=== PATIENT | female | born 1985 | race Caucasian/White ===

== ENCOUNTER 2023-05-24 20:18 | Outpatient (REF) | payer OTHER, SELFPAY ==
[2023-05-30 08:07] LABS: Age Gdln ACOG Testing Note (.); HPV Aptima Negative (Negative); IGP, Aptima HPV, rfx 16/18,45 Note (.)
== END 2023-05-24 20:19 | disposition home or self-care (01) ==
LOC: LAB 20:18
PROVIDERS: Visit Provider Obstetrics & Gynecology
DX: Z01.419 Encounter for gynecological examination (general) (routine) without abnormal findings (principal)
CPT/HCPCS: 87624; G0145

== ENCOUNTER 2023-10-01 19:17 | Emergency (ER) | payer OTHER, SELFPAY ==
[2023-10-01 19:23] VITALS: BP 144/88; PULSE 92; RESP 20; TEMP 36.8; O2SAT 98; BMI 42.1
--- NOTE | 2023-10-01 19:35 | ED.BACK1 ---
HPI - Back Pain/Injury General Chief Complaint: Back Pain/Injury Stated Complaint: back pain Time Seen by Provider: 10/01/23 19:20 Source: patient Mode of arrival: Wheelchair Limitations: no limitations History of Present Illness HPI Narrative: Patient is a 38-year-old female with a history of morbid obesity who presents to the ER for a 4-day history of pain in the paraspinal muscles of the right low back. She states pain is right above the right hip/buttock. There is no pain radiation to the legs, no peripheral paresthesias. No urinary symptoms. She denies any mechanism of injury or trauma. She was seen yesterday at [facility], she had negative x-rays and was prescribed Cary and Robaxin. She states she has had 2 doses of that medication today without improvement and is still having difficulty moving. She is not concerned for . She has no pain to the midline spine. Related Data Home Medications Medication Instructions Recorded Confirmed albuterol sulfate 90 mcg/actuation 2 puff inhalation Q4H PRN 10/01/23 10/01/23 aerosol inhaler shortness of breath or wheezing bupropion HCl 100 mg tablet,12 hr 100 mg PO Q12H 10/01/23 10/01/23 sustained-release carbamazepine 200 mg tablet 200 mg PO Q12H 10/01/23 10/01/23 hydrocodone 5 mg-acetaminophen 325 1 tab PO Q4H PRN pain 10/01/23 10/01/23 mg tablet hydroxyzine pamoate 50 mg capsule 50 mg PO Q6H 10/01/23 10/01/23 levothyroxine 137 mcg tablet 137 mcg PO DAILY 10/01/23 10/01/23 lumateperone 42 mg capsule 42 mg PO DAILY 10/01/23 10/01/23 (Caplyta) metformin 500 mg tablet,extended 500 mg PO DAILY 10/01/23 10/01/23 release 24 hr methocarbamol 500 mg tablet 500 mg PO 10/01/23 naproxen 500 mg tablet 500 mg PO Q12H 10/01/23 10/01/23 ropinirole 0.5 mg tablet 0.5 mg PO BID 10/01/23 10/01/23 ubrogepant 100 mg tablet (Ubrelvy) 100 mg PO PRN Migrain 10/01/23 Previous Rx's Medication Instructions Recorded methylprednisolone 4 mg tablets in See Rx Instructions .Route 10/01/23 a dose pack (Medrol (Rafael)) .COMPLEX #21 ea Allergies Allergy/AdvReac Type Severity Reaction Status Date / Time No Known Drug Allergies Allergy Verified 10/01/23 19:29 Review of Systems ROS Constitutional Denies: fever or chills Ears, nose, mouth, and throat Denies: throat pain Cardiovascular Denies: chest pain Respiratory Denies: shortness of breath or cough Gastrointestinal Denies: abdominal pain, nausea or vomiting Musculoskeletal Reports: back pain; Denies: neck pain Integumentary/Breast Denies: rash Neurological Denies: numbness in extremities or weakness in extremities Endocrine Denies: excessive urination PFSH PFSH Social History Smoking status: Never smoker Exam Narrative Exam Narrative: Gen.: Awake, alert, in no distress Head: Normocephalic, atraumatic ENT: Moist mucous membranes Respiratory: No respiratory distress Back: No bony point tenderness of the T-spine or L-spine with diffuse tenderness of the paraspinal muscles of the right low back, no CVA tenderness Extremities: Moves extremities equally; normal dorsiflexion and plantarflexion of the lower extremities, no decrease in sensation to the medial thighs with normal hip flexion bilaterally Psych: Normal mood and affect Neuro: No focal neuro deficit Skin: Warm, dry, intact Constitutional Vital Signs, click to edit/add: Last Vital Signs Temp 98.2 F 10/01/23 19:23 Pulse 67 10/01/23 20:28 Resp 16 10/01/23 20:28 BP 139/74 10/01/23 20:28 Pulse Ox 100 10/01/23 20:28 O2 Del Method Room Air 10/01/23 20:28 Course Vital Signs Vital signs: Vital Signs Temperature 98.2 F 10/01/23 19:23 Pulse Rate 92 H 10/01/23 19:23 Respiratory Rate 20 10/01/23 19:23 Blood Pressure 144/88 H 10/01/23 19:23 Pulse Oximetry 98 10/01/23 19:23 Oxygen Delivery Method Room Air 10/01/23 19:23 Temperature 98.2 F 10/01/23 19:23 Pulse Rate 67 10/01/23 20:28 Respiratory Rate 16 10/01/23 20:28 Blood Pressure 139/74 10/01/23 20:28 Pulse Oximetry 100 10/01/23 20:28 Oxygen Delivery Method Room Air 10/01/23 20:28 MDM - Back Pain/Injury MDM Narrative Medical decision making narrative: Records from [facility] show the patient had x-rays of the lumbar spine and abdomen. These were unremarkable. She was discharged with Teri Silver. She is given a Medrol Dosepak from this emergency department tonight. She had an IV started with labs drawn, she had a negative test and unremarkable labs. Records from [facility] show the patient was also seen by her urologist 2 days ago with no concern for acute ureteral stone. After IV pain medication, the patient was able to rest comfortably with rating pain 1/10. Vital signs are normal, she has no focal neurodeficits. She will need to follow-up with her PCP for further evaluation and treatment. Rest, ice, gentle stretching. Medical Records Attestation: I reviewed the patient's medical records. Lab Data Attestation: I reviewed the patient's lab results. Labs: Lab Results 10/01/23 Range/Units 19:42 WBC 11.2 H (4.0-11.0) 10^3/uL RBC 4.12 L (4.20-5.40) 10^6/uL Hgb 12.6 (12.0-16.0) g/dL Hct 38.5 (36.0-48.0) % MCV 93.4 (81.0-99.0) fL MCH 30.6 (26.7-34.0) pg MCHC 32.7 (29.9-35.2) g/dL RDW 12.4 (11.0-15.0) % Plt Count 278 (150-450) 10^3/uL MPV 9.2 L (9.5-13.5) fL Neut % (Auto) 67.3 (43.0-75.0) % Lymph % (Auto) 24.9 (20.5-60.0) % Ransom % (Auto) 5.3 (1.7-12.0) % Eos % (Auto) 1.4 (0.9-7.0) % Baso % (Auto) 0.3 (0.2-2.0) % Neut # (Auto) 7.6 H (1.4-6.5) 10^3/uL Lymph # (Auto) 2.8 (1.2-3.8) 10^3/uL Ransom # (Auto) 0.6 (0.3-0.8) 10^3/uL Eos # (Auto) 0.2 (0.0-0.7) 10^3/uL Baso # (Auto) 0.0 (0.0-0.1) 10^3/uL Abs Immat Gran (auto) 0.09 H (0.00-0.03) 10^3/uL Imm/Tot Granulo (auto) 0.8 H (0.0-0.5) % Sodium 138 (136-145) mmol/L Potassium 3.9 (3.5-5.1) mmol/L Chloride 102 (98-107) mmol/L Carbon Dioxide 25.7 (21.0-32.0) mmol/L Anion Gap 14.2 BUN 20.0 H (7.0-18.0) mg/dL Creatinine 0.98 (0.55-1.02) mg/dL Est GFR ( Amer) >60 (>=60) Est GFR (Non-Af Amer) >60 (>=60) BUN/Creatinine Ratio 20.4 Glucose 96 (74-106) mg/dL Calcium 9.0 (8.5-10.1) mg/dL Serum HCG, Qual Negative (NEGATIVE) Discharge Plan Discharge Chief Complaint: Back Pain/Injury Clinical Impression: Low back pain, Lumbosacral strain Patient Disposition: Home, Self-Care Time of Disposition Decision: 20:46 Condition: Good Mode of Transportation: Private Vehicle Prescriptions / Home Meds: New methylprednisolone [Medrol (Rafael)] 4 mg tablets,dose pack See Rx Instructions .ROUTE .COMPLEX Qty: 21 0RF Rx Instructions: Taper as directed No Action albuterol sulfate 90 mcg/actuation HFA aerosol inhaler 2 puff INHALATION Q4H PRN (Reason: shortness of breath or wheezing) bupropion HCl 100 mg tablet sustained-release 12 hr 100 mg PO Q12H carbamazepine 200 mg tablet 200 mg PO Q12H hydrocodone-acetaminophen 5-325 mg tablet 1 tab PO Q4H PRN (Reason: pain) hydroxyzine pamoate 50 mg capsule 50 mg PO Q6H levothyroxine 137 mcg tablet 137 mcg PO DAILY Caplyta 42 mg capsule 42 mg PO DAILY metformin 500 mg tablet extended release 24 hr 500 mg PO DAILY methocarbamol 500 mg tablet 500 mg PO naproxen 500 mg tablet 500 mg PO Q12H ropinirole 0.5 mg tablet 0.5 mg PO BID Ubrelvy 100 mg tablet 100 mg PO PRN (Reason: Migrain) Instructions: Low Back Strain (ED), Acute Low Back Pain (ED) Stand Alone Forms: Portal Instructions Referrals: Physician,Non-Staff, MD [Primary Care Provider] - 1 week Discharge Date/Time: 10/01/23 20:55
[2023-10-01] MEDS: KETOROLAC TROMETHAMINE 30 MG/ML VIAL IVP (19:48)
[2023-10-01] MEDS: ORPHENADRINE 60 MG/ 2 ML VIAL IV (19:48)
[2023-10-01] MEDS: HYDROMORPHONE HCL 1 MG/ML CARTRIDGE IV (19:48)
[2023-10-01] MEDS: ONDANSETRON PF 4 MG/2 ML VIAL IV (19:48)
[2023-10-01 20:01] LABS: Basophils Percent Auto 0.3 % (0.2-2.0); Eosinophils Absolute Auto 0.2 10^3/uL (0.0-0.7); Eosinophils Percent Auto 1.4 % (0.9-7.0); Hematocrit 38.5 % (36.0-48.0); Hemoglobin 12.6 g/dL (12.0-16.0); Immature Granulocytes Abs Auto 0.09 10^3/uL (0.00-0.03); Immature Granulocytes Pct Auto 0.8 % (0.0-0.5); Lymphocytes Absolute Auto 2.8 10^3/uL (1.2-3.8); Lymphocytes Percent Auto 24.9 % (20.5-60.0); Mean Corpuscular HGB Conc 32.7 g/dL (29.9-35.2); Mean Corpuscular Hemoglobin 30.6 pg (26.7-34.0); Mean Corpuscular Volume 93.4 fL (81.0-99.0); Mean Platelet Volume 9.2 fL (9.5-13.5); Monocytes Absolute Auto 0.6 10^3/uL (0.3-0.8); Monocytes Percent Auto 5.3 % (1.7-12.0); Neutrophils Absolute Auto 7.6 10^3/uL (1.4-6.5); Neutrophils Percent Auto 67.3 % (43.0-75.0); Platelet Count 278 10^3/uL (150-450); Red Blood Count 4.12 10^6/uL (4.20-5.40); Red Cell Distribution Width 12.4 % (11.0-15.0); White Blood Count 11.2 10^3/uL (4.0-11.0)
[2023-10-01 20:06] LABS: Anion Gap 14.2; BUN Creatinine Ratio 20.4; Carbon Dioxide 25.7 mmol/L (21.0-32.0); Chloride 102 mmol/L (98-107); Estimated GFR (African America >60 (>=60); Estimated GFR (Non-African Ame >60 (>=60); Glucose 96 mg/dL (74-106); Potassium 3.9 mmol/L (3.5-5.1); Sodium 138 mmol/L (136-145)
[2023-10-01 20:07] LABS: HCG Qualitative NEGATIVE (NEGATIVE)
[2023-10-01 20:28] VITALS: BP 139/74; PULSE 67; RESP 16; O2SAT 100
== END 2023-10-01 20:55 | disposition home or self-care (01) ==
PROVIDERS: Physician Assistant; Emergency Provider Internal Medicine
DX: S39.012A Strain of muscle, fascia and tendon of lower back, initial encounter (principal); E66.01 Morbid (severe) obesity due to excess calories; Z68.41 Body mass index [BMI] 40.0-44.9, adult; Z79.899 Other long term (current) drug therapy; Z79.84 Long term (current) use of oral hypoglycemic drugs; Z79.890 Hormone replacement therapy; X58.XXXA Exposure to other specified factors, initial encounter
CPT/HCPCS: 36415; 80048; 84703; 85025; 96374; 96375; 99284; J1170

== ENCOUNTER 2023-12-21 10:20 | Emergency (ER) | payer OTHER, SELFPAY ==
--- OUTSIDE RECORDS SUMMARY | 2023-12-21 10:28 | XMS_ITS | CCD ---
Author Name Unknown Address [address] [place] [id number] [facility] Team Providers Care Materials Planning Manager Name Role Phone Reginald ASHER Primary Care Physician [phone] Cara Davey Unavailable Unavailable Jose, Dr. Wolfgang Lilly Attending U navailable Lb, Dr. Reginald James Primary Care Unavailable Jose, Dr. Wolfgang Lilly Attending U geeta Asher, Dr. Reginald James Primary Care Unavailable Lb, Dr. Reginald James Referring Unavailable Jose, Dr. Wolfgang Lilly Admitting U navailable Jose, Dr. Wolfgang Lilly Attending U geeta Asher, Dr. Reginald James Primary Care Unavailable KATHY ., DR ARANA Admitting Unavailable KATHY ., DR ARANA Attending Unavailable FAWWANilsa, MEZA H Primary Care Unavailable EVERETT, DR TARA Pruitt Consulting Unavailable KATHY ., DR ARANA Attending Unavailable KATHY ., DR ARANA Admitting Unavailable KATHY ., DR ARANA Consulting Unavailable KATHY ., DR ARANA Attending Unavailable KATHY ., DR ARANA Consulting Unavailable KATHY ., DR ARANA Admitting Unavailable KAPLE, DR ERAZO Consulting Unavailable REINALDO ., RAMONITA Attending Unavailable REINALDO ., RAMONITA Consulting Unavailable REINALDO ., RAMONITA Admitting Unavailable FAWWAD, MEZA H Primary Care Unavailable FAWWAD, MEZA H Admitting Unavailable FAWWAD, MEZA H Attending Unavailable FAWWAD, MEZA H Consulting Unavailable FAWWAD, MEZA H Primary Care Unavailable Anderson Paredes Unavailable Shaikh Zoey Nolasco MD Primary Care Provider DO Reginald Asher Primary Care Provider MD Flaco Sanchez Admit Provider MD Flaco Sanchez Attending Provider [facility] Unavailab le ROBIN, LYLA D Attending Unavailable ROBIN, LYLA D Referring Unavailable SHEN AMRIT E Referring Unavailable SHEN AMRIT E Attending Unavailable [facility], [facility] Primary Care Unavailab le FAWWAD, [facility] Care Unavailab le GOTTI, AMRIT E Referring Unavailable GOTTI AMRIT E Attending Unavailable [facility], [facility] Care Unavailab OLMAN Wills Attending Unavailable SELF, SELF Referring Unavailable SHEN AMRIT E Referring Unavailable FAWWAD, [facility] Care Unavailab le GOTTI, AMRIT E Attending Unavailable [facility], [facility] Unavailab OLMAN Wills Attending Unavailable OLMAN WOMACK Referring Unavailable SHEN AMRIT E Attending Unavailable [facility], [facility] Care Unavailab le SELF, SELF Referring Unavailable GOTTI, AMRIT E Attending Unavailable SHEN AMRIT E Referring Unavailable [facility], [facility] Primary Care Unavailab le GOTTI, AMRIT E Referring Unavailable WWAD, [facility] Primary Care Unavailab le ROBIN, LYLA D Attending Unavailable [facility], [facility] Primary Care Unavailab le FAWWAD, [facility] Care Unavailab le RBOIN, LYLA D Attending Unavailable ROBIN, LYLA D Referring Unavailable Reginald ASHER Admitting Unavailable Clau Moreland Attending Unavailable Clau Moreland Attending Unavailable Clau Moreland Attending Unavailable Reginald ASHER Attending Unavailable Reginald ASHER Attending Unavailable Harshal Ansari Attending Unavailable Jorge Mullins Attending Unavailable DO Faby Chopra Attending Unavailable Harshal Ansari Attending Unavailable Rizwan, Gentry H Attending Unavailable VijieClau MJonh Admitting Unavailable Lue Clau MJonh Attending Unavailable Lue Clau MJonh Referring Unavailable Lue Clau MJonh Referring Unavailable LueClau Admitting Unavailable Lue, Clau M. Attending Unavailable Clau Moreland Admitting Unavailable Clau Moreland Attending Unavailable Reginald ASHER Admitting Unavailable Reginald ASHER Attending Unavailable Mark Ennis Attending Unavailable Reginald Asher DO Primary Care Provider SELF, SELF Referring Unavailable FAWWAD, [facility] Primary Care Unavailab le BOROFF, OLMAN Attending Unavailable SELF, SELF Referring Unavailable FAWWAD, [facility] Primary Care Unavailab le BOROFF, OLMAN Attending Unavailable FAWWAD, [facility] Primary Care Unavailab le BOROFF, OLMAN Attending Unavailable VU, OLMAN Referring Unavailable REGINALD ASHER Primary Care Unavailable FAWARD, [facility] Referring Unavailab le LYLA KELLY Attending Unavailable CLAYTON LINDSEY Attending Unavailable CLAYTON LINDSEY Referring Unavailable FA[facility], [facility] Primary Care Unavailab AMRIT Vera Referring Unavailable CLAYTON LINDSEY Attending Unavailable [facility], [facility] Primary Care Unavailab le FAWWAD, [facility] Primary Care Unavailab AMRIT Vera Referring Unavailable LYLA KELLY Attending Unavailable Flaco Sanchez Attending Unavailab Reginald Feliz Primary Care Unavailable Flaco Sanchez Admitting Unavailab le Flaco Sanchez Attending Unavailab Reginald Feliz Primary Care Unavailable Flaco Sanchez Admitting Unavailab le Allergies Allergy Classification Reported Allergen(s) Allergy Type Date of Onset Reaction(s) Facility (20 sources) Contrast media; Translations: [Contrast Dye] Drug allergy Eruption of skin (disorder) [facility] (1 source) Contrast Allergy PreMed Pack Drug allergy Unknown Boomi Other (16 sources) Diatrizoate Drug Allergy 3 [facility] (2 sources) Gadolinium-Cont aining Contrast Medi; Translations: [Gadolinium-Con taining Contrast Medi] Allergy to substance 3 [facility] (2 sources) Iodinated Contrast Media; Translations: [Iodinated Contrast Media] Allergy to substance 3 [facility] Medications Current Medications Medication Drug Class(es) Dates Sig (Normalized) Sig (Original) acetaminophen 325 mg / HYDROcodone bitartrate 5 mg oral tablet (1 source) Opioid Agonist Start: 09-30-2023 End: 10-02-2023 [place] 325 mg-5 mg oral tablet 1 tab(s), Oral, q6hr for pain for 2 day(s), 7 tab(s), Refill(s) 0, [facility] #[id number], 175, cm, 09/30/23 19:10:00 EST, Height/Length Dosing, 135.5, kg, 09/30/23 19:10:00 EST, Weight Dosing Start Date: 09/30/23 Stop Date: 10/02/23 Status: Ordered Ajovy Autoinjector 225 mg/1.5 mL subcutaneous solution (7 sources) Start: 08-19-2021 Ajovy Autoinjector 225 mg/1.5 mL subcutaneous solution Refills(s) 0 Start Date: 08/19/21 Status: Ordered [id number] 200 actuat albuterol 0.09 mg/actuat metered dose inhaler (1 source) beta2-Adrenergic Agonist take 2 puff(s) by mouth every four hours for wheezing Albuterol 108 (90 Base) MCG/ACT Aero Soln inhaler inhale 2 puffs by mouth every 4 hours if needed for wheezing 0 Active Albuterol (Eqv-ProAir HFA) 90 mcg/inh inhalation aerosol (5 sources) Start: 06-03-2023 take 2 puff(s) by inhalation every four hours Albuterol (Eqv-ProAir HFA) 90 mcg/inh inhalation aerosol 2 puff(s), Inhalation, q4hr Wheezing, 18 gm, Refill(s) 0, [facility] #[id number], 175, cm, 06/03/23 22:16:00 EDT, Height/Length Dosing, 127.2, kg, 06/03/23 22:16:00 EDT, Weight Dosing Start Date: 06/03/23 Status: Ordered brexpiprazole 1 mg oral tablet (2 sources) Atypical Antipsychotic Start: 08-19-2021 Rexulti 1 mg oral tablet Refills(s) 0 Start Date: 08/19/21 Status: Ordered brompheniramine maleate 0.4 mg/ml / dextromethorphan hydrobromide 2 mg/ml / pseudoephedrine hydrochloride 6 mg/ml oral solution (9 sources) alpha-Adrenergic Agonist, Uncompetitive H-xfzzlo-I-aspartat e Receptor Antagonist, Sigma-1 Agonist Start: 12-29-2022 take 5 mL by mouth four times daily for cough and congestion Bromfed DM oral syrup 5 mL, Oral, QID for cough and congestion, 200 mL, Refill(s) 0, [facility] #[id number], 175, cm, 12/28/22 23:23:00 EDT, Height/Length Dosing, 132.9, kg, 12/28/22 23:23:00 EDT, Weight Dosing Start Date: 12/29/22 Status: Ordered 12 hr buPROPion hydrochloride 100 mg extended release oral tablet (5 sources) Aminoketone Start: 09-29-2023 buPROPion 100 mg ER Tab Refills(s) 0 Start Date: 09/29/23 Status: Ordered Start: 09-24-2023 take 100 mg by mouth twice rosalinda ly Bupropion Hcl Active 100 MG PO Twice daily 30 September 24, 2023 12:00am carBAMazepine 200 mg oral tablet (20 sources) Mood Stabilizer Start: 09-29-2023 carbamazepine 200 mg Tab Refills(s) 0 Start Date: 09/29/23 Status: Ordered Start: 09-22-2023 End: 09-24-2023 take 200 mg by mouth twice daily Carbamazepine Discontinued 200 MG PO Twice daily September 22, 2023 12:00am September 24, 2023 9:06am Start: 05-02-2023 carBAMazepine 200 MG tablet 1 tab qPM; may increase to BID as tolerated 0 05/02/2023 Active take 2 tablets by mo uth every twenty-four hours carBAMazepine 200 MG 2 tablets Orally once a day Active dicyclomine hydrochloride 20 mg oral tablet (1 source) Anticholinergic Start: 04-19-2023 take 1 tablet by mouth every eight hours Dicyclomine HCl 20 MG 1 tablet Orally Three times a day for 30 days Apr, Active Emgality (1 source) Emgality Active famotidine 40 mg oral tablet (2 sources) Histamine-2 Receptor Antagonist Start: 04-19-2023 take 1 tablet by mouth once daily famotidine 40 MG tablet Take 1 tablet by mouth Every night. 0 04/19/2023 Active Flonase 0.05 mg/inh nasal spray (17 sources) Start: 03-18-2021 take 1 spray(s) nasal route twice daily Flonase 0.05 mg/inh nasal spray 1 spray(s), Nasal, BID, 16 gram, Refill(s) 0, each nostril, [facility]/pharmacy #[id number], 175, cm, 02/16/21 20:51:00 EDT, Height/Length Dosing, 119.1, kg, 02/16/21 20:51:00 EDT, Weight Dosing Start Date: 03/18/21 Status: Ordered fluticasone propionate 0.05 mg/actuat metered dose nasal spray (8 sources) Corticosteroid Start: 03-16-2023 take 2 spray(s) nasal route once daily fluticasone 50 MCG/ACT Suspension nasal spray instill 2 sprays into each nostril once daily Nasal for 30 0 03/16/2023 Active Start: 03-18-2021 take 1 spray(s) nasa l route twice daily Flonase 0.05 mg/inh nasal spray 1 spray(s), Nasal, BID, 16 gram, Refill(s) 0, each nostril, [facility]/pharmacy #[id number], 175, cm, 02/16/21 20:51:00 EDT, Height/Length Dosing, 119.1, kg, 02/16/21 20:51:00 EDT, Weight Dosing Start Date: 03/18/21 Status: Ordered 1.5 ml fremanezumab-vfrm 150 mg/ml auto-injector (12 sources) Start: 08-19-2021 Ajovy Autoinje ctor 225 mg/1.5 mL subcutaneous solution Refills(s) 0 Start Date: 08/19/21 Status: Ordered 1 ml galcanezumab-gnlm 120 m g/ml auto-injector (18 sources) Start: 10-07-2023 Emgality Prefi lled Pen 120 mg/mL subcutaneous solution Refills(s) 0 Start Date: 10/07/23 Status: Ordered Galcanezumab-gnl m (Emgality, 300 MG Dose,) 100 MG/ML Solution Prefilled Syringe hydrOXYzine pamoate 50 mg oral capsule (3 sources) Antihistamine Start: 09-29-2023 hydrOXYzine pa moate 50 mg Cap Refills(s) 0 Start Date: 09/29/23 Status: Ordered Start: 09-24-2023 take 50 mg by mouth every six hours Hydroxyzine Pamoate Active 50 MG PO Q6H 30 September 24, 2023 12:00am ibuprofen 600 mg oral tablet (15 sources) Nonsteroidal Anti-inflammatory Drug Start: 02-05-2022 take 1 tablet by mouth every six hours ibuprofen 600 mg Tab 600 mg = 1 tab(s), Oral, q6hr, # 40 tab(s), Refills(s) 0, [facility], 175, cm, 02/05/22 21:25:00 EDT, Height/Length Dosing, 132.7, kg, 02/05/22 21:25:00 EDT, Weight Dosing Start Date: 02/05/22 Status: Ordered levothyroxine sodium 0.137 mg oral tablet (10 sources) l-Thyroxine Start: 10-07-2023 take 1 tablet by mouth once daily Synthroid 137 mcg (0.137 mg) Tab 137 mcg = 1 tab(s), Oral, Daily Start Date: 10/07/23 Status: Ordered Start: 09-22-2023 take 137 ug by mouth once claudine y Levothyroxine Active 137 MCG PO Daily at 629September 22, 2023 12:00am take 1 tablet by samuel th once daily in the morning Synthroid 137 MCG 1 tablet in the morning on an empty stomach Orally Once a day Active lithium carbonate 450 mg extended release oral tablet (19 sources) Start: 12-01-2021 take 2 tablets by mouth once daily lithium 450 mg oral tablet, extended release 900 mg = 2 tab(s), Oral, Daily, # 180 tab(s), Refills(s) 0 Start Date: 12/01/21 Status: Ordered loratadine 10 mg oral tablet (6 sources) take 1 tablet by mouth once daily Loratadine 10 MG tablet Take 1 tablet by mouth daily. 0 Active metFORMIN hydrochloride 500 mg oral tablet (20 sources) Biguanide Start: 10-07-2023 take 1 tablet by mouth once daily metformin 500 mg ER Tab 500 mg = 1 tab(s), Oral, Daily, # 90 tab(s), Refills(s) 0 Start Date: 10/07/23 Status: Ordered Start: 09-22-2023 take 500 mg by mouth once claudine y Metformin Active 500 MG PO Daily with supper September 22, 2023 12:00am take 1 tablet by samuel th every twenty-four hours metFORMIN-XR 500 MG Tab SR 24 HR Take 1 tablet by mouth. 0 Active take 1 tablet by samuel th every twenty-four hours metFORMIN HCl ER 500 MG 1 tablet with evening meal Orally Once a day Active methocarbamol 500 mg oral tablet (2 sources) Muscle Relaxant Start: 09-30-2023 End: 10-03-2023 take 1 tablet by mouth three times daily Robaxin 500 mg Tab 500 mg = 1 tab(s), Oral, TID, X 3 day(s), # 9 tab(s), Refills(s) 0, Pharmacy: [facility] #[id number], 175, cm, 09/30/23 19:10:00 EST, Height/Length Dosing, 135.5, kg, 09/30/23 19:10:00 EST, Weight Dosing Start Date: 09/30/23 Stop Date: 10/03/23 Status: Ordered Start: 04-15-2023 End: 04-18-2023 take 1 tablet by mouth three times daily Robaxin-750 oral tablet 1,500 mg = 2 tab(s), Oral, TID, X 3 day(s), # 18 tab(s), Refills(s) 0, Pharmacy: [facility] #[id number], 175, cm, 04/15/23 10:01:00 EDT, Height/Length Dosing, 128, kg, 04/15/23 10:01:00 EDT, Weight Dosing Start Date: 04/15/23 Stop Date: 04/18/23 Status: Ordered Misc. Devices Misc (4 sources) naproxen 500 mg oral tablet (20 sources) Nonsteroidal Anti-inflammatory Drug Start: 12-19-19 take 1 tablet by mouth twice daily as needed for pain Naprosyn 500 mg Tab 500 mg = 1 tab(s), Oral, BID, PRN for pain, # 20 tab(s), Refills(s) 0, [facility]acy: [facility] #[id number], 175, cm, 09/30/23 19:10:00 EST, Height/Length Dosing, 135.5, kg, 09/30/23 19:10:00 EST, Weight Dosing Start Date: 09/30/23 Status: Ordered omeprazole 40 mg delayed release oral capsule (14 sources) Proton Pump Inhibitor Start: 10-21-19 take 1 capsule by mouth once daily omeprazole 40 mg Cap-DR 40 mg = 1 cap(s), Oral, Daily, # 30 cap(s), Refills(s) 2, Pharmacy: [facility], 175, cm, 10/21/21 9:09:00 EST, Height/Length Dosing, 134.3, kg, 10/21/21 9:09:00 EST, Weight Dosing Start Date: 10/21/21 Status: Ordered omeprazole 40 mg Cap-DR (7 sources) Start: 10-21-19 take 1 capsule by mouth once daily omeprazole 40 mg Cap-DR 40 mg = 1 cap(s), Oral, Daily, # 30 cap(s), Refills(s) 2, Pharmacy: [facility], 175, cm, 10/21/21 9:09:00 EST, Height/Length Dosing, 134.3, kg, 10/21/21 9:09:00 EST, Weight Dosing Start Date: 10/21/21 Status: Ordered permethrin 10 mg/ml medicated shampoo (2 sources) Pyrethroid Start: 09-29-20 Nix Cream Rinse 1% topical lotion Refill(s) 0 Start Date: 09/29/23 Status: Ordered phentermine hydrochloride 37.5 mg oral tablet (19 sources) Sympathomimetic Amine Anorectic Start: 01-27-20 Adipex-P 37.5 mg Tab 37.5 mg = 1 tab(s), Oral, Daily, BMI 43 #3 30 day supply before breakfast, # 30 tab(s), Refills(s) 0, Pharmacy: [facility], 175, cm, 01/26/22 15:23:00 EDT, Height/Length Dosing, 132.7, kg, 01/26/22 15:23:00 EDT, Weight Dosing Start Date: 01/26/22 Status: Ordered Start: 12-31-2021 Adipex-P 37.5 mg Tab 37.5 mg = 1 tab(s), Oral, Daily, BMI 43 #2 30 day supply before breakfast, # 30 tab(s), Refills(s) 0, Pharmacy: [id number], 175, cm, 12/31/21 15:10:00 EDT, Height/Length Dosing, 132, kg, 12/31/21 15:10:00 EDT, Weight Dosing Start Date: 12/31/21 Status: Ordered predniSONE 20 mg oral tablet (1 source) Start: 04-15-2023 End: 04-22-2023 take 3 tablets by mouth once daily predniSONE 20 mg Tab 60 mg = 3 tab(s), Oral, Daily, X 7 day(s), # 21 tab(s), Refills(s) 0, Pharmacy: [facility] #[id number], 175, cm, 04/15/23 10:01:00 EDT, Height/Length Dosing, 128, kg, 04/15/23 10:01:00 EDT, Weight Dosing Start Date: 04/15/23 Stop Date: 04/22/23 Status: Ordered rOPINIRole 0.5 mg oral tablet (20 sources) Nonergot Dopamine Agonist Start: 09-24-2023 take 0.5 mg by mouth once daily at bedtime Ropinirole Active 0.5 MG PO Daily at bedtime September 24, 2023 12:00am Start: 09-22-2023 take 0.5 mg by mouth three times daily Ropinirole Active 0.5 MG PO Three times daily September 22, 2023 12:00am Start: 03-14-2019 take 2 tablets by [facility] three times daily Requip 0.5 mg Tab mg tab(s), Oral, TID, Refills(s) 0 Start Date: 03/14/19 Status: Ordered rOPINIRole 0.5 M G tablet Every 8 hours. 0 Active Requip Active traZODone hydrochloride 50 mg oral tablet (5 sources) Serotonin Reuptake Inhibitor Start: 09-29-2023 traZODONE 50 mg Tab Refills(s) 0 Start Date: 09/29/23 Status: Ordered Start: 09-24-2023 take 50 mg by mouth once daily at bedtime Trazodone Active 50 MG PO Daily at bedtime September 24, 2023 12:00am ubrogepant 100 mg oral table t (20 sources) Start: 09-22-2023 Ubrogepant (Ub relvy) 100 mg tablet Active 100 MG PO September 22, 2023 12:00am Start: 08-19-2021 Ubrelvy 50 mg oral tablet Refills(s) 0 Start Date: 08/19/21 Status: Ordered Zofran ODT 4 mg Tab-Dis (9 sources) Start: 12-29-2022 take 1 tablet by mouth every eight hours as needed for nausea Zofran ODT 4 mg Tab-Dis 4 mg = 1 tab(s), Oral, q8hr, PRN Nausea/Vomiting, # 12 tab(s), Refills(s) 0, [id number], 175, cm, 12/28/22 23:23:00 EDT, Height/Length Dosing, 132.9, kg, 12/28/22 23:23:00 EDT, Weight Dosing Start Date: 12/29/22 Status: Ordered Completed/Discontinued Medications Medication Drug Class(es) Dates Sig (Normalized) Sig (Original) potassium chloride 20 meq extended release oral tablet (19 sources) Start: 10-24-2020 take 1 tablet by mouth once daily potassium chloride 20 mEq ER Tab 20 mEq = 1 tab(s), Oral, Daily, # 90 tab(s), Refills(s) 3, Pharmacy: [facility]/pharmacy #[id number], 175, cm, 10/24/20 15:22:00 EST, Height/Length Dosing, 120, kg, 10/24/20 15:26:00 EST, Weight Dosing Start Date: 10/24/20 Status: Ordered 1000 ml sodium chloride 9 mg/ml injection (1 source) Start: 2023 End: 07-09-2023 Sodium chloride 0.9% IV solution Problems Active Problems Problem Classification Problem Date Documented Da te Episodic/Chronic Abdominal pain (19 sources) Lower abdominal pain 08-21-2021 Episodic Acute and chronic tonsillitis (9 sources) Hypertrophy of tonsils with hypertrophy of adenoids; Translations: [Hypertrophy of tonsils] Onset: 04-20-2022 Chronic Administrative/social admission (7 sources) Patient encounter status; Translations: [Dietary counseling and surveillance] Onset: 10-18-2023 06-15-2023 Episodic Allergic reactions (20 sources) Allergy to food 03-14-2019 Episodic Anxiety disorders (20 sources) Anxiety disorder; Translations: [Anxiety state] Resolved: 03-14-2019 04-13-2019 Chronic Calculus of urinary tract (20 sources) Kidney stone; Translations: [Ureteric stone] Onset: 07-01-2010 08-21-2021 Episodic Diseases of white blood cells (19 sources) Leukocytosis 12-23-2020 Chronic Esophageal disorders (11 sources) Acid reflux; Translations: [Gastro-esophageal reflux disease without esophagitis] Onset: 09-13-2023 Chronic Fluid and electrolyte disorders (19 sources) Hypokalemia 03-14-2019 Episodic Genitourinary congenital anomalies (19 sources) Double ureter; 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] Onset: 02-11-2022 Chronic Genitourinary symptoms and ill-defined conditions (9 sources) Stress incontinence (female) (male); Translations: [Genuine stress incontinence] Onset: 03-14-2023 Chronic Genitourinary symptoms and ill-defined conditions (20 sources) Nocturia; Translations: [Nocturia] Onset: 02-11-2022 11-23-2021 Episodic Headache; including migraine (20 sources) Migraine; Translations: [Migraine, unspecified, not intractable, without status migrainosus] Onset: 10-07-2023 08-05-2017 Chronic Headache; including migraine (1 source) Morning headache; Translations: [Morning headache] 06-28-2023 Episodic Malaise and fatigue (20 sources) Fatigue; Translations: [Other fatigue] Onset: 11-17-2023 12-23-2020 Episodic Menopausal disorders (19 sources) Menopause finding 12-23-2020 Chronic Menstrual disorders (20 sources) Amenorrhea 03-14-2019 Chronic Miscellaneous mental health disorders (2 sources) Eating disorder; Translations: [Eating disorder, unspecified] 11-10-2023 Chronic Mood disorders (20 sources) Mild depressed bipolar I disorder; Translations: [Recurrent major depressive episodes, moderate ] Onset: 09-22-2023 12-23-2020 Chronic Nutritional deficiencies (20 sources) Decreased vitamin D 07-16-2019 Chronic Other and unspecified benign neoplasm (1 source) History of polyp of colon; Translations: [Personal history of colonic polyps] Episodic Other circulatory disease (20 sources) Elevated blood-pressure reading without diagnosis of hypertension; Translations: [Elevated blood-pressure reading, without diagnosis of hypertension] Onset: 01-26-2022 01-15-2020 Episodic Other endocrine disorders (4 sources) Polycystic ovarian syndrome; Translations: [POLYCYSTIC OVARIAN SYNDROME] Onset: 03-26-2022 Chronic Other endocrine disorders (3 sources) Polycystic ovary syndrome; Translations: [Polycystic ovarian syndrome] Onset: 10-07-2023 Chronic Other female genital disorders (19 sources) Pain in female genitalia 03-14-2019 Episodic Other gastrointestinal disorders (1 source) Irritable bowel syndrome; Translations: [Irritable bowel syndrome without diarrhea] Chronic Other gastrointestinal disorders (1 source) Irritable bowel syndrome without diarrhea Chronic Other gastrointestinal disorders (1 source) Diarrhea; Translations: [Diarrhea, unspecified] Onset: 12-29-2022 Episodic Other hereditary and degenerative nervous system conditions (20 sources) Restless legs; Translations: [Restless legs syndrome] Onset: 10-07-2023 04-15-2020 Chronic Other lower respiratory disease (1 source) Cough; Translations: [Cough, unspecified] Onset: 12-29-2022 Episodic Other lower respiratory disease (1 source) Snoring; Translations: [Snoring] 06-28-2023 Episodic Other non-traumatic joint disorders (1 source) Pain in left knee; Translations: [Pain of left knee joint] Onset: 05-04-2023 Episodic Other nutritional; endocrine; and metabolic disorders (20 sources) Body mass index 30+ - obesity 06-19-2021 Chronic Other nutritional; endocrine; and metabolic disorders (20 sources) Body mass index 40+ - severely obese; Translations: [Body mass index (BMI) 40.0-44.9, adult] Onset: 01-26-2022 10-24-2020 Chronic Other nutritional; endocrine; and metabolic disorders (20 sources) Morbid obesity; Translations: [Morbid (severe) obesity due to excess calories] Onset: 10-07-2023 12-23-2020 Chronic Other nutritional; endocrine; and metabolic disorders (20 sources) Simple obesity 12-23-2020 Chronic Other nutritional; endocrine; and metabolic disorders (1 source) Obesity, unspecified; Translations: [Obesity, unspecified] Onset: 06-25-2022 Chronic Other nutritional; endocrine; and metabolic disorders (1 source) Body mass index (BMI) 40.0-44.9, adult; Translations: [Body mass index [BMI] 40.0-44.9, adult] Onset: 06-25-2022 Chronic Other nutritional; endocrine; and metabolic disorders (2 sources) Morbid (severe) obesity due to excess calories; Translations: [Morbid (severe) obesity due to excess calories] Onset: 06-07-2023 Chronic Other nutritional; endocrine; and metabolic disorders (4 sources) Overweight; Translations: [Overweight] Onset: 11-17-2023 06-28-2023 Episodic Other nutritional; endocrine; and metabolic disorders (1 source) Overweight; Translations: [Overweight] Onset: 11-17-2023 Episodic Other screening for suspected conditions (not mental disorders or infectious disease) (20 sources) Abnormal findings on diagnostic imaging of urinary organs; Translations: [Abnormal radiologic findings on diagnostic imaging of left kidney] Onset: 10-07-2023 08-21-2021 Episodic Other upper respiratory disease (19 sources) Allergic rhinitis due to pollen 07-16-2019 Chronic Other upper respiratory disease (20 sources) Allergy to pollen 07-16-2019 Chronic Other upper respiratory disease (2 sources) Chronic rhinitis; Translations: [Chronic rhinitis] Onset: 06-25-2022 Chronic Other upper respiratory infections (1 source) Acute upper respiratory infection; Translations: [Acute upper respiratory infection, unspecified] Onset: 06-03-2023 Episodic Personality disorders (2 sources) Borderline personality disorder; Translations: [Borderline personality disorder] 11-10-2023 Chronic Residual codes; unclassified (20 sources) Obstructive sleep apnea syndrome; Translations: [Obstructive sleep apnea (adult) (pediatric)] Onset: 01-29-2022 Resolved: 03-14-2019 07-16-2019 Chronic Residual codes; unclassified (20 sources) Sleep apnea 08-05-2017 Chronic Residual codes; unclassified (8 sources) Obstructive sleep apnea (adult) (pediatric); Translations: [Obstructive sleep apnea (adult) (pediatric)] Onset: 06-25-2022 Chronic Residual codes; unclassified (3 sources) Hypoxia; Translations: [Idiopathic sleep related nonobstructive alveolar hypoventilation] 06-28-2023 Chronic Residual codes; unclassified (3 sources) Periodic limb movement disorder; Translations: [Periodic limb movement disorder] 06-28-2023 Chronic Residual codes; unclassified (3 sources) Hypersomnia; Translations: [Hypersomnia, unspecified] Onset: 11-17-2023 06-28-2023 Chronic Residual codes; unclassified (1 source) Mixed sleep apnea; Translations: [Primary central sleep apnea] 09-13-2023 Chronic Residual codes; unclassified (2 sources) Central sleep apnea syndrome; Translations: [Primary central sleep apnea] 09-13-2023 Chronic Residual codes; unclassified (1 source) Dependence on enabling machine or device; Translations: [Dependence on other enabling machines and devices] Onset: 10-07-2023 Chronic Residual codes; unclassified (2 sources) Dependence on other enabling machines and devices; Translations: [Dependence on other enabling machines and devices] Onset: 2023 Chronic Residual codes; unclassified (2 sources) Idiopathic sleep related nonobstructive alveolar hypoventilation; Translations: [Idiopathic sleep related nonobstructive alveolar hypoventilation] Onset: 11-17-2023 Chronic Residual codes; unclassified (2 sources) Periodic limb movement disorder; Translations: [Periodic limb movement disorder] Onset: 11-17-2023 Chronic Residual codes; unclassified (2 sources) Primary central sleep apnea; Translations: [Primary central sleep apnea] Onset: 11-17-2023 Chronic Residual codes; unclassified (1 source) Hypersomnia, unspecified; Translations: [Hypersomnia, unspecified] Onset: 11-17-2023 Chronic Skin and subcutaneous tissue infections (20 sources) Abscess 03-14-2015 Episodic Spondylosis; intervertebral disc disorders; other back problems (20 sources) Low back pain; Translations: [Sciatica] Onset: 10-07-2023 01-15-2020 Episodic Sprains and strains (4 sources) Strain of muscle and/or tendon of lower leg; Translations: [Strain of unspecified muscle(s) and tendon(s) at lower leg level, left leg, initial encounter] Onset: 02-05-2022 Episodic Substance-related disorders (19 sources) Smoker 04-04-2018 Chronic Comment on above: Added secondary to d ocumentation in Social History. Suicide and intentional self-inflicted injury (3 sources) Suicidal thoughts; Translations: [Suicidal ideations] Onset: 10-07-2023 Episodic Thyroid disorders (4 sources) Hypothyroidism, unspecified; Translations: [Autoimmune thyroiditis] Onset: 06-25-2022 Chronic Transient cerebral ischemia (20 sources) Transient cerebral ischemia 12-14-2019 Chronic Comment on above: 2007 Unclassified (20 sources) Both kidneys (body structure) 02-06-2011 Unclassified (1 source) Personal history of COVID-19; Translations: [Personal history of COVID-19] Onset: 06-25-2022 Unclassified (2 sources) Pre-op Exam; Translations: [Pre-op Exam] Onset: 06-28-2023 Urinary tract infections (20 sources) Recurrent urinary tract infection; Translations: [Urinary tract infectious disease] Onset: 07-01-2010 11-23-2021 Episodic Past or Other Problems Problem Classification Problem Date Documented Da te Episodic/Chronic Asthma (20 sources) Allergic asthma Resolved: 03-14-2019 07-16-2019 Chronic Other aftercare (1 source) senior care (current) use of oral hypoglycemic drugs; Translations: [senior care (current) use of oral hypoglycemic drugs] Onset: 06-25-2022 Episodic Other circulatory disease (4 sources) Elevated blood-pressure reading, without diagnosis of hypertension; Translations: [ELEVATED BP READING W/O DX HTN] Onset: 04-08-2022 Episodic Other nutritional; endocrine; and metabolic disorders (20 sources) Abnormal weight gain Resolved: 05-14-2019 05-14-2019 Episodic Other upper respiratory disease (1 source) Deviated nasal septum; Translations: [Deviated nasal septum] Onset: 06-25-2022 Episodic Other upper respiratory disease (1 source) Hypertrophy of nasal turbinates; Translations: [Hypertrophy of nasal turbinates] Onset: 06-25-2022 Episodic Unclassified (20 sources) Onset: 08-29-2014 Resolved: 02-11-2016 03-05-2016 Results Test Name Value Interpretation Reference Range Facil ity Consultation Noteon 11-11-19 24 Consultation Note [id number] 0TIFF Normal Hernandez [facility] Insurance Correspondenceon 0 11-09-2023 Insurance Correspondence [id number]. 00TIFF [facility] Ambulatory Visit Summaryon 1 Ambulatory Visit Summary HARVEY MARTINEZ :1985 Visit Date:10/07/2023 Ambulatory Visit Instructions Your Diagnosis Bipolar I disorder Severe major depression Suicidal ideations BMI 40.0-44.9, adult Morbid obesity SHILPA on CPAP Migraines RLS (restless legs syndrome) Lumbago PCOD (polycystic ovarian disease) Autoimmune hypothyroidism Abnormal CT scan, kidney Dependence on other enabling machines and devices Your Care Team Attending Physician - Reginald ASHER DO, FAAFP Primary Care Physician - Reginald ASHER DO, FAAFP This Is Your Medications List Contact prescribing physician if questions or concerns albuterol (Albuterol (Eqv-ProAir HFA) 90 mcg/inh inhalation aerosol) buPROPion (buPROPion 100 mg ER Tab) galcanezumab (Emgality Prefilled Pen 120 mg/mL subcutaneous solution) levothyroxine (Synthroid 137 mcg (0.137 mg) Tab) metformin (metformin 500 mg ER Tab) omeprazole (omeprazole 40 mg Cap-DR) ropinirole (Requip 0.5 mg Tab) trazodone (traZODONE 50 mg Tab) [Image Removed: STOP]Stop taking these medications carbamazepine (carbamazepine 200 mg Tab) fluticasone nasal (Flonase 0.05 mg/inh nasal spray) hydrOXYzine (hydrOXYzine pamoate 50 mg Cap) Procedures Performed suction curettage with dilation (05/16/2015), kidney surgery as a child - 1 removed at age 3 months, Tonsillectomy. Discharge Vitals Temperature (Oral) 36.8 ?C Heart Rate (Peripheral) 68 Respiratory Rate 16 Blood Pressure 124/78 Height 175 cm Height 69 in Weight 132.0 kg Weight 290.4 lb BMI 43.1 What to do next Scheduled Follow-Up Appointments Tuesday 1:00 PM EDT With: Clau Moreland MD Where: [facility] CHEMISTRYOrdered By: SYSTEM SYSTEM on 10-07-2023 TSH Qn 0.52 m[IU]/L Normal 0.34 - 5.60 mcIU/mL Remisol Chem Family Medicine Office/Clini c Noteon 10-07-2023 Family Medicine Office/Clinic Note Chief Complaint Patient here for [facility] hospital f/u dx passive suicidal ideations, Bipolar disorder with depression, d/c'd on 09/24. Also was in [facility] ER f/u o 09/30 for lumbar strain, states her back is still in some pain. History of Present Illness Here for follow up Have you had any ER visits or any hospitalizations since last visit? yes Are you compliant with your medications and no difficulty affording your medications? yes Do you have side effects from the medication? no Are you compliant with your diet? yes Do you exercise? yes Do you have any of the following symptoms? Chest pain? no Palpitations? no BROOKS/SOB? no Orthopnea? no PND? no Edema? no Have you had any recent cardiopulmonary testing? no Depression markedly improved, denies suicidal nor homicidal ideations. I never had a plan to hurt self I am getting counseling Back pain much better, denies any radiculopathy nor weakness Review of Systems ROS - Provider Constitutional: no fever, no chills, no sweats, no weakness. Skin: no Jaundice, no rash, no lesions, no petechiae. ENMT: no ear pain, no sore throat, no congestion, no hoarseness. Respiratory: no shortness of breath, no cough, no orthopnea, no wheezing. Cardiovascular: no chest pain, no palpitations, no edema. Gastrointestinal: no nausea, no vomiting, no diarrhea, no GI bleeding.no constipationnoheartbur n Genitourinary: no dysuria, no hematuria, no discharge, no pain.nofreq/urgency Musculoskeletal: yesmild improving back pain, no trauma.nojoint pain Neurologic: no headache, no dizziness, no numbness, no weakness. Psychiatric: no sleeping problems, no irritability, no mood swings/depression. Heme/Lymph: no bleeding tendency, no bruising tendency, no petechiae, no swollen lymph nodes no Allergy/Imunology no seasonal allergies, no food allergies, no recurrent infections, no impaired immunity. Additional ROS info: Except as noted in the above Review of Systems and in the History of Present Illness all other systems have been reviewed and are negative or noncontributory. Physical Exam Vitals & Measurements T: 36.8 ?C(Oral) HR: 68(Peripheral) RR: 16 BP: 124/78 SpO2: 98% HT: 69 in HT: 175 cm WT: 132.0 kg WT: 290.4 lb BMI: 43.1 General: Well developed, well nourished, in no acute distress Mouth: Mucous membranes moist. Normal oropharynx, and posterior pharynx without lesions or exudates. Tongue normal Neck: Neck supple. No masses or palpable cervical nodes. Trachea midline. Thyroid without nodules, masses, tenderness, or enlargement Lungs: Normal respiratory effort and clear to auscultation Cardio: Regular rate and rhythm, normal S1 and S2, no murmur, no rub Abdomen: Soft, non-distended, non-tender. no G/R/S/Masses Musculoskeletal: No deformity or scoliosis noted. Normal range of motion. Joints normal. No erythema, edema, effusion, or ecchymosis Extremity: No clubbing, cyanosis, edema, or deformity, with normal ROM in both upper and lower bilateral extremities Neurologic: Grossly normal Skin: No rashes, ulcerations, or suspicious lesions Mental Status: Alert and oriented x3. Normal mood and affect Assessment/Plan 1. Bipolar I disorder (F31.9: Bipolar disorder, unspecified) Dr Colmenares following: Will be changing doctors: Good control with Wellbutrin and Trazodone, did not do well with recent changed.. CBT [facility] most helpful 2. Severe major depression (F32.2: Major depressive disorder, single episode, severe without psychotic features) see 1 3. Suicidal ideations (R45.851: Suicidal ideations) resolved, states she never had a plan. wee 1 and 2 aabove 4. BMI 40.0-44.9, adult (Z68.41: Body mass index [BMI] 40.0-44.9, adult) The standard range for ages 18 and older is >=18.5 and < 25 kg/m2. Your BMI today was above this range, this falls in the overweight to obese category and there are medical benefits to weight loss. We can offer counselling, referral, and/or medical support in addressing this problem. Your BMI and weight management will be followed at subsequent visits. Ordered: phentermine, 37.5 mg = 1 tab(s), Oral, Daily, BMI 43 #3 30 day supply before breakfast, # 30 tab(s), Refills(s) 0, [facility]: [facility], 175, cm, 01/26/22 15:23:00 EDT, Height/Length Dosing, 132.7, kg, 01/26/22 15:23:00 EDT, Weight Dosing 5. Morbid obesity (E66.01: Morbid (severe) obesity due to excess calories) diet and exercise goal BMI 25 6. SHILPA on CPAP (G47.33: Obstructive sleep apnea (adult) (pediatric)) Patient uses CPAP q hs and must use to function well the next day. Does not do well the next day if he not use. 7. Migraines (G43.909: Migraine, unspecified, not intractable, without status migrainosus) Fair control w Emgality, JODIE following 8. RLS (restless legs syndrome) (G25.81: Restless legs syndrome) Requip helpful 9. Lumbago (M54.5: Low back pain) PT [facility], steroids really helped. No radiculopathy Ordered: [facility] Outpatient Physical Therapy Ev (more content not included)... Normal [facility] Comment on above: Result Comment: Elec tronically Signed By: LB PIERSON FAAFP, Reginald James\.br\Date and Time Signed: 10/07/23 11:30 EST Patient Educationon 10-07-20 23 Patient Education Orthopedics Back Exercises These exercises help to make your trunk and back strong. They also help to keep the lower back flexible. Doing these exercises can help to prevent or lessen pain in your lower back. ? If you have back pain, try to do these exercises 2?3 times each day or as told by your doctor. ? As you get better, do the exercises once each day. Repeat the exercises more often as told by your doctor. ? To stop back pain from coming back, do the exercises once each day, or as told by your doctor. Do exercises exactly as told by your doctor. Stop right away if you feel sudden pain or your pain gets worse. Exercises Single knee to chest Do these steps 3?5 times in a row for each le. Lie on your back on a firm bed or the floor with your legs stretched out. 2. Bring one knee to your chest. 3. Grab your knee or thigh with both hands and hold it in place. 4. Pull on your knee until you feel a gentle stretch in your lower back or butt. 5. Keep doing the stretch for 10?30 seconds. 6. Slowly let go of your leg and straighten it. Pelvic tilt Do these steps 5?10 times in a row: 1. Lie on your back on a firm bed or the floor with your legs stretched out. 2. Bend your knees so they point up to the ceiling. Your feet should be flat on the floor. 3. Tighten your lower belly (abdomen) muscles to press your lower back against the floor. This will make your tailbone point up to the ceiling instead of pointing down to your feet or the floor. 4. Stay in this position for 5?10 seconds while you gently tighten your muscles and breathe evenly. Cat?cow Do these steps until your lower back bends more easily: 1. Get on your hands and knees on a firm bed or the floor. Keep your hands under your shoulders, and keep your knees under your hips. You may put padding under your knees. 2. Let your head hang down toward your chest. Tighten (contract) the muscles in your belly. Point your tailbone toward the floor so your lower back becomes rounded like the back of a cat. 3. Stay in this position for 5 seconds. 4. Slowly lift your head. Let the muscles of your belly relax. Point your tailbone up toward the ceiling so your back forms a sagging arch like the back of a cow. 5. Stay in this position for 5 seconds. Press-ups Do these steps 5?10 times in a row: 1. Lie on your belly (face-down) on a firm bed or the floor. 2. Place your hands near your head, about shoulder-width apart. 3. While you keep your back relaxed and keep your hips on the floor, slowly straighten your arms to raise the top half of your body and lift your shoulders. Do not use your back muscles. You may change where you place your hands to make yourself more comfortable. 4. Stay in this position for 5 seconds. Keep your back relaxed. 5. Slowly return to lying flat on the floor. Bridges Do these steps 10 times in a row: 1. Lie on your back on a firm bed or the floor. 2. Bend your knees so they point up to the ceiling. Your feet should be flat on the floor. Your arms should be flat at your sides, next to your body. 3. Tighten your butt muscles and lift your butt off the floor until your waist is almost as high as your knees. If you do not feel the muscles working in your butt and the back of your thighs, slide your feet 1?2 inches (2.5?5 cm) farther away from your butt. 4. Stay in this position for 3?5 seconds. 5. Slowly lower your butt to the floor, and let your butt muscles relax. If this exercise is too easy, try doing it with your arms crossed over your chest. Belly crunches Do these steps 5?10 times in a row: 1. Lie on your back on a firm bed or the floor with your legs stretched out. 2. Bend your knees so they point up to the ceiling. Your feet should be flat on the floor. 3. Cross your arms over your chest. 4. Tip your chin a little bit toward your chest, but do not bend your neck. 5. Tighten your belly muscles and slowly raise your chest just enough to lift your shoulder blades a tiny bit off the floor. Avoid raising your body higher than that because it can put too much stress on your lower back. 6. Slowly lower your chest and your head to the floor. Back lifts Do these steps 5?10 times in a row: 1. Lie on your belly (face-down) with your arms at your sides, and rest your forehead on the floor. 2. Tighten the muscles in your legs and your butt. 3. Slowly lift your chest off the floor while you keep your hips on the floor. Keep the back of your head in line with the curve in your back. Look at the floor while you do this. 4. Stay in this position for 3?5 seconds. 5. Slowly lower your chest and your face to the floor. Contact a doctor if: ? Your back pain gets a lot worse when you do an exercise. ? Your back pain does not get better within 2 hours after you exercise. If you have any of these problems, stop doing the exercise (more content not included)... Normal [facility] TSHon 10-07-2023 TSH Qn 0.52 m[IU]/L Normal 0.34-5.60 [facility] Comment on above: Performed By: #### 2 [id number] #### [facility] Laboratory [address] [place] [address] Auth for Release of Medical Recordson 10-01-2023 Auth for Release of Medical Records [id number] .00TIFF Normal [facility] Discharge Instructionson Discharge Instructions [id number]. 00TIFF Normal [facility] ED Clinical Summaryon 2022 ED Clinical Summary [address] [address] ED Clinical Summary Person Information Name: HARVEY MARTINEZ [facility] Age: 38 Years : 1985 Sex: Female Language: Indonesian PCP: Reginald ASHER DO, FAAFP Marital Status: Single Phone: [phone] Visit Id: Visit Reason: Back pain; LOWER BACK PAIN Speciality: Acuity: 4 Enc Type: Emergency Med Service: Emergency Arrival: 09/30/2023 19:02:19 Discharge: 09/30/2023 22:21:39 LOS: 000 03:19 Checkin: 09/30/2023 19:02:19 Checkout: 09/30/2023 22:21:39 Dispo Type: Home (Routine DC) EVENTS: Event Name Event Status Request Date/Time Start Date/Time Complete Date/Time Arrive Complete 09/30/2023 19:02:19 09/30/2023 19:02:19 09/30/2023 19:02:19 Document Home Meds Request 09/30/2023 19:02:19 Triage Complete 09/30/2023 19:02:19 09/30/2023 19:10:19 09/30/2023 19:10:19 Bed Assign Complete 09/30/2023 19:03:51 09/30/2023 19:03:51 09/30/2023 19:03:51 Dr Exam Complete 09/30/2023 19:03:51 09/30/2023 19:03:53 09/30/2023 19:03:53 RN Exam Complete 09/30/2023 19:03:51 09/30/2023 20:08:16 09/30/2023 20:08:16 Registration Complete 09/30/2023 19:03:53 09/30/2023 19:05:00 09/30/2023 19:05:00 Reg Complete Request 09/30/2023 19:05:00 Reg Bed Request Complete 09/30/2023 19:05:00 09/30/2023 19:05:00 09/30/2023 19:05:00 X-Ray Complete 09/30/2023 19:17:59 09/30/2023 19:49:39 09/30/2023 20:08:47 Meds Admin Request 09/30/2023 19:17:59 Wet Read Request 09/30/2023 20:08:47 Meds Admin Complete 09/30/2023 21:37:05 09/30/2023 21:46:27 Discharge Complete 09/30/2023 21:39:08 09/30/2023 22:21:44 09/30/2023 22:21:44 Transfer Complete 09/30/2023 22:21:44 09/30/2023 22:21:44 09/30/2023 22:21:44 ADDRESS: [address] [place] [phone] PHYS DOC NOTES: MEDICAL INFORMATION: Prescriptions Given: New Medications [id number], [address] [place], [place] [id number], [phone] acetaminophen-hydrocod one ([place] 325 mg-5 mg oral tablet) 1 Tablets By Mouth every 6 hours as needed for pain for 2 Days. Refills: 0. methocarbamol (Robaxin 500 mg Tab) 1 Tablets By Mouth 3 times a day for 3 Days. Refills: 0. Medications to Continue Taking That Have Changed [id number], [address] [place], [place] [id number], [phone] START: naproxen (Naprosyn 500 mg Tab) 1 Tablets By Mouth 2 times a day as needed for pain. Refills: 0. Other Medications START: naproxen (Naprosyn 500 mg Tab) 1 Tablets By Mouth 2 times a day as needed for pain. Refills: 0. Medications to Continue with No Changes Other Medications albuterol (Albuterol (Eqv-ProAir HFA) 90 mcg/inh inhalation aerosol) 2 Puffs Inhalation every 4 hours as needed Wheezing. Refills: 0. brompheniramine/dextro methorphan/PSE (Bromfed DM oral syrup) 5 Milliliter By Mouth 4 times a day as needed for cough and congestion. Refills: 0. buPROPion (buPROPion 100 mg ER Tab) carbamazepine (carbamazepine 200 mg Tab) fluticasone nasal (Flonase 0.05 mg/inh nasal spray) 1 Sprays Nasal Inhalation 2 times a day. each nostril. Refills: 0. fremanezumab (Ajovy Autoinjector 225 mg/1.5 mL subcutaneous solution) hydrOXYzine (hydrOXYzine pamoate 50 mg Cap) ibuprofen (ibuprofen 600 mg Tab) 1 Tablets By Mouth every 6 hours. Refills: 0. lithium (lithium 450 mg oral tablet, extended release) 2 Tablets By Mouth every day. omeprazole (omeprazole 40 mg Cap-DR) 1 Capsules By Mouth every day. Refills: 2. ondansetron (Zofran ODT 4 mg Tab-Dis) 1 Tablets By Mouth every 8 hours as needed Nausea/Vomiting. Refills: 0. permethrin topical (Nix Cream Rinse 1% topical lotion) phentermine (Adipex-P 37.5 mg Tab) 1 Tablets By Mouth every day. BMI 43 #3 30 day supply before breakfast. Refills: 0. potassium chloride (potassium chloride 20 mEq ER Tab) 1 Tablets By Mouth every day. Refills: 3. ropinirole (Requip 0.5 mg Tab) By Mouth 3 times a day. trazodone (traZODONE 50 mg Tab) ubrogepant (Ubrelvy 50 mg oral tablet) PATIENT EDUCATION INFORMATION: Instructions: Lumbosacral Strain Follow up: With: Address: When: Reginald ASHER [address] [place] [address], [facility] [place] [id number] [facility] (1) In 3 days 10/03/2023 Comments: You can use the Naprosyn, Robaxin as prescribed as needed for pain. Use [place] every 6 hours as needed for pain. Please follow-up with your primary care doctor the next 2 to 3 days. Please return to the ED for any new or worsening symptoms. DIAGNOSIS: Lumbar strain Normal [facility] ED Note-Physicianon 10-01-20 ED Note-Physician Basic Information Time Seen: Faby Chopra DO 09/30/2023 19:03 Chief Complaint Pt having lower R sided back pain that started 3 days ago and getting worse. Pt. denies pain radiating. Denies n/v. Denies injury to area. Pain is low on back. Pt was had urologist yesterday, but states UA was mireya keller. History of Present Illness Patient is a 38-year-old female with past medical history of migraine, hypertension, hyperlipidemia presenting to the ED for evaluation of right lower back pain. Patient states the pain started approximately 3 days ago noted in the right lower back. Notes worsening pain with movement. Patient denies any fevers, chills, nausea or vomiting. Patient does have a history of kidney stones however states she saw her urologist yesterday and was told that she not have any active kidney stones at this time and no signs of infection on her urine. Patient denies any falls or trauma, bowel or bladder incontinence, saddle anesthesia. Review of Systems A 10 point review of systems is negative except as noted above. Medical and Surgical History: Reviewed and noted Social history: Lives at home Tobacco: Denies Physical Exam Vitals & Measurements T: 36.8 ?C(Oral) HR: 90(Peripheral) RR: 16 BP: 174/98 SpO2: 99% HT: 175 cm WT: 135.5 kg BMI: 44.24 General: Well developed, non toxic appearing, no acute distress HEENT: Head atraumatic, Mucosa moist, hearing grossly normal Neck: No JVD, tracheal deviation Cardiac: Regular rate, rhythm, no murmurs, or gallops, 2+ radial pulses Respiratory: Lungs clear to auscultation B/L, normal respiratory effort Abdomen: Soft non tender, no rebound or guarding, no peritoneal signs Back: Tenderness palpation of the paraspinal musculature of the lower lumbar right spine with midline spinal tenderness no step-offs or deformities Extremities: No edema noted in the LE B/L, no tenderness to palpation Neurologic: Alert and oriented, speech clear Skin: No rashes or lesions Psych: Appropriate mood and behavior Medical Decision Making MEDICAL DECISION MAKING Number and Complexity of Problems Differential Diagnosis: [] [facility] Data External documents reviewed: [] My EKG interpretation: [] My CT interpretation: [] My X-ray interpretation: [] My Ultrasound interpretation: [] Decision rules/scores evaluated: [] Discussed with: [] Treatment and Disposition ED Course: Patient is a 38-year-old female presenting to the ED for evaluation of right lower back pain. Patient is nontoxic-appearing on arrival, no acute distress. Does have reproducible tenderness to the right lower back. X-ray of the lumbosacral spine and abdomen are obtained. Patient is given Toradol, Norflex, [place]. Patient's x-ray imaging does not reveal any acute pathology. Patient reports some improvement of her pain however continues to have pain. Was given IM morphine in addition to a Lidoderm patch. She is discharged home with Naprosyn, Robaxin, [place]. She is follow-up with her primary care doctor in the next 2 to 3 days. She is to return to the ED for any new or worsening symptoms. Shared decision making: [] Code status: [] Assessment/Plan Lumbar strain (S39.012A: Strain of muscle, fascia and tendon of lower back, initial encounter) Orders: acetaminophen-hydrocod one, 1 tab(s), Oral, q6hr for pain for 2 day(s), 7 tab(s), Refill(s) 0, [facility] #[id number], 175, cm, 09/30/23 19:10:00 EST, Height/Length Dosing, 135.5, kg, 09/30/23 19:10:00 EST, Weight Dosing acetaminophen-hydrocod one, 1 tab(s), Tab, Oral, q4hr, STAT, Start date 09/30/23 19:17:00 EST ketorolac, 30 mg = 1 mL, Injection, IntraMuscular, Once, Stop date 09/30/23 19:17:00 EST, STAT, Start date 09/30/23 19:17:00 EST, 09/30/23 19:17:00 EST lidocaine topical, 1 patch(es), Patch, TransDermal, Once, Stop date 09/30/23 21:36:00 EST, STAT, Start date 09/30/23 21:36:00 EST methocarbamol, 500 mg = 1 tab(s), Oral, TID, X 3 day(s), # 9 tab(s), Refills(s) 0, Pharmacy: [facility] #[id number], 175, cm, 09/30/23 19:10:00 EST, Height/Length Dosing, 135.5, kg, 09/30/23 19:10:00 EST, Weight Dosing morphine, 4 mg = 1 mL, Injection, IntraMuscular, Once, Stop date 09/30/23 21:36:00 EST, STAT, Start date 09/30/23 21:36:00 EST, 09/30/23 21:36:00 EST naproxen, 500 mg = 1 tab(s), Oral, BID, PRN for pain, # 20 tab(s), Refills(s) 0, Pharmacy: [facility] #[id number], 175, cm, 09/30/23 19:10:00 EST, Height/Length Dosing, 135.5, kg, 09/30/23 19:10:00 EST, Weight Dosing orphenadrine, 60 mg = 2 mL, Injection, IntraMuscular, Once, Stop date 09/30/23 19:17:00 EST, STAT, Start date 09/30/23 19:17:00 EST, 09/30/23 19:17:00 EST XR Abdomen 1 View XR Spine Lumbosacral 2 or 3 Views Medications Administered Given ketorolac 30 mg/mL Inj 1 mL, 30 mg, IntraMuscular Lidoderm 5% Patch, 1 patch(es), TransDermal morphine 4 mg/mL Inj, 4 mg, IntraMuscular [place] 325 mg-5 mg oral tablet, 1 tab(s), Oral orphenadrine 30 mg/mL Inj, 60 mg, IntraMuscular Disposition Plan Discharge (more content not included)... Normal [facility] Comment on above: Result Comment: Elec tronically Signed By: Faby Chopra DO\.br\Date and Time Signed: 09/30/23 22:55 EST ED Patient Education Noteon 10-01-2023 ED Patient Education Note Orthopedics Lumbosacral Strain Lumbosacral strain is an injury that causes pain in the lower back (lumbosacral spine). This injury usually happens from overstretching the muscles or ligaments along your spine. Ligaments are cord-like tissues that connect bones to other bones. A strain can affect one or more muscles or ligaments. What are the causes? This condition may be caused by: ? A hard, direct hit to the back. ? Overstretching the lower back muscles. This may result from: ? A fall. ? Lifting something heavy. ? Repetitive movements such as bending or crouching. What increases the risk? The following factors may make you more likely to develop this condition: ? Participating in sports or activities that involve: ? A sudden twist of the back. ? Pushing or pulling motions. ? Being overweight or obese. ? Having poor strength and flexibility, especially tight hamstrings or weak muscles in the back or abdomen. ? Having too much of a curve in the lower back. ? Having a pelvis that is tilted forward. What are the signs or symptoms? The main symptom of this condition is pain in the lower back, at the site of the strain. Pain may also be felt down one or both legs. How is this diagnosed? This condition is diagnosed based on your symptoms, your medical history, and a physical exam. During the physical exam, your health care provider may push on certain areas of your back to find the source of your pain. You may be asked to bend forward, backward, and side to side to check your pain and range of motion. You may also have imaging tests, such as X-rays and an MRI. How is this treated? This condition may be treated by: ? Applying heat and cold on the affected area. ? Taking medicines to help relieve pain and relax your muscles. ? Taking NSAIDs, such as ibuprofen, to help reduce swelling and discomfort. ? Doing stretching and strengthening exercises for your lower back. Symptoms usually improve within several weeks of treatment. However, recovery time varies. When your symptoms improve, gradually return to your normal routine as soon as possible to reduce pain, avoid stiffness, and keep muscle strength. Follow these instructions at home: Medicines ? Take pnfc-yxw-ezflqsr and prescription medicines only as told by your health care provider. ? Ask your health care provider if the medicine prescribed to you: ? Requires you to avoid driving or using heavy machinery. ? Can cause constipation. You may need to take these actions to prevent or treat constipation: ? Drink enough fluid to keep your urine pale yellow. ? Take ccix-aed-ifqunwc or prescription medicines. ? Eat foods that are high in fiber, such as beans, whole grains, and fresh fruits and vegetables. ? Limit foods that are high in fat and processed sugars, such as fried or sweet foods. Managing pain, stiffness, and swelling ? If directed, put ice on the injured area. To do this: ? Put ice in a plastic bag. ? Place a towel between your skin and the bag. ? Leave the ice on for 20 minutes, 2?3 times a day. ? If directed, apply heat on the affected area as often as told by your health care provider. Use the heat source that your health care provider recommends, such as a moist heat pack or a heating pad. ? Place a towel between your skin and the heat source. ? Leave the heat on for 20?30 minutes. ? Remove the heat if your skin turns bright red. This is especially important if you are unable to feel pain, heat, or cold. You may have a greater risk of getting burned. Activity ? Rest as told by your health care provider. ? Do not stay in bed. Staying in bed for more than 1?2 days can delay your recovery. ? Return to your normal activities as told by your health care provider. Ask your health care provider what activities are safe for you. ? Avoid activities that take a lot of energy for as long as told by your health care provider. ? Do exercises as told by your health care provider. This includes stretching and strengthening exercises. General instructions ? Sit up and stand up straight. Avoid leaning forward when you sit, or hunching over when you stand. ? Do not use any products that contain nicotine or tobacco, such as cigarettes, e-cigarettes, and chewing tobacco. If you need help quitting, ask your health care provider. ? Keep all follow-up visits as told by your health care provider. This is important. How is this prevented? ? Use correct form when playing sports and lifting heavy objects. ? Use good posture when sitting and standing. ? Maintain a healthy weight. ? Sleep on a mattress with medium firmness to support your back. ? Do at least 150 minutes of moderate-intensity exercise each week, such as brisk walking or water aerobics. Try a form of exercise that takes stress off your back, such as swimming or stationary cycling (more content not included)... Normal [facility] ED Patient Summaryon 023 ED Patient Summary [address] [address] Patient Discharge Instructions Person Information Name: HARVEY MARTINEZ Age: 38 Years Arrival Date: 09/30/2023 19:02:19 Discharge Diagnosis: Lumbar strain Primary Care Physician: Reginald ASHER DO, FAAFP Provider Information Primary Provider: Faby Chopra DO Advanced Stamp Pad Maker:None The exam and treatment you received in the Emergency Department were for an urgent problem and are not intended as complete care. It is important that you follow up with a doctor, nurse practitioner, or physician?s public health assistant for ongoing care. If your symptoms become worse or you do not improve as expected and you are unable to reach your usual health care provider, you should return to the Emergency Department. We are available 24 hours a day. HARVEY MARTINEZ has been given the following list of patient education materials, prescriptions and follow-up instructions: Follow-up Instructions: With: Address: When: Reginald ASHER [address] [place] [address], [address] [place] [phone] Business (1) In 3 days 10/03/2023 Comments: You can use the Naprosyn, Robaxin as prescribed as needed for pain. Use [place] every 6 hours as needed for pain. Please follow-up with your primary care doctor the next 2 to 3 days. Please return to the ED for any new or worsening symptoms. In the event that this physician does not participate in your insurance network, please consult with your insurance company to find a nearby participating provider. Patient Education Materials: Lumbosacral Strain A MESSAGE TO ALL PATIENTS REGARDING OPIOIDS PRESCRIPTION OPIOIDS: WHAT YOU NEED TO KNOW Prescription opioids can be used to help relieve baeqjdxp-ev-pvojyq pain and are often prescribed following a surgery or injury, or for certain health conditions. These medications can be an important part of the treatment but also come with serious risks. It is important to work with your healthcare provider to make sure you are getting the safest, most effective care. WHAT ARE THE RISKS AND SIDE EFFECTS OF OPIOID USE? Prescription opioids carry serious risks of addiction and overdose, especially with prolonged use. An opioid overdose, often marked by slowed breathing, can cause sudden . The use of prescription opioids can have a number of side effects as well, even when taken as directed: ? Tolerance?meaning you might need to take more of the medication for the same pain relief ? Physical dependence?meaning you have symptoms of withdrawal when a medication is stopped ? Increased sensitivity to pain ? Constipation ? Nausea, vomiting, and dry mouth ? Sleepiness and dizziness ? Confusion ? Depression ? Low levels of testosterone that can result in lower sex drive, energy, and strength ? Itching and sweating RISKS ARE GREATER WITH: ? History of drug misuse, substance use disorder, or overdose ? Mental health conditions (such as depression or anxiety) ? Sleep apnea ? Older age (65 years and older) ? Avoid alcohol while taking prescription opioids. Also, unless specifically advised by your health care provider, medications to avoid include: ? Benzodiazepines (such as Xanax or Valium) ? Muscle relaxants (such as Soma or Flexeril) ? Hypnotics (such as Ambien or Lunesta) ? Other prescription opioids KNOW YOUR OPTIONS Talk to your health care provider about ways to manage your pain that don?t involve prescription opioids. Some of these options may actually work better and have fewer risks and side effects. Options may include: ? Pain relievers such as acetaminophen, ibuprofen, and naproxen ? Some medication that are also used for depression or seizures ? Physical therapy and exercise ? Cognitive behavioral therapy, a psychological, goal-directed approach, in which patients learn how to modify physical, behavioral, and emotional triggers of pain and stress. IF YOU ARE PRESCRIBED OPIOIDS FOR PAIN: ? Never take opioids in greater amounts or more often than prescribed. ? Follow up with your primary health care provider. o Work together to create a plan on how to manage your pain. o Talk about ways to help manage your pain that don?t involve prescription opioids. o Talk about any and all concerns and side effects. ? Help prevent misuse and abuse o Never sell or share prescription opioids. o Never use another person?s prescription opioids. ? Store prescription opioids in a secure place and out of reach of others (this may include visitors, children, friends, and family). ? Safely dispose of unused prescription opioids: Find your community drug take-back program or your pharmacy mail-back program, or flush them down the toilet, following guidance from the Food and Drug Administration (www.fda.gov/Drugs/Res ourcesForYou). ? Visit www.cdc.gov/drugoverdo se t (more content not included)... Normal [facility] XR Abdomen 1 Viewon 10-01-20 XR Abdomen 1 View Exam Date/Time: 09/30/2023 20:08 EST Reason for Exam: Kidney stone Report IMPRESSION: THERE ARE NO ACUTE CHANGES. CLINICAL HISTORY: Kidney stone COMPARISON: NONE. KUB FINDINGS: There are no distended loops of bowel. There is no evidence of obstruction. There are small calcifications in the menisci which may represent renal stones. There is a metallic IUD device projecting in the pelvis. There are no acute osseous changes. Ordering Provider: Faby Chopra FINAL REPORT Dictated: 10/01/2023 8:13 am Gaurav Simpson MD, V. Signed (Electronic Signature): 10/01/2023 8:13 am Signed by: Gaurav Simpson MD, V. Transcribed by: MICHELLE Technologist: BENITO Technical Comments Radiation Dose: Ka,r in mGy = na DAP = na Normal [facility] XR Spine Lumbosacral 2 or 3 Viewson 10-01-2023 XR Spine Lumbosacral 2 or 3 Views Exam Date/Time: 09/30/2023 20:08 EST Reason for Exam: Pain, Traumatic Report IMPRESSION: There are no acute osseous changes. CLINICAL HISTORY: Pain, Traumatic COMPARISON: NONE FINDINGS: 3 views of the lumbosacral spine demonstrate no evidence of a fracture, subluxation, or bone abnormality. There is moderate exiting L4-L5 and L5-S1. Ordering Provider: Faby Chopra FINAL REPORT Dictated: 10/01/2023 8:11 am Gaurav Simpson MD, V. Signed (Electronic Signature): 10/01/2023 8:11 am Signed by: Gaurav Simpson MD, V. Transcribed by: DP Technologist: BENITO Technical Comments Radiation Dose: Ka,r in mGy = na DAP = na [facility] Consent for Treatmenton 09-10 Consent for Treatment [id number] 0TIFF [facility] Formson 09-30-2023 Forms [id number]. 00TIFF [facility] Screenson 09-30-2023 Screens [id number]. 00TIFF [facility] Ambulatory Visit Summaryon 11-30-2022 Ambulatory Visit Summary HARVEY MARTINEZ :1985 Visit Date:09/29/2023 Ambulatory Visit Instructions Your Diagnosis Kidney stone Duplicated renal collecting system Stress incontinence Recurrent UTI Tests Performed Urnls Dip Stick Auto w/o Microscopy POC 45292 Your Care Team Attending Physician - Aniceto LAL, Clau Kuo Primary Care Physician - Reginald ASHER DO, FAAFP This Is Your Medications List Contact prescribing physician if questions or concerns albuterol (Albuterol (Eqv-ProAir HFA) 90 mcg/inh inhalation aerosol) brompheniramine/dextro methorphan/PSE (Bromfed DM oral syrup) buPROPion (buPROPion 100 mg ER Tab) carbamazepine (carbamazepine 200 mg Tab) fluticasone nasal (Flonase 0.05 mg/inh nasal spray) fremanezumab (Ajovy Autoinjector 225 mg/1.5 mL subcutaneous solution) hydrOXYzine (hydrOXYzine pamoate 50 mg Cap) ibuprofen (ibuprofen 600 mg Tab) lithium (lithium 450 mg oral tablet, extended release) naproxen (Naprosyn 500 mg Tab) omeprazole (omeprazole 40 mg Cap-DR) ondansetron (Zofran ODT 4 mg Tab-Dis) permethrin topical (Nix Cream Rinse 1% topical lotion) phentermine (Adipex-P 37.5 mg Tab) potassium chloride (potassium chloride 20 mEq ER Tab) ropinirole (Requip 0.5 mg Tab) trazodone (traZODONE 50 mg Tab) ubrogepant (Ubrelvy 50 mg oral tablet) Procedures Performed suction curettage with dilation (05/16/2015), kidney surgery as a child - 1 removed at age 3 months, Tonsillectomy. Discharge Vitals Heart Rate (Peripheral) 87 Blood Pressure 141/92 Height 175 cm Height 69 in Weight 135.5 kg Weight 298.1 lb BMI 44.24 What to do next Scheduled Follow-Up Appointments Tuesday 10:20 AM EST With: Reginald ASHER DO, FAAFP Where: [facility] Normal [address], [address] [place] [address]- \.br\ You Need to Schedule the Following Appointments\.b r\ Follow Up with Aniceto LAL, Clau Kuo, URL, URO When: \.br\ Where:\.br\ You Need to Complete the Following\.br\ US Renal, 02/08/24, Routine, Order for future visit, Transport Mode: Ambulatory, Reason: Other (please specify), No, Kidney stone, pp_set_radiolog y_subspecialty, [facility]\.br\ XR Abdomen 1 View, 02/08/24, Routine, Order for future visit, Transport Mode: Ambulatory, Reason: Kidney stone, No, Kidney stone, pp_set_radiolog y_subspecialty, [facility]\.br\ Medications\.br \ What How Much When Why Instructions\.b r\ Unchanged albuterol (Albuterol (Eqv-ProAir HFA) 90 mcg/ inh inhalation aerosol) 2 Puffs Inhalation Every 4 hours as needed for Wheezing Contact prescribing physician if questions or concerns \.br\ Unchanged brompheniramine / dextromethorpha n/ PSE (Bromfed DM oral syrup) 5 Milliliter By Mouth 4 times a day as needed for for cough and congestion Contact prescribing physician if questions or concerns \.br\ Unchanged buPROPion (buPROPion 100 mg ER Tab) Contact prescribing physician if questions or concerns \.br\ Unchanged carbamazepine (carbamazepine 200 mg Tab) Contact prescribing physician if questions or concerns \.br\ Unchanged fluticasone nasal (Flonase 0.05 mg/ inh nasal spray) 1 Sprays Nasal Inhalation 2 times a day Allergy to pollen Allergic rhinitis Anxiety, generalized Body mass index (BMI) 39.0-39.9, adult each nostril Contact prescribing physician if questions or concerns \.br\ Unchanged fremanezumab (Ajovy Autoinjector 225 mg/ 1.5 mL subcutaneous solution) Contact prescribing physician if questions or concerns \.br\ Unchanged hydrOXYzine (hydrOXYzine pamoate 50 mg Cap) Contact prescribing physician if questions or concerns \.br\ Unchanged ibuprofen (ibuprofen 600 mg Tab) 1 Tablets By Mouth Every 6 hours Contact prescribing physician if questions or concerns \.br\ Unchanged lithium (lithium 450 mg oral tablet, extended release) 2 Tablets By Mouth Every day Contact prescribing physician if questions or concerns \.br\ Unchanged naproxen (Naprosyn 500 mg Tab) 1 Tablets By Mouth 2 times a day as needed for for pain Contact prescribing physician if questions or concerns \.br\ Unchanged omeprazole (omeprazole 40 mg Cap-DR) 1 Capsules By Mouth Every day Eosinophilic esophagitis Contact prescribing physician if questions or concerns \.br\ Unchanged ondansetron (Zofran ODT 4 mg Tab-Dis) 1 Tablets By Mouth Every 8 hours as needed for Nausea/Vomiting Contact prescribing physician if questions or concerns \.br\ Unchanged permethrin topical (Nix Cream Rinse 1% topical lotion) Contact prescribing physician if questions or concerns \.br\ Unchanged phentermine (Adipex-P 37.5 mg Tab) 1 Tablets By Mouth Every day BMI 40.0-44.9, adult BMI 43 #3 30 day supply before breakfast Contact prescribing physician if questions or concerns \.br\ Unchanged potassium chloride (potassium chloride 20 mEq ER Tab) 1 Tablets By Mouth Every day Contact prescribing physician if questions or concerns \.br\ Unchanged ropinirole (Requip 0.5 mg Tab) By Mouth 3 times a day Contact prescribing physician if questions or concerns \.br\ Unchanged trazodone (traZODONE 50 mg Tab) Contact prescribing physician if questions or concerns \.br\ Unchanged ubrogepant (Ubrelvy 50 mg oral tablet) Contact prescribing physician if questions or concerns \.br\ Test Results\.br\ Urnls Dip Stick Auto w/o Microscopy POC 83900 (09/29/2023)\.b r\ Bilirubin Urine Dipstick - Negative\.br\ Blood Urine Dipstick - Negative\.br\ Glucose Urine Dipstick - Negative\.br\ Ketones Urine Dipstick - Negative\.br\ Leukocytes Urine Dipstick - 1+ Small\.br\ Nitrite Urine Dipstick - Negative\.br\ Protein Urine Dipstick - 1+ (30 mg/dl)\.br\ Specific [place] Urine Dipstick - 1.025\.br\ Urine Appearance Urine Dipstick - Clear\.br\ Urine Color Urine Dipstick - Yellow\.br\ Urobilinogen Urine Dipstick - Normal 0.2-1 EU/dl\.br\ pH Urine Dipstick - 7\.br\ Allergies\.br\ Contrast Dye (Rash)\.br\ Problems\.br\ Ongoing - Any problem that you are currently receiving treatment for.\.br\ Abnormal CT scan, kidney\.br\ Allergic rhinitis\.br\ Allergy to pollen\.br\ Amenorrhea\.br\ Anxiety state\.br\ BMI 40.0-44.9, adult\.br\ Duplicated renal collecting system\.br\ Elevated BP without diagnosis of hypertension\.b r\ Fatigue\.br\ Food allergy\.br\ Hypokalemia\.br \ Kidney stone\.br\ Kidney stones\.br\ Leukocytosis\.b r\ Low serum vitamin D\.br\ Lower abdominal pain\.br\ Lumbago\.br\ Migraine\.br\ Migraines\.br\ Mild depressed bipolar 1 disorder\.br\ Nocturia\.br\ SHILPA on CPAP\.br\ Other obesity due to excess calories\.br\ Perimenopausal symptom\.br\ 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\.br\ Recurrent UTI\.br\ RLS (restless legs syndrome)\.br\ Round ligament pain\.br\ Sciatica, left side\.br\ Smoker\.br\ Stress incontinence\.b r\ Ureteral calculus\.br\ UTI [Urinary tract infection]\.br\ Historical - Any problem that you are no longer receiving treatment for.\.br\ Abnormal weight gain\.br\ Abscess\.br\ Allergic asthma\.br\ Anxiety disorder\.br\ Anxiety, generalized\.br \ BMI 38.0-38.9,adult \.br\ BMI 39.0-39.9,adult \.br\ Migraine\.br\ Morbid obesity\.br\ Obesity (BMI 30-39.9)\.br\ SHILPA (obstructive sleep apnea)\.br\ \.br\ \.br\ Sleep apnea\.br\ TIA - Transient ischaemic attack\.br\ Patient Survey\.br\ You may receive a survey via text or e-mail asking about your office visit. Please share your experience with us by completing your survey. We appreciate your feedback and thank you for choosing us for your care.\.br\ Education Materials\.br\ Dietary Guidelines to Help Prevent Kidney Stones\.br\ Kidney stones are deposits of minerals and salts that form inside your kidneys. Your risk of developing kidney stones may be greater depending on your diet, your lifestyle, the medicines you take, and whether you have certain medical conditions. Most people can lower their risks of developing kidney stones by following these dietary guidelines. Your dietitian may give you more specific instructions depending on your overall health and the type of kidney stones you tend to develop.\.br\ What are tips for following this plan?\.br\ Reading food labels\.br\ \.br\ ? \.br\ Choose foods with no salt added or low-salt labels. Limit your salt (sodium) intake to less than 1,500 mg a day.\.br\ ? \.br\ Choose foods with calcium for each meal and snack. Try to eat about 300 mg of calcium at each meal. Foods that contain 200?500 mg of calcium a serving include:\.br\ ? \.br\ 8 oz (237 mL) of milk, calcium-fortifi ednon-dairy milk, and calcium-fortifi edfruit juice. Calcium-fortifi ed means that calcium has been added to these drinks.\.br\ ? \.br\ 8 oz (237 mL) of kefir, yogurt, and soy yogurt.\.br\ ? \.br\ 4 oz (114 g) of tofu.\.br\ ? \.br\ 1 oz (28 g) of cheese.\.br\ ? \.br\ 1 cup (150 g) of dried figs.\.br\ ? \.br\ 1 cup (91 g) of cooked broccoli.\.br\ ? \.br\ One 3 oz (85 g) can of sardines or mackerel.\.br\ Most people need 1,000?1,500 mg of calcium a day. Talk to your dietitian about how much calcium is recommended for you.\.br\ Shopping\.br\ ? \.br\ Buy plenty of fresh fruits and vegetables. Most people do not need to avoid fruits and vegetables, even if these foods contain nutrients that may contribute to kidney stones.\.br\ ? \.br\ When shopping for convenience foods, choose:\.br\ ? \.br [facility] Patient Educationon 09-29-20 Patient Education Nephrology Dietary Guidelines to Help Prevent Kidney Stones Kidney stones are deposits of minerals and salts that form inside your kidneys. Your risk of developing kidney stones may be greater depending on your diet, your lifestyle, the medicines you take, and whether you have certain medical conditions. Most people can lower their risks of developing kidney stones by following these dietary guidelines. Your dietitian may give you more specific instructions depending on your overall health and the type of kidney stones you tend to develop. What are tips for following this plan? Reading food labels ? Choose foods with no salt added or low-salt labels. Limit your salt (sodium) intake to less than 1,500 mg a day. ? Choose foods with calcium for each meal and snack. Try to eat about 300 mg of calcium at each meal. Foods that contain 200?500 mg of calcium a serving include: ? 8 oz (237 mL) of milk, xwojtyy-zayvnuaehtrt-h airy milk, and calcium-fortifiedfruit juice. Calcium-fortified means that calcium has been added to these drinks. ? 8 oz (237 mL) of kefir, yogurt, and soy yogurt. ? 4 oz (114 g) of tofu. ? 1 oz (28 g) of cheese. ? 1 cup (150 g) of dried figs. ? 1 cup (91 g) of cooked broccoli. ? One 3 oz (85 g) can of sardines or mackerel. Most people need 1,000?1,500 mg of calcium a day. Talk to your dietitian about how much calcium is recommended for you. Shopping ? Buy plenty of fresh fruits and vegetables. Most people do not need to avoid fruits and vegetables, even if these foods contain nutrients that may contribute to kidney stones. ? When shopping for convenience foods, choose: ? Whole pieces of fruit. ? Pre-made salads with dressing on the side. ? Low-fat fruit and yogurt smoothies. ? Avoid buying frozen meals or prepared deli foods. These can be high in sodium. ? Look for foods with live cultures, such as yogurt and kefir. ? Choose high-fiber grains, such as whole-wheat breads, oat bran, and wheat cereals. Cooking ? Do not add salt to food when cooking. Place a salt shaker on the table and allow each person to add their own salt to taste. ? Use vegetable protein, such as beans, textured vegetable protein (TVP), or tofu, instead of meat in pasta, casseroles, and soups. Meal planning ? Eat less salt, if told by your dietitian. To do this: ? Avoid eating processed or pre-made food. ? Avoid eating fast food. ? Eat less animal protein, including cheese, meat, poultry, or fish, if told by your dietitian. To do this: ? Limit the number of times you have meat, poultry, fish, or cheese each week. Eat a diet free of meat at least 2 days a week. ? Eat only one serving each day of meat, poultry, fish, or seafood. ? When you prepare animal proteins, cut pieces into small portion sizes. For most meat and fish, one serving is about the size of the palm of your hand. ? Eat at least five servings of fresh fruits and vegetables each day. To do this: ? Keep fruits and vegetables on hand for snacks. ? Eat one piece of fruit or a handful of berries with breakfast. ? Have a salad and fruit at lunch. ? Have two kinds of vegetables at dinner. ? You may be told to limit foods that are high in a substance called oxalate. These include: ? Spinach (cooked), rhubarb, beets, sweet potatoes, and Cook Islander chard. ? Peanuts. ? Potato chips, maori fries, and baked potatoes with skin on. ? Nuts and nut products. ? Chocolate. ? If you regularly take a diuretic medicine, make sure to eat at least 1 or 2 servings of fruits or vegetables that are high in potassium each day. These include: ? Avocado. ? Banana. ? [place], prune, carrot, or tomato juice. ? Baked potato. ? Cabbage. ? Beans and split peas. Lifestyle ? Drink enough fluid to keep your urine pale yellow. This is the most important thing you can do. Spread your fluid intake throughout the day. ? If you drink alcohol: ? Limit how much you have to: ? 0?1 drink a day for women who are not . ? 0?2 drinks a day for men. ? Know how much alcohol is in your drink. In the [place] one drink equals one 12 oz bottle of beer (355 mL), one 5 oz glass of wine (148 mL), or one 1? oz glass of hard liquor (44 mL). ? Lose weight if told by your health care provider. Work with your dietitian to find an eating plan and weight loss strategies that work best for you. General information ? Talk to your health care provider and dietitian about taking daily supplements. Depending on your health and the cause of your kidney stones, you may be told: ? Do not take high-dose supplements of vitamin C (1,000 mg a day or more). ? To take a calcium supplement. ? To take a daily probiotic supplement. ? To take other supplements such as magnesium, fish oil, or vitamin B6. ? Take rydq-dyq-yquidec and prescription medicines only as told by your health care provider. These include supplements. What foods sh (more content not included)... [facility] Reminderson 09-29-2023 Reminders - From: Jolanta Abrams To: EU - Pablo Lugardenia; Sent: 09/29/2023 16:02:19 EST Show up: 01/29/2024 17:02:00 EDT Subject: ELLIOT BARRIOS Litholink Due Date/Time: 02/28/2024 17:02:00 EDT Reminder Message Pt needs shaggy prior to 6 month appt. Also please mail pt maty kit so it can be completed prior to appt. Being done at [facility]. Normal [facility] Urology Office/Clinic Noteon 09-29-2023 Urology Office/Clinic Note Chief Complaint 3 mo fu HPI Staff 37 year old female here for 3 month follow up with litho link Previous Dx: Kidney stone, duplicated renal collecting system, stress incontinence, recurrent uti CT scan done 03/22 at [facility] pt. states for the last day she has been having severe lower back pain to where she can hardly move Dysuria: no Incomplete bladder emptying: no Hematuria: no Frequency: no Urgency: mild Nocturia: no Stream: good stream Leaking: intermittent Post void dripping: no Wearing pads/ Depends:no Urge incontinence: mild Stress incontinence: no Incontinence without Sensory Awareness: no Abdominal pain: no Flank pain: low back pain Sexual complaints: no History of Present Illness Tests reviewed: reviewed UA, CT, litholink and labs I have reviewed the previous health record information and history for this patient from Dr. Moreland. I have reviewed and verified the staff HPI to be accurate for this encounter. There have been no associated fever, chills, flank pain, or blood in the urine. Denies any urinary infections since last encounter. Review of Systems ROS - Provider Constitutional: denies weight loss, denies hot flashes. Eyes: denies eye problems. Gastrointestinal: denies nausea, denies vomiting. Cardiovascular: denies chest pain or angina. Integumentary: no dryness Musculoskeletal: denies musculoskeletal symptoms. ENMT: denies otolaryngeal symptoms. Respiratory: no shortness of breath. Heme/Lymph: denies easy bleeding tendency, denies easy bruising tendency. Psychiatric: no confusion, no anxiety. Genitourinary: See HPI. Physical Exam Vitals & Measurements HR: 87(Peripheral) BP: 141/92 HT: 69 in HT: 175 cm WT: 135.5 kg WT: 298.1 lb BMI: 44.24 General Appearance: alert , no acute distress, well nourished, well developed female. Genitourinary: bladder nonpalpable, no flank pain. Assessment/Plan 38 yo female following up to review CT scan and litholink Portions of this record may have been created with voice recognition artificial intelligence software, specifically Divide, Mab[employer]te and or ForeSee. Substitutions may have occurred due to the inherent limitations of voice recognition and artificial intelligence software. 1. Kidney stone (N20.0: Calculus of kidney) CT AP wo contrast scan 08/20/21 - posterior medial 5 x 3 mm stone with narrow infundibulum and dilated calyx. Punctate calcifications within this atrophic moiety. CTU 01/20/22 - focal atrophy, thin cortex of left upper pole moiety posteromedially, multiple small nonobstructing calcifications of the left kidney. 1.0 cm left renal cortical cyst in this area. 2 ureters joining at the proximal ureter junction, mild narrowing of upper pole moiety ureter on my evaluation. Renal US 01/20/2023 - bilateral nephrolithiasis (right appears increased from prior) KUB 01/20/2023 - tiny calcifications projecting over the left renal shadow CT AP wo con 03/22/23 several up to 4-5 mm nonobstructing calculi are noted within a moderately atrophic left upper pole moiety and chronic dilatation, similar to the prior study. A punctate nonobstructing calculus is again noted within the mid right kidney posteriorly. Litholink 03/2023 shows low urine volume 1200 cc, high urine ca 296, high urine ca phosphate saturation 2.05, low pH 5.796, high uric acid saturation 3.64, high uric acid 1549, high urine sodium 253. -Serum labs all wnl besides low ca 8.6 Pt states she went through a phase of craving salt. Not taking a multivitamin. Reviewed imaging and how the majority of small stones are in the atrophic upper pole moiety. No significant stones in the healthy portion of the kidney. -Increase water intake, add lemon, adequate calcium intake in diet 800 to 1200 mg daily -Moderate animal protein, decrease sodium -Pt prefers to modify diet rather than start medications Follow up in 6 months w/ renal US and KUB. Repeat 24-hour urine Litholink prior to follow-up 2. 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 No follow-up with urology since then. CTU 01/20/22 - 2 ureters joining at the proximal ureter junction, mild narrowing of upper pole moiety ureter on my evaluation. Asx. Stones in upper pole moiety, likely from stasis/atrophy. Overall stable. -Consider nuclear med scan in the future to evaluate function of upper pole moiety if more invasive tx is to be done, such as heminephrectomy for infections/stones vs ureteral dilation 3. Stress incontinence (N39.3: Stress incontinence (female) (male)) BBS 17 (ICIQ 7) Pt has been practicing kegels at home, leakage has improved. States she is able to run without leaking. Did not consult with Dr. Pastor. Bulkamid pamphlet was provided at last visit. At last visit, discussed risks/benefits of tx options: conservative mgmt, PFPT, bladder sling, or Bulkamid. Pt (more content not included)... Normal [facility] Comment on above: Result Comment: Elec tronically Signed By: Aniceto LAL, Clau Kuo\.br\Date and Time Signed: 09/29/23 17:29 EST\.br\Electronically Co-Signed By: Jolanta Abrams\.br\Date and Time Co-Signed: 09/29/23 16:00 EST Population [facility] 09-26-20 [facility] Case Information Case Priority: None Programs: -- Referral Source: Wall [employer]her Referral Reason: Care coordination Case Type: High Risk Adult Risk Score: -- Case Status: Enrolled (September 26, 2023) Date Assigned: September 26, 2023 Assigned By: Amparo Faulkner RN Date Enrolled: September 26, 2023 Assigned Primary Personnel: Amparo Faulkner RN Assigned Secondary Personnel: -- Case Physician: Reginald ASHER DO, FAAFP Problems Ongoing Abnormal CT scan, kidney Allergic rhinitis Allergy to pollen Amenorrhea Anxiety state BMI 40.0-44.9, adult Duplicated renal collecting system Elevated BP without diagnosis of hypertension Fatigue Food allergy Hypokalemia Kidney stone Kidney stones Leukocytosis Low serum vitamin D Lower abdominal pain Lumbago Migraine Migraines Mild depressed bipolar 1 disorder Nocturia SHILPA on CPAP Other obesity due to excess calories Perimenopausal symptom 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 Recurrent UTI RLS (restless legs syndrome) Round ligament pain Sciatica, left side Smoker Stress incontinence Ureteral calculus UTI [Urinary tract infection] Historical Abnormal weight gain Abscess Allergic asthma Anxiety disorder Anxiety, generalized BMI 38.0-38.9,adult BMI 39.0-39.9,adult Migraine Morbid obesity Obesity (BMI 30-39.9) SHILPA (obstructive sleep apnea) Sleep apnea TIA - Transient ischaemic attack Procedure/Surgical History suction curettage with dilation (05/16/2015), kidney surgery as a child - 1 removed at age 3 months, Tonsillectomy. Home Medications Adipex-P 37.5 mg Tab, 37.5 mg= 1 tab(s), Oral, Daily Ajovy Autoinjector 225 mg/1.5 mL subcutaneous solution Albuterol (Eqv-ProAir HFA) 90 mcg/inh inhalation aerosol, 2 puff(s), Inhalation, q4hr, PRN Bromfed DM oral syrup, 5 mL, Oral, QID, PRN Flonase 0.05 mg/inh nasal spray, 1 spray(s), Nasal, BID ibuprofen 600 mg Tab, 600 mg= 1 tab(s), Oral, q6hr lithium 450 mg oral tablet, extended release, 900 mg= 2 tab(s), Oral, Daily Naprosyn 500 mg Tab, 500 mg= 1 tab(s), Oral, BID, PRN omeprazole 40 mg Cap-DR, 40 mg= 1 cap(s), Oral, Daily, 2 refills potassium chloride 20 mEq ER Tab, 20 mEq= 1 tab(s), Oral, Daily, 3 refills Requip 0.5 mg Tab, Oral, TID Ubrelvy 50 mg oral tablet Zofran ODT 4 mg Tab-Dis, 4 mg= 1 tab(s), Oral, q8hr, PRN Allergies Contrast Dye (Rash) Social History Alcohol - Denies Alcohol Use, 07/18/2011 Employment/School Unemployed, 05/09/2020 Home/Environment Lives with Children. Living situation: Home/Independent. Alcohol abuse in household: No. Substance abuse in household: No. Smoker in household: No. Injuries/Abuse/Neglect in household: No., 05/09/2020 Substance Abuse - Denies Substance Abuse, 07/18/2011 Tobacco - Denies Tobacco Use, 07/18/2011 Never (less than 100 in lifetime) Tobacco Use:. Cigarettes, 01/26/2022 Family History Alcoholism: Mother. Alzheimer's disease: Grandparent. Bipolar: Mother. Drug addiction: Father. Mood changes-problems or irritability: Mother, Child and Grandparent. Suicide: Grandparent. Screenings and Assessments 09/26/23 12:55:00 Result Name Value Comment Phone Call Monitoring Consent Agreed to continue call Phone Verification Patient Information Full name, street address and date of verified CM Program Enrollment Provides verbal consent for enrollment Goals and Interventions Care Plan Progress Note Admit Date: 09/22/2023 Date of Discharge: 09/24/2023 Follow-up appointment scheduled? Yes. Silvino Asher on 10/07/2023 at 10:20 AM Did you understand your discharge instructions? Yes Are you able to follow them? Yes Did you receive new medications? Yes. Trazodone 50mg QHS PRN, Hydroxyzine Pamoate 50mg Q Have you filled the Rx's? Yes Are you taking them as prescribed? Yes Are you having difficulty eating or swallowing your pills? No Are you having any stomach upset, diarrhea or constipation? No How are you sleeping? Fine Are you having any pain? No Do you have everything you need at home to care for yourself? Yes Do you have Home Health? No Called for initial call for the Transitional Care Management Program. Reviewed discharge instructions and diagnosis of major depressive disorder. Reviewed the purpose and side effects of Trazodone, Hydroxyzine Pamoate, Bupropion and Ropinirole with patient. Medications will be reconciled at office visit. Patient was currently not at home. Patient states she continues to have feelings of depression. No thoughts of harming self or others noted. Appetite has increased since hospital admission. Sleep is still limited. Patient has not started Trazodone yet. Will discuss with PCP if medication is not helping. No complaints with bowels. Reviewed the following appointment with patient: with Silvino Asher on 10/07/2023 at 10:20 AM. Patient h (more content not included)... Normal [facility] Cholesterol [Mass/volume] in Serum or PlasmaOrdered By: Flaco Sanchez on 09-22-2023 Cholesterol [Mass/Vol] 156 mg/dL 140-200 [facility] Comment on above: Chol less than 200 m g/dl low riskChol 201-239 mg/dl borderline riskChol 240 mg/dl and greater high risk Cholesterol in LDL Calc [Mas s/Vol]Ordered By: Flaco Sanchez on 09-22-2023 Cholesterol in LDL [Mass/Vol] 95 mg/dL 0-100 [facility] Comment on above: LDL ATP III CLASSIFI CATIONLDL less than 100 mg/dL OptimalLDL 100-129 mg/dL Near or above optimalLDL 130-159 mg/dL Borderline highLDL 160-189 mg/dL HighLDL greater than 189 mg/dL Very high Cholesterol in VLDL Calc [Ma ss/Vol]Ordered By: Flaco Sanchez on 09-22-2023 Cholesterol in VLDL [Mass/Vol] 22 mg/dL [facility] ECG 12 lead ECGon 09-22-2023 ECG 12 lead ECG [facility] [address] [place] [id number] Electrocardiograph Report Signed Patient: Harvey Martinez MR#: [id number] : 1985 Acct:[id number] Age/Sex: 38 / F ADM Date: 09/22/23 Loc: Room: [address] [place] [address] Type: ADM IN Attending Dr: Flaco Sanchez MD Ordering Provider: Flaco Sanchez MD Date of Service: 09/22/23 ECG/ECG 12 lead ECG: antipsychotic therapy Copies to: Test Reason : Blood Pressure : / mmHG Vent. Rate : 064 BPM Atrial Rate : 064 BPM P-R Int : 158 ms QRS Dur : 088 ms QT Int : 416 ms P-R-T Axes : 039 022 026 degrees QTc Int : 429 ms Normal sinus rhythm Early repolarization Normal ECG No previous ECGs available Confirmed by AMRIT PIMENTEL MD ([id number]) on 09/22/2023 9:55:24 PM Referred By: Electronically Signed By:AMRIT PIMENTEL MD Transcribed By: MUS Signed By Amrit Pimentel MD [id number] [facility] ED Clinical Summaryon 2022 ED Clinical Summary [address] [address] ED Clinical Summary Person Information Name: HARVEY MARTINEZ [facility] Age: 38 Years : 1985 Sex: Female Language: Indonesian PCP: Reginald ASHER DO, FAAFP Marital Status: Single Phone: [phone] Visit Id: Visit Reason: Psychiatric screening exam; Suicidal ideation; MENTAL HEALTH EVALUATION Speciality: Acuity: 2 Enc Type: Emergency Med Service: Emergency Arrival: 09/21/2023 20:12:23 Discharge: 09/22/2023 00:19:09 LOS: 000 04:07 Checkin: 09/21/2023 20:12:23 Checkout: 09/22/2023 00:19:09 Dispo Type: [facility] EVENTS: Event Name Event Status Request Date/Time Start Date/Time Complete Date/Time Arrive Complete 09/21/2023 20:12:23 09/21/2023 20:12:23 09/21/2023 20:12:23 Document Home Meds Request 09/21/2023 20:12:23 Triage Complete 09/21/2023 20:12:23 09/21/2023 20:23:45 09/21/2023 20:23:45 Registration Complete 09/21/2023 20:18:22 09/21/2023 20:18:22 09/21/2023 20:18:22 Reg Complete Request 09/21/2023 20:18:22 Reg Bed Request Complete 09/21/2023 20:18:22 09/21/2023 20:18:22 09/21/2023 20:18:22 Bed Assign Complete 09/21/2023 20:23:54 09/21/2023 20:23:54 09/21/2023 20:23:54 Dr Exam Complete 09/21/2023 20:23:54 09/21/2023 20:30:12 09/21/2023 20:30:12 RN Exam Complete 09/21/2023 20:23:54 09/21/2023 21:12:58 09/21/2023 21:12:58 Registration Request 09/21/2023 20:30:12 Consult Request 09/21/2023 20:40:07 EKG Complete 09/21/2023 20:40:07 09/21/2023 20:48:51 Pending Labs Request 09/21/2023 20:40:07 Lab Request 09/21/2023 20:40:07 Urine Collect Request 09/21/2023 20:40:07 Patient Care Request 09/21/2023 20:40:07 Pending Labs Complete 09/21/2023 21:06:06 09/21/2023 21:06:06 09/21/2023 21:25:04 Lab Complete 09/21/2023 21:06:06 09/21/2023 21:06:06 09/21/2023 21:25:04 Pending Labs Complete 09/21/2023 21:10:16 09/21/2023 21:10:16 09/21/2023 21:10:23 Lab Complete 09/21/2023 21:10:16 09/21/2023 21:10:16 09/21/2023 21:10:23 Patient Care Request 09/22/2023 00:07:31 Transfer Complete 09/22/2023 00:07:31 09/22/2023 00:19:29 09/22/2023 00:19:29 Discharge Complete 09/22/2023 00:19:29 09/22/2023 00:19:29 09/22/2023 00:19:29 ADDRESS: [address] [place] [phone] PHYS DOC NOTES: MEDICAL INFORMATION: Prescriptions Given: Medications to Continue with No Changes Other Medications albuterol (Albuterol (Eqv-ProAir HFA) 90 mcg/inh inhalation aerosol) 2 Puffs Inhalation every 4 hours as needed Wheezing. Refills: 0. brompheniramine/dextro methorphan/PSE (Bromfed DM oral syrup) 5 Milliliter By Mouth 4 times a day as needed for cough and congestion. Refills: 0. fluticasone nasal (Flonase 0.05 mg/inh nasal spray) 1 Sprays Nasal Inhalation 2 times a day. each nostril. Refills: 0. fremanezumab (Ajovy Autoinjector 225 mg/1.5 mL subcutaneous solution) ibuprofen (ibuprofen 600 mg Tab) 1 Tablets By Mouth every 6 hours. Refills: 0. lithium (lithium 450 mg oral tablet, extended release) 2 Tablets By Mouth every day. naproxen (Naprosyn 500 mg Tab) 1 Tablets By Mouth 2 times a day as needed for pain. Refills: 0. omeprazole (omeprazole 40 mg Cap-DR) 1 Capsules By Mouth every day. Refills: 2. ondansetron (Zofran ODT 4 mg Tab-Dis) 1 Tablets By Mouth every 8 hours as needed Nausea/Vomiting. Refills: 0. phentermine (Adipex-P 37.5 mg Tab) 1 Tablets By Mouth every day. BMI 43 #3 30 day supply before breakfast. Refills: 0. potassium chloride (potassium chloride 20 mEq ER Tab) 1 Tablets By Mouth every day. Refills: 3. ropinirole (Requip 0.5 mg Tab) By Mouth 3 times a day. ubrogepant (Ubrelvy 50 mg oral tablet) PATIENT EDUCATION INFORMATION: Instructions: Follow up: DIAGNOSIS: Normal [facility] ED Note-Physicianon 09-22-20 ED Note-Physician Basic Information Time Seen: Gentry Astorga M.D. 09/21/2023 20:30 Chief Complaint pt arrives for c/o suicidal ideations and thoughts of being better off gone. pt states she has been having these thoughts for awhile; denies a plan. pt states hx bipolar and that the meds that she is taking is not helping and making things worse. History of Present Illness The patient is a 38-year-old female past medical history of bipolar disorder who presented to the emergency room for psych evaluation. The patient states for past few months she has been having thoughts that she wishes she was not here. She states she has not thought of hurting herself however she wishes she was not here. The patient denies any hallucinations. She believes her medications are not working. The patient states 2 weeks ago they changed her medications, however she started having side effects and they switched her back to her old medications and told her to see her in 2 weeks. The patient denies any physical complaints. The patient denies any other associated symptoms. Review of Systems Additional ROS info: Except as noted in the above Review of Systems and in the History of Present Illness all other systems have been reviewed and are negative or noncontributory. Physical Exam Vitals & Measurements T: 37.1 ?C(Oral) HR: 100(Peripheral) RR: 19 BP: 138/86 SpO2: 99% HT: 175 cm WT: 131 kg BMI: 42.78 General: alert, mild distress Skin: warm, dry Head: no trauma, normocephalic Neck: Trachea midline Eye: normal conjunctiva, sclera clear Cardiovascular: regular rate and rhythm Respiratory: Lungs CTA, respirations non labored, breath sounds equal Gastrointestinal: soft, non distended, no tenderness, no guarding Extremities: no deformity, no trauma Neurological: Alert and oriented, speech normal, no focal neuro deficits Psychiatric: cooperative, affect tearful, Medical Decision Making MEDICAL DECISION MAKING Number and Complexity of Problems Differential Diagnosis: [] [facility] Data External documents reviewed: [] My EKG interpretation: [] My CT interpretation: [] My X-ray interpretation: [] My Ultrasound interpretation: [] Decision rules/scores evaluated: [] Discussed with: [] Treatment and Disposition ED Course: The patient presented with passive suicidal ideation. She appears tearful. Blood work reviewed unremarkable. The EKG shows no acute ischemic changes. The patient was evaluated by P and the decision for inpatient treatment was made. The patient has been accepted at [facility] for inpatient treatment under the care of Dr. Arzola. The patient signed a voluntary slip. The patient is transferred to [facility] via [facility]. Shared decision making: [] Code status: [] Assessment/Plan 1. Passive suicidal ideations (R45.851: Suicidal ideations) 2. Bipolar disorder with depression (F31.9: Bipolar disorder, unspecified) Orders: Automated Diff CBC w/ Auto Diff Communication Order Comprehensive Metabolic Panel Consult to Mental Health Drug Screen Urine ECG 12 Lead Adult eGFR Ethanol Level Transfer Patient to [facility] Qual Disposition Plan Patient Discharge Condition Stable Discharge Disposition Transferred to [facility] Discharge Prescription List Prescriptions No active prescription medications Follow-up No qualifying data available Problem List/Past Medical History Ongoing Abnormal CT scan, kidney Allergic rhinitis Allergy to pollen Amenorrhea Anxiety state BMI 40.0-44.9, adult Duplicated renal collecting system Elevated BP without diagnosis of hypertension Fatigue Food allergy Hypokalemia Kidney stone Kidney stones Leukocytosis Low serum vitamin D Lower abdominal pain Lumbago Migraine Migraines Mild depressed bipolar 1 disorder Nocturia SHILPA on CPAP Other obesity due to excess calories Perimenopausal symptom 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 Recurrent UTI RLS (restless legs syndrome) Round ligament pain Sciatica, left side Smoker Stress incontinence Ureteral calculus UTI [Urinary tract infection] Historical Abnormal weight gain Abscess Allergic asthma Anxiety disorder Anxiety, generalized BMI 38.0-38.9,adult BMI 39.0-39.9,adult Migraine Morbid obesity Obesity (BMI 30-39.9) SHILPA (obstructive sleep apnea) Sleep apnea TIA - Transient ischaemic attack Procedure/Surgical History suction curettage with dilation (05/16/2015), kidney surgery as a child - 1 removed at age 3 months, Tonsillectomy. Medications Inpatient No active inpatient medications Home Adipex-P 37.5 mg Tab, 37.5 mg= 1 tab(s), Oral, Daily Ajovy Autoinjector 225 mg/1.5 mL subcutaneous solution Albuterol (Eqv-ProAir HFA) 90 mcg/inh inhalation aerosol, 2 puff(s), Inhalation, q4hr, PRN Bromfed DM oral syrup, 5 mL, Oral, QID, PRN Flonase 0.05 mg/inh nasal spray, 1 s (more content not included)... Normal [facility] Comment on above: Result Comment: Elec tronically Signed By: Gentry Astorga M.D.\.br\Date and Time Signed: 09/22/23 04:48 EST ED Patient Education Noteon 09-22-2023 ED Patient Education Note Normal [facility] ED Patient Summaryon 023 ED Patient Summary [place] [id number] Patient Discharge Instructions Person Information Name: HARVEY MARTINEZ Age: 38 Years Arrival Date: 09/21/2023 20:12:23 Discharge Diagnosis: Primary Care Physician: Reginald ASHER DO, FAAFP Provider Information Primary Provider: Gentry Astorga M.D. Advanced Stamp Pad Maker:None The exam and treatment you received in the Emergency Department were for an urgent problem and are not intended as complete care. It is important that you follow up with a doctor, nurse practitioner, or physician?s public health assistant for ongoing care. If your symptoms become worse or you do not improve as expected and you are unable to reach your usual health care provider, you should return to the Emergency Department. We are available 24 hours a day. HARVEY MARTINEZ has been given the following list of patient education materials, prescriptions and follow-up instructions: Follow-up Instructions: In the event that this physician does not participate in your insurance network, please consult with your insurance company to find a nearby participating provider. Patient Education Materials: A MESSAGE TO ALL PATIENTS REGARDING OPIOIDS PRESCRIPTION OPIOIDS: WHAT YOU NEED TO KNOW Prescription opioids can be used to help relieve dcoszljf-qz-arncay pain and are often prescribed following a surgery or injury, or for certain health conditions. These medications can be an important part of the treatment but also come with serious risks. It is important to work with your healthcare provider to make sure you are getting the safest, most effective care. WHAT ARE THE RISKS AND SIDE EFFECTS OF OPIOID USE? Prescription opioids carry serious risks of addiction and overdose, especially with prolonged use. An opioid overdose, often marked by slowed breathing, can cause sudden . The use of prescription opioids can have a number of side effects as well, even when taken as directed: ? Tolerance?meaning you might need to take more of the medication for the same pain relief ? Physical dependence?meaning you have symptoms of withdrawal when a medication is stopped ? Increased sensitivity to pain ? Constipation ? Nausea, vomiting, and dry mouth ? Sleepiness and dizziness ? Confusion ? Depression ? Low levels of testosterone that can result in lower sex drive, energy, and strength ? Itching and sweating RISKS ARE GREATER WITH: ? History of drug misuse, substance use disorder, or overdose ? Mental health conditions (such as depression or anxiety) ? Sleep apnea ? Older age (65 years and older) ? Avoid alcohol while taking prescription opioids. Also, unless specifically advised by your health care provider, medications to avoid include: ? Benzodiazepines (such as Xanax or Valium) ? Muscle relaxants (such as Soma or Flexeril) ? Hypnotics (such as Ambien or Lunesta) ? Other prescription opioids KNOW YOUR OPTIONS Talk to your health care provider about ways to manage your pain that don?t involve prescription opioids. Some of these options may actually work better and have fewer risks and side effects. Options may include: ? Pain relievers such as acetaminophen, ibuprofen, and naproxen ? Some medication that are also used for depression or seizures ? Physical therapy and exercise ? Cognitive behavioral therapy, a psychological, goal-directed approach, in which patients learn how to modify physical, behavioral, and emotional triggers of pain and stress. IF YOU ARE PRESCRIBED OPIOIDS FOR PAIN: ? Never take opioids in greater amounts or more often than prescribed. ? Follow up with your primary health care provider. o Work together to create a plan on how to manage your pain. o Talk about ways to help manage your pain that don?t involve prescription opioids. o Talk about any and all concerns and side effects. ? Help prevent misuse and abuse o Never sell or share prescription opioids. o Never use another person?s prescription opioids. ? Store prescription opioids in a secure place and out of reach of others (this may include visitors, children, friends, and family). ? Safely dispose of unused prescription opioids: Find your community drug take-back program or your pharmacy mail-back program, or flush them down the toilet, following guidance from the Food and Drug Administration (www.fda.gov/Drugs/Res ourcesForYou). ? Visit www.cdc.gov/drugoverdo se to learn about the risks of opioids abuse and overdose. ? If you believe you may be struggling with addiction, tell your health life care planner and ask for guidance or call [facility]?S National Helpline at 4-459-516-SXBJ. c Source: [place] Department of Health and Human Services/Center for Disease Control & Prevention [facility] Medications Given: Medication Dose Route No medications foun (more content not included)... Normal [facility] Free T4 (Free Thyroxine)on 11-23-2022 Free T4 [Mass/Vol] 1.01 ng/dL Normal 0.61-1.12 [facility] Comment on above: Performed By: #### L IPID, T4F, TSH3 wRFLX, [id number] #### [facility] [address] Lipid Panelon 09-22-2023 Cholesterol [Mass/Vol] 156 mg/dL Normal 140-200 [facility] Comment on above: Result Comment: Chol less than 200 mg/dl low risk Chol 201-239 mg/dl borderline risk Chol 240 mg/dl and greater high risk Performed By: #### L IPID, T4F, TSH3 wRFLX, [id number] #### [facility] [address] Cholesterol in HDL [Mass/Vol] 39 mg/dL Normal 23-92 [facility] Comment on above: Result Comment: HDL CHOL ATP-III CLASSIFICATION Cardiovascular Risk HDL > or equal to 60 mg/dL LOW HDL < 40 mg/dL HIGH Performed By: #### L IPID, T4F, TSH3 wRFLX, [id number] #### [facility] [address] [place] [address] [facility] Cholesterol.total/Chol esterol in HDL [Mass ratio] 4.0 {ratio} Normal <5.0 [facility] Comment on above: Performed By: #### L IPID, T4F, TSH3 wRFLX, [id number] #### [facility] [address] LDL Cholesterol,Calculated 95 mg/dL Normal 0-100 [facility] Comment on above: Result Comment: LDL ATP III CLASSIFICATION LDL less than 100 mg/dL Optimal LDL 100-129 mg/dL Near or above optimal LDL 130-159 mg/dL Borderline high LDL 160-189 mg/dL High LDL greater than 189 mg/dL Very high Performed By: #### L IPID, T4F, TSH3 wRFLX, [id number] #### [facility] [address] [place] [id number] [facility] Triglyceride w/Reflex 111 mg/dL Normal 0-149 [facility] Comment on above: Result Comment: TRIG ATP III CLASSIFICATION TRIG less than 150 mg/dL Normal TRIG 150-199 mg/dL Borderline high TRIG 200-500 mg/dL High TRIG greater than 500 mg/dL Very high Standard traceable to the Center for Disease Conrtrol and Prevention (CDC) test method. Performed By: #### L IPID, T4F, TSH3 wRFLX, [id number] #### [facility] [address] [place] [address] [facility] VLDL CHOLESTEROL 22 mg/dL Normal [facility] Comment on above: Performed By: #### L IPID, T4F, TSH3 wRFLX, [id number] #### [facility] [address] [place] [address] [facility] Outside [facility] Correspo ndenceon 09-22-2023 Outside [facility] Correspondence [id number]#1.0 0TIFF Normal [facility] Outside Recordson 09-22-2023 Outside Records [id number]#1. 00TIFF Normal [facility] Serum or plasma high density lipoprotein (HDL) cholesterol measurementOrdered By: Flaco Sanchez on 09-22-2023 Cholesterol in HDL [Mass/Vol] 39 mg/dL 23 [facility] Comment on above: HDL CHOL ATP-III CLA SSIFICATION Cardiovascular RiskHDL > or equal to 60 mg/dL LOWHDL < 40 mg/dL HIGH Serum or plasma total choles terol/high density lipoprotein (HDL) cholesterol mass ratOrdered By: Flaco Sanchez on 09-22-2023 Cholesterol.total/Chol esterol in HDL [Mass ratio] 4.0 {ratio} <5.0 [facility] Thyroid Stim Hormone w/Rflxo n 09-22-2023 Thyroid Stim Hormone w/Rflx 0.10 u[iU]/mL Low 0.45-5.33 [facility] Comment on above: Performed By: #### L IPID, T4F, TSH3 wRFLX, [id number] #### [address] Thyrotropin [Units/volume] i n Serum or PlasmaOrdered By: Flaco Sanchez on 09-22-2023 TSH Qn 0.10 m[IU]/L 0.45-5.33 [facility] Thyroxine (T4) free [Mass/vo lume] in Serum or PlasmaOrdered By: Flaco Sanchez on 09-22-2023 Free T4 [Mass/Vol] 1.01 ng/dL 0.61-1.12 [facility] Transfer Documentson 023 Transfer Documents [id number]#1. 00TIFF Normal [facility] Triglyceride [Mass/volume] i n Serum or PlasmaOrdered By: Flaco Sanchez on 09-22-2023 Triglyceride [Mass/Vol] 111 mg/dL 0-149 [facility] Comment on above: TRIG ATP III CLASSIF ICATIONTRIG less than 150 mg/dL NormalTRIG 150-199 mg/dL Borderline highTRIG 200-500 mg/dL High TRIG greater than 500 mg/dL Very highStandard traceable to the Center for Disease Conrtrol and Prevention (CDC) test method. Vitamin D 25 Hydroxy Totalon 09-22-2023 Vitamin D 25 Hydroxy Total 22.7 ng/mL Low 30-100 [facility] Comment on above: Result Comment: EARNEST MIN D STATUS 25([place])VITAMIN D RANGE (ng/mL) Deficient <20 Insufficient 20 to <30 Sufficient 30 to 100 Reference: Real Walker, Clemencia BILLINGSLEY, et al. Evaluation,treatment, and prevention of vitamin D deficiency; an Endocrine Society clinical practice guideline. JCEM. 2010; 96(7):191-. PERFORMED BY: [place] [address] PATHOLOGIST PHYSICS TEACHER HANNAH HILL M.D. Performed By: #### L IPID, T4F, TSH3 wRFLX, [id number] #### [address] Vitamin D+Metabolites [Mass/ volume] in Serum or PlasmaOrdered By: Flaco Sanchez on 09-22-2023 Vitamin D+Metabolites [Mass/Vol] 22.7 ng/mL 30-100 [facility] Comment on above: VITAMIN D STATUS 25( [place])VITAMIN D RANGE (ng/mL) Deficient <20 Insufficient 20 to <30Sufficient 30 to 100Reference: Real Walker, Clemencia BILLINGSLEY, et al. Evaluation,treatment, and prevention of vitamin D deficiency; an Endocrine Society clinical practice guideline. JCEM. 2010; 96(7):1911-30. Auto Diffon 09-21-2023 Basophils/100 WBC (Bld) 0.3 % Normal 0.0-2.0 [facility] Comment on above: Order Comment: Order Added by Discern Expert. Performed By: #### 2 444178, 8894253, 1729483, [id number] ####[place] [address] [place] [address] Basophils/Leukocytes Auto (Bld) [Pure # fraction] 0.0 E9/L Normal 0.0-0.2 [facility] Comment on above: Order Comment: Order Added by Discern Expert. Performed By: #### 2 963289, 2774476, 8298222, [id number] ####[address] [address] Eosinophils/100 WBC (Bld) 0.8 % Normal 0.0-8.0 [facility] Comment on above: Order Comment: Order Added by Discern Expert. Performed By: #### 2 999033, 1944148, 6243896, [id number] ####[address] [address] Eosinophils/Leukocytes Auto (Bld) [Pure # fraction] 0.1 E9/L Normal 0.0-0.5 [facility] Comment on above: Order Comment: Order Added by Discern Expert. Performed By: #### 2 443224, 6420336, 7077308, 56865161 ####[address] [address] Lymphocytes/100 WBC (Bld) 21.2 % Normal 14.0-50.0 [facility] Comment on above: Order Comment: Order Added by Discern Expert. Performed By: #### 2 383379, 4198651, 0944636, 87019743 ####[address] [address] Lymphocytes/Leukocytes Auto (Bld) [Pure # fraction] 2.3 E9/L Normal 1.0-4.0 [facility] Comment on above: Order Comment: Order Added by Discern Expert. Performed By: #### 2 220732, 6669944, 6584963, 45065334 ####[address] [address] Monocytes/100 WBC (Bld) 5.1 % Normal 4.0-14.0 [facility] Comment on above: Order Comment: Order Added by Discern Expert. Performed By: #### 2 463087, 1224048, 9454963, 40635398 ####[address] [address] Monocytes/Leukocytes Auto (Bld) [Pure # fraction] 0.5 E9/L Normal 0.2-1.0 [facility] Comment on above: Order Comment: Order Added by Discern Expert. Performed By: #### 2 860453, 0971919, 1342829, 12142851 ####[address] [address] Neutrophils/100 WBC (Bld) 72.6 % Normal 36.0-75.0 [facility] Comment on above: Order Comment: Order Added by Discern Expert. Performed By: #### 2 916211, 7876699, 1993951, 93546771 ####[address] [address] Neutrophils/Leukocytes Auto (Bld) [Pure # fraction] 7.7 E9/L High 2.0-7.5 [facility] Comment on above: Order Comment: Order Added by Discern Expert. Performed By: #### 2 379184, 1285174, 4090390, 43052156 ####[address] [address] CBC w/ Auto Diffon 3 Erythrocyte distribution width (RBC) [Ratio] 12.7 % Normal 10.9-14.2 [facility] Comment on above: Performed By: #### 2 655075, 4987312, 9757228, 02469418 ####[address] [address] Hematocrit (Bld) [Volume fraction] 39.1 % Normal 34.0-46.0 [facility] Comment on above: Performed By: #### 2 399556, 1838133, 7588308, 31818464 ####[address] [address] Hemoglobin (Bld) [Mass/Vol] 13.4 g/dL Normal 12.0-16.0 [facility] Comment on above: Performed By: #### 2 763139, 3067364, 1205121, 76288497 ####[facility] [address] [place] [address] MCH (RBC) [Entitic mass] 30.5 pg Normal 27.0-34.0 [facility] Comment on above: Performed By: #### 2 847162, 5406773, 3901062, 11001350 ####[address] [address] MCHC (RBC) [Mass/Vol] 34.4 g/dL Normal 31.4-36.0 [facility] Comment on above: Performed By: #### 2 950153, 5120488, 0155143, 01865999 ####[address] [address] MCV (RBC) [Entitic vol] 88.7 fL Normal 80.0-100.0 [facility] Comment on above: Performed By: #### 2 564067, 2667754, 7462007, 84055819 ####[address] [address] Platelet mean volume (Bld) [Entitic vol] 7.0 fL Normal 6.4-10.8 [facility] Comment on above: Performed By: #### 2 162157, 3959389, 1148833, 37072157 ####[address] [address] Platelets (Bld) [#/Vol] 297.0 E9/L Normal 150.0-500.0 [facility] Comment on above: Performed By: #### 2 251865, 8592645, 6645753, 17061348 ####[address] [address] RBC (Bld) [#/Vol] 4.4 E12/L Normal 4.3-5.9 [facility] Comment on above: Performed By: #### 2 776864, 8292381, 2408685, 69298620 ####[place] [address] [place] [address] WBC corrected for nucl RBC Auto (Bld) [#/Vol] 10.7 E9/L Normal 4.0-11.0 [facility] Comment on above: Performed By: #### 2 525184, 6500830, 8889781, 02897960 ####[place] [address] [place] [address] CMPon 09-21-2023 Albumin [Mass/Vol] 4.3 g/dL Normal 3.3-5.0 [facility] Comment on above: Performed By: #### 2 831422, 8719161, 7401819, 46337754 ####[address] [address] Albumin/Globulin [Mass ratio] 1.7 {ratio} Normal 1.1-2.2 [facility] Comment on above: Performed By: #### 2 830099, 0560638, 2275413, 81782249 ####[address] [address] Alk Phos 84 Int._Unit/L Normal 21-98 [facility] Comment on above: Performed By: #### 2 416596, 2145866, 3683420, 12096411 ####[place] [address] [place] [address] ALT 17 Int._Unit/L Normal 6-46 [facility] Comment on above: Performed By: #### 2 814172, 0176147, 5005805, 43780456 ####[place] [address] [place] [address] Anion gap [Moles/Vol] 13 mmol/L Normal 6-16 [facility] Comment on above: Performed By: #### 2 464726, 2969271, 6362527, 19183835 ####[facility] [place] [address] AST 11 Int._Unit/L Normal 5-43 [facility] Comment on above: Performed By: #### 2 506558, 0602251, 8589412, 93041342 ####[facility] [address] [place] [address] Bili Total 0.3 mg/dL Normal 0.0-1.1 [facility] Comment on above: Performed By: #### 2 664385, 8288785, 9489170, 81162973 ####[facility] [address] [place] [address] BUN/Creat Ratio 20 No Units Normal 10-20 [facility] Comment on above: Performed By: #### 2 552795, 1982581, 1637932, 80468404 ####[place] [address] [place] [address] Calcium [Mass/Vol] 8.8 mg/dL Low 8.9-11.1 [facility] Comment on above: Performed By: #### 2 087373, 5587430, 9217319, 55746408 ####[facility] [address] [place] [address] Chloride [Moles/Vol] 103 mmol/L Normal 101-111 [facility] Comment on above: Performed By: #### 2 693262, 4131354, 5912609, 45919654 ####[facility] [address] [place] [address] CO2 [Moles/Vol] 25 mmol/L Normal 21-31 [facility] Comment on above: Performed By: #### 2 274981, 1144172, 6844881, 02695726 ####[facility] [address] [place] [address] Creatinine [Mass/Vol] 0.7 mg/dL Normal 0.5-1.3 [facility] Comment on above: Performed By: #### 2 868521, 3207867, 5340728, 07090290 ####[facility] [address] [place] [address] Globulin (S) [Mass/Vol] 2.5 g/dL Normal 1.4-4.0 [facility] Comment on above: Performed By: #### 2 600133, 2976604, 3129931, 63603301 ####[facility] [address] [place] [address] Glucose [Mass/Vol] 92 mg/dL Normal 55-199 [facility] Comment on above: Performed By: #### 2 392948, 2060752, 7149544, 08549566 ####[facility] [address] [place] [address] Potassium [Moles/Vol] 3.9 mmol/L Normal 3.5-5.3 [facility] Comment on above: Performed By: #### 2 802413, 2733873, 6296134, 42931963 ####[facility] [address] [place] [address] Protein [Mass/Vol] 6.8 g/dL Normal 6.0-7.8 [facility] Comment on above: Performed By: #### 2 025870, 2256071, 6450688, 78823870 ####[facility] [address] [place] [address] Sodium [Moles/Vol] 137 mmol/L Normal 135-145 [facility] Comment on above: Performed By: #### 2 840270, 2609904, 3169973, 34341316 ####[facility] [address] [place] [address] Urea nitrogen [Mass/Vol] 14 mg/dL Normal 5-21 [facility] Comment on above: Performed By: #### 2 762131, 4160133, 9302996, 56314957 ####[facility] [address] [place] [address] Consent for Treatmenton 12- Consent for Treatment [id number]#1.0 0TIFF Normal [facility] Ethanolon 09-21-2023 Ethanol Lvl <10 High <=7 [facility] Comment on above: Performed By: #### 2 913065 #### [facility] Laboratory [address] [place] [address] eGFRon 09-21-2023 eGFR 115 mL/min/1.73 m2 Normal >=59 [facility] Comment on above: Order Comment: Order added by Discern Expert. Performed By: #### 2 303337, 0510332, 4995784, 91851982 ####[facility] [address] [place] [address] Consultation Noteon 09-18-20 Consultation Note [id number]#1. 00TIFF [facility] Reminderson 09-13-2023 Reminders - From: Emperatriz Olmstead To: ANA Moreland; Sent: 03/14/2023 14:05:35 EDT Show up: 05/14/2023 14:05:00 EDT Subject: Reminder Message Reminder Message Please Remember to:_schedule CT AP wo contrast and metabolic work-up litholink order faxed 03/14/23 future order was put into FT to be precerted and scheduled prior to her September [address] scan was completed in March. per Dr Moreland she does not need repeated. Pt has appt 09/29 Normal [facility] Insurance Correspondenceon 11-07-2022 Insurance Correspondence [id number]#1.0 0TIFF Normal [facility] VIT.B1 THIAMINE-BLDon 2022 VIT.B1 THIAMINE-BLD 104.3 Normal [facility] Comment on above: Result Comment: Refe rence range: 66.5 to 200.0 Unit: nmol/L (NOTE) This test was developed and its performance characteristics determined by [facility]. It has not been cleared or approved by the Food and Drug Administration. PERFORMED AT [facility] Performed By: #### L VB1 #### Testing performed at [facility] VITAMIN Aon 08-25-2023 VITAMIN A 61.6 High [facility] Comment on above: Result Comment: Refe rence range: 18.9 to 57.3 Unit: ug/dL (NOTE) Reference intervals for vitamin A determined from [facility] internal studies. Individuals with vitamin A less than 20 ug/dL are considered vitamin A deficient and those with serum concentrations less than 10 ug/dL are considered severely deficient. This test was developed and its performance characteristics determined by [facility]. It has not been cleared or approved by the Food and Drug Administration. PERFORMED AT [facility] Performed By: #### L EARNEST, LVITE ####Testing performed at [facility]#### TSH2, LIP2, B12F, CMPF, FE2, ACBC ####[place] [address] VITAMIN Agusto 08-25-2023 VITAMIN E ALPHA 14.6 [facility] Comment on above: Result Comment: Refe rence range: 5.9 to 19.4 Unit: mg/L (NOTE) This test was developed and its performance characteristics determined by [facility]. It has not been cleared or approved by the Food and Drug Administration. Performed By: #### L EARNEST, LVITE ####Testing performed at [facility]#### TSH2, LIP2, B12F, CMPF, FE2, ACBC ####Testing [place] [address] VITAMIN E GAMMA 2.0 [facility] Comment on above: Result Comment: Refe rence range: 0.7 to 4.9 Unit: mg/L (NOTE) This test was developed and its performance characteristics determined by [facility]. It has not been cleared or approved by the Food and Drug Administration. Reference intervals for alpha and gamma-tocopherol determined from National Health and Nutrition Examination Survey, 5863-8746. Individuals with alpha-tocopherol levels less than 5.0 mg/L are considered vitamin E deficient. PERFORMED AT [facility] Performed By: #### L EARNEST, LVITE ####Testing performed at [facility]#### TSH2, LIP2, B12F, CMPF, FE2, ACBC ####[place] [address] 25 0H VITAMIN D LEVELon 08-10 25 0H VITAMIN D LEVEL 35.0 NG/ML Normal [facility] Comment on above: Result Comment: DEFICIENT <20 NG/ML INSUFFICIENT 20-<30 NG/ML SUFFICIENT 30-100 NG/ML POTENTIAL TOXICITY >100 NG/ML Testing performed at [place] [address] Performed By: #### T 42, VITD #### [place] [address] B12 FOLATEon 08-22-2023 FOLATE 11.0 NG/ML Normal 2.56-20.0 [facility] Comment on above: Result Comment: Test ing performed at [place] [address] Performed By: #### L EARNEST, LVITE ####Testing performed at [facility]#### TSH2, LIP2, B12F, CMPF, FE2, ACBC ####[place] [address] Cobalamin (Vitamin B12) [Mass/Vol] 545 pg/mL Normal 239-931 [facility] Comment on above: Result Comment: Test ing performed at [place] [address] Performed By: #### L EARNEST, LVITE ####Testing performed at [facility]#### TSH2, LIP2, B12F, CMPF, FE2, ACBC ####[place] [address] CBCon 08-22-2023 ABSOLUTE BAS 0.0 10*3/uL Normal 0.0-0.2 [facility] Comment on above: Result Comment: Test ing performed at [place] [address] Performed By: #### L EARNEST, LVITE #### Testing performed at [facility] #### TSH2, LIP2, B12F, CMPF, FE2, ACBC #### Testing performed at [place] [id number] ABSOLUTE EOS 0.1 10*3/uL Normal 0.0-0.7 [facility] Comment on above: Performed By: #### L EARNEST, LVITE #### Testing performed at [facility] #### TSH2, LIP2, B12F, CMPF, FE2, ACBC #### Testing performed at [place] [id number] ABSOLUTE NEUTROPHIL COUNT 5.7 10*3/uL Normal 1.4-6.5 [facility] Comment on above: Performed By: #### L EARNEST, LVITE #### Testing performed at [facility] #### TSH2, LIP2, B12F, CMPF, FE2, ACBC #### Testing performed at [place] [id number] Basophils/100 WBC (Bld) 0.3 % Normal 0.0-2.0 [facility] Comment on above: Performed By: #### L EARNEST, LVITE #### Testing performed at [facility] #### TSH2, LIP2, B12F, CMPF, FE2, ACBC #### [place] [address] DTYPE AUTO DIFF Normal [facility] Comment on above: Performed By: #### L EARNEST, LVITE #### Testing performed at [facility] #### TSH2, LIP2, B12F, CMPF, FE2, ACBC #### Testing performed at [place] [id number] Eosinophils/100 WBC (Bld) 1.3 % Normal 0.0-11.0 [facility] Comment on above: Performed By: #### L EARNEST, LVITE #### Testing performed at [facility] #### TSH2, LIP2, B12F, CMPF, FE2, ACBC #### Testing performed at [address] [address] Lymphocytes (Bld) [#/Vol] 1.7 10*3/uL Normal 1.2-3.4 [facility] Comment on above: Performed By: #### L EARNEST, LVITE #### Testing performed at [facility] #### TSH2, LIP2, B12F, CMPF, FE2, ACBC #### Testing performed at [address] [address] Lymphocytes/100 WBC (Bld) 21.7 % Normal 20.0-55.0 [facility] Comment on above: Performed By: #### L EARNEST, LVITE #### Testing performed at [facility] #### TSH2, LIP2, B12F, CMPF, FE2, ACBC #### Testing performed at [address] [address] Monocytes (Bld) [#/Vol] 0.4 10*3/uL Normal 0.0-0.7 [facility] Comment on above: Performed By: #### L EARNEST, LVITE #### Testing performed at [facility] #### TSH2, LIP2, B12F, CMPF, FE2, ACBC #### Testing performed at [address] [address] Monocytes/100 WBC (Bld) 5.1 % Normal 0.0-10.0 [facility] Comment on above: Performed By: #### L EARNEST, LVITE #### Testing performed at [facility] #### TSH2, LIP2, B12F, CMPF, FE2, ACBC #### Testing performed at [address] [address] Neutrophils/100 WBC (Bld) 71.6 % Normal 37.0-75.0 [facility] Comment on above: Performed By: #### L EARNEST, LVITE #### Testing performed at [facility] #### TSH2, LIP2, B12F, CMPF, FE2, ACBC #### Testing [place] [address] Erythrocyte distribution width (RBC) [Ratio] 13.2 % Normal 11.5-14.5 [facility] Comment on above: Performed By: #### L EARNEST, LVITE #### Testing performed at [facility] #### TSH2, LIP2, B12F, CMPF, FE2, ACBC #### [place] [address] Hematocrit (Bld) [Volume fraction] 39.5 % Normal 36.0-48.0 [facility] Comment on above: Performed By: #### L EARNEST, LVITE #### Testing performed at [facility] #### TSH2, LIP2, B12F, CMPF, FE2, ACBC #### [place] [address] Hemoglobin (Bld) [Mass/Vol] 13.4 g/dL Normal 12.0-16.0 [facility] Comment on above: Performed By: #### L EARNEST, LVITE #### Testing performed at [facility] #### TSH2, LIP2, B12F, CMPF, FE2, ACBC #### [place] [address] MCH (RBC) [Entitic mass] 30.8 pg Normal 26.0-35.0 [facility] Comment on above: Performed By: #### L EARNEST, LVITE #### Testing performed at [facility] #### TSH2, LIP2, B12F, CMPF, FE2, ACBC #### [place] [address] MCHC (RBC) [Mass/Vol] 33.9 g/dL Normal 27.0-37.0 [facility] Comment on above: Performed By: #### L EARNEST, LVITE #### Testing performed at [facility] #### TSH2, LIP2, B12F, CMPF, FE2, ACBC #### Testing performed at [place] [id number] MCV (RBC) [Entitic vol] 91.0 fL Normal 80.0-100.0 [facility] Comment on above: Performed By: #### L EARNEST, LVITE #### Testing performed at [facility] #### TSH2, LIP2, B12F, CMPF, FE2, ACBC #### [place] [address] Platelet mean volume (Bld) [Entitic vol] 7.4 fL Normal 7.4-11.0 [facility] Comment on above: Result Comment: Test ing performed at [place] [address] Performed By: #### L EARNEST, LVITE #### Testing performed at [facility] #### TSH2, LIP2, B12F, CMPF, FE2, ACBC #### [place] [address] Platelets (Bld) [#/Vol] 280 10*3/uL Normal 130-400 [facility] Comment on above: Performed By: #### L EARNEST, LVITE #### Testing performed at [facility] #### TSH2, LIP2, B12F, CMPF, FE2, ACBC #### [place] [address] RBC (Bld) [#/Vol] 4.34 10*6/uL Normal 4.0-5.4 [facility] Comment on above: Performed By: #### L EARNEST, LVITE #### Testing performed at [facility] #### TSH2, LIP2, B12F, CMPF, FE2, ACBC #### Testing performed at [place] [id number] WBC (Bld) [#/Vol] 7.9 10*3/uL Normal 3.6-11.0 [facility] Comment on above: Performed By: #### L EARNEST, LVITE #### Testing performed at [facility] #### TSH2, LIP2, B12F, CMPF, FE2, ACBC #### Testing performed at [address] [address] CMP FASTINGon 08-22-2023 A:G RATIO 1.5 RATIO Normal 1.3-2.2 [facility] Comment on above: Performed By: #### L EARNEST, LVITE #### Testing performed at [facility] #### TSH2, LIP2, B12F, CMPF, FE2, ACBC #### Testing performed at [place] [id number] ALBUMIN 4.4 G/dl Normal 3.5-5.0 [facility] Comment on above: Performed By: #### L EARNEST, LVITE #### Testing performed at [facility] #### TSH2, LIP2, B12F, CMPF, FE2, ACBC #### Testing performed at [address] [address] ALP [Catalytic activity/Vol] 99 U/L Normal 38-126 [facility] Comment on above: Performed By: #### L EARNEST, LVITE #### Testing performed at [facility] #### TSH2, LIP2, B12F, CMPF, FE2, ACBC #### Testing performed at [address] [address] ALT [Catalytic activity/Vol] 32 U/L Normal <35 [facility] Comment on above: Performed By: #### L EARNEST, LVITE #### Testing performed at [facility] #### TSH2, LIP2, B12F, CMPF, FE2, ACBC #### Testing performed at [place] [id number] AST [Catalytic activity/Vol] 31 U/L Normal 14-36 [facility] Comment on above: Performed By: #### L EARNEST, LVITE #### Testing performed at [facility] #### TSH2, LIP2, B12F, CMPF, FE2, ACBC #### Testing performed at [address] [place] [address] Bilirubin [Mass/Vol] 0.6 mg/dL Normal 0.2-1.3 [facility] Comment on above: Performed By: #### L EARNEST, LVITE #### Testing performed at [facility] #### TSH2, LIP2, B12F, CMPF, FE2, ACBC #### Testing performed at [place] [id number] Calcium [Mass/Vol] 9.0 mg/dL Normal 8.4-10.2 [facility] Comment on above: Performed By: #### L EARNEST, LVITE #### Testing performed at [facility] #### TSH2, LIP2, B12F, CMPF, FE2, ACBC #### Testing performed at [place] [id number] Chloride [Moles/Vol] 103 mmol/L Normal 98-107 [facility] Comment on above: Result Comment: Clara marshall note: Triglyceride levels of 600mg/dL or higher may positively bias chloride results by approximately 2.1 mmol Performed By: #### L EARNEST, LVITE #### Testing performed at [facility] #### TSH2, LIP2, B12F, CMPF, FE2, ACBC #### Testing performed at [place] [id number] CO2 [Moles/Vol] 23 mmol/L Normal 22-30 [facility] Comment on above: Performed By: #### L EARNEST, LVITE #### Testing performed at [facility] #### TSH2, LIP2, B12F, CMPF, FE2, ACBC #### Testing performed at [place] [id number] Creatinine [Mass/Vol] 0.70 mg/dL Normal 0.7-1.2 [facility] Comment on above: Performed By: #### L EARNEST, LVITE #### Testing performed at [facility] #### TSH2, LIP2, B12F, CMPF, FE2, ACBC #### [place] [address] EST. GFR, 122 ml/min/1.73sq.m [facility] Comment on above: Performed By: #### L EARNEST, LVITE #### Testing performed at [facility] #### TSH2, LIP2, B12F, CMPF, FE2, ACBC #### [place] [address] EST. GFR,Non 101 ml/min/1.73sq.m [facility] Comment on above: Performed By: #### L EARNEST, LVITE #### Testing performed at [facility] #### TSH2, LIP2, B12F, CMPF, FE2, ACBC #### [place] [address] GFR Information Average GFR for 30-3 9 years old = 107. Normal [facility] Comment on above: Result Comment: [employer] vanessa Kidney disease, GFR = <60. Kidney failure, GFR = <15. The GFR estimate is not adjusted for extreme body surface area or acute process, nor has it been validated for women or ethnic groups other than and . Testing performed at [place] [address] Performed By: #### L EARNEST, LVITE #### Testing performed at [facility] #### TSH2, LIP2, B12F, CMPF, FE2, ACBC #### [place] [address] Glucose [Mass/Vol] 93 mg/dL Normal 70-100 [facility] Comment on above: Result Comment: NORMAL <100 mg/dL PREDIABETES 101-126 mg/dL DIABETES 126 mg/dL or higher Performed By: #### L EARNEST, LVITE #### Testing performed at [facility] #### TSH2, LIP2, B12F, CMPF, FE2, ACBC #### [place] [address] Potassium [Moles/Vol] 3.8 mmol/L Normal 3.5-5.1 [facility] Comment on above: Performed By: #### L EARNEST, LVITE #### Testing performed at [facility] #### TSH2, LIP2, B12F, CMPF, FE2, ACBC #### [place] [address] Protein [Mass/Vol] 7.3 g/dL Normal 6.3-8.2 [facility] Comment on above: Performed By: #### L EARNEST, LVITE #### Testing performed at [facility] #### TSH2, LIP2, B12F, CMPF, FE2, ACBC #### [place] [address] Sodium [Moles/Vol] 138 mmol/L Normal 137-145 [facility] Comment on above: Performed By: #### L EARNEST, LVITE #### Testing performed at [facility] #### TSH2, LIP2, B12F, CMPF, FE2, ACBC #### [place] [address] Urea nitrogen [Mass/Vol] 16 mg/dL Normal 7-20 [facility] Comment on above: Performed By: #### L EARNEST, LVITE #### Testing performed at [facility] #### TSH2, LIP2, B12F, CMPF, FE2, ACBC #### Testing performed at [place] [id number] FREE T4on 08-22-2023 Free T4 [Mass/Vol] 1.09 ng/dL Normal 0.78-2.19 [facility] Comment on above: Result Comment: Test ing performed at [place] [address] Performed By: #### T 42, VITD #### [place] [address] HEMOGLOBIN A1Con 08-22-2023 Glucose [Mass/Vol] 97 mg/dL Normal [facility] Comment on above: Result Comment: Test ing performed at [place] [address] Performed By: #### H A1CT #### [place] [address] HbA1c (Bld) [Mass fraction] 5.0 % Normal 0-6 [facility] Comment on above: Result Comment: NORMAL <5.7% PREDIABETES 5.7-6.4% DIABETES 6.5% OR HIGHER Performed By: #### H A1CT #### [place] [address] IRONon 08-22-2023 Iron [Mass/Vol] 97 ug/dL Normal 37-170 [facility] Comment on above: Result Comment: Test ing performed at [place] [address] Performed By: #### L EARNEST, LVITE #### Testing performed at [facility] #### TSH2, LIP2, B12F, CMPF, FE2, ACBC #### [place] [address] LIPID PROFILEon 08-22-2023 Cholesterol [Mass/Vol] 184 mg/dL Normal 107-217 [facility] Comment on above: Performed By: #### L EARNEST, LVITE #### Testing performed at [facility] #### TSH2, LIP2, B12F, CMPF, FE2, ACBC #### [place] [address] Cholesterol in HDL [Mass/Vol] 38 mg/dL Normal 33-75 [facility] Comment on above: Performed By: #### L EARNEST, LVITE #### Testing performed at [facility] #### TSH2, LIP2, B12F, CMPF, FE2, ACBC #### [place] [address] Cholesterol in LDL [Mass/Vol] 118 mg/dL High <100 [facility] Comment on above: Performed By: #### L EARNEST, LVITE #### Testing performed at [facility] #### TSH2, LIP2, B12F, CMPF, FE2, ACBC #### [place] [address] Cholesterol in VLDL [Mass/Vol] 28 mg/dL High 5.0-25 [facility] Comment on above: Performed By: #### L EARNEST, LVITE #### Testing performed at [facility] #### TSH2, LIP2, B12F, CMPF, FE2, ACBC #### [place] [address] Cholesterol.total/Chol esterol in HDL [Mass ratio] 4.84 {ratio} Normal [facility] Comment on above: Result Comment: RISK TOTAL/HDL RATIO MEN WOMEN 1/2 AVERAGE 3.43 3.27 AVERAGE 4.97 4.44 2X AVERAGE 9.55 7.05 3X AVERAGE 23.99 11.04 Testing performed at [place] [address] Performed By: #### L EARNEST, LVITE #### Testing performed at [facility] #### TSH2, LIP2, B12F, CMPF, FE2, ACBC #### [place] [address] Triglyceride [Mass/Vol] 140 mg/dL Normal 0-150 [facility] Comment on above: Performed By: #### L EARNEST, LVITE #### Testing performed at [facility] #### TSH2, LIP2, B12F, CMPF, FE2, ACBC #### [place] [address] TSHon 08-22-2023 TSH 0.949 uIU/ML Normal 0.46-4.68 [facility] Comment on above: Result Comment: Test ing performed at [place] [address] Performed By: #### L EARNEST, LVITE #### Testing performed at [facility] #### TSH2, LIP2, B12F, CMPF, FE2, ACBC #### [place] [address] XR CHEST PA AND LATERALon XR CHEST PA AND LATERAL EXAM: XR CHEST PA AND LATERAL HISTORY: pre op COMPARISON: None. TECHNIQUE: 2 views of the chest were obtained. FINDINGS: Bilateral nipple piercings are noted. The cardiac silhouette is normal in size. The lungs are clear. There is no significant pneumothorax or pleural effusion. No acute osseous abnormality is seen. IMPRESSION: 1. No acute cardiopulmonary abnormality. Normal [facility] XR Chest PA and Lateralon IMPRESSION: 1. No acute cardiopulmonary abnormality. RADIOLOGY EXAM: XR CHEST PA AN D LATERAL HISTORY: pre op COMPARISON: None. TECHNIQUE: 2 views of the chest were obtained. FINDINGS: Bilateral nipple piercings are noted. The cardiac silhouette is normal in size. The lungs are clear. There is no significant pneumothorax or pleural effusion. No acute osseous abnormality is seen. RADIOLOGY Shashi Amos MD - 08/22/2023 EXAM: XR CHEST PA AND LATERAL HISTORY: pre op COMPARISON: None. TECHNIQUE: 2 views of the chest were obtained. FINDINGS: Bilateral nipple piercings are noted. The cardiac silhouette is normal in size. The lungs are clear. There is no significant pneumothorax or pleural effusion. No acute osseous abnormality is seen. IMPRESSION IMPRESSION: 1. No acute cardiopulmonary abnormality. [facility] Radiology Study observation (narrative) [facility] XR Chest PA and LateralOrder ed By: Shashi Amos on 08-22-2023 [facility] Work Phone: DIAGNOSTIC UPPER ENDOSCOPYon 2023 Body surface area Derived from formula 2.[address] [facility] Gastroenterology Patient Name: Harvey Martinez Procedure Date: 2023 9:08 AM Date of : 1985 Admit Type: Outpatient Age: 38 Room: Endo Room1 Gender: Female Note Status: Finalized Attending MD: AMRIT GOTTI DO, [id number] Instrument Name: [id number] Procedure: Upper GI endoscopy Attending Participation: I personally performed the entire procedure. Indications: Heartburn Providers: AMRIT GOTTI DO Referring MD: AMRIT GOTTI DO Complications: No immediate complications. Estimated Blood Loss: Estimated blood loss was minimal. Medicines: Propofol per Anesthesia Procedure: Pre-Anesthesia Assessment: - Prior to the procedure, a History and Physical was performed, and patient medications, allergies and sensitivities were reviewed. The patient's tolerance of previous anesthesia was reviewed. - The risks and benefits of the procedure and the sedation options and risks were discussed with the patient. All questions were answered and informed consent was obtained. After obtaining informed consent, the endoscope was passed under direct vision. Throughout the procedure, the patient's blood pressure, pulse, and oxygen saturations were monitored continuously. The Endoscope was introduced through the mouth, and advanced to the second part of duodenum. The upper GI endoscopy was accomplished without difficulty. The patient tolerated the procedure well. Findings: The esophagus was normal. Diffuse mild inflammation characterized by erythema was found in the gastric antrum. Biopsies were taken with a cold forceps for Helicobacter pylori testing. The examined duodenum was normal. Impression: - Normal esophagus. - Gastritis. Biopsied. - Normal examined duodenum. Recommendation: - Discharge patient to home. - Resume previous diet. - Continue present medications. - Await pathology results. Procedure Code(s): --- Professional --- 45791, Esophagogastroduodenos copy, flexible, transoral; with biopsy, single or multiple Diagnosis Code(s): --- Professional --- K29.70, Gastritis, unspecified, without bleeding R12, Heartburn CPT copyright 2021 [employer]. All rights reserved. The codes documented in this report are preliminary and upon transit authority police officer review may be revised to meet current compliance requirements. DO AMRIT Metcalf DO 2023 9:25:06 AM This report has been signed electronically. Number of Addenda: 0 Note Initiated On: 2023 9:08 AM LAB, [facility] Radiology Study observation (narrative) [facility] HCG ( test) Ql (U)o n 2023 HCG.beta subunit [Moles/Vol] Negative [facility] Comment on above: Lot [id number] exp 0 [id number]; internal controls ok [facility] Retail - Clinical Noteon Retail - Clinical Note [id number] CD:127 Normal [facility] Consultation Noteon 06-10-20 Consultation Note [id number]#1.00 CD:127 Normal [facility] Auto Diffon 06-04-2023 Basophils/100 WBC (Bld) 0.5 % Normal 0.0-2.0 [facility] Comment on above: Order Comment: Order Added by Discern Expert. Performed By: #### 2 [id number] #### [facility] [address] [place] [address] Basophils/Leukocytes Auto (Bld) [Pure # fraction] 0.1 E9/L Normal 0.0-0.2 [facility] Comment on above: Order Comment: Order Added by Discern Expert. Performed By: #### 2 [id number] #### [facility] [address] [place] [address] Eosinophils/100 WBC (Bld) 5.3 % Normal 0.0-8.0 [facility] Comment on above: Order Comment: Order Added by Discern Expert. Performed By: #### 2 [id number] #### [facility] [address] [place] [address] Eosinophils/Leukocytes Auto (Bld) [Pure # fraction] 0.5 E9/L Normal 0.0-0.5 [facility] Comment on above: Order Comment: Order Added by Discern Expert. Performed By: #### 2 [id number] #### [facility] [address] [place] [address] Lymphocytes/100 WBC (Bld) 27.4 % Normal 14.0-50.0 [facility] Comment on above: Order Comment: Order Added by Discern Expert. Performed By: #### 2 [id number] #### [facility] [address] [place] [address] Lymphocytes/Leukocytes Auto (Bld) [Pure # fraction] 2.8 E9/L Normal 1.0-4.0 [facility] Comment on above: Order Comment: Order Added by Discern Expert. Performed By: #### 2 [id number] #### [facility] [address] [place] [address] Monocytes/100 WBC (Bld) 5.4 % Normal 4.0-14.0 [facility] Comment on above: Order Comment: Order Added by Discern Expert. Performed By: #### 2 [id number] #### [facility] [address] [place] [address] Monocytes/Leukocytes Auto (Bld) [Pure # fraction] 0.5 E9/L Normal 0.2-1.0 [facility] Comment on above: Order Comment: Order Added by Discern Expert. Performed By: #### 2 [id number] #### [facility] [address] [place] [address] Neutrophils/100 WBC (Bld) 61.4 % Normal 36.0-75.0 [facility] Comment on above: Order Comment: Order Added by Discern Expert. Performed By: #### 2 [id number] #### [facility] [address] [place] [address] Neutrophils/Leukocytes Auto (Bld) [Pure # fraction] 6.2 E9/L Normal 2.0-7.5 [facility] Comment on above: Order Comment: Order Added by Discern Expert. Performed By: #### 2 [id number] #### [facility] [address] [place] [address] BMPon 06-04-2023 Creatinine [Mass/Vol] 0.9 mg/dL Normal 0.5-1.3 [facility] [facility] Comment on above: Performed By: #### 1 [id number] #### [facility] [address] [place] [address] Urea nitrogen [Mass/Vol] 17 mg/dL Normal 5-21 [facility] Comment on above: Performed By: #### 1 [id number] #### [facility] [address] [place] [address] Urea nitrogen/Creatinine [Mass ratio] 19 No Units Normal 10-20 [facility] Comment on above: Performed By: #### 1 [id number] #### [facility] [address] [place] [address] Anion gap [Moles/Vol] 13 mmol/L Normal 6-16 [facility] Comment on above: Performed By: #### 1 [id number] #### [facility] [address] [place] [address] Calcium [Mass/Vol] 9.0 mg/dL Normal 8.9-11.1 [facility] Comment on above: Performed By: #### 1 [id number] #### [facility] [address] [place] [address] Chloride [Moles/Vol] 106 mmol/L Normal 101-111 [facility] Comment on above: Performed By: #### 1 [id number] #### [facility] [address] [place] [address] CO2 [Moles/Vol] 25 mmol/L Normal 21-31 [facility] Comment on above: Performed By: #### 1 [id number] #### [facility] [address] [place] [address] Glucose [Mass/Vol] 92 mg/dL Normal 55-199 [facility] Comment on above: Result Comment: If t his glucose result represents a fasting glucose, interpretation should refer to the following reference range: 55-99 mg/dL Performed By: #### 1 [id number] #### [facility] [address] [place] [address] Potassium [Moles/Vol] 3.6 mmol/L Normal 3.5-5.3 [facility] Comment on above: Performed By: #### 1 [id number] #### [facility] [address] [place] [address] Sodium [Moles/Vol] 140 mmol/L Normal 135-145 [facility] Comment on above: Performed By: #### 1 [id number] #### [facility] [address] [place] [address] CBC w/ Auto Diffon 3 Erythrocyte distribution width (RBC) [Ratio] 13.1 % Normal 10.9-14.2 [facility] Comment on above: Performed By: #### 2 [id number] #### [facility] [address] [place] [address] Hematocrit (Bld) [Volume fraction] 37.3 % Normal 34.0-46.0 [facility] Comment on above: Performed By: #### 2 [id number] #### [facility] [address] [place] [address] Hemoglobin (Bld) [Mass/Vol] 13.0 g/dL Normal 12.0-16.0 [facility] Comment on above: Performed By: #### 2 [id number] #### [facility] [address] [place] [address] MCH (RBC) [Entitic mass] 30.9 pg Normal 27.0-34.0 [facility] Comment on above: Performed By: #### 2 [id number] #### [facility] [address] [place] [address] MCHC (RBC) [Mass/Vol] 34.8 g/dL Normal 31.4-36.0 [facility] Comment on above: Performed By: #### 2 [id number] #### [facility] [address] [place] [address] MCV (RBC) [Entitic vol] 89.0 fL Normal 80.0-100.0 [facility] Comment on above: Performed By: #### 2 [id number] #### [facility] [address] [place] [address] Platelet mean volume (Bld) [Entitic vol] 7.0 fL Normal 6.4-10.8 [facility] Comment on above: Performed By: #### 2 [id number] #### [facility] [address] [place] [address] Platelets (Bld) [#/Vol] 293.0 E9/L Normal 150.0-500.0 [facility] Comment on above: Performed By: #### 2 [id number] #### [facility] [address] [place] [address] RBC (Bld) [#/Vol] 4.2 E12/L Low 4.3-5.9 [facility] Comment on above: Performed By: #### 2 [id number] #### [facility] [address] [place] [address] WBC corrected for nucl RBC Auto (Bld) [#/Vol] 10.1 E9/L Normal 4.0-11.0 [facility] Comment on above: Performed By: #### 2 [id number] #### [facility] [address] [place] [address] Consent for Treatmenton 05-11 Consent for Treatment [id number] 0CD:127 Normal [facility] Discharge Instructionson Discharge Instructions [id number]. [id number]:127 Normal [facility] ED Clinical Summaryon 2022 ED Clinical Summary [address] [address] ED Clinical Summary Person Information Name: HARVEY MARTINEZ [facility] Age: 37 Years : 1985 Sex: Female Language: Indonesian PCP: Reginald ASHER DO, FAAFP Marital Status: Single Phone: [phone] Visit Id: Visit Reason: Shortness of breath; Chest pain; CHEST PAIN Speciality: Acuity: 2 Enc Type: Emergency Med Service: Emergency Arrival: 06/03/2023 22:08:28 Discharge: 06/03/2023 23:59:00 LOS: 000 01:51 Checkin: 06/03/2023 22:08:28 Checkout: 06/03/2023 23:59:00 Dispo Type: Home (Routine DC) EVENTS: Event Name Event Status Request Date/Time Start Date/Time Complete Date/Time Arrive Complete 06/03/2023 22:08:28 06/03/2023 22:08:28 06/03/2023 22:08:28 Document Home Meds Request 06/03/2023 22:08:28 Triage Complete 06/03/2023 22:08:28 06/03/2023 22:16:35 06/03/2023 22:16:35 EKG Complete 06/03/2023 22:10:30 06/03/2023 22:16:26 Registration Complete 06/03/2023 22:10:58 06/03/2023 22:10:58 06/03/2023 22:10:58 Reg Complete Request 06/03/2023 22:10:58 Reg Bed Request Complete 06/03/2023 22:10:58 06/03/2023 22:10:58 06/03/2023 22:10:58 Bed Assign Complete 06/03/2023 22:12:00 06/03/2023 22:12:00 06/03/2023 22:12:00 Dr Exam Complete 06/03/2023 22:12:00 06/03/2023 22:17:09 06/03/2023 22:17:09 RN Exam Complete 06/03/2023 22:12:00 06/03/2023 22:52:34 06/03/2023 22:52:34 Registration Request 06/03/2023 22:17:09 Dr Exam Complete 06/03/2023 22:18:32 06/03/2023 22:18:32 06/03/2023 22:18:32 Meds Admin Complete 06/03/2023 22:18:42 06/03/2023 22:31:04 Pending Labs Inlab 06/03/2023 22:18:42 Lab Complete 06/03/2023 22:18:42 06/03/2023 23:01:05 Patient Care Request 06/03/2023 22:18:42 RT Request 06/03/2023 22:18:42 X-Ray Complete 06/03/2023 22:18:42 06/03/2023 22:45:05 06/03/2023 22:55:23 Pending Labs Complete 06/03/2023 22:27:21 06/03/2023 22:27:21 06/03/2023 23:01:04 Lab Complete 06/03/2023 22:27:21 06/03/2023 22:27:21 06/03/2023 23:01:04 Pending Labs Complete 06/03/2023 22:31:52 06/03/2023 22:31:52 06/03/2023 22:32:01 Lab Complete 06/03/2023 22:31:52 06/03/2023 22:31:52 06/03/2023 22:32:01 Pending Labs Complete 06/03/2023 22:34:19 06/03/2023 22:34:19 06/03/2023 22:34:19 Wet Read Request 06/03/2023 22:55:23 Discharge Complete 06/03/2023 23:44:33 06/03/2023 23:59:03 06/03/2023 23:59:03 Transfer Complete 06/03/2023 23:59:03 06/03/2023 23:59:03 06/03/2023 23:59:03 ADDRESS: [address] [place] [id number] PHYS DOC NOTES: MEDICAL INFORMATION: Prescriptions Given: New Medications [id number], [address] [place], [place] [id number], [phone] albuterol (Albuterol (Eqv-ProAir HFA) 90 mcg/inh inhalation aerosol) 2 Puffs Inhalation every 4 hours as needed Wheezing. Refills: 0. Medications to Continue with No Changes Other Medications brompheniramine/dextro methorphan/PSE (Bromfed DM oral syrup) 5 Milliliter By Mouth 4 times a day as needed for cough and congestion. Refills: 0. fluticasone nasal (Flonase 0.05 mg/inh nasal spray) 1 Sprays Nasal Inhalation 2 times a day. each nostril. Refills: 0. fremanezumab (Ajovy Autoinjector 225 mg/1.5 mL subcutaneous solution) ibuprofen (ibuprofen 600 mg Tab) 1 Tablets By Mouth every 6 hours. Refills: 0. lithium (lithium 450 mg oral tablet, extended release) 2 Tablets By Mouth every day. naproxen (Naprosyn 500 mg Tab) 1 Tablets By Mouth 2 times a day as needed for pain. Refills: 0. omeprazole (omeprazole 40 mg Cap-DR) 1 Capsules By Mouth every day. Refills: 2. ondansetron (Zofran ODT 4 mg Tab-Dis) 1 Tablets By Mouth every 8 hours as needed Nausea/Vomiting. Refills: 0. phentermine (Adipex-P 37.5 mg Tab) 1 Tablets By Mouth every day. BMI 43 #3 30 day supply before breakfast. Refills: 0. potassium chloride (potassium chloride 20 mEq ER Tab) 1 Tablets By Mouth every day. Refills: 3. ropinirole (Requip 0.5 mg Tab) By Mouth 3 times a day. ubrogepant (Ubrelvy 50 mg oral tablet) PATIENT EDUCATION INFORMATION: Instructions: How to Use a Metered Dose Inhaler; Urinary Tract Infection, Adult, Phwj-sr-Cuyh Follow up: With: Address: When: Reginald ASHER [address] [place] [address], [facility] [place] [id number] [facility] (1[employer] In 3 days 06/06/2023 DIAGNOSIS: 1:Viral URI Normal [facility] ED Note-Physicianon 06-04-20 ED Note-Physician Basic Information Time Seen: Deneen LIND, Cindi Rodarte 06/03/2023 22:17 Chief Complaint Patient reports stabbing chest pain associated with shortness of breath started at 1600 today. No hx of heart disease. History of Present Illness This patient presents emergency department chief complaint of aching/stabbing pain in the center of her chest. She states this started today. She states she does have a nonproductive cough. She denies any fevers chills or sweats. She denies any nausea or vomiting. She denies any fevers chills or sweats. She denies any urinary or bowel complaints. Patient states the pain is better if she is at rest. It is worse with taking a deep breath. The patient does not smoke cigarettes. She does not drink alcohol. She did not use any street drugs. Her only allergies to contrast dye. Her parents are both alive and well. There is no history of heart disease in her family. Review of Systems Constitutional: Denies weight loss, fevers, chills, sweats, malaise Eyes: Denies visual changes, eye pain, double vision, scotomas, floaters ENT: Denies runny nose, epistaxis, sinus pain, ear pain, ringing in ears, tooth ache, sore throat, pain with swallowing Cardiovascular: Denies chest pain, shortness of breath, orthopnea, edema, palpitations, loss of consciousness, claudication. + Sharp, aching stabbing pain in the center of the chest, worse with deep breath Respiratory: Denies cough, sputum production, wheezing, hemoptysis, shortness of breath, dyspnea on exertion Gastrointestinal: Denies abdominal pain, unintentional weight loss, difficulty swallowing, indigestion, bloating, cramping, loss of appetite, nausea, vomiting, diarrhea, constipation, hematochezia, melena Genitourinary: Denies any incontinence of urine, dysuria, hematuria, nocturia, polyuria, hesitancy, frequency, urgency, burning Musculoskeletal: Denies joint pain, morning stiffness, joint swelling, decreased range of motion, crepitus Integumentary: Denies any pruritus, rashes, lesions, wounds, petechiae Neurologic: Denies any changes in sight, smell, hearing, taste, seizures, headache, paresthesia, numbness, weakness, balance disturbance Psychiatric denies any depression, change in sleep patterns, anxiety, difficulty concentrating, paranoia, anhedonia, lack of energy, syed Hematologic/lymphatic: Denies any purpura, petechiae, excessive bleeding, bruising Physical Exam Vitals & Measurements T: 36.9 ?C(Oral) HR: 73(Monitored) RR: 20 BP: 106/60 SpO2: 97% HT: 175 cm WT: 127.2 kg BMI: 41.53 Vital signs and nursing notes reviewed. General: Awake, alert, NAD. HEENT: Head is normocephalic, atraumatic. PERRL. EOMI. Sclerae are anicteric. External ears are normal. TMs are intact bilaterally. Canals are clear bilaterally. Nares are patent bilaterally. Oral mucosa is pink and moist. No lesions noted. Tongue protrudes in midline. Uvula rises with phonation. Neck is supple, no no palpable adenopathy. No JVD. Trachea is midline. Thorax: Symmetrical rise and fall Lungs: Clear to auscultation throughout all carmona, no wheezes, no crackles Heart: Regular rate and rhythm. No murmur, gallop, or rub Abdomen: No tenderness on palpation. Bowel sounds are present active and normal. No organomegaly. No palpable masses. No CVA tenderness. Extremities: Motor sensory pulses intact x4 extremities. No lower extremity edema. Skin: No lesions, rashes, ulcerations. No bruising or petechiae. Color appropriate, warm and dry Neuro: No oriented x3, no focal neuro deficits Psych: Mood and affect are normal Heart Score for Major Cardiac Event History: Example factors for history - pattern of chest pain, onset, duration, relation with exercise, stress or cold, localization, concominant symptoms. reaction to sublingual nitrates, [] Highly suspicious +2 [] Moderately suspicious +1 [x] Slightly suspicious 0 EKG: [] Significant ST-Depression +2 [] Non specific repolarization disturbance +1 [x] Normal 0 Age: [] >= 65 +2 [] 45-65 + 1 [x] <45 0 Risk Factors: (HLD, HTN, DM, Cigarette Smoking, Pos Family Hx, Obesity) [] >3 risk factors or hx of atheroslerotic disease + 2 [x] 1-2 risk factors + 1 [] No risk factors known 0 Troponin: [] >= 3X normal + 2 [] 1-3X normal + 1 [x] <= Normal 0 [x] 0-3 Points 0.9 - 1.7% risk of major adverse cardiac event in 6 weeks [] 4-6 Points 12-16.6% risk of major adverse cardiac event in 6 weeks [] 7-10 Points 50-65% risk of major adverse cardiac event in 6 weeks [] 0-3 Points with 2 sets of negative cardiac markers <1% risk of major adverse cardiac event in 30 days. Medical Decision Making MEDICAL DECISION MAKING Number and Complexity of Problems Differential Diagnosis: ACS, spontaneous pneumothorax, pneumonia, viral URI, pancreatitis, acute cholecy (more content not included)... Normal [facility] Comment on above: Result Comment: Elec tronically Signed By: Cindi Brothers PA-C\.br\Date and Time Signed: 06/04/23 01:49 EDT\.br\Electronically Co-Signed By: Faby Chopra DO\.br\Date and Time Co-Signed: 06/04/23 02:00 EDT ED Patient Education Noteon 06-04-2023 ED Patient Education Note Obstetrics and Gynecology Urinary Tract Infection, Adult A urinary tract infection (UTI) is an infection of any part of the urinary tract. The urinary tract includes: ? The kidneys. ? The ureters. ? The bladder. ? The urethra. These organs make, store, and get rid of pee (urine) in the body. What are the causes? This infection is caused by germs (bacteria) in your genital area. These germs grow and cause swelling (inflammation) of your urinary tract. What increases the risk? The following factors may make you more likely to develop this condition: ? Using a small, thin tube (catheter) to drain pee. ? Not being able to control when you pee or poop (incontinence). ? Being female. If you are female, these things can increase the risk: ? Using these methods to prevent : ? A medicine that kills sperm (spermicide). ? A device that blocks sperm (diaphragm). ? Having low levels of a female hormone (estrogen). ? Being . You are more likely to develop this condition if: ? You have genes that add to your risk. ? You are sexually active. ? You take antibiotic medicines. ? You have trouble peeing because of: ? A prostate that is bigger than normal, if you are male. ? A blockage in the part of your body that drains pee from the bladder. ? A kidney stone. ? A nerve condition that affects your bladder. ? Not getting enough to drink. ? Not peeing often enough. ? You have other conditions, such as: ? Diabetes. ? A weak disease-fighting system (immune system). ? Sickle cell disease. ? Gout. ? Injury of the spine. What are the signs or symptoms? Symptoms of this condition include: ? Needing to pee right away. ? Peeing small amounts often. ? Pain or burning when peeing. ? Blood in the pee. ? Pee that smells bad or not like normal. ? Trouble peeing. ? Pee that is cloudy. ? Fluid coming from the vagina, if you are female. ? Pain in the belly or lower back. Other symptoms include: ? Vomiting. ? Not feeling hungry. ? Feeling mixed up (confused). This may be the first symptom in older adults. ? Being tired and grouchy (irritable). ? A fever. ? Watery poop (diarrhea). How is this treated? ? Taking antibiotic medicine. ? Taking other medicines. ? Drinking enough water. In some cases, you may need to see a specialist. Follow these instructions at home: Medicines ? Take fcjv-dam-dyrrlue and prescription medicines only as told by your doctor. ? If you were prescribed an antibiotic medicine, take it as told by your doctor. Do not stop taking it even if you start to feel better. General instructions ? Make sure you: ? Pee until your bladder is empty. ? Do not hold pee for a long time. ? Empty your bladder after sex. ? Wipe from front to back after peeing or pooping if you are a female. Use each tissue one time when you wipe. ? Drink enough fluid to keep your pee pale yellow. ? Keep all follow-up visits. Contact a doctor if: ? You do not get better after 1?2 days. ? Your symptoms go away and then come back. Get help right away if: ? You have very bad back pain. ? You have very bad pain in your lower belly. ? You have a fever. ? You have chills. ? You feeling like you will vomit or you vomit. Summary ? A urinary tract infection (UTI) is an infection of any part of the urinary tract. ? This condition is caused by germs in your genital area. ? There are many risk factors for a UTI. ? Treatment includes antibiotic medicines. ? Drink enough fluid to keep your pee pale yellow. This information is not intended to replace advice given to you by your health care provider. Make sure you discuss any questions you have with your health care provider. Document Revised: 05/08/2021 Document Reviewed: 05/08/2021 Elsevier Patient Education ? 2022 [employer] Pulmonary Medicine How to Use a Metered Dose Inhaler A metered dose inhaler (MDI) is a handheld device filled with medicine that must be breathed into the lungs (inhaled). The medicine is delivered by pushing down on a metal canister. This releases a preset amount of spray and mist through the mouth and into the lungs. Each MDI canister holds a certain number of doses (puffs). Using a spacer with a metered dose inhaler may be recommended to help get more medicine into the lungs. A spacer is a plastic tube that connects to the MDI on one end and has a mouthpiece on the other end. A spacer holds the medicine in the tube for a short time. This allows more medicine to be inhaled. The MDI can be used to deliver many kinds of inhaled medicines, including: ? Quick relief or rescue medicines, such as bronchodilators. ? Controller medicines, such as corticosteroids. What are the risks? ? If you do not use your inhaler correctly, medicine might not reach your lungs to help you breathe. ? If (more content not included)... Normal [facility] ED Patient Summaryon 023 ED Patient Summary [place] [address] Patient Discharge Instructions Person Information Name: HARVEY MARTINEZ Age: 37 Years Arrival Date: 06/03/2023 22:08:28 Discharge Diagnosis: 1:Viral URI Primary Care Physician: Reginald ASHER DO, FAAFP Provider Information Primary Provider: Faby Chopra DO Advanced Stamp Pad Maker:None The exam and treatment you received in the Emergency Department were for an urgent problem and are not intended as complete care. It is important that you follow up with a doctor, nurse practitioner, or physician?s public health assistant for ongoing care. If your symptoms become worse or you do not improve as expected and you are unable to reach your usual health care provider, you should return to the Emergency Department. We are available 24 hours a day. HARVEY MARTINEZ has been given the following list of patient education materials, prescriptions and follow-up instructions: Follow-up Instructions: With: Address: When: Reginald [address], [place] [address] [facility] (1) In 3 days 06/06/2023 In the event that this physician does not participate in your insurance network, please consult with your insurance company to find a nearby participating provider. Patient Education Materials: How to Use a Metered Dose Inhaler; Urinary Tract Infection, Adult, Tyii-li-Hijf A MESSAGE TO ALL PATIENTS REGARDING OPIOIDS PRESCRIPTION OPIOIDS: WHAT YOU NEED TO KNOW Prescription opioids can be used to help relieve vjdpybgr-rr-fphpez pain and are often prescribed following a surgery or injury, or for certain health conditions. These medications can be an important part of the treatment but also come with serious risks. It is important to work with your healthcare provider to make sure you are getting the safest, most effective care. WHAT ARE THE RISKS AND SIDE EFFECTS OF OPIOID USE? Prescription opioids carry serious risks of addiction and overdose, especially with prolonged use. An opioid overdose, often marked by slowed breathing, can cause sudden . The use of prescription opioids can have a number of side effects as well, even when taken as directed: ? Tolerance?meaning you might need to take more of the medication for the same pain relief ? Physical dependence?meaning you have symptoms of withdrawal when a medication is stopped ? Increased sensitivity to pain ? Constipation ? Nausea, vomiting, and dry mouth ? Sleepiness and dizziness ? Confusion ? Depression ? Low levels of testosterone that can result in lower sex drive, energy, and strength ? Itching and sweating RISKS ARE GREATER WITH: ? History of drug misuse, substance use disorder, or overdose ? Mental health conditions (such as depression or anxiety) ? Sleep apnea ? Older age (65 years and older) ? Avoid alcohol while taking prescription opioids. Also, unless specifically advised by your health care provider, medications to avoid include: ? Benzodiazepines (such as Xanax or Valium) ? Muscle relaxants (such as Soma or Flexeril) ? Hypnotics (such as Ambien or Lunesta) ? Other prescription opioids KNOW YOUR OPTIONS Talk to your health care provider about ways to manage your pain that don?t involve prescription opioids. Some of these options may actually work better and have fewer risks and side effects. Options may include: ? Pain relievers such as acetaminophen, ibuprofen, and naproxen ? Some medication that are also used for depression or seizures ? Physical therapy and exercise ? Cognitive behavioral therapy, a psychological, goal-directed approach, in which patients learn how to modify physical, behavioral, and emotional triggers of pain and stress. IF YOU ARE PRESCRIBED OPIOIDS FOR PAIN: ? Never take opioids in greater amounts or more often than prescribed. ? Follow up with your primary health care provider. o Work together to create a plan on how to manage your pain. o Talk about ways to help manage your pain that don?t involve prescription opioids. o Talk about any and all concerns and side effects. ? Help prevent misuse and abuse o Never sell or share prescription opioids. o Never use another person?s prescription opioids. ? Store prescription opioids in a secure place and out of reach of others (this may include visitors, children, friends, and family). ? Safely dispose of unused prescription opioids: Find your community drug take-back program or your pharmacy mail-back program, or flush them down the toilet, following guidance from the Food and Drug Administration (www.fda.gov/Drugs/Res ourcesForYou). ? Visit www.cdc.gov/drugoverdo se to learn about the risks of opioids abuse and overdose. ? If you believe you may be struggling with addiction, tell your health life care planner and ask for guidance or call [facility]S National Hel (more content not included)... Normal [facility] Hep Func Panelon 06-04-2023 Bilirubin.indirect [Mass or moles/Vol] UTC Abnormal 0.1-0.9 [facility] Comment on above: Result Comment: Resu lt verified by [employer]. Performed result UTC (Unable to Calculate) was sent as an Alpha code due the inability to calculate a valid numeric value. Performed By: #### 1 [id number] #### [facility] Laboratory [address] [place] [address] Albumin [Mass/Vol] 4.1 g/dL Normal 3.3-5.0 [facility] Comment on above: Performed By: #### 1 [id number] #### [facility] Laboratory [address] [place] [address] Albumin/Globulin (S) [Mass conc ratio] 1.4 Normal 1.1-2.2 [facility] Comment on above: Performed By: #### 1 [id number] #### [facility] Laboratory [address] [place] [address] ALP [Catalytic activity/Vol] 81 Int._Unit/L Normal 21-98 [facility] Comment on above: Performed By: #### 1 [id number] #### [facility] Laboratory [address] [place] [address] ALT No additional P-5'-P [Catalytic activity/Vol] 34 Int._Unit/L Normal 6-46 [facility] Comment on above: Performed By: #### 1 [id number] #### [facility] Laboratory [address] [place] [address] AST [Catalytic activity/Vol] 27 Int._Unit/L Normal 5-43 [facility] Comment on above: Performed By: #### 1 [id number] #### [facility] Laboratory [address] [place] [address] Bilirubin [Mass/Vol] 0.5 mg/dL Normal 0.0-1.1 [facility] Comment on above: Performed By: #### 1 [id number] #### [facility] Laboratory [address] [place] [address] Globulin (S) [Mass/Vol] 3.0 g/dL Normal 1.4-4.0 [facility] Comment on above: Performed By: #### 1 [id number] #### [facility] [address] [place] [address] Protein [Mass/Vol] 7.1 g/dL Normal 6.0-7.8 [facility] Comment on above: Performed By: #### 1 [id number] #### [facility] Laboratory [address] [place] [address] Bilirubin.direct [Mass/Vol] mg/dL Normal 0.1-0.4 [facility] Comment on above: Performed By: #### 1 [id number] #### [facility] Laboratory [address] [place] [address] Lipase Levelon 06-04-2023 Lipase [Catalytic activity/Vol] 31 U/L Normal 13-58 [facility] Comment on above: Performed By: #### 2 [id number] #### [facility] Laboratory [address] [place] [address] Monitor Recordon 06-04-2023 Monitor Record [id number]. 00CD:[id number] Normal [facility] PT & PTTon 06-04-2023 aPTT Coag (PPP) [Time] 29.7 second(s) Normal 25.1-36.5 [facility] Comment on above: Result Comment: Para meter 15 days - 4 weeks 1 - 5 months 6 - 11 months 1 - 5 years 6 - 10 years 11 - 17 years PTT Mean: 35.4 (27.6-45.6) Mean: 33.5 (24.8-40.7) Mean: 32.4 (25.1-40.7) Mean: 31.6 (24.0-39.2) Mean: 31.6 (26.9-38.7) Mean: 31.0 (24.6-38.4) Pediatric Reference ranges were obtained from a study by Kasi Martin et al. prepared from 1437 samples obtained at 7 different centers using the same coagulation reagent and instrumentation as [facility]. Currently there are no coagulation studies available worldwide for children to 14 days, and no normal ranges. Heparin therapeutic range (represented by Anti-Factor Xa activity of 0.2 - 0.4 U/mL) corresponds to PTT of 56.6 - 109.0 sec. Performed By: #### 2 [id number] #### [facility] Laboratory [address] [place] [address] INR Coag (PPP) [Relative time] 1.0 {INR} Invalid Interpretation Code [facility] Comment on above: Result Comment: INR results are specifically intended to assess patients stabilized on long-term Anticoagulation therapy suggested INR?s ?Less Intensive Anticoagulation? 2.0 ? 3.0 Conventional Range 3.0 ? 4.5 Performed By: #### 2 [id number] #### [facility] Laboratory [address] [place] [address] PT Coag (PPP) [Time] 10.8 second(s) Normal 9.4-12.5 [facility] Comment on above: Result Comment: 15 d ays - 4 weeks 1 - 5 months 6 -11 months 1- 5 years 6-10 years 11 -17 years Mean: 11.2 (9.5-12.6) Mean: 11.0 (9.7-12.8) Mean: 11.0 (9.8-13.0) Mean: 11.3 (9.9-13.4) Mean: 11.7 (10.0-14.6) Mean: 11.8 (10.0 - 14.1) Pediatric Reference ranges were obtained from a study by to Myles al. prepared from 1437 samples obtained at 7 different centers using the same coagulation reagent and instrumentation as [facility]. Currently there are no coagulation studies available worldwide for children to 14 days, and no normal ranges. Performed By: #### 2 [id number] #### [facility] [address] [place] [address] Troponin 0 Hr.on 06-04-2023 Troponin I.cardiac [Mass/Vol] 2.40 pg/mL Low 10.10-27.10 [facility] Comment on above: Result Comment: The 95% CI (Confidence Interval) PPV (Positive Predictive Value) for myocardial infarction in females is 38 pg/mL, in males 51 pg/mL. The results should be used in conjunction with clinical conditions of myocardial infarction. (Access High Sensitivity Troponin I Instructions For Use, Matt Welcome, May 2018) Performed By: #### 1 [id number] #### [facility] Laboratory [address] [place] [address] XR Chest Single Viewon 06-04 XR Chest Single View Exam Date/Time: 06/03/2023 22:55 EDT Reason for Exam: Chest pain Report IMPRESSION: No acute radiographic abnormality. EXAMINATION: XR Chest Single View Clinical History: Chest pain Comparison: 12/28/2022. RESULT: No consolidation. No pleural effusion. No pneumothorax. Normal cardiomediastinal silhouette. No acute osseous findings. Ordering Provider: Cindi Brothers FINAL REPORT Dictated: 06/04/2023 10:54 am Jadon Nichols MD Signed (Electronic Signature): 06/04/2023 10:54 am Signed by: Jadon Nichols MD Transcribed by: MICHELLE Technologist: GISELE Technical Comments Radiation Dose: Ka,r in mGy = na DAP = na Normal [facility] eGFRon 06-04-2023 GFR/1.73 sq M.predicted among non-blacks MDRD (S/P/Bld) [Vol rate/Area] 86 mL/min/1.73 m2 Normal >=59 [facility] Comment on above: Order Comment: Order added by Discern Expert. Result Comment: Chrome Plater vanessa kidney disease could be indicated at eGFR's of less than 60 mL/min/1.73m2. Kidney failure is indicated at less than 15 mL/min/1.73m2. Performed By: #### 1 [id number] #### [facility] Laboratory [address] [place] [address] CHEMISTRYOrdered By: SYSTEM SYSTEM on 06-03-2023 Albumin [Mass/Vol] 4.1 g/dL Normal 3.3 - 5.0 gm/dL [facility] Albumin/Globulin [Mass ratio] 1.4 {ratio} Normal 1.1 - 2.2 [facility] ALP [Catalytic activity/Vol] 81 [iU]/d Normal 21 - 98 Int._Unit/L [facility] ALT No additional P-5'-P [Catalytic activity/Vol] 34 [iU]/d Normal 6 - 46 Int._Unit/L [facility] Anion gap [Moles/Vol] 13 mmol/L Normal 6 - 16 mEq/L [facility] AST [Catalytic activity/Vol] 27 [iU]/d Normal 5 - 43 Int._Unit/L [facility] Bilirubin [Mass/Vol] 0.5 mg/dL Normal 0.0 - 1.1 mg/dL [facility] Bilirubin.direct [Mass/Vol] mg/dL Normal 0.1 - 0.4 mg/dL [facility] Bilirubin.indirect [Mass or moles/Vol] Unable to Calculate mg/dL Invalid Interpretation Code 0.1 - 0.9 mg/dL [facility] Calcium [Mass/Vol] 9.0 mg/dL Normal 8.9 - 11. 1 mg/dL [facility] Chloride [Moles/Vol] 106 mmol/L Normal 101 - 1 11 mmol/L [facility] CO2 [Moles/Vol] 25 mmol/L Normal 21 - 31 mmol/L [facility] Creatinine [Mass/Vol] 0.9 mg/dL Normal 0.5 - 1.3 mg/d L [facility] GFR/1.73 sq M.predicted among non-blacks MDRD (S/P/Bld) [Vol rate/Area] 86 mL/min/1.73 m2 Normal >=59mL/min/1.73 m2 [facility] S Globulin (S) [Mass/Vol] 3.0 g/dL Normal 1.4 - 4.0 gm/dL [facility] Glucose [Mass/Vol] 92 mg/dL Normal 55 - 199 mg/dL [facility] Lipase [Catalytic activity/Vol] 31 U/L Normal 13 - 58 unit/L [facility] Potassium [Moles/Vol] 3.6 mmol/L Normal 3.5 - 5.3 mmol/L [facility] Protein [Mass/Vol] 7.1 g/dL Normal 6.0 - 7.8 gm/dL [facility] Sodium [Moles/Vol] 140 mmol/L Normal 135 - 145 mmol/L [facility] Troponin I.cardiac [Mass/Vol] 2.40 pg/mL Low 10.10 - 27.10 pg/mL [facility] Urea nitrogen [Mass/Vol] 17 mg/dL Normal 5 - 21 mg/dL [facility] Urea nitrogen/Creatinine [Mass ratio] 19 mg/mg Normal 10 - 20 [facility] COAGULATIONOrdered By: Gopi Lee on 06-03-2023 aPTT Coag (PPP) [Time] 29.7 s Normal 25.1 - 36.5 second(s) [facility]ag INR Coag (PPP) [Relative time] 1.0 {INR} Invalid Interpretation Code [facility] PT Coag (PPP) [Time] 10.8 s Normal 9.4 - 1 2.5 second(s) [facility]ag HEMATOLOGYOrdered By: SYSTEM SYSTEM on 06-03-2023 Basophils/100 WBC (Bld) 0.5 % Normal 0.0 - 2.0 % [facility] HemeAutoSS Basophils/Leukocytes Auto (Bld) [Pure # fraction] 0.1 E9/L Normal 0.0 - 0.2 E9/L [facility]eAuto[facility] Eosinophils/100 WBC (Bld) 5.3 % Normal 0.0 - 8.0 % [facility]eAutoSS Eosinophils/Leukocytes Auto (Bld) [Pure # fraction] 0.5 E9/L Normal 0.0 - 0.5 E9/L [facility] Lymphocytes/100 WBC (Bld) 27.4 % Normal 14.0 - 50.0 % [facility]eAutoSS Lymphocytes/Leukocytes Auto (Bld) [Pure # fraction] 2.8 E9/L Normal 1.0 - 4.0 E9/L [facility]eAuto[facility] Monocytes/100 WBC (Bld) 5.4 % Normal 4.0 - 14.0 % [facility]eAutoSS Monocytes/Leukocytes Auto (Bld) [Pure # fraction] 0.5 E9/L Normal 0.2 - 1.0 E9/L [facility] Neutrophils/100 WBC (Bld) 61.4 % Normal 36.0 - 75.0 % [facility]eAutoSS Neutrophils/Leukocytes Auto (Bld) [Pure # fraction] 6.2 E9/L Normal 2.0 - 7.5 E9/L [facility] HEMATOLOGYOrdered By: Gopi Lee on 06-03-2023 Erythrocyte distribution width (RBC) [Ratio] 13.1 % Normal 10.9 - 14.2 % [facility] Hematocrit (Bld) [Volume fraction] 37.3 % Normal 34.0 - 46.0 % [facility] Hemoglobin (Bld) [Mass/Vol] 13.0 g/dL Normal 12.0 - 16.0 gm/dL [facility] MCH (RBC) [Entitic mass] 30.9 pg Normal 27.0 - 34.0 pg [facility] MCHC (RBC) [Mass/Vol] 34.8 g/dL Normal 31.4 - 36.0 gm/dL [facility]eAuto[facility] MCV (RBC) [Entitic vol] 89.0 fL Normal 80.0 - 100.0 fL [facility] HemeAutoSS Platelet mean volume (Bld) [Entitic vol] 7.0 fL Normal 6.4 - 10.8 fL [facility] HemeAutoSS Platelets (Bld) [#/Vol] 293.0 E9/L Normal 150.0 - 500.0 E9/L [facility] HemeAutoSS RBC (Bld) [#/Vol] 4.2 E12/L Low 4.3 - 5.9 E12/L [facility] HemeAutoSS WBC corrected for nucl RBC Auto (Bld) [#/Vol] 10.1 E9/L Normal 4.0 - 11.0 E9/L [facility] HemeAutoSS ED Note-Physicianon 05-06-20 ED Note-Physician Basic Information Time Seen: Jarrod LIND, Jose Al. 05/04/2023 21:05 Chief Complaint pt arrives for c/o Right thigh pain and left knee pain. pt states she hurt it in a soft ball game History of Present Illness A 37-year-old female reports to the emergency department with a chief complaint of right thigh pain, and left knee pain. Reports that she had these at a softball game yesterday. Reports that just not getting any better. Went to get checked out. States that she thinks she pulled a muscle, but is unsure. States that she has not take anything for pain because she does not like to take medication. Denies any numbness or tingling in her legs. Denies any other injuries. Denies any back pain. Review of Systems A 10 point review of systems is negative except as noted above. Medical and Surgical History: Reviewed and noted Social history: Lives at home Family History: Reviewed. Tobacco: Denies Physical Exam Vitals & Measurements T: 36.9 ?C(Oral) HR: 77(Peripheral) RR: 18 BP: 135/75 SpO2: 95% HT: 175 cm WT: 128 kg BMI: 41.8 General: The patient appears well and in no apparent distress. Patient is resting comfortably on bed. Afebrile Skin: Warm, dry, no pallor noted. No swelling or erythema noted. Head: Normocephalic, atraumatic Neck: No JVD Eye: PERRLA, EOMI ENT: Moist mucus membranes Cardiovascular: Regular rate normal peripheral perfusion. Pedal pulses +2 bilaterally. Respiratory: No respiratory distress no accessory muscle use no obvious audible wheezing Chest Wall: no deformity Musculoskeletal: normal ROM, no deformity, no swelling. patient does have tenderness to palpation along the lower aspect of the left knee, especially in the lateral aspect. No obvious deformity noted. Normal range of motion. Patient does have tenderness to palpation along the right thigh of the mid thigh. This is over the musculature of the right thigh. GI: No obvious distention Neurological: A&O moves all extremities equal strength and symmetry. Full sensations Psychiatric: Cooperative and appropriate Medical Decision Making MEDICAL DECISION MAKING Number and Complexity of Problems Differential Diagnosis: [] [facility] Data External documents reviewed: [] My EKG interpretation: [] My CT interpretation: [] My X-ray interpretation: Reviewed My Ultrasound interpretation: [] Decision rules/scores evaluated: [] Discussed with: [] Treatment and Disposition ED Course: 37-year-old female reports to the emergency department with a chief complaint of left knee pain, and right thigh pain. Reports that this happened after injury while playing softball. States that she just thinks that she pulled muscles in these areas, but wanted get checked out. Has not take any medications for her symptoms. On physical exam, bilateral lower extremities are neurovascularly intact distally. She does have tenderness to palpation of the mid thigh, over the musculature over the area. She has medial left knee pain, but otherwise benign exam. Due to her concerns, we did get x-rays of these areas. X-rays were negative for any acute fractures. Discussed that this is likely sprains/strains of these areas. Continue to rest, ice, compress, and elevate your affected joint to relieve inflammation and swelling. You may also take ibuprofen and Tylenol to help with pain. Follow-up with your primary care provider in 3 to 5 days. If symptoms worsen, do not improve, or new symptoms arise please report back to emergency department for further evaluation. The patient was understanding and agreeable to plan moving forward. Shared decision making: [] Code status: [] Assessment/Plan Left knee pain (M25.562: Pain in left knee) Muscle strain of right thigh (S76.911A: Strain of unspecified muscles, fascia and tendons at thigh level, right thigh, initial encounter) Orders: XR Femur Min 2 Views Right XR Knee Complete 4+ Views Left Disposition Plan Patient Discharge Condition Stable Discharge Disposition To home Discharge Prescription List Prescriptions No active prescription medications Follow-up With When Contact Information Reginald ASHER In 3 days 05/07/2023 EDT [address] [facility], [place] [address]- Business (1) Additional Instructions: Follow-up with your primary care provider in 3 to 5 days. If symptoms worsen, do not improve, or new symptoms arise please report back to emergency department for further evaluation. Continue to rest, ice, compress, and elevate your affected joint to relieve inflammation and swelling. You may also take ibuprofen and Tylenol to help with pain. Patient Education Muscle Strain Acute Knee Pain, Adult Attestation Patient seen and evaluated by the physician public health assistant. Attending physician was present in the emergency department and supervised care. This visit was performed by both the physician and an APC. I performed all aspects of the MDM as documented. This report was hart (more content not included)... Normal [facility] Comment on above: Result Comment: Elec tronically Signed By: Jose Garay PA-C\.br\Date and Time Signed: 05/04/23 23:25 EDT\.br\Electronically Co-Signed By: Jorge Mullins MD\.br\Date and Time Co-Signed: 05/05/23 23:11 EDT Discharge Instructionson Discharge Instructions [id number] 0CD:127 Normal [facility] ED Clinical Summaryon 2022 ED Clinical Summary [address] [address] ED Clinical Summary Person Information Name: BLANCOESTHER [place] Age: 37 Years : 1985 Sex: Female Language: Indonesian PCP: Reginald ASHER DO, FAAFP Marital Status: Single Phone: [phone] Visit Id: Visit Reason: Leg pain-swelling; LEG PAIN, KNEE PAIN Speciality: Acuity: 4 Enc Type: Emergency Med Service: Emergency Arrival: 05/04/2023 21:03:49 Discharge: 05/04/2023 22:36:01 LOS: 000 01:33 Checkin: 05/04/2023 21:03:49 Checkout: 05/04/2023 22:36:01 Dispo Type: Home (Routine DC) EVENTS: Event Name Event Status Request Date/Time Start Date/Time Complete Date/Time Arrive Complete 05/04/2023 21:03:49 05/04/2023 21:03:49 05/04/2023 21:03:49 Document Home Meds Request 05/04/2023 21:03:49 Triage Complete 05/04/2023 21:03:49 05/04/2023 21:08:49 05/04/2023 21:08:49 Dr Exam Complete 05/04/2023 21:05:58 05/04/2023 21:05:58 05/04/2023 21:05:58 Registration Complete 05/04/2023 21:05:58 05/04/2023 21:07:04 05/04/2023 21:07:04 Reg Complete Request 05/04/2023 21:07:04 Reg Bed Request Complete 05/04/2023 21:07:04 05/04/2023 21:07:04 05/04/2023 21:07:04 Bed Assign Complete 05/04/2023 21:09:07 05/04/2023 21:09:07 05/04/2023 21:09:07 RN Exam Complete 05/04/2023 21:09:07 05/04/2023 21:43:42 05/04/2023 21:43:42 X-Ray Complete 05/04/2023 21:37:52 05/04/2023 22:18:26 05/04/2023 22:19:42 Wet Read Request 05/04/2023 22:19:42 Discharge Complete 05/04/2023 22:21:53 05/04/2023 22:36:34 05/04/2023 22:36:34 Transfer Complete 05/04/2023 22:36:34 05/04/2023 22:36:34 05/04/2023 22:36:34 ADDRESS: [address] [place] [phone] PHYS DOC NOTES: MEDICAL INFORMATION: Prescriptions Given: Medications to Continue with No Changes Other Medications brompheniramine/dextro methorphan/PSE (Bromfed DM oral syrup) 5 Milliliter By Mouth 4 times a day as needed for cough and congestion. Refills: 0. fluticasone nasal (Flonase 0.05 mg/inh nasal spray) 1 Sprays Nasal Inhalation 2 times a day. each nostril. Refills: 0. fremanezumab (Ajovy Autoinjector 225 mg/1.5 mL subcutaneous solution) ibuprofen (ibuprofen 600 mg Tab) 1 Tablets By Mouth every 6 hours. Refills: 0. lithium (lithium 450 mg oral tablet, extended release) 2 Tablets By Mouth every day. naproxen (Naprosyn 500 mg Tab) 1 Tablets By Mouth 2 times a day as needed for pain. Refills: 0. omeprazole (omeprazole 40 mg Cap-DR) 1 Capsules By Mouth every day. Refills: 2. ondansetron (Zofran ODT 4 mg Tab-Dis) 1 Tablets By Mouth every 8 hours as needed Nausea/Vomiting. Refills: 0. phentermine (Adipex-P 37.5 mg Tab) 1 Tablets By Mouth every day. BMI 43 #3 30 day supply before breakfast. Refills: 0. potassium chloride (potassium chloride 20 mEq ER Tab) 1 Tablets By Mouth every day. Refills: 3. ropinirole (Requip 0.5 mg Tab) By Mouth 3 times a day. ubrogepant (Ubrelvy 50 mg oral tablet) PATIENT EDUCATION INFORMATION: Instructions: Muscle Strain; Acute Knee Pain, Adult Follow up: With: Address: [facility] [place] [address] [facility] (1Tap[employer]Author In 3 days 05/07/2023 Comments: Follow-up with your primary care provider in 3 to 5 days. If symptoms worsen, do not improve, or new symptoms arise please report back to emergency department for further evaluation. Continue to rest, ice, compress, and elevate your affected joint to relieve inflammation and swelling. You may also take ibuprofen and Tylenol to help with pain. DIAGNOSIS: Left knee pain; Muscle strain of right thigh Normal [facility] ED Patient Education Noteon 05-05-2023 ED Patient Education Note Orthopedics Muscle Strain A muscle strain is an injury that occurs when a muscle is stretched beyond its normal length. Usually, a small number of muscle fibers are torn when this happens. There are three types of muscle strains. First-degree strains have the least amount of muscle fiber tearing and the least amount of pain. Second-degree and third-degree strains have more tearing and pain. Usually, recovery from muscle strain takes 1?2 weeks. Complete healing normally takes 5?6 weeks. What are the causes? This condition is caused when a sudden, violent force is placed on a muscle and stretches it too far. This may occur with a fall, while lifting, or during sports. What increases the risk? This condition is more likely to develop in athletes and people who are physically active. What are the signs or symptoms? Symptoms of this condition include: ? Pain. ? Tenderness. ? Bruising. ? Swelling. ? Trouble using the muscle. How is this diagnosed? This condition is diagnosed based on a physical exam and your medical history. Tests may also be done, including an X-ray, ultrasound, or MRI. How is this treated? This condition is initially treated with SWEENEY therapy. This therapy involves: ? Protecting the muscle from being injured again. ? Resting the injured muscle. ? Icing the injured muscle. ? Applying pressure (compression) to the injured muscle. This may be done with a splint or elastic bandage. ? Raising (elevating) the injured muscle. Your health care provider may also recommend medicine for pain. Follow these instructions at home: If you have a removable splint: ? Wear the splint as told by your health care provider. Remove it only as told by your health care provider. ? Check the skin around the splint every day. Tell your health care provider about any concerns. ? Loosen the splint if your fingers or toes tingle, become numb, or turn cold and blue. ? Keep the splint clean. ? If the splint is not waterproof: ? Do not let it get wet. ? Cover it with a watertight covering when you take a bath or a shower. Managing pain, stiffness, and swelling ? If directed, put ice on the injured area. To do this: ? If you have a removable splint, remove it as told by your health care provider. ? Put ice in a plastic bag. ? Place a towel between your skin and the bag. ? Leave the ice on for 20 minutes, 2?3 times a day. ? Remove the ice if your skin turns bright red. This is very important. If you cannot feel pain, heat, or cold, you have a greater risk of damage to the area. ? Move your fingers or toes often to reduce stiffness and swelling. ? Raise (elevate) the injured area above the level of your heart while you are sitting or lying down. ? Wear an elastic bandage as told by your health care provider. Make sure that it is not too tight. General instructions ? Take [id number] and prescription medicines only as told by your health care provider. Treatment may include muscle relaxants or medicines for pain and inflammation that are taken by mouth or applied to the skin. ? Restrict your activity and rest the injured muscle as told by your health care provider. Gentle movements may be allowed. ? If physical therapy was prescribed, do exercises as told by your health care provider. ? Do not put pressure on any part of the splint until it is fully hardened. This may take several hours. ? Do not use any products that contain nicotine or tobacco. These products include cigarettes, chewing tobacco, and vaping devices, such as e-cigarettes. If you need help quitting, ask your health care provider. ? Ask your health care provider when it is safe to drive if you have a splint. ? Keep all follow-up visits. This is important. How is this prevented? Warm up before exercising. This helps to prevent future muscle strains. Contact a health care provider if: ? You have more pain or swelling in the injured area. Get help right away if: ? You have numbness or tingling in the injured area. ? You lose a lot of strength in the injured area. Summary ? A muscle strain is an injury that occurs when a muscle is stretched beyond its normal length. ? This condition is caused when a sudden, violent force is placed on a muscle and stretches it too far. ? This condition is initially treated with SWEENEY therapy, which involves protecting, resting, icing, compressing, and elevating. ? Gentle movements may be allowed. If physical therapy was prescribed, do exercises as told by your health care provider. This information is not intended to replace advice given to you by your health care provider. Make sure you discuss any questions you have with your health care provider. Document Revised: 12/14/2021 Document Reviewed: 12/14/2021 Elsevier Patient Education ? 2022 [employer] Acute Knee Pain, Adult Acute knee pain is sudden and may be caused by damage, swelling, or irritation of the m (more content not included)... Normal [facility] ED Patient Summaryon 023 ED Patient Summary [address] [address] Patient Discharge Instructions Person Information Name: HARVEY MARTINEZ Age: 37 Years Arrival Date: 05/04/2023 21:03:49 Discharge Diagnosis: Left knee pain; Muscle strain of right thigh Primary Care Physician: Reginald ASHER DO, FAAFP Provider Information Primary Provider: Advanced Stamp Pad Maker:None The exam and treatment you received in the Emergency Department were for an urgent problem and are not intended as complete care. It is important that you follow up with a doctor, nurse practitioner, or physician?s public health assistant for ongoing care. If your symptoms become worse or you do not improve as expected and you are unable to reach your usual health care provider, you should return to the Emergency Department. We are available 24 hours a day. HARVEY MARTINEZ has been given the following list of patient education materials, prescriptions and follow-up instructions: Follow-up Instructions: With: Address: When: Reginald ASHER [address] [place] [address], [facility] [place] [address] Business (1) In 3 days 05/07/2023 Comments: Follow-up with your primary care provider in 3 to 5 days. If symptoms worsen, do not improve, or new symptoms arise please report back to emergency department for further evaluation. Continue to rest, ice, compress, and elevate your affected joint to relieve inflammation and swelling. You may also take ibuprofen and Tylenol to help with pain. In the event that this physician does not participate in your insurance network, please consult with your insurance company to find a nearby participating provider. Patient Education Materials: Muscle Strain; Acute Knee Pain, Adult A MESSAGE TO ALL PATIENTS REGARDING OPIOIDS PRESCRIPTION OPIOIDS: WHAT YOU NEED TO KNOW Prescription opioids can be used to help relieve dpaoslmg-us-vonkvq pain and are often prescribed following a surgery or injury, or for certain health conditions. These medications can be an important part of the treatment but also come with serious risks. It is important to work with your healthcare provider to make sure you are getting the safest, most effective care. WHAT ARE THE RISKS AND SIDE EFFECTS OF OPIOID USE? Prescription opioids carry serious risks of addiction and overdose, especially with prolonged use. An opioid overdose, often marked by slowed breathing, can cause sudden . The use of prescription opioids can have a number of side effects as well, even when taken as directed: ? Tolerance?meaning you might need to take more of the medication for the same pain relief ? Physical dependence?meaning you have symptoms of withdrawal when a medication is stopped ? Increased sensitivity to pain ? Constipation ? Nausea, vomiting, and dry mouth ? Sleepiness and dizziness ? Confusion ? Depression ? Low levels of testosterone that can result in lower sex drive, energy, and strength ? Itching and sweating RISKS ARE GREATER WITH: ? History of drug misuse, substance use disorder, or overdose ? Mental health conditions (such as depression or anxiety) ? Sleep apnea ? Older age (65 years and older) ? Avoid alcohol while taking prescription opioids. Also, unless specifically advised by your health care provider, medications to avoid include: ? Benzodiazepines (such as Xanax or Valium) ? Muscle relaxants (such as Soma or Flexeril) ? Hypnotics (such as Ambien or Lunesta) ? Other prescription opioids KNOW YOUR OPTIONS Talk to your health care provider about ways to manage your pain that don?t involve prescription opioids. Some of these options may actually work better and have fewer risks and side effects. Options may include: ? Pain relievers such as acetaminophen, ibuprofen, and naproxen ? Some medication that are also used for depression or seizures ? Physical therapy and exercise ? Cognitive behavioral therapy, a psychological, goal-directed approach, in which patients learn how to modify physical, behavioral, and emotional triggers of pain and stress. IF YOU ARE PRESCRIBED OPIOIDS FOR PAIN: ? Never take opioids in greater amounts or more often than prescribed. ? Follow up with your primary health care provider. o Work together to create a plan on how to manage your pain. o Talk about ways to help manage your pain that don?t involve prescription opioids. o Talk about any and all concerns and side effects. ? Help prevent misuse and abuse o Never sell or share prescription opioids. o Never use another person?s prescription opioids. ? Store prescription opioids in a secure place and out of reach of others (this may include visitors, children, friends, and family). ? Safely dispose of unused prescription opioids: Find your community drug take-back program or your pharmacy mail-back program, or flush them down the toilet, (more content not included)... [facility] XR Femur Min 2 Views Righton 05-05-2023 XR Femur Min 2 Views Right Exam Date/Time: 05/04/2023 22:19 EDT Reason for Exam: Pain, Non Traumatic Report IMPRESSION: NEGATIVE RIGHT FEMUR. CLINICAL HISTORY: Pain, Non Traumatic. COMMENT: 4 views. The right femur appears normal without evidence of fracture or other bony abnormality. Ordering Provider: Jose Garay FINAL REPORT Dictated: 05/05/2023 7:55 am Ulises Woodson M.D. Signed (Electronic Signature): 05/05/2023 7:55 am Signed by: Ulises Woodson M.D. Transcribed by: MICHELLE Technologist: BRENNAN Technical Comments Radiation Dose: Ka,r in mGy = na DAP = na [facility] XR Knee Complete 4+ Views Le fton 05-05-2023 XR Knee Complete 4+ Views Left Exam Date/Time: 05/04/2023 22:19 EDT Reason for Exam: Pain, Non Traumatic Report IMPRESSION: NO EVIDENCE OF FRACTURE. CLINICAL HISTORY: Pain, Non Traumatic. COMMENT: 4 views. There is minimal hypertrophic spurring of the patella at the patellofemoral joint. The bones of the left knee are otherwise unremarkable. No fracture nor dislocation is noted. Ordering Provider: Jose Garay FINAL REPORT Dictated: 05/05/2023 7:54 am Ulises Woodson M.D. Signed (Electronic Signature): 05/05/2023 7:54 am Signed by: Ulises Woodson M.D. Transcribed by: MICHELLE Technologist: BRENNAN Technical Comments Radiation Dose: Ka,r in mGy = na DAP = na [facility] Consent for Treatmenton 04-10 Consent for Treatment [id number] 0CD:127 [facility] Consultation Noteon 04-25-20 Consultation Note [id number]. 00CD:127 [facility] Lab Reportson 04-18-2023 Lab Reports [id number] 0CD:127 [facility] ED Note-Physicianon 04-16-20 ED Note-Physician Basic Information Time Seen: Bk Canela PA-C 04/15/2023 10:01 Chief Complaint Pt lifted basket of laundry yesterday, since then has mid back pain. Has taken nothing for pain History of Present Illness 37-year-old female comes to the ED for evaluation of back pain. 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 She points to the left lumbar region as area of tenderness. She took some Tylenol yesterday, no treatments prior to arrival today. No other trauma to the area. No associated paresthesias or saddle anesthesia. No lower extremity weakness. No bowel or bladder incontinence or retention. No dysuria or hematuria. No associated abdominal pain, nausea, vomiting, fever or chills. Review of Systems A 10 point review of systems is negative except as noted above. Medical and Surgical History: Reviewed and noted Social history: Lives at home Tobacco: Denies Physical Exam Vitals & Measurements T: 36.9 ?C(Oral) HR: 79(Peripheral) RR: 18 BP: 181/117 SpO2: 99% HT: 175 cm WT: 128 kg BMI: 41.8 Nurses notes and vital signs reviewed and patient is not hypoxic. General: The patient appears well, resting comfortably. Skin: Warm, dry. Head: Atraumatic. Neck: No JVD. Eye: Normal conjunctiva. Ears, Nose, Mouth, and Throat: Moist mucous membranes. Cardiovascular: Strong distal pulses. Chest wall: Respiratory: Respirations are nonlabored. Back: Tenderness along the left paravertebral musculature of the lumbar region. No bony instability or step-offs. No swelling, ecchymosis or erythema. No area of point tenderness. Full range of motion. No evidence of lower extremity neurovascular compromise. No CVA tenderness noted bilaterally. Musculoskeletal: Normal ROM with no gross deformity. Patient able to ambulate without any significant difficulty. Gastrointestinal: Soft and nontender. Urological: Neurological: Awake and alert. No focal deficits. Follows commands. Psychiatric: Cooperative. Medical Decision Making Exam is consistent with muscular back pain. She is medicated here with improvement. No evidence of neurovascular compromise. She had no direct trauma for imaging. Discharged home with prednisone and Robaxin. Given PCP follow-up. Patient was encouraged to return to the ED if symptoms worsen or change. Assessment/Plan Lumbar strain (S39.012A: Strain of muscle, fascia and tendon of lower back, initial encounter) Orders: acetaminophen-oxycodon e, 1 tab(s), Tab, Oral, Once, Stop date 04/15/23 10:03:00 EDT, STAT, Start date 04/15/23 10:03:00 EDT ketorolac, 60 mg = 2 mL, Injection, IntraMuscular, Once, Stop date 04/15/23 10:03:00 EDT, STAT, Start date 04/15/23 10:03:00 EDT, 04/15/23 10:03:00 EDT methocarbamol, 1,500 mg = 2 tab(s), Oral, TID, X 3 day(s), # 18 tab(s), Refills(s) 0, Pharmacy: [facility] #[id number], 175, cm, 04/15/23 10:01:00 EDT, Height/Length Dosing, 128, kg, 04/15/23 10:01:00 EDT, Weight Dosing morphine, 8 mg = 4 mL, Injection, IntraMuscular, Once, Stop date 04/15/23 10:53:00 EDT, STAT, Start date 04/15/23 10:53:00 EDT, 04/15/23 10:53:00 EDT ondansetron, 4 mg = 1 tab(s), Tab-Dis, Oral, Once, Stop date 04/15/23 10:53:00 EDT, STAT, Start date 04/15/23 10:53:00 EDT, 04/15/23 10:53:00 EDT predniSONE, 60 mg = 3 tab(s), Oral, Daily, X 7 day(s), # 21 tab(s), Refills(s) 0, [facility]: [id number], 175, cm, 04/15/23 10:01:00 EDT, Height/Length Dosing, 128, kg, 04/15/23 10:01:00 EDT, Weight Dosing Medications Administered Given ketorolac 60 mg/2 mL Injection, 60 mg, IntraMuscular Disposition Plan Patient Discharge Condition Disposition: Discharged home Condition: Improved and stable Counseled: Patient and/or family were counseled to workup, results, treatment plan and follow-up recommendations Discharge Prescription List Prescriptions predniSONE 20 mg Tab, 60 mg= 3 tab(s), Oral, Daily Robaxin-750 oral tablet, 1500 mg= 2 tab(s), Oral, TID Follow-up With When Contact Information Reginald ASHER In 3 days 04/18/2023 EDT [address] [facility] [place] [id number] [facility] (1) Additional Instructions: Patient Education Lumbar Strain Attestation Patient seen and evaluated by the physician public health assistant. Attending physician was present in the emergency department and supervised care. This visit was performed by both the physician and an APC. I performed all aspects of the MDM as documented. This report was transcribed using voice recognition software. Every effort was made to ensure accuracy, however, inadvertently computerized hide mill worker mistakes may be present. Appropriate healthcare PPE was used in evaluating this patient. The patient was placed in a mask. The healthcare provider was wearing mask, gloves, and utilizing proper hand hygiene. All equipment was properly cleansed. Problem List/Past Medical History Ongoing Abnormal CT scan, kidney Allergic rhinitis Allergy to pollen Amenorrhea Anxiety state BMI 40.0-44.9, adult Duplicat (more content not included)... [facility] Comment on above: Result Comment: Elec tronically Signed By: kB Canela PA-C\.br\Date and Time Signed: 04/15/23 11:54 EDT\.br\Electronically Co-Signed By: Harshal Ansari DO\.br\Date and Time Co-Signed: 04/16/23 07:09 EDT Consent for Treatmenton Consent for Treatment [id number] 0CD:127 [facility] Discharge Instructionson Discharge Instructions [id number]. 00CD:127 [facility] ED Clinical Summaryon 2022 ED Clinical Summary [place] [id number] ED Clinical Summary Person Information Name: HARVEY MARTINEZ[place] Age: 37 Years : 1985 Sex: Female Language: Indonesian PCP: Reginald ASHER DO, FAAFP Marital Status: Single Phone: [phone] Visit Id: Visit Reason: Back pain; BACK PAIN Speciality: Acuity: 4 Enc Type: Emergency Med Service: Emergency Arrival: 04/15/2023 09:55:08 Discharge: 04/15/2023 11:48:42 LOS: 000 01:53 Checkin: 04/15/2023 09:55:08 Checkout: 04/15/2023 11:48:42 Dispo Type: Home (Routine DC) EVENTS: Event Name Event Status Request Date/Time Start Date/Time Complete Date/Time Arrive Complete 04/15/2023 09:55:08 04/15/2023 09:55:08 04/15/2023 09:55:08 Document Home Meds Request 04/15/2023 09:55:08 Triage Complete 04/15/2023 09:55:08 04/15/2023 10:01:21 04/15/2023 10:01:21 Bed Assign Complete 04/15/2023 09:58:13 04/15/2023 09:58:13 04/15/2023 09:58:13 Dr Exam Complete 04/15/2023 09:58:13 04/15/2023 10:01:12 04/15/2023 10:01:12 RN Exam Complete 04/15/2023 09:58:13 04/15/2023 10:04:14 04/15/2023 10:04:14 Registration Complete 04/15/2023 10:01:12 04/15/2023 10:05:54 04/15/2023 10:05:54 Dr Exam Complete 04/15/2023 10:01:35 04/15/2023 10:01:35 04/15/2023 10:01:35 Meds Admin Complete 04/15/2023 10:03:53 04/15/2023 10:22:45 Reg Complete Request 04/15/2023 10:05:54 Reg Bed Request Complete 04/15/2023 10:05:54 04/15/2023 10:05:54 04/15/2023 10:05:54 Meds Admin Complete 04/15/2023 10:53:57 04/15/2023 11:07:08 Discharge Complete 04/15/2023 11:30:52 04/15/2023 11:49:51 04/15/2023 11:49:51 Transfer Complete 04/15/2023 11:49:51 04/15/2023 11:49:51 04/15/2023 11:49:51 ADDRESS: [address] [place] [phone] PHYS DOC NOTES: MEDICAL INFORMATION: Prescriptions Given: New Medications [facility] #[id number], [address] [place], [place] [id number], [phone] methocarbamol (Robaxin-750 oral tablet) 2 Tablets By Mouth 3 times a day for 3 Days. Refills: 0. predniSONE (predniSONE 20 mg Tab) 3 Tablets By Mouth every day for 7 Days. Refills: 0. Medications to Continue with No Changes Other Medications brompheniramine/dextro methorphan/PSE (Bromfed DM oral syrup) 5 Milliliter By Mouth 4 times a day as needed for cough and congestion. Refills: 0. fluticasone nasal (Flonase 0.05 mg/inh nasal spray) 1 Sprays Nasal Inhalation 2 times a day. each nostril. Refills: 0. fremanezumab (Ajovy Autoinjector 225 mg/1.5 mL subcutaneous solution) ibuprofen (ibuprofen 600 mg Tab) 1 Tablets By Mouth every 6 hours. Refills: 0. lithium (lithium 450 mg oral tablet, extended release) 2 Tablets By Mouth every day. naproxen (Naprosyn 500 mg Tab) 1 Tablets By Mouth 2 times a day as needed for pain. Refills: 0. omeprazole (omeprazole 40 mg Cap-DR) 1 Capsules By Mouth every day. Refills: 2. ondansetron (Zofran ODT 4 mg Tab-Dis) 1 Tablets By Mouth every 8 hours as needed Nausea/Vomiting. Refills: 0. phentermine (Adipex-P 37.5 mg Tab) 1 Tablets By Mouth every day. BMI 43 #3 30 day supply before breakfast. Refills: 0. potassium chloride (potassium chloride 20 mEq ER Tab) 1 Tablets By Mouth every day. Refills: 3. ropinirole (Requip 0.5 mg Tab) By Mouth 3 times a day. ubrogepant (Ubrelvy 50 mg oral tablet) PATIENT EDUCATION INFORMATION: Instructions: Lumbar Strain Follow up: With: Address: When: Reginald ASHER [address] [place] [address] [place] [id number] [facility] (1) In 3 days 04/18/2023 DIAGNOSIS: Lumbar strain [facility] ED Patient Education Noteon 04-15-2023 ED Patient Education Note Orthopedics Lumbar Strain A lumbar strain, which is sometimes called a low-back strain, is a stretch or tear in a muscle or the strong cords of tissue that attach muscle to bone (tendons) in the lower back (lumbar spine). This type of injury occurs when muscles or tendons are torn or are stretched beyond their limits. Lumbar strains can range from mild to severe. Mild strains may involve stretching a muscle or tendon without tearing it. These may heal in 1?2 weeks. More severe strains involve tearing of muscle fibers or tendons. These will cause more pain and may take 6?8 weeks to heal. What are the causes? This condition may be caused by: ? Trauma, such as a fall or a hit to the body. ? Twisting or overstretching the back. This may result from doing activities that need a lot of energy, such as lifting heavy objects. What increases the risk? This injury is more common in: ? Athletes. ? People with obesity. ? People who do repeated lifting, bending, or other movements that involve their back. What are the signs or symptoms? Symptoms of this condition may include: ? Sharp or dull pain in the lower back that does not go away. The pain may extend to the buttocks. ? Stiffness or limited range of motion. ? Sudden muscle tightening (spasms). How is this diagnosed? This condition may be diagnosed based on: ? Your symptoms. ? Your medical history. ? A physical exam. ? Imaging tests, such as: ? X-rays. ? MRI. How is this treated? Treatment for this condition may include: ? Rest. ? Applying heat and cold to the affected area. ? Juoi-pcd-qsdwbek medicines to help relieve pain and inflammation, such as NSAIDs. ? Prescription pain medicine and muscle relaxants may be needed for a short time. ? Physical therapy. Follow these instructions at home: Managing pain, stiffness, and swelling ? If directed, put ice on the injured area during the first 24 hours after your injury. ? Put ice in a plastic bag. ? Place a towel between your skin and the bag. ? Leave the ice on for 20 minutes, 2?3 times a day. ? If directed, apply heat to the affected area as often as told by your health care provider. Use the heat source that your health care provider recommends, such as a moist heat pack or a heating pad. ? Place a towel between your skin and the heat source. ? Leave the heat on for 20?30 minutes. ? Remove the heat if your skin turns bright red. This is especially important if you are unable to feel pain, heat, or cold. You may have a greater risk of getting burned. Activity ? Rest and return to your normal activities as told by your health care provider. Ask your health care provider what activities are safe for you. ? Do exercises as told by your health care provider. Medicines ? Take phvr-ovf-mbrhprb and prescription medicines only as told by your health care provider. ? Ask your health care provider if the medicine prescribed to you: ? Requires you to avoid driving or using heavy machinery. ? Can cause constipation. You may need to take these actions to prevent or treat constipation: ? Drink enough fluid to keep your urine pale yellow. ? Take oqwv-jvx-mletkns or prescription medicines. ? Eat foods that are high in fiber, such as beans, whole grains, and fresh fruits and vegetables. ? Limit foods that are high in fat and processed sugars, such as fried or sweet foods. Injury prevention To prevent a future low-back injury: ? Always warm up properly before physical activity or sports. ? Cool down and stretch after being active. ? Use correct form when playing sports and lifting heavy objects. Bend your knees before you lift heavy objects. ? Use good posture when sitting and standing. ? Stay physically fit and keep a healthy weight. ? Do at least 150 minutes of moderate-intensity exercise each week, such as brisk walking or water aerobics. ? Do strength exercises at least 2 times each week. General instructions ? Do not use any products that contain nicotine or tobacco, such as cigarettes, e-cigarettes, and chewing tobacco. If you need help quitting, ask your health care provider. ? Keep all follow-up visits as told by your health care provider. This is important. Contact a health care provider if: ? Your back pain does not improve after 6 weeks of treatment. ? Your symptoms get worse. Get help right away if: ? Your back pain is severe. ? You are unable to stand or walk. ? You develop pain in your legs. ? You develop weakness in your buttocks or legs. ? You have difficulty controlling when you urinate or when you have a bowel movement. ? You have frequent, painful, or bloody urination. ? You have a temperature over 101.0?F (38.3?C) Summary ? A lumbar strain, which is sometimes called a low-back strain, is a stretch or tear in a muscle or the strong cords of tissue th (more content not included)... [facility] ED Patient Summaryon 023 ED Patient Summary [place] [id number] Patient Discharge Instructions Person Information Name: HARVEY MARTINEZ Age: 37 Years Arrival Date: 04/15/2023 09:55:08 Discharge Diagnosis: Lumbar strain Primary Care Physician: Reginald ASHER DO, FAAFP Provider Information Primary Provider: Harshal Ansari DO Advanced Stamp Pad Maker:Bk Canela PA-C The exam and treatment you received in the Emergency Department were for an urgent problem and are not intended as complete care. It is important that you follow up with a doctor, nurse practitioner, or physician?s public health assistant for ongoing care. If your symptoms become worse or you do not improve as expected and you are unable to reach your usual health care provider, you should return to the Emergency Department. We are available 24 hours a day. HARVEY MARTINEZ has been given the following list of patient education materials, prescriptions and follow-up instructions: Follow-up Instructions: With: Address: When: Reginald ASHER [address], [place] [address] Business (1) In 3 days 04/18/2023 In the event that this physician does not participate in your insurance network, please consult with your insurance company to find a nearby participating provider. Patient Education Materials: Lumbar Strain A MESSAGE TO ALL PATIENTS REGARDING OPIOIDS PRESCRIPTION OPIOIDS: WHAT YOU NEED TO KNOW Prescription opioids can be used to help relieve bigfnqyy-fy-nqkubj pain and are often prescribed following a surgery or injury, or for certain health conditions. These medications can be an important part of the treatment but also come with serious risks. It is important to work with your healthcare provider to make sure you are getting the safest, most effective care. WHAT ARE THE RISKS AND SIDE EFFECTS OF OPIOID USE? Prescription opioids carry serious risks of addiction and overdose, especially with prolonged use. An opioid overdose, often marked by slowed breathing, can cause sudden . The use of prescription opioids can have a number of side effects as well, even when taken as directed: ? Tolerance?meaning you might need to take more of the medication for the same pain relief ? Physical dependence?meaning you have symptoms of withdrawal when a medication is stopped ? Increased sensitivity to pain ? Constipation ? Nausea, vomiting, and dry mouth ? Sleepiness and dizziness ? Confusion ? Depression ? Low levels of testosterone that can result in lower sex drive, energy, and strength ? Itching and sweating RISKS ARE GREATER WITH: ? History of drug misuse, substance use disorder, or overdose ? Mental health conditions (such as depression or anxiety) ? Sleep apnea ? Older age (65 years and older) ? Avoid alcohol while taking prescription opioids. Also, unless specifically advised by your health care provider, medications to avoid include: ? Benzodiazepines (such as Xanax or Valium) ? Muscle relaxants (such as Soma or Flexeril) ? Hypnotics (such as Ambien or Lunesta) ? Other prescription opioids KNOW YOUR OPTIONS Talk to your health care provider about ways to manage your pain that don?t involve prescription opioids. Some of these options may actually work better and have fewer risks and side effects. Options may include: ? Pain relievers such as acetaminophen, ibuprofen, and naproxen ? Some medication that are also used for depression or seizures ? Physical therapy and exercise ? Cognitive behavioral therapy, a psychological, goal-directed approach, in which patients learn how to modify physical, behavioral, and emotional triggers of pain and stress. IF YOU ARE PRESCRIBED OPIOIDS FOR PAIN: ? Never take opioids in greater amounts or more often than prescribed. ? Follow up with your primary health care provider. o Work together to create a plan on how to manage your pain. o Talk about ways to help manage your pain that don?t involve prescription opioids. o Talk about any and all concerns and side effects. ? Help prevent misuse and abuse o Never sell or share prescription opioids. o Never use another person?s prescription opioids. ? Store prescription opioids in a secure place and out of reach of others (this may include visitors, children, friends, and family). ? Safely dispose of unused prescription opioids: Find your community drug take-back program or your pharmacy mail-back program, or flush them down the toilet, following guidance from the Food and Drug Administration (www.fda.gov/Drugs/Res ourcesForYou). ? Visit www.cdc.gov/drugoverdo se to learn about the risks of opioids abuse and overdose. ? If you believe you may be struggling with addiction, tell your health life care planner and ask for guidance or call [facility]?S National Helpline at 1-787-867-WDFY. v Source: [facility] (more content not included)... Normal [facility] Prescriptions/Work Noteson 0 04-15-2023 Prescriptions/Work Notes [id number]#1. 00CD:127 Normal [facility] CT Abdomen/Pelvis w/o Contra ston 03-23-2023 CT Abdomen/Pelvis w/o Contrast Exam Date/Time: 03/22/2023 07:00 EDT Reason for Exam: Abdominal/flank pain, stone suspected;Other (please specify) Report IMPRESSION: NONOBSTRUCTING RENAL CALCULI AND MODERATE ATROPHY OF THE UPPER POLE LEFT KIDNEY, NOT SIGNIFICANTLY CHANGED FROM 01/20/2022. CLINICAL HISTORY: Abdominal/flank pain, stone suspected. COMPARISON: 01/20/2022. TECHNIQUE: Spiral unenhanced images were obtained of the abdomen and pelvis without contrast. All CT scans at this facility use dose modulation, iterative reconstruction, and/or weight based dosing when appropriate to reduce radiation dose to as low as reasonably achievable. FINDINGS: Several up to approximately 4 to 5 mm nonobstructing calculi are noted within a moderately atrophic left upper pole moiety and chronic dilatation, similar to the prior study. The remainder of the unenhanced liver kidney remains unremarkable. A punctate nonobstructing calculus is again noted within the mid right kidney posteriorly. The unenhanced right kidney is otherwise unremarkable. There is no hydronephrosis, ureteral or bladder calculi, or other significant changes identified. A chronically dilated fluid-filled structure adjacent to the distal left ureter appears similar. An IUD is again noted within the uterus. Mild to moderate degenerative changes of the thoracolumbar spine and hips are again noted. Minimal probable scarring and/or atelectasis is noted of the visualized posteromedial right lung base. The included unenhanced liver, gallbladder, spleen, pancreas, adrenal glands, unopacified bowel loops, appendix, adnexa, and additional images of pelvis are unremarkable. Ordering Provider: Clau Moreland FINAL REPORT Dictated: 03/23/2023 6:21 pm Ayo Zamora MD Signed (Electronic Signature): 03/23/2023 6:21 pm Signed by: Ayo Zamora MD Transcribed by: MICHELLE Technologist: GISELE Technical Comments Rectal Contrast Given? No Oral contrast amount in ml's: 0 Normal [facility] Consent for Treatmenton 03-10 Consent for Treatment [id number]#1.0 0CD:127 Normal [facility] PTH Intacton 03-16-2023 Parathyrin.intact [Mass/Vol] 34 pg/mL Invalid Interpretation Code 15 [facility] Comment on above: Result Comment: Perf ormed at: [facility] [address] [id number] PhD Marquita Fine Performed By: #### 1 [id number] #### [facility] [address] [place] [address] BUNon 03-15-2023 Urea nitrogen [Mass/Vol] 16 mg/dL Normal 5-21 [facility] Comment on above: Performed By: #### 2 [id number], [id number], 0922216, 3060282, [id number], 2622992, [id number] #### [facility] [address] [place] [address] CHEMISTRYOrdered By: SYSTEM SYSTEM on 03-15-2023 Anion gap [Moles/Vol] 13 mmol/L Normal 6 - 16 mEq/L F C Remisol Calcium [Mass/Vol] 8.6 mg/dL Low 8.9 - 11. 1 mg/dL [facility] Remisol Chloride [Moles/Vol] 102 mmol/L Normal 101 - 1 11 mmol/L [facility] Remisol CO2 [Moles/Vol] 27 mmol/L Normal 21 - 31 mmol/L [facility] Remisol Creatinine [Mass/Vol] 0.8 mg/dL Normal 0.5 - 1.3 mg/d L [facility] Remisol GFR/1.73 sq M.predicted among non-blacks MDRD (S/P/Bld) [Vol rate/Area] 98 mL/min/1.73 m2 Normal >=59mL/min/1.73 m2 FT Chem S Phosphate [Mass/Vol] 3.6 mg/dL Normal 1.9 - 4.6 mg/dL [facility] Remisol Potassium [Moles/Vol] 3.8 mmol/L Normal 3.5 - 5.3 mmol/L [facility] Remisol Sodium [Moles/Vol] 138 mmol/L Normal 135 - 145 mmol/L FT Remisol Urate [Mass/Vol] 4.9 mg/dL Normal 2.2 - 7.4 mg/dL [facility] C Remisol Urea nitrogen [Mass/Vol] 16 mg/dL Normal 5 - 21 mg/dL FT Remisol Calciumon 03-15-2023 Calcium [Mass/Vol] 8.6 mg/dL Low 8.9-11.1 [facility] Comment on above: Performed By: #### 2 406093, 3753713, 7823801, 6529927, 32891755, 2644401, 9665426 #### [facility] [address] [place] [address] Consent for Treatmenton Consent for Treatment [id number]#1.0 0CD:127 Normal [facility] Creatinineon 03-15-2023 Creatinine [Mass/Vol] 0.8 mg/dL Normal 0.5-1.3 [facility] Comment on above: Performed By: #### 2 665661, 7114863, 6197500, 6238865, 33882964, 7840791, 3057054 #### [facility] [address] [place] [address] Formson 03-15-2023 Forms [id number]#1.0 0CD:127 Normal [facility] Lyteson 03-15-2023 Anion gap [Moles/Vol] 13 mmol/L Normal 6-16 [facility] Comment on above: Performed By: #### 2 243542, 9719408, 0109352, 5858284, 54550934, 8552868, 5894682 #### [facility] [address] [place] [address] Chloride [Moles/Vol] 102 mmol/L Normal 101-111 [facility] Comment on above: Performed By: #### 2 449021, 8280836, 0934861, 3355990, 76580445, 1801885, 1617806 #### [facility] [address] [place] [address] CO2 [Moles/Vol] 27 mmol/L Normal 21-31 [facility] Comment on above: Performed By: #### 2 643824, 4317909, 0675856, 2137196, 66885301, 0611812, 3039965 #### [facility] [address] [place] [address] Potassium [Moles/Vol] 3.8 mmol/L Normal 3.5-5.3 [facility] Comment on above: Performed By: #### 2 905294, 4428763, 6214900, 9080591, 25631261, 4282738, 1213902 #### [facility] [address] [place] [address] Sodium [Moles/Vol] 138 mmol/L Normal 135-145 [facility] Comment on above: Performed By: #### 2 304410, 5340218, 3461634, 8627919, 20658362, 1182800, 1137015 #### [facility] [address] [place] [address] Phosphoruson 03-15-2023 Phosphate [Mass/Vol] 3.6 mg/dL Normal 1.9-4.6 [facility] Comment on above: Performed By: #### 2 268764, 2453096, 9504026, 3589912, 62307612, 2163139, 6104793 #### [facility] [address] [place] [address] Physician Orderon 03-15-2023 Physician Order [id number]#1. 00CD:127 Normal [facility] Screenson 03-15-2023 Screens [id number]#1.0 0CD:127 Normal [facility] Uric Acidon 03-15-2023 Urate [Mass/Vol] 4.9 mg/dL Normal 2.2-7.4 [facility] Comment on above: Performed By: #### 2 132162, 6452381, 8535971, 6384783, 90758093, 2967745, 9909145 ####[facility] [address] [place] [address] eGFRon 03-15-2023 GFR/1.73 sq M.predicted among non-blacks MDRD (S/P/Bld) [Vol rate/Area] 98 mL/min/1.73 m2 Normal >=59 [facility] Comment on above: Order Comment: Order added by Discern Expert. Result Comment: Chrome Plater vanessa kidney disease could be indicated at eGFR's of less than 60 mL/min/1.73m2. Kidney failure is indicated at less than 15 mL/min/1.73m2. Performed By: #### 2 184433, 8049725, 0669434, 3038489, 14620893, 6615034, 3260194 #### [facility] [address] [place] [address] Ambulatory Visit Summaryon 0 03-14-2023 Ambulatory Visit Summary HARVEY MARTINEZ :1985 Visit Date:03/14/2023 Ambulatory Visit Instructions Your Diagnosis Kidney stones Duplicated renal collecting system Stress incontinence Recurrent UTI Tests Performed Urnls Dip Stick Auto w/o Microscopy POC 29292 Your Care Team Attending Physician - Clau Moreland MD Primary Care Physician - Reginald ASHER DO, FAAFP This Is Your Medications List Contact prescribing physician if questions or concerns brompheniramine/dextro methorphan/PSE (Bromfed DM oral syrup) fluticasone nasal (Flonase 0.05 mg/inh nasal spray) fremanezumab (Ajovy Autoinjector 225 mg/1.5 mL subcutaneous solution) ibuprofen (ibuprofen 600 mg Tab) lithium (lithium 450 mg oral tablet, extended release) naproxen (Naprosyn 500 mg Tab) omeprazole (omeprazole 40 mg Cap-DR) ondansetron (Zofran ODT 4 mg Tab-Dis) phentermine (Adipex-P 37.5 mg Tab) potassium chloride (potassium chloride 20 mEq ER Tab) ropinirole (Requip 0.5 mg Tab) ubrogepant (Ubrelvy 50 mg oral tablet) Procedures Performed suction curettage with dilation (05/16/2015), kidney surgery as a child - 1 removed at age 3 months, Tonsillectomy. Discharge Vitals Height 175 cm Height 69 in Weight 135.5 kg Weight 298.1 lb BMI 44.24 What to do next Scheduled Follow-Up Appointments Tuesday 1:00 PM EDT With: Clau Moreland MD Where: [facility] Normal [facility] Patient Educationon 03-14-20 23 Patient Education Obstetrics and Gynecology Overactive Bladder, Adult Overactive bladder is a condition in which a person has a sudden and frequent need to urinate. A person might also leak urine if he or she cannot get to the bathroom fast enough (urinary incontinence). Sometimes, symptoms can interfere with work or social activities. What are the causes? Overactive bladder is associated with poor nerve signals between your bladder and your brain. Your bladder may get the signal to empty before it is full. You may also have very sensitive muscles that make your bladder squeeze too soon. This condition may also be caused by other factors, such as: ? Medical conditions: ? Urinary tract infection. ? Infection of nearby tissues. ? Prostate enlargement. ? Bladder stones, inflammation, or tumors. ? Diabetes. ? Muscle or nerve weakness, especially from these conditions: ? A spinal cord injury. ? Stroke. ? Multiple sclerosis. ? Parkinson's disease. ? Other causes: ? Surgery on the uterus or urethra. ? Drinking too much caffeine or alcohol. ? Certain medicines, especially those that eliminate extra fluid in the body (diuretics). ? Constipation. What increases the risk? You may be at greater risk for overactive bladder if you: ? Are an older adult. ? Smoke. ? Are going through menopause. ? Have prostate problems. ? Have a neurological disease, such as stroke, dementia, Parkinson's disease, or multiple sclerosis (MS). ? Eat or drink alcohol, spicy food, caffeine, and other things that irritate the bladder. ? Are overweight or obese. What are the signs or symptoms? Symptoms of this condition include a sudden, strong urge to urinate. Other symptoms include: ? Leaking urine. ? Urinating 8 or more times a day. ? Waking up to urinate 2 or more times overnight. How is this diagnosed? This condition may be diagnosed based on: ? Your symptoms and medical history. ? A physical exam. ? Blood or urine tests to check for possible causes, such as infection. You may also need to see a health care provider who specializes in urinary tract problems. This is called a urologist. How is this treated? Treatment for overactive bladder depends on the cause of your condition and whether it is mild or severe. Treatment may include: ? Bladder training, such as: ? Learning to control the urge to urinate by following a schedule to urinate at regular intervals. ? Doing Kegel exercises to strengthen the pelvic floor muscles that support your bladder. ? Special devices, such as: ? Biofeedback. This uses sensors to help you become aware of your body's signals. ? Electrical stimulation. This uses electrodes placed inside the body (implanted) or outside the body. These electrodes send gentle pulses of electricity to strengthen the nerves or muscles that control the bladder. ? Women may use a plastic device, called a pessary, that fits into the vagina and supports the bladder. ? Medicines, such as: ? Antibiotics to treat bladder infection. ? Antispasmodics to stop the bladder from releasing urine at the wrong time. ? Tricyclic antidepressants to relax bladder muscles. ? Injections of botulinum toxin type A directly into the bladder tissue to relax bladder muscles. ? Surgery, such as: ? A device may be implanted to help manage the nerve signals that control urination. ? An electrode may be implanted to stimulate electrical signals in the bladder. ? A procedure may be done to change the shape of the bladder. This is done only in very severe cases. Follow these instructions at home: Eating and drinking ? Make diet or lifestyle changes recommended by your health care provider. These may include: ? Drinking fluids throughout the day and not only with meals. ? Cutting down on caffeine or alcohol. ? Eating a healthy and balanced diet to prevent constipation. This may include: ? Choosing foods that are high in fiber, such as beans, whole grains, and fresh fruits and vegetables. ? Limiting foods that are high in fat and processed sugars, such as fried and sweet foods. Lifestyle ? Lose weight if needed. ? Do not use any products that contain nicotine or tobacco. These include cigarettes, chewing tobacco, and vaping devices, such as e-cigarettes. If you need help quitting, ask your health care provider. General instructions ? Take ohxc-wwr-reujbxi and prescription medicines only as told by your health care provider. ? If you were prescribed an antibiotic medicine, take it as told by your health care provider. Do not stop taking the antibiotic even if you start to feel better. ? Use any implants or pessary as told by your health care provider. ? If needed, wear pads to absorb urine leakage. ? Keep a log to track how much and when you drink, and when you need to urinate. This will help your health care provider monitor yo (more content not included)... Normal [facility] Pre-Certification Formon Pre-Certification Form [id number]#1. 00CD:127 Normal [facility] Urology Office/Clinic Noteon 03-14-2023 Urology Office/Clinic Note Chief Complaint 1 year with KUB HPI Staff This is a 37 year old female here for 1 year with KUB. KUB and renal US done 01/20/23. Pain with urination:No Blood in urine:Pt. states last week she noticed some blood on the toilet paper. Incomplete bladder emptying:No Frequency:No Urgency:yes Nocturia:No Hesitancy:No Urination requires straining:No Stream:good stream Stream starts and stops:No Leaking before getting to the restroom:yes Urinary incontinence without sensory awareness:occasionally Temporarily unable to restrain urination with body movement:yes Wearing pad/Depends:No Flank/Back pain:Lt. flank pain Abdominal pain:No History of Present Illness Tests reviewed: reviewed UA, renal US, KUB I have reviewed the previous health record information and history for this patient from Dr. Moreland. I have reviewed and verified the staff HPI to be accurate for this encounter. There have been no associated fever, chills, flank pain, or blood in the urine. Denies any urinary infections since last encounter. Review of Systems PHQ Score Initial Depression Screen Score: 0 ROS - Provider Constitutional: denies weight loss, denies hot flashes. Eyes: denies eye problems. Gastrointestinal: denies nausea, denies vomiting. Cardiovascular: denies chest pain or angina. Integumentary: no dryness Musculoskeletal: denies musculoskeletal symptoms. ENMT: denies otolaryngeal symptoms. Respiratory: no shortness of breath. Heme/Lymph: denies easy bleeding tendency, denies easy bruising tendency. Psychiatric: no confusion, no anxiety. Genitourinary: see HPI Physical Exam Vitals & Measurements HT: 69 in HT: 175 cm WT: 135.5 kg WT: 298.1 lb BMI: 44.24 General Appearance: alert , no acute distress, well nourished, well developed female. Genitourinary: bladder nonpalpable, no flank pain. Assessment/Plan Patient presented today for follow up of kidney stone and duplicated system. Due to patient's increase in stone burden, I will order metabolic stone workup and continue surveillance with CT scan in 3 mths. I spent 25 minutes today with the patient: reviewing tests in preparation to see and discuss them with the patient, documenting clinical information in the electronic health records, and care coordination. Over half the time was spent performing a medical exam and evaluation, and counseling and educating the patient, and ordering tests in caring for the patient. 1. Kidney stones (N20.0: Calculus of kidney) CT AP wo contrast scan 08/20/21 - posterior medial 5x3mm stone with narrow infundibulum and dilated calyx. Punctate calcifications within this atrophic moiety. CTU 01/20/22 - focal atrophy, thin cortex of left upper pole moiety posteromedially, multiple small nonobstructing calcifications of the left kidney. 1.0 cm left renal cortical cyst in this area. 2 ureters joining at the proximal ureter junction, mild narrowing of upper pole moiety ureter on my evaluation. Renal US 01/20/2023 - bilateral nephrolithiasis (right appears increased from prior) KUB 01/20/2023 - tiny calcifications projecting over the left renal shadow Pt denies passing any stones recently but brief right flank pain. Pt saw scant blood only when she wiped, denies any pain. Never smoked. No blood in urine. Discussed risks/benefits of tx options: dietary recommendations, metabolic workup, surveillance or treatment. Discussed cysto and further eval, pt declined at this time. -Dietary modifications thoroughly discussed -Pt to get CT scan in 3 months to better eval stone burden given limited on SOPHIE/KUB -Will proceed with 24hr urine and metabolic workup. Orders provided today 2. 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 No follow-up with urology since then. CTU 01/20/22 - 2 ureters joining at the proximal ureter junction, mild narrowing of upper pole moiety ureter on my evaluation. Asx. Stones in upper pole moiety, likely from stasis/atrophy. Consider nuclear med scan in the future to evaluate function of upper pole moiety if more invasive tx is to be done, such as heminephrectomy for infections/stones vs ureteral dilation 3. Stress incontinence (N39.3: Stress incontinence (female) (male)) ICIQ - 7, mild leakage. Pt states she is unable to run or cough without leakage Discussed risks/benefits of tx options: conservative mgmt, PFPT, bladder sling, or Bulkamid. Pt not sure about future pregnancies. Declined procedural tx at this time -Kegel exercises, weight loss -Pt to void every 2-3hrs -Cont eval with Dr. Pastor -Bulkamid information provided today. Will need pelvic exam to eval candidacy. 4. Recurrent UTI (N39.0: Urinary tract infection, site not specified) Denies recurrent UTIs until the last year, after of her child. Patient states for the last year she has been having recurrent uti's every several months, however (more content not included)... Normal [facility] Comment on above: Result Comment: Elec tronically Signed By: Clau Moreland MD\.br\Date and Time Signed: 03/14/23 21:57 EDT\.br\Electronically Co-Signed By: Emperatriz Olmstead\.br\Date and Time Co-Signed: 03/14/23 14:05 EDT Consultation Noteon 03-04-20 Consultation Note [id number]#1. 00CD:127 Normal [facility] Auth for Release of Medical Recordson 02-23-2023 Auth for Release of Medical Records [id number]#1.0 0CD:127 Normal [facility] CORTISOLon 02-23-2023 Cortisol 6.1 ug/dL Critically low 6.2-19.4 [facility] Comment on above: Result Comment: Clara marshall Note: The reference interval and flagging for this test is for an AM collection. If this is a PM collection please use: Cortisol PM: 2.3-11.9 Performed By: #### C WVYUE #### [facility] [address] [place] [address] Dr. Ness Aguirre Coding Summary.on 01-26-2023 Coding Summary. CD:[id number] Ww +PGhlYWQ+UO8AXOEeD44yy HOyiJ1eF3MYZSoHCynuIKV INGyWFnYpzeRxRV0itRLqU XJu IC8+NM0dRVYuKhzdvDXun3 S9tPO3H77hvj9hNKidnUJ7 PELgFkFtpiojh0teaVy8GH cuNmluOyBt BUInmU45KKM7kC70Ut28fS CgtLLtl6vdbLk2ScMxCUFy CVM4pVeuMCwuu6YwTHRtA7 3wyEMho6F9 KLAexMticVIoYrVsfIA6iU 7uDIeoxsmwk3trhotoRfw5 kg85mSAei4P4iVU3A6Obuj P3OBLscCAj NkeblWSVlG1lntdkz5htth zlLnCjOSQnAXn6KPk6FDWh jYrkLdDvTA65GAU6YCEeqo VbB6AcUGNk tMegXzJ6r5K6Lg9MC9UAOz utP7HSWJVBSCcssMB+PC90 ra79E0PfAcsxQpe4PDDmJP R7qRL2fP0v KRQkGBzjm8L7iNQ2F8Bkhe Sxlg8rn1puKSRdHIqwE80z fNIiu8D7OYZqqFM6UYScdF uaVwBoeJ75 Oyc+LPWkaMdol2MkQbahj9 ksb9kixWw2QdlpTDRalnUd bBzbKSK4j3DwRh3gIQZlgQ C9jKL9gS1j EeYaOiY8TZouF550UhImlN LpJeakI74nR9KluKZ+PHRy Wzw4JUDblTjgRL5vG8SlET RpbmctbGVm aVqrAW6sFDPkbhqjKVYueZ 1hVQFgR7w6BcJqRvH8MNxq Y5ZhDMEzffomAp30jD2bYc DeToV9QUjl T4QrbiI6LWCdbBJrOQgzPE B7J54nz6W5ISEnTYLyKHC7 jPD5vC1xjUegbdecqUAujJ sgdmVydGlj EQzzTDuaU197NSSeuWjiLs NvZGluZyBEYXRlOiAgMDQv MTkvMjAyMzwvdGQ+PHRkIH E8bGgsKGBa aOImSGihMr0ayLmtuRqrKW 0yCACyeajvTNNyrD5nZQZv eHRicFtzIM3zOYWhwzjnf1 61KeGdVIR3 FBNxjOUbW5MxpI6gAgGcGF DfZQCfT7RwzBSaAQxwS195 LFbvYuF4RDCdogKlB0UhAQ FsaWduOiB0 s3P5Al8Ye7TvxkqcA1HkhJ ZxYhOuTrewLZn1X0NnDzth dHI+KN89YKWiMG08KUa2SW T3tMpsFQtk VYAeT5XuwL2xEzBnYLNvBS RkOyc+PHRhYmxlIHdpZHRo RMoiFLIpLzJrcGfaZT1fYa 9yZGVyLWNv cHtgwJFtDwAmh8okPWZnJZ kmKK9goZzwL8KxaGB9SETi c7r2Sh45I94gE8BkvOS+PG QkpPJ0wSQ8 sW7cYvNsDvB4QEexM478Jz HwwGTnLyvhs7vxq2icaRg3 FpN5DCXdjpNttTlcRMB5s5 TxWr20W33u IHdpZHRoPSIxNSUiIHZhbG thqv2xqK1pTv5+PGNvbCB3 zCF2rT4pByLsHqQ8SKwsT3 49InRvcCIv Lfhth1brk1uboDw3FdHwAW KwcwSnyFgvSXK0e9PzDr82 U7AgfNgmd5VlMxj3bo59iW Qrk2E4rHN5 K8WrTPNjkztgvRPxhLilPG 5wDDEgbkqcMKWzwN4vZTHg L0a8VvTiBdI5QQriT3Yydz Q2SVAikEXg KYUwgMSXgH8zwhrjq1vgmd riFmHqHTXjHCd0XQv8YCGo eBpoXtIxIQL5VfF6JJI9xE UbfC2qkPdl eaxftS1lMgz+RTI1wNAfsR VHKU3tTfmieGG+PHRkIHN0 cLnpIPqzHANjuU4pSPQxT3 g2YdJzVmY0 KTqmN8DyisZ4BRHnvJKuDB NzoEGTcJ0rdrqyo8itmhdg JlUcLUJhTPm2MPm0TIQwdV duOiBsZWZ0 DaC0IJU9iHDzbR5cwJowwt wheA1dYps+QmlydGggRGF0 PHl3P5IyIok5SMKggWicHC 0ncGFkZGlu Yo1zyTcxcBiaIF2dTXIfdf cxq913MtPms4kkKFObcBNl MFyoFFE5F30rm7N2QVFdMH MoHWI1bFZ6 jH3alZtbghbnsVLfiJuoyz FlfQhaMFxaGVuuF170OZLs gBqmHkMcRQn4M2WhEtq2RU AmgBfbTV9d vGIcEIioOt4nrCsprIuuWW 8hVGNzwcahu350PtPiz6wb ZIMoqFCcFGntMBX5U53in4 B7XSBvYWFy CYB2zLN5iA3gqLrmdiwbdY VmdDsgdmVydGljYWwtYWxp A385CBGkeFiaTbWkgIn2X0 DiOri7CMDe tNraFF8fnBYbSGkaFk1wuW wdaGhwFO6pYZNezksoc923 SbGgr9moSNEhwBAaSQhuDY M3R81rq8E6 PFDaAITcJZR4sXU0oC5pxE lnbjogbGVmdDsgdmVydGlj PIccZSnwV658EIOkhUesEu BhdGllbnQg TNbwZQb7S9GvEcithZZ+PC 70RRSjAJ55tKPmzYIst5pj sVy3EpFdQCPwCGN4pJbvYE vyn5LlYPTu Z41soSGqo6A6IPXqqFszdO BlFsBngKY2rZ5sKNulkixm z5mhcpkgTymmd4hygu26jI 62M42eGLci ZHRoPSIzMCUiIHZhbGlnbj 2smN8zSk9+FMHuyDN5vUT8 sI0gYCQkXqR0PIguQ111Ry RvcCIvPjxj b9way9shhDt9NpY1FWHavw TjgWtkMVJ2s3MuLw05D46a IHdpZHRoPSIyMCUiIHZhbG kfwe4oxB9w Ii8+TXMmkJW8dHB8bS3xIu WsYrQ9LFglL957AhQstNTa KbpkZ89tB9MclBY+PHRyPj n9VKThcCon IA7oiWYsMHlwWk5uXXK0Gf TeIkVuORsuD6LjLYCsafzs pdbaoOB1JYNuTWIgpP64Aq 9udDogMTBw qRSYiI6czuqgm3xfiqlwHf JgALSnZZs1NId5VKGiiVsv TdTfERU2PtW7OWW9nAShvB 1hbGlnbjog wB7xU3XvQRTsoqfpGe37kJ 9iArDoZzI4MQazRxj+UFJP L2QRYvelUGAdOACWIHGWET 68LV62qLLz l7D7qQH7O2IgGEZglkujhr wczYK6XFVnCFQkoR17ePBp RFsfEa4hl1Y7t882NZWiWR DpqQ39Uz2h fQfzGMCxtRQCzA3pagdog4 rlzvkzHwEbOYCfNWh7ZRb2 PMHhaPtuJqKfWJU8CaM1GN L8rGJqcV2f bAhbbisefR2hBhq+MDkvMj xcMDc9HzwspYR+PHRkIHN0 rFutZTsbOCBseC1oEGZmG7 j8UgWgNgI4 LBpvL4OkDLKzutdpOf99qP 8cKnQkWjS9AFakM5SpwnV8 KRCgfTAjVIkoVIP8L67qg8 Z0DKSdHUHh EKA8xXV3hP2gzQdmqveeaA VmdDsgdmVydGljYWwtYWxp N244VMOqiYalLmV4NYgeWD UpJC27HG00 jDGzs6D7xQQ5W7EwQOCqps ekackjyMK4BNHfHZDxjN28 vZFpFHqpSq6vz6N3w488OM WzNOYcxJ61 Ga1jxJmqSCRikNQDpE6wfr hww5rxyusaLtVuOQVhPUr3 AOh4VWNvpXcfVdYaRXI5Tl T6GXL9eKUn hT6sfFeepgwemM5jJej+Rm MeRIitGO10RP96wZEre7F0 kLW8N6JqVEIqhehxzfjnpW U7JFCaWWDg rN39sZYjNMvvFw6ko3I2l2 91DNBlJRZisE31Sq6pwRfr SRRooZYKzQ8jnrpsf3leco ogIzAwMDAw MFq7SDn2HPBoeOpeAaWiBZ T2GpT8ASZ4mLOypG7syFzv fsrojR3gGmg+W7Y2aRC0tG VudDwvdGQ+ CC61im00U3BvWolmNmw0NA GtBBJ6dVC2wD7dBTQuCNtq h2B1aCK6N4IsjeBruy1rp8 xsYXBzZTog F42dyMZuh6K8TBHckKG3BW GprVkyEzRxeA40Kgi+PGNv xYpfg0GiAxzns1ily7dyrX r2UgXeHTVm frMzeLyhIUB5a2KdOm91F1 9sIHdpZHRoPSIzMCUiIHZh dKwodk4geK1sJv3+PGNvbC Z7hID7oD2s FkBvXsI6PUvdG715GwGjeO YiTifto9jtz6ghpLa4RnKj XZOdjcPqzOrmLHG1z8VaQp 21T5UjsCoq e2LuBox3qq43jRQmr4W0gA L1J2VzQBHvtbebjKTumVvn DC2rAETvjcrsVWQkqG2wKU KwG7u5NlIz GbI2ICwtK3PejkM5ECVagA DaYDRyiNZLgM5fchsfq2de otlgOnBxUCIsKCd2TWq4VU FsaWduOiBs UCK7IxC7QKK9yLKdyY1iwN fzabdfyC4vGgr+LUu3g6dv zKClAK5jaYD5TJ25GH42cY Tvk8S9cDC5 S1LbMQNshkrpyokrmIX6PH KeNHZxhD72Tb0ybJyeOx7x BQQrXYQ1RTUqjDGyG6KafZ 9yOiAjMDAw MEIvA7PhkANlIEauG796YK ivOlI3KFLtnvBfT0QfPEXd vKaqCtM5a8I6Na3UYO55UX 00HT54pFOq s4Q5oAT1Z9GjOCUnlnxeop hcqUJ9WRQpLDNimM07Su8f iQheBs8jAFXyWJF6LYGtwD KkP3VpcJ4q CbRhLLFdVVDyX7OtrUHkLL zvQ389VYdtYmY8XDGgkuVz C6EqLTMhcBzkJiZ4r1K2Qd 5DNa81BJ23 QB42bUNov4K8jCF2U5RqFE XljvszpjohbIY3RFErMTSn vX03Ha7kxPfqKl6lQLKuDI J6RYMabSEj Y9WpbM6qHiVqPXYxFHUoC9 RoiJMaJQpdT629KXpiLgF9 NKFyocLrQ0UhIBBhmWboEd G6v1Z2Qv7X XWorisn4M4CuRcmcgRJ+PC 30MHZbFU20rHFhyXObf8ff oUv2WiPgKFWnYYB7fCuhDN fqd3MuEHUr L97qcMFm (more content not included)... Normal [facility] US Renalon 01-21-2023 US Renal Exam Date/Time: 01/20/2023 10:07 EDT Reason for Exam: N20.0 Calculus of kidney;Other (please specify) Report IMPRESSION: Bilateral Nephrolithiasis CLINICAL HISTORY: N20.0 Calculus of kidney. COMPARISON: NONE. COMMENT: The right kidney measures approximately 13.9 cm in length, with renal cortical thickness of approximately 1.5 cm. The left kidney measures approximately 11.1 cm in length, with renal cortical thickness of approximately 1.3 cm. No solid renal mass. Small echogenic reflectors in the kidneys more extensive on the left than right consistent with nephrolithiasis. No obstructive uropathy or hydronephrosis.. Or accurate assessment of these The echogenicity of the renal cortex is less than the adjacent liver. . No additional abnormal findings. Ordering Provider: Clau Moreland FINAL REPORT Dictated: 01/21/2023 11:36 am Donnell Story MD Signed (Electronic Signature): 01/21/2023 11:36 am Signed by: Donnell Story MD Transcribed by: MICHELLE Technologist: Keisha CARRILLO [facility] XR Abdomen 1 Viewon 01-22-20 XR Abdomen 1 View Exam Date/Time: 01/20/2023 10:04 EDT Reason for Exam: N20.0 Calculus of kidney;Kidney stone Report IMPRESSION: TINY LEFT RENAL CALCULI. EXAMINATION: XR Abdomen 1 View HISTORY: Kidney stone TECHNIQUE: Frontal view of the abdomen and pelvis COMPARISON: CT abdomen pelvis 01/20/2022 FINDINGS: There are a few tiny calcifications projecting over the left renal shadow. No definitive calcifications identified over the right renal shadow or expected course of either ureter. Pelvic phlebolith noted. Nonobstructive bowel gas pattern. No evidence of free air. Intrauterine device projects over the pelvis. No acute osseous abnormality. Ordering Provider: Clau Moreland FINAL REPORT Dictated: 01/21/2023 2:48 pm Donal Mckeon DO Signed (Electronic Signature): 01/21/2023 2:48 pm Signed by: Donal Mckeon DO Transcribed by: MICHELLE Technologist: AROLDO Technical Comments Radiation Dose: Ka,r in mGy = 0 DAP = 0 [facility] Consent for Treatmenton 01-08 Consent for Treatment [id number]#1.0 0CD:127 [facility] Consultation Noteon 01-08-20 Consultation Note [id number]#1. 00CD:127 [facility] Coding Summary.on 01-01-2023 Coding Summary. CD:[id number] Ww +PGhlYWQ+XB2ACAKgS58hm PZfaU3qU4NMVQcGYsjzNVQ NKKjLXrOpkfGiFV2hyQTaF XJu IC8+YJ2pAUKsLzlhnUXut3 V7xGR6Q89vhw6tVYoheAX1 XKLqBuAwawgnm1gwuKj5NR cuNmluOyBt AFFnuG52ZHI4kD74Vf66cX FdoLYwy2pjaVc4MyTgVJSk LGG5sXhcMHqvd0GrPUNgJ6 1sxWBxs3N6 ZPQujDmzoUWnRfTzcJE9eZ 5uSFeftalbe0insmvvSrv0 cz98oPVoh8M9yYS0Z1Qzos B7MFXngCAz AdvfbOJHeU8ovfnrq8rlap csHbHvJFRgTLx2SAl1WLSt iItsNiJzTO19NUK2SSYotn NcY2LhDVHx lSjqPcV0k3W4Hi0CU1ACRg hgG7VJNLDBRAhzbGJ+PC90 vy96Q5UhNwdcHuf3LLQuJU N2cCQ7jX0w VOIdEQinz8M5rUF1E1Ztsu Vbav6yv5sqKYUsDOmpH13m eYIvm7E3JTPeqRT0UMPjtO zrQuPkpK11 Oyc+XQQvsJchl5EoBwcoy4 pom8ojdDa9RfstHHHtweJl rErkCPT4r3ZwOz9dKADsxU I8oKV7fJ9n SpDiCsP8QOvoH508ChLvzM JuKfxvW62kU7WvqEE+PHRy Xpr4BGMecSqmJG6eS7YlPT RpbmctbGVm zOvwVI4kGXDnpkbpZGHlpY 4bUZLyG6u8LjOaXuZ4PAdz L8OaTVFdgqywBl26tH1pWv ViAyF8CAwt T3QhqxC8HYDdpREoTKhfSH M5Y11qc3F0MAQmMFZyPLM0 vDS8qB6ajZxmbwquwACrlL sgdmVydGlj KSycDIhkN795ZJNqeDhkWn NvZGluZyBEYXRlOiAgMDMv MjUvMjAyMzwvdGQ+PHRkIH T2dDrgAHUe pFRlYTnrEu6idCvruKfmYY 0fIPIvjxbiRIZcwI4dBAGt iZTxeVchJC9rJYVrwyhed9 00AnWsMJE2 DHCsaRWtQ1LvpP7tOlWlEW AxJKPzK3KsfRRdSXoeP544 GWffWhW4LJOomcOhH0WzCG FsaWduOiB0 d2N1Iv9Hk5LkerndG2QjyW MrVvGyOpohAEp2L5KjXugk dHI+WG00BCZfBH69KKt9ZN H6lDehCAxz SNEaW5GndI4sDwPcONJwRJ RkOyc+PHRhYmxlIHdpZHRo EYmpOCQbVhXrfLxpAT6uLi 9yZGVyLWNv dIulqSDjJoNue5iiSPQwDZ kwVZ2loBnqZ9OatXK8BFCy g9s9Cn64Z51oQ4SqnOC+PG TcqHH8zHC5 aW5xDpHpSfK2WAeaV036Qe HgzMHmFhtqy2dav9fxuBn6 HnI4GPUzsbZudDdgLIF5d3 SrQq79R58v IHdpZHRoPSIxNSUiIHZhbG nvki0wbU1hJq4+PGNvbCB3 sVV4yV8wDtLyEhI3AWzmB7 49InRvcCIv Zmyuw1nxi4nuqTo6PsQbQT XybjFcsZauJPH6b4BgFe93 P0XuaUvqz3CgQdr7va73mA Ged5I5wVL7 Z9YaFRAjkhchgRTefZkmHU 7jKCAtjtpiYUJjuT6zCYKq R7g9UcVdNxN2BHfaZ8Lynb F0UNLloXCq VXYtmWWWdI5xcfymj1jdqq foTwZmHJArRUi7VOy3ORTq vUnoZlQyGUX9BiK3HUQ1zE QdvO6yxExy hafynY9zGdl+FZT9uIBbcR OLFH8gUtstkBG+PHRkIHN0 cIxqFOjiUKMhjW1bYNMyI0 g4XzDgHvH6 DOiuU3WokxA2XMQziQMlCO FgsWVZpT0seqmae9vhpbur KiEsYDHtPCr5ZGe5JPMplY duOiBsZWZ0 SgL9SLN7tPLbvY9uyPhbqf wfhW6yIdh+QmlydGggRGF0 IBr3M1PuMqh0CQPxeUrbMC 0ncGFkZGlu Yh1nwMeahTlwNY5aSQLxqk lxg870CbUrk3npWCZaaCNf HYbtAJE0J60ik4N2UAQrGV OpOPL6cVS6 iX6bxOqtaxlomDHjrHrgre WfjQmoHEsyBFurG617QJXk qKeaEqMpRAm2S6BzQus9YL VwwHtbGO8b mGXmDRxbQa2kzTenxAiwLA 0nZXYxcnqwk766DjPcr7og BNBpcWFeDLnvJWW8V22ao9 H7PYYoDQHl UVN9fHI6tQ2pyXucuthrhV VmdDsgdmVydGljYWwtYWxp T008IEKpaAgiZaCbrZs1P2 KsOcf0CVZb yKuzJC0odXRwFGsdNh5osU dupKazOI4rZXZulrdml654 EyMim8wsDCYkxOVrTAbdQK P2T73dd5A5 WKSlURQoQGK9yNX9qB1vzD lnbjogbGVmdDsgdmVydGlj GSpkFIdmR416LKRtwUmiOh BhdGllbnQg OSgjVTv0M4QzGbtseYT+PC 24BZUlQA91rEYucVFne1oy dZi9NlJyPJJgEQA8vHoxBF mmz4ArPFDe P62stLXjj9G4LESnzPoodK PaFePwoJM5mC2sRGhjzvyv p3kqyszbQbmii0upcv93sC 32K42fPLas ZHRoPSIzMCUiIHZhbGlnbj 5yiA2wUk5+DRVriFE2lJO9 fU2kIMVsOwV8UNwtX818Ad RvcCIvPjxj n6gcb2nvhNj5FpO5ZWZsqx OerXchPDE9j2FqRq49P74l IHdpZHRoPSIyMCUiIHZhbG yuxx0atJ2a Ii8+DULsjDB6bGJ4xP3qGr QlGuN0LKlwV686ZpNofTHd XweuP71dB4MtxAR+PHRyPj q5BMFtfOsa NG0jrOZzQTgkPk3yLDE0Px DeMqLuOSdhQ4YcHQFbkvrn gvzpoXD0RTUzRZXxwQ58Az 9udDogMTBw yNYKzY2vvgijj8pzthdvRl YoUVXsOZb5AGf6PWWlbBbk JeZwNWO2KwP9GJT3kKYrvE 1hbGlnbjog uB7hD0XsVPXhasxcYb37bX 7cMfBpDtB4BMdzDyg+UFJP N1CUZnmdQEDpLHOOFVGVFG 26XE09aWKd l7A8hZB5J8EoZJKohhwkul uwrKU5MZDyMWNpiU48gQFg OPxeDs9gt8A9d186NWJyYF EwbV36Ss1j kGaoQQLvnHVTkD3nurywa7 chdnoyJuSmTGRdMYa4JTj2 LCIczLuwEqNxVFY9JyL1OB H4kDPblC0f tOyaiquefU6oXgu+MDkvMj siVGr8PqzatHD+PHRkIHN0 cZoyKArfNARkuY4xWWDdN7 u3XuHgXlX1 XQqfG1WoCHVksaomUg91sT 9kRgYjWlQ9POhnY4YemoF3 XUJemHUsAWyjTGR1Y96dz2 O2HOCqWMAf YKE7cRO7iN7tqIrpkuatlB VmdDsgdmVydGljYWwtYWxp M183WTUblWinXqU6NMooMI AaUG86LI56 iSQgo7C9eXY1F7ZfZXDvin fisrticPF4ASHtYMPmkB89 dWXvBUgdVf8iu1L8d080WN HzHMMiiW57 Gz7hmSdoJRVjdCGKjP3rei qok9evbegdRyWqHTLjXDz7 EDb9APJstRbtYuGyAAF9Mb T4FBK0oTCg oV5jaCowtcdujZ2bKtw+Rm QkJSfyVE11FJ68eOVio4B8 wAK9W0LuYIAobmahpwvrxP V2KTHeUWEg aG62jGQmGUdyHj0ro7E3h4 06CUVkRKKgcH19Gk2zhIsm HWMfwAAAvG8hptxkf5ryhd ogIzAwMDAw LOp1NSx7QVSgdSyiPiVeQW V4QtM9UTK5bVKpzW0jnQkg admrcO8jOff+PT2pmovjxb M0QN23LZ38 M2MnZvfmmBNhkVQ+PHRhYm xlIHdpZHRoPScxMDAlJyBz nXwmEH5lLi8jGKUiXRQgtR xhcHNlOiBj b0tvGDHbVHlkET6orMhaJ2 QjhKP9PSGkv6q2Uv61I48z U9RhdNI+IXSapOU2lRT4eB 4aPoZvKdI7 BYdaI336FpEsxVDmPgjmn6 fqu9mtyAd5PfBmOYIhqyTd tTatZSE7v7CsXq69P35wVQ dpZHRoPSIy FGSpRJPmhZbkrz5ylX1gOj 8+YVBqiRA3hDQ9fL4hJyFl EoE7AIdsR372ClOtoSAsZi wwU92hF8Re dXA+GYOvMxm2RQInuVzaFZ 4djFQaTIriFx8qGTB2DdLx MdEqGEkvP0ArRPHjtlphau fcaJF1NHQc FBZqsB60Ek6qyLwbKt9zUB XdRMH2WLTghPJdL2YxkX4p MbTtCSUxRNHnC8IxvREaVJ viQ273UIdy QkF5GKVgqkBkM2FsQSHfjC rjQjA4v0F7Zy7HqGntzURi JQ9cXoVzSJl8S2DfUti4ES YvuVccHL3e gLIrCSehNd9ybNajfFskDA 9vFWZvryjhf152FqAio4ed PZChaOPfMZuaSWN1S65zf2 M0DQEkGWYk RFX5oXS5aF2mpMqxmvnrgM VmdDsgdmVydGljYWwtYWxp W385JIJrpFgwSpKPSnv0Q1 HwDoq3EJVq cMqhYC6vzMEeXRljWv0xsV mplSauCQ9fGGEvqacqd587 JtVkm5agANWcfZNwJPhbRT X4S86hk0E9 OQStENBqVUD9iYZ1kJ1ntR lnbjogbGVmdDsgdmVydGlj SBugIEnkE242ZVNzsNxjSh 3FOkf4G2Al Wtx7XAXlhFvnKO5gjBBwHW ueRq0soInmoLhvAY6bXMJx duwvm893MnKgf9orUKOqgU QgVGltZXM7 K55bo0N3CLBeSRNfDPM2pQ D1aV4qyDuxvujcbRXucMct uqBurTwmPXlzVYsrU935UN RvcDsnPlBh eWVyOjwvdGQ+GA30ks15Z2 QsNgxrBtx7VKYoXIP1yHS4 kV4lYRUbWSnfp2N8hOR2E7 EutiAutw3w s1efQUZk (more content not included)... Normal [facility] Auto Diffon 12-29-2022 Basophils/100 WBC (Bld) 0.7 % Normal 0.0-2.0 [facility] Comment on above: Order Comment: Order Added by Discern Expert. Performed By: #### 2 [id number], 6072843, 6461268, 13701797, 2962959, 9653833 ####[facility] [address] [place] [address] Basophils/Leukocytes Auto (Bld) [Pure # fraction] 0.1 E9/L Normal 0.0-0.2 [facility] Comment on above: Order Comment: Order Added by Discern Expert. Performed By: #### 2 009903, 0922727, 6855028, [id number], 0064796, 4073825 ####[facility] [address] [place] [address] Eosinophils/100 WBC (Bld) 4.5 % Normal 0.0-8.0 [facility] Comment on above: Order Comment: Order Added by Discern Expert. Performed By: #### 2 947421, 9918979, 1478348, 17735838, 8732272, 1018750 ####[address] [address] Eosinophils/Leukocytes Auto (Bld) [Pure # fraction] 0.5 E9/L Normal 0.0-0.5 [facility] Comment on above: Order Comment: Order Added by Discern Expert. Performed By: #### 2 454887, 3306797, 4944146, 52264229, 5303051, 6081293 ####[address] [address] Lymphocytes/100 WBC (Bld) 18.3 % Normal 14.0-50.0 [facility] Comment on above: Order Comment: Order Added by Discern Expert. Performed By: #### 2 713370, 4825191, 8753935, 14876720, 2726823, 0146834 ####[address] [address] Lymphocytes/Leukocytes Auto (Bld) [Pure # fraction] 2.1 E9/L Normal 1.0-4.0 [facility] Comment on above: Order Comment: Order Added by Discern Expert. Performed By: #### 2 991150, 4850370, 8525289, 47400004, 2592003, 9915415 ####[address] [address] Monocytes/100 WBC (Bld) 4.3 % Normal 4.0-14.0 [facility] Comment on above: Order Comment: Order Added by Discern Expert. Performed By: #### 2 944383, 4268120, 6708158, 74131553, 7270853, 7254980 ####[address] [place] [address] Monocytes/Leukocytes Auto (Bld) [Pure # fraction] 0.5 E9/L Normal 0.2-1.0 [facility] Comment on above: Order Comment: Order Added by Discern Expert. Performed By: #### 2 410365, 9539853, 1678151, 36179947, 6752896, 7831364 ####[address] [address] Neutrophils/100 WBC (Bld) 72.2 % Normal 36.0-75.0 [facility] Comment on above: Order Comment: Order Added by Discern Expert. Performed By: #### 2 483746, 4346932, 6487718, 98609612, 6185743, 3587727 ####[facility] [address] [place] [address] Neutrophils/Leukocytes Auto (Bld) [Pure # fraction] 8.2 E9/L High 2.0-7.5 [facility] Comment on above: Order Comment: Order Added by Discern Expert. Performed By: #### 2 489814, 0769574, 9163544, 18303391, 3428438, 7057746 ####[facility] [address] [place] [address] BMPon 12-29-2022 Creatinine [Mass/Vol] 0.8 mg/dL Normal 0.5-1.3 [facility] Comment on above: Performed By: #### 2 518268 #### [facility] [address] [place] [address] Urea nitrogen [Mass/Vol] 16 mg/dL Normal 5-21 [facility] Comment on above: Performed By: #### 2 790987 #### [facility] [address] [place] [address] Urea nitrogen/Creatinine [Mass ratio] 20 No Units Normal 10-20 [facility] Comment on above: Performed By: #### 2 726991 #### [facility] [address] [place] [address] Anion gap [Moles/Vol] 12 mmol/L Normal 6-16 [facility] Comment on above: Performed By: #### 2 332287 #### [facility] [address] [place] [address] Calcium [Mass/Vol] 8.9 mg/dL Normal 8.9-11.1 [facility] Comment on above: Performed By: #### 2 187942 #### [facility] [address] [place] [address] Chloride [Moles/Vol] 102 mmol/L Normal 101-111 [facility] Comment on above: Performed By: #### 2 051117 #### [facility] [address] [place] [address] CO2 [Moles/Vol] 24 mmol/L Normal 21-31 [facility] Comment on above: Performed By: #### 2 249695 #### [facility] [address] [place] [address] Glucose [Mass/Vol] 107 mg/dL Normal 55-199 [facility] Comment on above: Result Comment: If t his glucose result represents a fasting glucose, interpretation should refer to the following reference range: 55-99 mg/dL Performed By: #### 2 641926 #### [facility] [address] [place] [address] Potassium [Moles/Vol] 3.9 mmol/L Normal 3.5-5.3 [facility] Comment on above: Performed By: #### 2 763940 #### [facility] [address] [place] [address] Sodium [Moles/Vol] 134 mmol/L Low 135-145 [facility] Comment on above: Performed By: #### 2 853432 #### [facility] [address] [place] [address] CBC w/ Auto Diffon Erythrocyte distribution width (RBC) [Ratio] 13.6 % Normal 10.9-14.2 [facility] Comment on above: Performed By: #### 2 123436, 3421700, 4096699, 76066342, 9090097, 2833880 ####[facility] [address] [place] [address] Hematocrit (Bld) [Volume fraction] 38.4 % Normal 34.0-46.0 [facility] Comment on above: Performed By: #### 2 860853, 4696088, 2751247, 33556732, 7820000, 7089379 ####[address] Hemoglobin (Bld) [Mass/Vol] 13.1 g/dL Normal 12.0-16.0 [facility] Comment on above: Performed By: #### 2 076084, 6932628, 8394710, 94596334, 4341492, 7787485 ####[place] [address] MCH (RBC) [Entitic mass] 30.5 pg Normal 27.0-34.0 [facility] Comment on above: Performed By: #### 2 552856, 5320879, 5257094, 49427110, 0703176, 3378093 ####[place] [address] MCHC (RBC) [Mass/Vol] 34.1 g/dL Normal 31.4-36.0 [facility] Comment on above: Performed By: #### 2 805170, 1140939, 9897345, 48718675, 8596791, 7975901 ####[address] [address] MCV (RBC) [Entitic vol] 89.4 fL Normal 80.0-100.0 [facility] Comment on above: Performed By: #### 2 333040, 4216352, 5197139, 27079268, 5290316, 7228911 ####[place] [address] Platelet mean volume (Bld) [Entitic vol] 7.1 fL Normal 6.4-10.8 [facility] Comment on above: Performed By: #### 2 685424, 0376629, 1548315, 21493319, 0945193, 8074526 ####[address] [address] Platelets (Bld) [#/Vol] 240.0 E9/L Normal 150.0-500.0 [facility] Comment on above: Performed By: #### 2 [id number], 0061576, 5269519, [id number], 7562712, [id number] ####[facility] [address] [place] [address] RBC (Bld) [#/Vol] 4.3 E12/L Normal 4.3-5.9 [facility] Comment on above: Performed By: #### 2 [id number], 7499841, 2792242, [id number], 4462091, 9506234 ####[facility] [address] [place] [address] WBC corrected for nucl RBC Auto (Bld) [#/Vol] 11.4 E9/L High 4.0-11.0 [facility] Comment on above: Performed By: #### 2 370215, 8281196, 7102851, [id number], 2064017, 6752704 ####[facility] [address] [place] [address] CHEMISTRYOrdered By: SYSTEM SYSTEM on 12-29-2022 Albumin [Mass/Vol] 4.0 g/dL Normal 3.3 - 5.0 gm/dL [facility] Remisol Albumin/Globulin [Mass ratio] 1.1 {ratio} Normal 1.1 - 2.2 [facility] ALP [Catalytic activity/Vol] 80 [iU]/d Normal 21 - 98 Int._Unit/L [facility] ALT No additional P-5'-P [Catalytic activity/Vol] 28 [iU]/d Normal 6 - 46 Int._Unit/L [facility] Anion gap [Moles/Vol] 12 mmol/L Normal 6 - 16 mEq/L [facility] AST [Catalytic activity/Vol] 23 [iU]/d Normal 5 - 43 Int._Unit/L [facility] Bilirubin [Mass/Vol] 0.6 mg/dL Normal 0.0 - 1.1 mg/dL [facility] Bilirubin.direct [Mass/Vol] mg/dL Normal 0.1 - 0.4 mg/dL [facility] Bilirubin.indirect [Mass or moles/Vol] Unable to Calculate mg/dL Invalid Interpretation Code 0.1 - 0.9 mg/dL [facility] Calcium [Mass/Vol] 8.9 mg/dL Normal 8.9 - 11. 1 mg/dL [facility] Chloride [Moles/Vol] 102 mmol/L Normal 101 - 1 11 mmol/L [facility] CO2 [Moles/Vol] 24 mmol/L Normal 21 - 31 mmol/L [facility] Creatinine [Mass/Vol] 0.8 mg/dL Normal 0.5 - 1.3 mg/d L [facility] GFR/1.73 sq M.predicted among blacks MDRD (S/P/Bld) [Vol rate/Area] mL/min/1.73 m2 Normal >=59mL/min/1.73 m2 [facility] Chem S GFR/1.73 sq M.predicted among non-blacks MDRD (S/P/Bld) [Vol rate/Area] mL/min/1.73 m2 Normal >=59mL/min/1.73 m2 [facility] Chem S Globulin (S) [Mass/Vol] 3.6 g/dL Normal 1.4 - 4.0 gm/dL [facility] Remisol Glucose [Mass/Vol] 107 mg/dL Normal 55 - 199 mg/dL [facility] Remisol Lipase [Catalytic activity/Vol] 32 U/L Normal 13 - 58 unit/L [facility] Remisol Potassium [Moles/Vol] 3.9 mmol/L Normal 3.5 - 5.3 mmol/L [facility] Remisol Protein [Mass/Vol] 7.6 g/dL Normal 6.0 - 7.8 gm/dL [facility] Remisol Sodium [Moles/Vol] 134 mmol/L Low 135 - 145 mmol/L [facility] Remisol Urea nitrogen [Mass/Vol] 16 mg/dL Normal 5 - 21 mg/dL [facility] Remisol Urea nitrogen/Creatinine [Mass ratio] 20 mg/mg Normal 10 - 20 [facility] Remisol Consent for Treatmenton 12-09 Consent for Treatment [id number] 0CD:127 Normal [facility] Discharge Instructionson Discharge Instructions [id number] 0CD:127 Normal [facility] ED Clinical Summaryon 2022 ED Clinical Summary [address] [address] ED Clinical Summary Person Information Name: HARVEY MARTINEZ/[place] Age: 37 Years : 1985 Sex: Female Language: Indonesian PCP: Reginald ASHER DO, FAAFP Marital Status: Single Phone: [phone] Visit Id: Visit Reason: Shortness of breath; Cough; COUGH, SOB Speciality: Acuity: 3 Enc Type: Emergency Med Service: Emergency Arrival: 12/28/2022 23:01:12 Discharge: 12/29/2022 01:40:03 LOS: 000 02:39 Checkin: 12/28/2022 23:01:12 Checkout: 12/29/2022 01:40:03 Dispo Type: Home (Routine DC) EVENTS: Event Name Event Status Request Date/Time Start Date/Time Complete Date/Time Arrive Complete 12/28/2022 23:01:12 12/28/2022 23:01:12 12/28/2022 23:01:12 Document Home Meds Request 12/28/2022 23:01:12 Triage Complete 12/28/2022 23:01:12 12/28/2022 23:23:53 12/28/2022 23:23:53 Registration Complete 12/28/2022 23:04:43 12/28/2022 23:04:43 12/28/2022 23:04:43 Reg Complete Request 12/28/2022 23:04:43 Reg Bed Request Complete 12/28/2022 23:04:43 12/28/2022 23:04:43 12/28/2022 23:04:43 EKG Complete 12/28/2022 23:08:30 12/28/2022 23:12:10 Bed Assign Complete 12/28/2022 23:24:46 12/28/2022 23:24:46 12/28/2022 23:24:46 Dr Exam Complete 12/28/2022 23:24:46 12/28/2022 23:25:20 12/28/2022 23:25:20 RN Exam Complete 12/28/2022 23:24:46 12/29/2022 00:22:24 12/29/2022 00:22:24 Registration Request 12/28/2022 23:25:20 Pending Labs Complete 12/28/2022 23:36:24 12/29/2022 00:48:38 Lab Complete 12/28/2022 23:36:24 12/29/2022 00:48:38 X-Ray Complete 12/28/2022 23:36:24 12/28/2022 23:49:08 12/28/2022 23:49:35 Swab Complete 12/28/2022 23:36:24 12/29/2022 00:48:38 Wet Read Request 12/28/2022 23:49:35 Meds Admin Complete 12/29/2022 00:03:57 12/29/2022 00:20:12 Pending Labs Complete 12/29/2022 00:14:00 12/29/2022 00:14:00 12/29/2022 00:34:29 Lab Complete 12/29/2022 00:14:00 12/29/2022 00:14:00 12/29/2022 00:34:29 Pending Labs Complete 12/29/2022 00:16:58 12/29/2022 00:16:58 12/29/2022 00:17:08 Lab Complete 12/29/2022 00:16:58 12/29/2022 00:16:58 12/29/2022 00:17:08 Discharge Complete 12/29/2022 01:19:48 12/29/2022 01:40:07 12/29/2022 01:40:07 Transfer Complete 12/29/2022 01:40:07 12/29/2022 01:40:07 12/29/2022 01:40:07 ADDRESS: [address] [place] [id number] PHYS DOC NOTES: MEDICAL INFORMATION: Prescriptions Given: New Medications [id number], [address] [place], [place] [id number], [phone] brompheniramine/dextro methorphan/PSE (Bromfed DM oral syrup) 5 Milliliter By Mouth 4 times a day as needed for cough and congestion. Refills: 0. ondansetron (Zofran ODT 4 mg Tab-Dis) 1 Tablets By Mouth every 8 hours as needed Nausea/Vomiting. Refills: 0. Medications to Continue with No Changes Other Medications fluticasone nasal (Flonase 0.05 mg/inh nasal spray) 1 Sprays Nasal Inhalation 2 times a day. each nostril. Refills: 0. fremanezumab (Ajovy Autoinjector 225 mg/1.5 mL subcutaneous solution) ibuprofen (ibuprofen 600 mg Tab) 1 Tablets By Mouth every 6 hours. Refills: 0. lithium (lithium 450 mg oral tablet, extended release) 2 Tablets By Mouth every day. naproxen (Naprosyn 500 mg Tab) 1 Tablets By Mouth 2 times a day as needed for pain. Refills: 0. omeprazole (omeprazole 40 mg Cap-DR) 1 Capsules By Mouth every day. Refills: 2. phentermine (Adipex-P 37.5 mg Tab) 1 Tablets By Mouth every day. BMI 43 #3 30 day supply before breakfast. Refills: 0. potassium chloride (potassium chloride 20 mEq ER Tab) 1 Tablets By Mouth every day. Refills: 3. ropinirole (Requip 0.5 mg Tab) By Mouth 3 times a day. ubrogepant (Ubrelvy 50 mg oral tablet) PATIENT EDUCATION INFORMATION: Instructions: Diarrhea, Adult; Cough, Adult Follow up: With: Address: When: Reginald ASHER [address] [place] [address] [place] [id number] [facility] (1) In 3 days DIAGNOSIS: Cough; Diarrhea Normal [facility] ED Note-Physicianon 12-30-19 23 ED Note-Physician Basic Information Time Seen: Mark Ennis DO 12/28/2022 23:25 Chief Complaint Shortness for past couple of days and worsening. Cough that causes vomiting and dizziness. No pain. Diarrhea for past month that has slightly worsened. History of Present Illness HPI: Patient is a 37-year-old female with past ministry of allergies, kidney stones, migraines, sleep apnea, sciatica, anxiety presents the ED for cough, diarrhea, and shortness of breath. Patient states that she has had a cough for the past couple of weeks as well as loose bowel movements. She states that she is coughing so hard that is causing her to vomit. She states that she is also feeling more short of breath the past couple of days. She denies any fever or chills. ROS: Pertinent review of systems conducted and is negative except as noted above. Physical exam: General: nontoxic appearing and in no distress HEENT: Mucous membranes moist Neuro: awake and alert Neck: supple, trachea midline Card: Heart regular rate and rhythm no murmur Resp: Lungs clear to auscultation no wheeze or rhonchi Abd: Soft and nondistended. No tenderness to palpation with no rebound or guarding. Ext: No gross deformity or edema Physical Exam Vitals & Measurements T: 37.4 ?C(Oral) HR: 100(Peripheral) RR: 20 BP: 141/83 SpO2: 94% HT: 175 cm WT: 132.9 kg BMI: 43.4 Medical Decision Making MEDICAL DECISION MAKING Number and Complexity of Problems Differential Diagnosis: [] [facility] Data External documents reviewed: N/A My EKG interpretation: Noted in chart if applicable My CT interpretation: N/A My X-ray interpretation: Noted in chart if applicable My Ultrasound interpretation: N/A Decision rules/scores evaluated: N/A Discussed with: N/A Treatment and Disposition ED Course: Patient is nontoxic-appearing and in no distress. She is saturating well on room air. She is afebrile here in the ED. Will obtain a chest x-ray as well as basic labs. We will give her a dose of Bromfed and Zofran for her symptoms. X-ray shows no acute infiltrate. Blood work is overall reassuring. I discussed these things with the patient at bedside. We discussed the plan of discharge with a prescription for the Bromfed and Zofran. She will use a humidifier at night and continue oral hydration and follow-up with her primary care physician. Shared decision making: As above Code status: N/A Assessment/Plan Cough (R05.9: Cough, unspecified) Diarrhea (R19.7: Diarrhea, unspecified) Orders: brompheniramine/dextro methorphan/PSE, 5 mL, Syrup, Oral, Once, Stop date 12/29/22 0:03:00 EDT, STAT, Start date 12/29/22 0:03:00 EDT brompheniramine/dextro methorphan/PSE, 5 mL, Oral, QID for cough and congestion, 200 mL, Refill(s) 0, [id number], 175, cm, 12/28/22 23:23:00 EDT, Height/Length Dosing, 132.9, kg, 12/28/22 23:23:00 EDT, Weight Dosing ondansetron, 4 mg = 1 tab(s), Tab-Dis, Oral, Once, Stop date 12/29/22 0:03:00 EDT, STAT, Start date 12/29/22 0:03:00 EDT, 12/29/22 0:03:00 EDT ondansetron, 4 mg = 1 tab(s), Oral, q8hr, PRN Nausea/Vomiting, # 12 tab(s), Refills(s) 0, Pharmacy: [id number], 175, cm, 12/28/22 23:23:00 EDT, Height/Length Dosing, 132.9, kg, 12/28/22 23:23:00 EDT, Weight Dosing Automated Diff Basic Metabolic Panel CBC w/ Auto Diff ECG 12 Lead Adult ED Cardiac Monitoring eGFR Hepatic Function Panel Influenza A&B Ag Lipase Level Rapid COVID Antigen ([facility]) XR Chest Single View Medications Administered Given Bromfed DM oral syrup, 5 mL, Oral ondansetron 4 mg Dis Tab, 4 mg, Oral Disposition Plan Discharge Prescription List Prescriptions Bromfed DM oral syrup, 5 mL, Oral, QID, PRN Zofran ODT 4 mg Tab-Dis, 4 mg= 1 tab(s), Oral, q8hr, PRN Follow-up With When Contact Information Reginald ASHER In 3 days [address], [place] [address]- Business (1) Additional Instructions: Patient Education Diarrhea, Adult Cough, Adult Problem List/Past Medical History Ongoing Abnormal CT scan, kidney Allergic rhinitis Allergy to pollen Amenorrhea Anxiety state BMI 40.0-44.9, adult Duplicated renal collecting system Elevated BP without diagnosis of hypertension Fatigue Food allergy Hypokalemia Kidney stone Kidney stones Leukocytosis Low serum vitamin D Lower abdominal pain Lumbago Migraine Migraines Mild depressed bipolar 1 disorder Nocturia SHILPA on CPAP Other obesity due to excess calories Perimenopausal symptom 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 Recurrent UTI RLS (restless legs syndrome) Round ligament pain Sciatica, left side Smoker Ureteral calculus UTI [Urinary tract infection] Historical Abnormal weight gain Abscess Allergic asthma Anxiety disorder Anxiety, generalized BMI 38.0-38.9,adult BMI 39.0-39.9,adult Migraine Morbid obesity Obesity (BMI 30-39.9) SHILPA (obstructive sleep apnea) Sleep apnea TIA - Hart (more content not included)... Normal [facility] Comment on above: Result Comment: Elec tronically Signed By: Mark Ennis DO\.br\Date and Time Signed: 12/29/22 01:21 EDT ED Patient Education Noteon 12-29-2022 ED Patient Education Note ENT Cough, Adult Coughing is a reflex that clears your throat and your airways (respiratory system). Coughing helps to heal and protect your lungs. It is normal to cough occasionally, but a cough that happens with other symptoms or lasts a long time may be a sign of a condition that needs treatment. An acute cough may only last 2?3 weeks, while a chronic cough may last 8 or more weeks. Coughing is commonly caused by: ? Infection of the respiratory systemby viruses or bacteria. ? Breathing in substances that irritate your lungs. ? Allergies. ? Asthma. ? Mucus that runs down the back of your throat (postnasal drip). ? Smoking. ? Acid backing up from the stomach into the esophagus (gastroesophageal reflux). ? Certain medicines. ? Chronic lung problems. ? Other medical conditions such as heart failure or a blood clot in the lung (pulmonary embolism). Follow these instructions at home: Medicines ? Take kgbi-bra-cypkbkb and prescription medicines only as told by your health care provider. ? Talk with your health care provider before you take a cough suppressant medicine. Lifestyle ? Avoid cigarette smoke. Do not use any products that contain nicotine or tobacco, such as cigarettes, e-cigarettes, and chewing tobacco. If you need help quitting, ask your health care provider. ? Drink enough fluid to keep your urine pale yellow. ? Avoid caffeine. ? Do not drink alcohol if your health care provider tells you not to drink. General instructions ? Pay close attention to changes in your cough. Tell your health care provider about them. ? Always cover your mouth when you cough. ? Avoid things that make you cough, such as perfume, candles, cleaning products, or campfire or tobacco smoke. ? If the air is dry, use a cool mist vaporizer or humidifier in your bedroom or your home to help loosen secretions. ? If your cough is worse at night, try to sleep in a semi-upright position. ? Rest as needed. ? Keep all follow-up visits as told by your health care provider. This is important. Contact a health care provider if you: ? Have new symptoms. ? Cough up pus. ? Have a cough that does not get better after 2?3 weeks or gets worse. ? Cannot control your cough with cough suppressant medicines and you are losing sleep. ? Have pain that gets worse or pain that is not helped with medicine. ? Have a fever. ? Have unexplained weight loss. ? Have night sweats. Get help right away if: ? You cough up blood. ? You have difficulty breathing. ? Your heartbeat is very fast. These symptoms may represent a serious problem that is an emergency. Do not wait to see if the symptoms will go away. Get medical help right away. Call your local emergency services (911 in the [place] Do not drive yourself to the hospital. Summary ? Coughing is a reflex that clears your throat and your airways. It is normal to cough occasionally, but a cough that happens with other symptoms or lasts a long time may be a sign of a condition that needs treatment. ? Take qsmm-ein-ijgzola and prescription medicines only as told by your health care provider. ? Always cover your mouth when you cough. ? Contact a health care provider if you have new symptoms or a cough that does not get better after 2?3 weeks or gets worse. This information is not intended to replace advice given to you by your health care provider. Make sure you discuss any questions you have with your health care provider. Document Released: 03/24/2012 Document Revised: 10/15/2019 Document Reviewed: 10/15/2019 [employer] Patient Education ? 2019 [employer] Gastroenterology Diarrhea, Adult Diarrhea is frequent loose and watery bowel movements. Diarrhea can make you feel weak and cause you to become dehydrated. Dehydration can make you tired and thirsty, cause you to have a dry mouth, and decrease how often you urinate. Diarrhea typically lasts 2?3 days. However, it can last longer if it is a sign of something more serious. It is important to treat your diarrhea as told by your health care provider. Follow these instructions at home: Eating and drinking Follow these recommendations as told by your health care provider: ? Take an oral rehydration solution (ORS). This is an wroz-rmq-rzkieod medicine that helps return your body to its normal balance of nutrients and water. It is found at pharmacies and retail stores. ? Drink plenty of fluids, such as water, ice chips, diluted fruit juice, and low-calorie sports drinks. You can drink milk also, if desired. ? Avoid drinking fluids that contain a lot of sugar or caffeine, such as energy drinks, sports drinks, and soda. ? Eat bland, lmbo-ax-jiwlkl foods in small amounts as you are able. These foods include bananas, applesauce, rice, lean meats, toast, and crackers. ? Avoid alcohol. ? Avoid spicy or (more content not included)... Normal [facility] ED Patient Summaryon 023 ED Patient Summary [place] [id number] Patient Discharge Instructions Person Information Name: HARVEY MARTINEZ Age: 37 Years Arrival Date: 12/28/2022 23:01:12 Discharge Diagnosis: Cough; Diarrhea Primary Care Physician: Reginald ASHER DO, FAAFP Provider Information Primary Provider: Mark Ennis DO Advanced Stamp Pad Maker:None The exam and treatment you received in the Emergency Department were for an urgent problem and are not intended as complete care. It is important that you follow up with a doctor, nurse practitioner, or physician?s public health assistant for ongoing care. If your symptoms become worse or you do not improve as expected and you are unable to reach your usual health care provider, you should return to the Emergency Department. We are available 24 hours a day. HARVEY MARTINEZ has been given the following list of patient education materials, prescriptions and follow-up instructions: Follow-up Instructions: With: Address: When: Reginald ASHER [address], [place] [address] Business (1) In 3 days In the event that this physician does not participate in your insurance network, please consult with your insurance company to find a nearby participating provider. Patient Education Materials: Diarrhea, Adult; Cough, Adult A MESSAGE TO ALL PATIENTS REGARDING OPIOIDS PRESCRIPTION OPIOIDS: WHAT YOU NEED TO KNOW Prescription opioids can be used to help relieve qxtnugsi-jp-llprvz pain and are often prescribed following a surgery or injury, or for certain health conditions. These medications can be an important part of the treatment but also come with serious risks. It is important to work with your healthcare provider to make sure you are getting the safest, most effective care. WHAT ARE THE RISKS AND SIDE EFFECTS OF OPIOID USE? Prescription opioids carry serious risks of addiction and overdose, especially with prolonged use. An opioid overdose, often marked by slowed breathing, can cause sudden . The use of prescription opioids can have a number of side effects as well, even when taken as directed: ? Tolerance?meaning you might need to take more of the medication for the same pain relief ? Physical dependence?meaning you have symptoms of withdrawal when a medication is stopped ? Increased sensitivity to pain ? Constipation ? Nausea, vomiting, and dry mouth ? Sleepiness and dizziness ? Confusion ? Depression ? Low levels of testosterone that can result in lower sex drive, energy, and strength ? Itching and sweating RISKS ARE GREATER WITH: ? History of drug misuse, substance use disorder, or overdose ? Mental health conditions (such as depression or anxiety) ? Sleep apnea ? Older age (65 years and older) ? Avoid alcohol while taking prescription opioids. Also, unless specifically advised by your health care provider, medications to avoid include: ? Benzodiazepines (such as Xanax or Valium) ? Muscle relaxants (such as Soma or Flexeril) ? Hypnotics (such as Ambien or Lunesta) ? Other prescription opioids KNOW YOUR OPTIONS Talk to your health care provider about ways to manage your pain that don?t involve prescription opioids. Some of these options may actually work better and have fewer risks and side effects. Options may include: ? Pain relievers such as acetaminophen, ibuprofen, and naproxen ? Some medication that are also used for depression or seizures ? Physical therapy and exercise ? Cognitive behavioral therapy, a psychological, goal-directed approach, in which patients learn how to modify physical, behavioral, and emotional triggers of pain and stress. IF YOU ARE PRESCRIBED OPIOIDS FOR PAIN: ? Never take opioids in greater amounts or more often than prescribed. ? Follow up with your primary health care provider. o Work together to create a plan on how to manage your pain. o Talk about ways to help manage your pain that don?t involve prescription opioids. o Talk about any and all concerns and side effects. ? Help prevent misuse and abuse o Never sell or share prescription opioids. o Never use another person?s prescription opioids. ? Store prescription opioids in a secure place and out of reach of others (this may include visitors, children, friends, and family). ? Safely dispose of unused prescription opioids: Find your community drug take-back program or your pharmacy mail-back program, or flush them down the toilet, following guidance from the Food and Drug Administration (www.fda.gov/Drugs/Res ourcesForYou). ? Visit www.cdc.gov/drugoverdo se to learn about the risks of opioids abuse and overdose. ? If you believe you may be struggling with addiction, tell your health life care planner and ask for guidance or call [facility] National Helpline at 3-633-908-CDMW. a Source: [place] Department o (more content not included)... Normal [facility] HEMATOLOGYOrdered By: SYSTEM SYSTEM on 12-29-2022 Basophils/100 WBC (Bld) 0.7 % Normal 0.0 - 2.0 % [facility] Basophils/Leukocytes Auto (Bld) [Pure # fraction] 0.1 E9/L Normal 0.0 - 0.2 E9/L [facility] Eosinophils/100 WBC (Bld) 4.5 % Normal 0.0 - 8.0 % [facility] Eosinophils/Leukocytes Auto (Bld) [Pure # fraction] 0.5 E9/L Normal 0.0 - 0.5 E9/L [facility] Lymphocytes/100 WBC (Bld) 18.3 % Normal 14.0 - 50.0 % [facility] Lymphocytes/Leukocytes Auto (Bld) [Pure # fraction] 2.1 E9/L Normal 1.0 - 4.0 E9/L [facility] Monocytes/100 WBC (Bld) 4.3 % Normal 4.0 - 14.0 % [facility] Monocytes/Leukocytes Auto (Bld) [Pure # fraction] 0.5 E9/L Normal 0.2 - 1.0 E9/L [facility] Neutrophils/100 WBC (Bld) 72.2 % Normal 36.0 - 75.0 % [facility] Neutrophils/Leukocytes Auto (Bld) [Pure # fraction] 8.2 E9/L High 2.0 - 7.5 E9/L [facility] HEMATOLOGYOrdered By: Leandra Carreon on 12-29-2022 Erythrocyte distribution width (RBC) [Ratio] 13.6 % Normal 10.9 - 14.2 % [facility] Hematocrit (Bld) [Volume fraction] 38.4 % Normal 34.0 - 46.0 % [facility] Hemoglobin (Bld) [Mass/Vol] 13.1 g/dL Normal 12.0 - 16.0 gm/dL [facility] MCH (RBC) [Entitic mass] 30.5 pg Normal 27.0 - 34.0 pg [facility] MCHC (RBC) [Mass/Vol] 34.1 g/dL Normal 31.4 - 36.0 gm/dL [facility] MCV (RBC) [Entitic vol] 89.4 fL Normal 80.0 - 100.0 fL [facility] Platelet mean volume (Bld) [Entitic vol] 7.1 fL Normal 6.4 - 10.8 fL [facility] Platelets (Bld) [#/Vol] 240.0 E9/L Normal 150.0 - 500.0 E9/L [facility] RBC (Bld) [#/Vol] 4.3 E12/L Normal 4.3 - 5.9 E12/L [facility] WBC corrected for nucl RBC Auto (Bld) [#/Vol] 11.4 E9/L High 4.0 - 11.0 E9/L [facility] Hep Func Panelon 12-29-2022 Bilirubin.indirect [Mass or moles/Vol] UTC Abnormal 0.1-0.9 [facility] Comment on above: Result Comment: Resu lt verified by Discern Rule. Performed result UTC (Unable to Calculate) was sent as an Alpha code due the inability to calculate a valid numeric value. Performed By: #### 2 [id number] #### [facility] [address] [place] [address] Albumin [Mass/Vol] 4.0 g/dL Normal 3.3-5.0 [facility] Comment on above: Performed By: #### 2 [id number] #### [facility] [address] [place] [address] Albumin/Globulin (S) [Mass conc ratio] 1.1 Normal 1.1-2.2 [facility] Comment on above: Performed By: #### 2 [id number] #### [facility] [address] [place] [address] ALP [Catalytic activity/Vol] 80 Int._Unit/L Normal 21-98 [facility] Comment on above: Performed By: #### 2 [id number] #### [facility] [address] [place] [address] ALT No additional P-5'-P [Catalytic activity/Vol] 28 Int._Unit/L Normal 6-46 [facility] Comment on above: Performed By: #### 2 [id number] #### [facility] [address] [place] [address] AST [Catalytic activity/Vol] 23 Int._Unit/L Normal 5-43 [facility] Comment on above: Performed By: #### 2 [id number] #### [facility] [address] [place] [address] Bilirubin [Mass/Vol] 0.6 mg/dL Normal 0.0-1.1 [facility] Comment on above: Performed By: #### 2 [id number] #### [facility] [address] [place] [address] Bilirubin.direct [Mass/Vol] mg/dL Normal 0.1-0.4 [facility] Comment on above: Performed By: #### 2 [id number] #### [facility] [address] [place] [address] Globulin (S) [Mass/Vol] 3.6 g/dL Normal 1.4-4.0 [facility] Comment on above: Performed By: #### 2 [id number] #### [facility] [address] [place] [address] Protein [Mass/Vol] 7.6 g/dL Normal 6.0-7.8 [facility] Comment on above: Performed By: #### 2 [id number] #### [facility] [address] [place] [address] Influenza A&B Agon Influenzae A Ag Negative Normal Negative [facility] Comment on above: Performed By: #### 1 [id number], [id number] ####[facility] [address] [place] [address] Influenzae B Ag Negative Normal Negative [facility] Comment on above: Result Comment: Test sensitivity and specificity vary for age group, specimen type, antigen types, and prevalence of disease. Test results must be evaluated in conjunction with other clinical data available to the physician. Individuals who received nasally administered Influenza A vaccine may have positive test results up to 3 days after vaccination. Performed By: #### 1 [id number], [id number] ####[facility] [address] [place] [address] Lipase Levelon 12-29-2022 Lipase [Catalytic activity/Vol] 32 U/L Normal 13-58 [facility] Comment on above: Performed By: #### 2 [id number], [id number] ####[facility] [address] [place] [address] MICRO OTHER TESTSOrdered By: Fauzia Carreon on 12-29-2022 Influenzae A Ag Negative (12/29/22 12:18 AM) Normal Negative [facility] Man Sero Influenzae B Ag Negative (12/29/22 12:18 AM) Normal Negative [facility] Man Sero Rapid COV Int NEG Ctl Pass (12/29/22 12:18 AM) Normal [facility] Man Sero Rapid COV Int POS Ctl Pass (12/29/22 12:18 AM) Normal [facility] Man Sero SARS-CoV+SARS-CoV-2 (COVID-19) Ag IA.rapid Ql (Resp) Not Detected (12/29/22 12:18 AM) Normal Not Detected [facility] Man Sero Rapid COVID Antigen (FT)on 12-29-2022 Rapid COV Int NEG Ctl Pass Normal [facility] Comment on above: Performed By: #### 1 [id number], [id number] ####[facility] [address] [place] [address] Rapid COV Int POS Ctl Pass Normal [facility] Comment on above: Performed By: #### 1 [id number], [id number] ####[facility] [address] [place] [address] SARS-CoV+SARS-CoV-2 (COVID-19) Ag IA.rapid Ql (Resp) Not detected Normal Not Detected [facility] Comment on above: Result Comment: The [employer] System for Rapid Detection of SARS-CoV-2 is a chromatographic digital immunoassay intended for the direct and qualitative detection of SARS-CoV-2 nucleocapsid antigens in nasal swabs from individuals who are suspected of COVID-19 by their healthcare provider within the first five days of the onset of symptoms. Negative results should be treated as presumptive, do not rule out SARS-CoV-2 infection and should not be used as the sole basis for treatment or patient management decisions, including infection control decisions. Negative results should be considered in the context of a patient?s recent exposures, history and the presence of clinical signs and symptoms consistent with COVID-19, and confirmed with a molecular assay, if necessary, for patient management. For in vitro diagnostic use. In the [place], only for use under an Emergency Use Authorization. In the [place], this test has not been FDA cleared or approved; this test has been authorized by FDA under an EUA for use by authorized laboratories; use by laboratories certified under the CLIA, 42 U.S.C. ?263a, that meet requirements to perform moderate, high, or waived complexity tests and at the Point of Care (POC), i.e., in patient care settings operating under a CLIA Certificate of Waiver, Certificate of Compliance, or Certificate of Accreditation. This test has been authorized only for the detection of proteins from SARS-CoV-2, not for any other viruses or pathogens; and, in the [facility], this test is only authorized for the duration of the declaration that circumstances exist justifying the authorization of emergency use of in vitro diagnostics for detection and/or diagnosis of the virus that causes COVID-19 under Section 564(b)(1) of the Act, 21 U.S.C. ? 360bbb-3(b)(1), unless the authorization is terminated or revoked sooner. Performed By: #### 1 [id number], [id number] ####[place] [address] ADMITTED TO INTENSIVE CARE UNIT FOR CONDITION OF INTEREST:FIND:PT: NO Normal [facility] Comment on above: Performed By: #### 1 [id number], [id number] ####[place] [address] EMPLOYED IN A HEALTHCARE SETTING:FIND:PT: NO Normal [facility] Comment on above: Performed By: #### 1 [id number], [id number] ####[place] [address] FIRST TEST FOR CONDITION OF INTEREST:FIND:PT: Unknown Normal [facility] Comment on above: Performed By: #### 1 [id number], [id number] ####[place] [address] HAS SYMPTOMS RELATED TO CONDITION OF INTEREST:FIND:PT: YES Normal [facility] Comment on above: Performed By: #### 1 [id number], [id number] ####[place] [address] HOSPITALIZED FOR CONDITION OF INTEREST:FIND:PT: Unknown Normal [facility] Comment on above: Performed By: #### 1 [id number], [id number] ####[place] [address] STATUS:FIND:PT: NO Normal [facility] Comment on above: Performed By: #### 1 [id number], [id number] ####[place] [id number] RESIDES IN A CONGREGATE CARE SETTING:FIND:PT: NO Normal [facility] Comment on above: Performed By: #### 1 [id number], [id number] ####[facility] [address] [place] [address] XR Chest Single Viewon 12-29 XR Chest Single View Exam Date/Time: 12/28/2022 23:49 EDT Reason for Exam: Chest pain Report IMPRESSION: NO EVIDENCE OF ACTIVE CHEST DISEASE. CLINICAL HISTORY: Chest pain. Cough. COMPARISON: 12/14/2019. COMMENT: AP portable. The heart is normal in size. The mediastinum is unremarkable. The lungs appear clear. No infiltration nor pleural effusion is evident. No significant change is noted when compared to the prior exam. Ordering Provider: Mark Ennis FINAL REPORT Dictated: 12/29/2022 7:52 am Ulises Woodson M.D. Signed (Electronic Signature): 12/29/2022 7:52 am Signed by: Ulises Woodson M.D. Transcribed by: MICHELLE Technologist: AG Technical Comments Radiation Dose: Ka,r in mGy = na DAP = na Normal [facility] eGFRon 12-29-2022 GFR/1.73 sq M.predicted among blacks MDRD (S/P/Bld) [Vol rate/Area] mL/min/{1.73_m2} Normal >=59 [facility] Comment on above: Order Comment: Order added by Discern Expert. Result Comment: eGFR is race adjusted. AA=. Performed By: #### 2 [id number] #### [facility] [address] [place] [address] GFR/1.73 sq M.predicted among non-blacks MDRD (S/P/Bld) [Vol rate/Area] mL/min/{1.73_m2} Normal >=59 [facility] Comment on above: Order Comment: Order added by Discern Expert. Result Comment: Chrome Plater vanessa kidney disease could be indicated at eGFR's of less than 60 mL/min/1.73m2. Kidney failure is indicated at less than 15 mL/min/1.73m2. Performed By: #### 2 [id number] #### [facility] [address] [place] [address] CHEMISTRYOrdered By: SYSTEM SYSTEM on 10-18-2022 Free T4 [Mass/Vol] 0.63 ng/dL Normal 0.58 - 1. 64 ng/dL [facility] Remisol Glucose post fast [Mass/Vol] 105 mg/dL High 55 - 99 mg/dL [facility] Rem[facility] TSH Qn 8.05 m[IU]/L High 0.34 - 5.60 mcIU/mL [facility] Remisol CHEMISTRYOrdered By: Carlos Manuel العلي on 10-18-2022 HbA1c (Bld) [Mass fraction] 5.6 % Normal <=5.9% [facility] ChemAutoSS HEMATOLOGYOrdered By: SYSTEM SYSTEM on 10-18-2022 Basophils/100 WBC (Bld) 0.6 % Normal 0.0 - 2.0 % [facility] HemeAutoSS Basophils/Leukocytes Auto (Bld) [Pure # fraction] 0.0 E9/L Normal 0.0 - 0.2 E9/L [facility] HemeAutoSS Eosinophils/100 WBC (Bld) 4.8 % Normal 0.0 - 8.0 % [facility] HemeAutoSS Eosinophils/Leukocytes Auto (Bld) [Pure # fraction] 0.4 E9/L Normal 0.0 - 0.5 E9/L [facility] HemeAutoSS Lymphocytes/100 WBC (Bld) 27.0 % Normal 14.0 - 50.0 % [facility] HemeAutoSS Lymphocytes/Leukocytes Auto (Bld) [Pure # fraction] 2.0 E9/L Normal 1.0 - 4.0 E9/L [facility] HemeAutoSS Monocytes/100 WBC (Bld) 5.6 % Normal 4.0 - 14.0 % [facility] HemeAutoSS Monocytes/Leukocytes Auto (Bld) [Pure # fraction] 0.4 E9/L Normal 0.2 - 1.0 E9/L [facility] HemeAutoSS Neutrophils/100 WBC (Bld) 62.0 % Normal 36.0 - 75.0 % [facility] HemeAutoSS Neutrophils/Leukocytes Auto (Bld) [Pure # fraction] 4.6 E9/L Normal 2.0 - 7.5 E9/L [facility] HemeAutoSS HEMATOLOGYOrdered By: Nahomi Juarez on 10-18-2022 Erythrocyte distribution width (RBC) [Ratio] 14.2 % Normal 10.9 - 14.2 % [facility] HemeAutoSS Hematocrit (Bld) [Volume fraction] 39.2 % Normal 34.0 - 46.0 % [facility] HemeAutoSS Hemoglobin (Bld) [Mass/Vol] 13.0 g/dL Normal 12.0 - 16.0 gm/dL [facility] HemeAutoSS MCH (RBC) [Entitic mass] 29.4 pg Normal 27.0 - 34.0 pg [facility]eAutoSS MCHC (RBC) [Mass/Vol] 33.1 g/dL Normal 31.4 - 36.0 gm/dL [facility] HemeAutoSS MCV (RBC) [Entitic vol] 88.9 fL Normal 80.0 - 100.0 fL [facility] HemeAutoSS Platelet mean volume (Bld) [Entitic vol] 7.0 fL Normal 6.4 - 10.8 fL [facility] HemeAutoSS Platelets (Bld) [#/Vol] 242.0 E9/L Normal 150.0 - 500.0 E9/L [facility] HemeAutoSS RBC (Bld) [#/Vol] 4.4 E12/L Normal 4.3 - 5.9 E12/L [facility] HemeAutoSS WBC corrected for nucl RBC Auto (Bld) [#/Vol] 7.5 E9/L Normal 4.0 - 11.0 E9/L [facility] HemeAutoSS Operative Reports - Evan 06-25-2022 Operative Reports - [place] SURGEON: Wolfgang Jose MD PREOPERATIVE DIAGNOSES: 1. Enlarged tonsils. 2. Obstructive sleep apnea. 3. Chronic rhinitis. POSTOPERATIVE DIAGNOSES: 1. Enlarged tonsils. 2. Obstructive sleep apnea. 3. Chronic rhinitis. 4. Deviated nasal septum. 5. Adenoid hypertrophy. NAMES OF OPERATION: 1. Tonsillectomy with Coblation. 2. Nasal endoscopy, bilateral. ANESTHESIA: General. INDICATION FOR OPERATION: This is a 36-year-old female, who was evaluated in the office with a history of obstructive sleep apnea. The patient was seen on request by nurse practitioner. After evaluation patient was recommended the surgery. Patient was scheduled for surgery, however, she was then found to have COVID-19 and her surgery was postponed and rescheduled. The patient then had COVID test negative. OPERATION AND FINDINGS: The patient was brought to the operating room and placed in supine position on the operating table. The patient was given general anesthesia and oral endotracheal tube was inserted and secured at the lower lip. A roll of cloth sheet was placed underneath the shoulder blades to extend the neck. The neck was supported. Draping was performed. A Huddle and time-out were completed at appropriate times before and after general anesthesia. McIvor mouth gag with #3 blade was used for exposure of the oropharynx. The tonsillectomy was performed using Coblation. The right tonsil was removed first and the left tonsil was removed next. Bleeding was controlled with coagulation mode using the Coblation device. Irrigation of the oropharynx was done. Nasal endoscopy: The nasal endoscopic examination was performed after nasal mucosa was decongested with 1% David-Synephrine topical nasal spray and allowing its effect to take place for few minutes. The 0 degree 4 mm nasal endoscope was used and the nasal endoscopic examination revealed moderate deviated nasal septum, mild turbinate hypertrophy, and mild adenoid hypertrophy. At this point, the procedure was terminated. The patient was awakened, extubated, and returned to the recovery room in good condition. Wolfgang Jose MD EST EST DICTATION NUMBER: [id number] INTERNAL JOB NUMBER: [id number] CC: reginald Malathi Wolfgang Jose MD REGINALD ASHER Electronic Signatures: Wolfgang Jose) (Signed on 28-Jun-2022 08:41) Authored Unsigned, Draft (SYS GENERATED) (Entered on 26-Jun-2022 08:12) Entered Last Updated: 28-Jun-2022 08:41 by Wolfgang Jose) [facility] Order Reconciliationon 06-25 Order Reconciliation Page 1 Discharge Reconciliation Document Reconciliation Type: Discharge requested on behalf of Wolfgang Jose (Physician) done by Wolfgang Jose) Discharge - Reconciliation: 25-Jun-2022 07:42 by: Wolfgang Jose) Home Medications EnteredHOME MEDICATIONS AT DISCHARGE DateReconciliation Comment/ Additional Information lithium 450 mg oral tablet, extended release 2 tab(s) orally once a day (at bedtime) 22-Jun-2022 11:27 lithium 450 mg oral tablet, extended release 2 tab(s) orally once a day (at bedtime) 22-Jun-2022 11:27 lithium 450 mg oral tablet, extended release is continued as lithium 450 mg oral tablet, extended release metFORMIN 500 mg oral tablet 1 tab(s) orally 2 times a day 22-Jun-2022 11:26 metFORMIN 500 mg oral tablet 1 tab(s) orally 2 times a day 22-Jun-2022 11:26 metFORMIN 500 mg oral tablet is continued as metFORMIN 500 mg oral tablet; metFORMIN 500 mg oral tablet is replaced with metFORMIN 500 mg oral tablet Requip 0.5 mg oral tablet 1 tab(s) orally 3 times a day 22-Jun-2022 11:26 Requip 0.5 mg oral tablet 1 tab(s) orally 3 times a day 22-Jun-2022 11:26 Requip 0.5 mg oral tablet is continued as Requip 0.5 mg oral tablet Synthroid 137 mcg (0.137 mg) oral tablet 1 tab(s) orally once a day 22-Jun-2022 11:27 Synthroid 137 mcg (0.137 mg) oral tablet 1 tab(s) orally once a day 22-Jun-2022 11:27 Synthroid 137 mcg (0.137 mg) oral tablet is continued as Synthroid 137 mcg (0.137 mg) oral tablet Current OrdersDateHOME MEDICATIONS AT DISCHARGE DateReconciliation Comment/ Additional Information fentaNYL Injectable (SUBLIMAZE)DOSE = 25 microgram(s) IntraVenous Push Every 5 Minutes, PRN Pain - Mod (4-6) (PACU) if unable to take oralClinician Notes: Ayana-operative order ONLYMax total of 200 micrograms regardless of dose. 25-Jun-2022 07:13 fentaNYL Injectable is not required HYDROcodone 5 mg - Acetaminophen 325 mg TabletDOSE = 1 tablet(s) Oral Every 4 Hours, PRN Pain - Mod (4-6) (PACU) when able to take OralClinician Notes: Ayana-operative order ONLY 25-Jun-2022 07:13 HYDROcodone 5 mg - Acetaminophen 325 mg is not required HYDROmorphone Injectable (DILAUDID)DOSE = 0.4 mg IntraVenous Push Every 5 Minutes, PRN Pain - Severe (7-10) (PACU)Clinician Notes: Ayana-operative order ONLYMax total of 4 mg regardless of dose. 25-Jun-2022 07:13 HYDROmorphone Injectable is not required Lactated Ringers Infusion IV Bag Volume = 1,000 mL Run at: 100 mL/hr IntraVenous Clinician Notes: Ayana-operative order ONLY 25-Jun-2022 07:13 Lactated Ringers Infusion is not required Lactated Ringers Infusion IV Bag Volume = 1,000 mL Run at: 30 mL/hr IntraVenous 22-Jun-2022 12:00 Lactated Ringers Infusion is not required Meperidine Injectable (DEMEROL)DOSE = 12.5 mg IntraVenous Push Every 10 Minutes, PRN Shivering (PACU)Clinician Notes: Ayana-operative order ONLY 25-Jun-2022 07:13 Meperidine Injectable is not required Naloxone Injectable (NARCAN)DOSE = 0.2 mg IntraVenous Push Once, PRN If patient RR below 10, obtunded or unarousableClinician Notes: DO NOT ADMINISTER UNTIL PHYSiCIAN HAS BEEN NOTIFIED AND ASSESSED PATIENT 25-Jun-2022 07:13 Naloxone Injectable is not required All Active Home Medications at time of Discharge Reconciliation: 25-Jun-2022 07:42 lithium 450 mg oral tablet, extended release 2 tab(s) orally once a day (at bedtime) metFORMIN 500 mg oral tablet 1 tab(s) orally 2 times a day Requip 0.5 mg oral tablet 1 tab(s) orally 3 times a day Synthroid 137 mcg (0.137 mg) oral tablet 1 tab(s) orally once a day Normal [facility] APTTon 06-23-2022 aPTT Coag (Bld) [Time] 28 s Normal 26 - 39 [facility] Comment on above: Result Comment: THE APTT IS NO LONGER USED FOR MONITORING UNFRACTIONATED HEPARIN THERAPY. FOR MONITORING HEPARIN THERAPY, USE THE HEPARIN ASSAY. Performed By: #### A PTT #### [address] [id number] CBC AND DIFFERENTIALon 06-23 % AUTOMATED IMMATURE GRAN 0.3 % Normal 0.0 - 0.9 [facility] Comment on above: Result Comment: Veronika ture Granulocyte Count (IG) includes promyelocytes, myelocytes and metamyelocytes but does not include bands. Percent differential counts (%) should be interpreted in the context of the absolute cell counts (cells/L). Performed By: #### A PTT #### [address] [id number] Basophils (Bld) [#/Vol] 0.02 10*3/uL Normal 0.00 - 0.10 [facility] Comment on above: Performed By: #### A PTT #### [address] [id number] Basophils/100 WBC (Bld) 0.2 % Normal 0.0 - 2.0 [facility] Comment on above: Performed By: #### A PTT #### [address] [id number] Eosinophils (Bld) [#/Vol] 0.26 10*3/uL Normal 0.00 - 0.70 [facility] Comment on above: Performed By: #### A PTT #### [address] [id number] Eosinophils/100 WBC (Bld) 2.8 % Normal 0.0 - 6.0 [facility] Comment on above: Performed By: #### A PTT #### [address] [id number] Erythrocyte distribution width (RBC) [Ratio] 12.8 % Normal 11.5 - 14.5 [facility] Comment on above: Performed By: #### A PTT #### [address] [id number] Hematocrit (Bld) [Volume fraction] 38.3 % Normal 36.0 - 46.0 [facility] Comment on above: Performed By: #### A PTT #### [address] [id number] Hemoglobin (Bld) [Mass/Vol] 12.2 g/dL Normal 12.0 - 16.0 [facility] Comment on above: Performed By: #### A PTT #### [address] [id number] Lymphocytes (Bld) [#/Vol] 2.65 10*3/uL Normal 1.20 - 4.80 [facility] Comment on above: Performed By: #### A PTT #### [address] [id number] Lymphocytes/100 WBC (Bld) 28.3 % Normal 13.0 - 44.0 [facility] Comment on above: Performed By: #### A PTT #### [address] [id number] MCHC (RBC) [Mass/Vol] 31.9 g/dL Low 32.0 - 36.0 [facility] Comment on above: Performed By: #### A PTT #### [address] [id number] MCV (RBC) [Entitic vol] 90 fL Normal 80 - 100 [facility] Comment on above: Performed By: #### A PTT #### [address] [id number] Monocytes (Bld) [#/Vol] 0.49 10*3/uL Normal 0.10 - 1.00 [facility] Comment on above: Performed By: #### A PTT #### [address] [id number] Monocytes/100 WBC (Bld) 5.2 % Normal 2.0 - 10.0 [facility] Comment on above: Performed By: #### A PTT #### [address] [id number] Neutrophils (Bld) [#/Vol] 5.91 10*3/uL Normal 1.20 - 7.70 [facility] Comment on above: Performed By: #### A PTT #### [address] [id number] Neutrophils/100 WBC (Bld) 63.2 % Normal 40.0 - 80.0 [facility] Comment on above: Performed By: #### A PTT #### [address] [id number] Platelets (Bld) [#/Vol] 276 10*3/uL Normal 150 - 450 [facility] Comment on above: Performed By: #### A PTT #### [address] [id number] RBC 4.27 x10E12/L Normal 4.00 - 5.20 [facility] Comment on above: Performed By: #### A PTT #### [address] [id number] WBC (Bld) [#/Vol] 9.4 10*3/uL Normal 4.4 - 11.3 [facility] Comment on above: Performed By: #### A PTT #### [address] [id number] HCG,BETA-QUANTITATIVEon 06-10-2021 HCG,BETA-QUANTITATIVE <2 Normal [facility] Comment on above: Result Comment: Low- level positive HCG results can be seen in early , in ayana- or post-menopausal females due to normal pituitary HCG production, or with analytic interference. Repeat testing in 48-72 hours can aid in assessing for as results should double in this time period. FSH measurement is recommended in ayana- or post-menopausal females as concurrent elevation of FSH can support pituitary production as the source of the HCG elevation. . Total HCG measurement is performed using the Matt Troodon Access Immunoassay which detects intact HCG and free beta HCG subunit. This test is not indicated for use as a tumor marker. HCG testing is performed using a different test methodology at [facility] than other [facility]. Direct result comparison should only be made within the same method. REF VALUES NON FEMALE <5 MALES <5 Performed By: #### A PTT #### [address] [id number] PT/INRon 06-23-2022 PT Coag (PPP) [Time] 11.2 s Normal 9.8 - 13.4 [facility] Comment on above: Performed By: #### P TINR #### [address] [id number] PT, INR 1.0 Normal 0.9 - 1.1 [facility] Comment on above: Performed By: #### P TINR #### [address] [id number] UA MICROSCOPICon 06-23-2022 RBC 1 /HPF Normal 0-5 [facility] Comment on above: Performed By: #### A PTT #### [address] [id number] SQUAMOUS EPITH. CELLS 2 /HPF Normal [facility] Comment on above: Performed By: #### A PTT #### [address] [id number] WBC 4 /HPF Normal 0-5 [facility] Comment on above: Performed By: #### A PTT #### [address] [id number] URINALYSISon 06-23-2022 Appearance (U) CLEAR Normal CLEAR [facility] Comment on above: Performed By: #### A PTT #### [address] [id number] Bilirubin Ql (U) Negative Normal NEGATIVE [facility] Comment on above: Performed By: #### A PTT #### [address] [id number] Color (U) YELLOW Normal STRAW,YELLOW [facility] Comment on above: Performed By: #### A PTT #### [address] [id number] Glucose Ql (U) Negative Normal NEGATIVE [facility] Comment on above: Performed By: #### A PTT #### [address] [id number] Hemoglobin Ql (U) Negative Normal NEGATIVE [facility] Comment on above: Performed By: #### A PTT #### [address] [id number] Ketones Ql (U) Negative Normal NEGATIVE [facility] Comment on above: Performed By: #### A PTT #### [address] [id number] Leukocyte esterase Test strip Ql (U) TRACE Abnormal NEGATIVE [facility] Comment on above: Performed By: #### A PTT #### [address] [id number] Nitrite Ql (U) Negative Normal NEGATIVE [facility] Comment on above: Performed By: #### A PTT #### [address] [id number] pH (U) 7.5 [pH] Normal 5.0 - 8.0 [facility] Comment on above: Performed By: #### A PTT #### [address] [id number] Protein Ql (U) Negative Normal NEGATIVE [facility] Comment on above: Performed By: #### A PTT #### [address] [id number] Specific gravity (U) [Rel density] 1.020 Normal 1.005 - 1.035 [facility] Comment on above: Performed By: #### A PTT #### [address] [id number] Urobilinogen (U) [Mass/Vol] mg/dL Normal 0.0 - 1.9 [facility] Comment on above: Performed By: #### A PTT #### [address] [id number] Patient Profile - Preop v3on 06-21-2022 Patient Profile - Preop v3 Patient Profile - Preop: Initial Info: Patient DemographicsName: HARVEY MARTINEZ Date: 1985 Address: [address] [place] [address] Date/Time [id number] 11:19 Primary Phone [phone] Call Attemptedattempt 1; left message; attempt 2 How to be AddressedDezarae Spoken Language PreferredEnglish Stated Reason for Admissiontonsils nasal scope Primary Contact Name and Numberdavid brother [phone] Limitations on Visitors/Phone Callsnone Medications Brought to Hospitalyes Medication Dispositionbedside General Health: Weight in kg132 kilogram(s) Weight in ooe599 pound(s) Weight Methodactual (measured) Scale Typestanding Height in feet5 feet Height in inches8.98 inch(es) Height in cm175.2 centimeter(s) Height Methodstated BMI (kg/m2)43.003 square meter Patient or Family Member Reaction to Anesthesiano previous reaction; no previous family member reaction; No metal Surgeries: D&C, 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) Blood Avoidance/Restrictions none Previous Transfusion Reactionnot applicable Health Mgmt: Symptoms/Conditions Managed at Homebehavioral health; endocrine; obstetric/gynecologic; gastrointestinal; genitourinary; respiratory; neurological Are You no Are You Currently Breastfeedingno Behavioral Health Symptoms/Conditionsanx iety; bipolar affective disorder Endocrine Symptoms/Conditionsthy roid disease Gastrointestinal Symptoms/Conditionsref lux/heartburn Gastrointestinal Symptoms/Conditions Commentgastric ulcer Genitourinary Symptoms/Conditions Commentborn with 3 kidneys Neurological Symptoms/Conditionsmig alessandro [employer] WORK[employer] Symptoms/Conditions CommentPCOS- metformin Last Period: mirena placed 2019 Respiratory Symptoms/Conditionssle ep disordered breathing Respiratory Symptoms/Conditions Commentsleep apnea Barriers to Managing Healthnone Relationship/Environ: Lives Withsignificant other; dependent child(brodie) Living Arrangementshouse Resource/Environmental Concernsnone [facility] Anticipated at Transitionnone Tobacco Use: Tobacco Useno Pre-op Checklist: Arrival [id number] Arrival Time05:27 Procedure Typetake my tonsils out stated pt NPOyes Last Food [id number] 23:30 Last Clear Fluid [id number] 23:30 ID Band On Patientpatient ID (name) Consent Signedyes H&P Completepending Anesthesia Assessment Completedpending EKG Performednot ordered Chest X-Ray Performednot ordered Preop Antibioticsnot ordered COVID 19 Results in Last 7 dayshad co vid in april no test done Type and Screen Resultedn/a HCG Urine TestComplete Chlorhexadine Bath Givennot applicable Nasal Antiseptic Appliednot applicable Hair Washed with Shampooyes Bowel Prepno Surgical Site Infection Preventionyes Pain Scales and Managementyes Additional Information: Information Review: Allergies, Home Meds and Significant Events have been Reviewed and Verified with Patient/Familyyes Electronic Signatures: Michelle Lopez (RN) (Signed 22-Jun-2022 11:24) Authored: Initial Info, General Health, Health Mgmt, Relationship/Environ, Tobacco Use Shayna Allred (KWAME) (Signed 25-Jun-2022 05:44) Authored: Initial Info, General Health, Pre-op Checklist, Additional Information Last Updated: 25-Jun-2022 05:44 by Shayna Allred (KWAME) Normal [facility] CHEMISTRYOrdered By: SYSTEM SYSTEM on 05-24-2022 Albumin [Mass/Vol] 4.2 g/dL Normal 3.3 - 5.0 gm/dL [facility] Rem[facility] Albumin/Globulin [Mass ratio] 1.2 {ratio} Normal 1.1 - 2.2 [facility] Rem[facility] ALP [Catalytic activity/Vol] 74 [iU]/d Normal 21 - 98 Int._Unit/L [facility] Rem[facility] ALT No additional P-5'-P [Catalytic activity/Vol] 24 [iU]/d Normal 6 - 46 Int._Unit/L [facility] Anion gap [Moles/Vol] 12 mmol/L Normal 6 - 16 mEq/L [facility] AST [Catalytic activity/Vol] 18 [iU]/d Normal 5 - 43 Int._Unit/L [facility] Bilirubin [Mass/Vol] 0.7 mg/dL Normal 0.0 - 1.1 mg/dL [facility] Calcium [Mass/Vol] 9.2 mg/dL Normal 8.9 - 11. 1 mg/dL [facility] Chloride [Moles/Vol] 103 mmol/L Normal 101 - 1 11 mmol/L [facility] CO2 [Moles/Vol] 27 mmol/L Normal 21 - 31 mmol/L [facility] Creatinine [Mass/Vol] 0.9 mg/dL Normal 0.5 - 1.3 mg/d L [facility] Rem[facility] GFR/1.73 sq M.predicted among blacks MDRD (S/P/Bld) [Vol rate/Area] mL/min/1.73 m2 Normal >=59mL/min/1.73 m2 FT Chem S GFR/1.73 sq M.predicted among non-blacks MDRD (S/P/Bld) [Vol rate/Area] mL/min/1.73 m2 Normal >=59mL/min/1.73 m2 FT Chem S Globulin (S) [Mass/Vol] 3.6 g/dL Normal 1.4 - 4.0 gm/dL FT Remisol Glucose [Mass/Vol] 100 mg/dL Normal 55 - 199 mg/dL [facility] Potassium [Moles/Vol] 4.0 mmol/L Normal 3.5 - 5.3 mmol/L [facility] Protein [Mass/Vol] 7.8 g/dL Normal 6.0 - 7.8 gm/dL [facility] Remisol Sodium [Moles/Vol] 138 mmol/L Normal 135 - 145 mmol/L [facility] TSH Qn 3.63 m[IU]/L Normal 0.34 - 5.60 mcIU/mL [facility] Urea nitrogen [Mass/Vol] 19 mg/dL Normal 5 - 21 mg/dL [facility] Urea nitrogen/Creatinine [Mass ratio] 21 mg/mg High 10 - 20 [facility] CORONAVIRUS 2019, SCREEN ASY MPTOMATICon 04-21-2022 SARS-CoV-2 (COVID-19) RNA SHARON+probe Ql (Unsp spec) Detected Abnormal Not Detected [facility] Comment on above: Order Comment: COVID REPORTED TO DR. JOSE, 04/21/2022 08:06 Result Comment: . This assay is designed to detect the N, ORF1ab and/or S genes of SARS-CoV-2 via nucleic acid amplification. A Negative (NOT DETECTED) result does not preclude 2019-nCoV infection since the adequacy of sample collection and/or low viral burden may result in presence of viral nucleic acids below the clinical sensitivity of this test method. Negative (NOT DETECTED) result should not be used as the sole basis for treatment or other patient management decisions. Rather negative results should be combined with clinical observations, patient history, and epidemiological information to make patient management decisions. Fact sheet for providers: https://www.fda.gov/media/803840/download Fact sheet for patients: https://www.fda.gov/media/747314/download This test has received FDA Emergency Use Authorization (EUA) and has been verified by [facility] ([facility]). This test is only authorized for the duration of time that circumstances exist to justify the authorization of the emergency use of in vitro diagnostic tests for the detection of SARS-CoV-2 virus and/or diagnosis of COVID-19 infection under section 564(b)(1) of the Act, 21 U.S.C. 360bbb-3(b)(1), unless the authorization is terminated or revoked sooner. [facility] is certified under CLIA-88 as qualified to perform high complexity testing. Testing is performed in the [facility] laboratories located at [address] [place] [address]. COVID REPORTED TO DR. JOSE, 04/21/2022 08:06 Performed By: #### C OVSC #### [address] [place] [address] Clinical Event Note-COVID Jennifer so 04-21-2022 Clinical Event Note-COVID Result Clinical Event: Clinical Event Note: TopicCOVID Result Details Patient notified of positive COVID-19 test. Educated on current CDC recommendations for home treatment, infection prevention, and return to work. Patient will follow up with their primary care physician or present to ED should symptoms worsen or they feel they need medical attention. Patient education to inform Drs office, ED, and EMS (if applicable) prior to presenting for medical treatment. Patient educated they may review results directly via [employer] or by contacting the referring provider. Patient directed to contact their provider for any further questions and or refer to CDC and or [facility] websites for additional resources. Electronic Signatures: Michelle Lopez) (Signed 21-Apr-2022 08:55) Authored: Clinical Event Note Last Updated: 21-Apr-2022 08:55 by Michelle Lopez) Normal [facility] Covid 19 Resultson 2 SARS-CoV-2 (COVID-19) RNA SHARON+probe Ql (Unsp spec) POSITIVE COVID-19 Test Coronaviruses are common world-wide and are the cause of many common colds. SARS-COV2 is a new coronavirus that began circulating worldwide in 2019 so we are calling it COVID-19. It has been estimated that four out of five patients with COVID-19 will recover at home without the need for medical attention. Symptoms of COVID-19 may include cough, fever, shortness of breath, loss of taste or smell and other flu-like symptoms including chills, sore muscles, sore throat, and headache. Severe illness is more common in older people and people with other health problems such as high blood pressure, obesity, and immune system problems. If the test is positive, you have COVID-19. You will be contacted by the ordering physicians office and instructed to remain on home isolation, in accordance with CDC guidelines. You may also be contacted by the [facility] to see if any of your close contacts may have been exposed to the virus and need to quarantine. If the test is negative, you likely do not have COVID-19 at this time, but you still may have a different illness that can spread to other people (like Influenza, or the Flu) and could still be at risk for getting COVID-19. We recommend that you stay away from other people to limit the spread of illness until your symptoms are improving and you are fever-free for 24 hours without the use of fever lowering medications such as acetaminophen or ibuprofen. No test is 100% accurate so if you are still concerned you may have COVID-19, talk to your doctor about the need to continue to stay away from others. Medicines Unless your provider told you not to use the following: Acetaminophen (Tylenol and others) is generally safe. Anti-inflammatory medications, such as Ibuprofen (Advil or Motrin) or Naproxen (Aleve) can also be used. Uret-kmq-lxsfuwz cough and cold medicines can be used according to the instructions on the package. Some fhxf-fso-nyqeupg medicines also contain acetaminophen. Make sure you are not taking more than your recommended dose. For those not hospitalized, there is no specific treatment available for this illness. Antibiotics do not treat Coronaviruses. Follow-Up Follow up with your doctor by scheduling a virtual visit or consider follow-up at one of our urgent care fever clinics. If you are having difficulty breathing, or are very weak and having difficulty standing, this is a medical emergency. Call 911 or have someone take you to the nearest emergency room immediately. If possible, wear a facemask. Additional guidance from the CDC for patients who tested POSITIVE for COVID-19 How to isolate: Isolate yourself in a specific room at home and limit your contact with others. Use a separate bathroom from other members of the household, when possible. Leave home only to get essential medical care. Do not go to work, school or public areas. Avoid using public transportation, ride-sharing, or taxis. Restrict contact with pets and other animals. If you must care for your pet or be around animals while you are sick, wash your hands before and after your interaction and wear a facemask. Make sure that shared spaces in the home have good airflow, such as by an air conditioner or an opened window, weather permitting. Personal Hygiene Procedures: Wear a face mask when in the same room as other people or pets. If a face mask interferes with your breathing, others should wear a mask when sharing space with you. Frequent hand-washing: wash your hands with soap and water for at least 20 seconds. If soap and water are not available, use alcohol-based hand ginger farmer. Avoid touching your eyes, nose, and mouth with unwashed hands. Household Hygiene Procedures: Avoid sharing personal household items such as dishes, glassware, cups, eating utensils, towels or bedding with other people or pets in your home. After use, these items should be washed with soap and hot water. Disinfect all high-touch surfaces every day with antibacterial cleaning solutions such as Lysol wipes, bleach, cleansers, etc. High-touch surfaces include tabletops, doorknobs, bathroom fixtures, toilets, phones, keyboards, tablets and bedside tables. Immediately clean any surfaces that may have blood, poop or body fluids on them, using antibacterial cleaning solutions such as Lysol wipes, bleach, cleansers, etc. If clothing or bedding come into contact with blood, poop or body fluids, they should be washed immediately. Follow the directions on the laundry detergent and clothing labels but hot water is recommended when possible. Stopping home isolation precautions: If possible, consult your doctor before stopping home isolation precautions. According to the CDC, you can discontinue home isolation precautions when you have met both of these criteria: Your fever and respiratory symptoms have been gone for 24 abdelrahman (more content not included)... Normal [facility] APTTon 04-20-2022 aPTT Coag (Bld) [Time] 28 s Normal 26 - 39 [facility] Comment on above: Result Comment: THE APTT IS NO LONGER USED FOR MONITORING UNFRACTIONATED HEPARIN THERAPY. FOR MONITORING HEPARIN THERAPY, USE THE HEPARIN ASSAY. Performed By: #### A PTT #### [address] [id number] CBC AND DIFFERENTIALon 04-20 % AUTOMATED IMMATURE GRAN 0.5 % Normal 0.0 - 0.9 [facility] Comment on above: Result Comment: Veronika ture Granulocyte Count (IG) includes promyelocytes, myelocytes and metamyelocytes but does not include bands. Percent differential counts (%) should be interpreted in the context of the absolute cell counts (cells/L). Performed By: #### C BCDF #### [address] [id number] Basophils (Bld) [#/Vol] 0.03 10*3/uL Normal 0.00 - 0.10 [facility] Comment on above: Performed By: #### C BCDF #### [address] [id number] Basophils/100 WBC (Bld) 0.3 % Normal 0.0 - 2.0 [facility] Comment on above: Performed By: #### C BCDF #### [address] [id number] Eosinophils (Bld) [#/Vol] 0.31 10*3/uL Normal 0.00 - 0.70 [facility] Comment on above: Performed By: #### C BCDF #### [address] [id number] Eosinophils/100 WBC (Bld) 3.4 % Normal 0.0 - 6.0 [facility] Comment on above: Performed By: #### C BCDF #### [address] [id number] Erythrocyte distribution width (RBC) [Ratio] 13.2 % Normal 11.5 - 14.5 [facility] Comment on above: Performed By: #### C BCDF #### [address] [id number] Hematocrit (Bld) [Volume fraction] 38.8 % Normal 36.0 - 46.0 [facility] Comment on above: Performed By: #### C BCDF #### [address] [id number] Hemoglobin (Bld) [Mass/Vol] 12.6 g/dL Normal 12.0 - 16.0 [facility] Comment on above: Performed By: #### C BCDF #### [address] [id number] Lymphocytes (Bld) [#/Vol] 2.24 10*3/uL Normal 1.20 - 4.80 [facility] Comment on above: Performed By: #### C BCDF #### [address] [id number] Lymphocytes/100 WBC (Bld) 24.5 % Normal 13.0 - 44.0 [facility] Comment on above: Performed By: #### C BCDF #### [address] [id number] MCHC (RBC) [Mass/Vol] 32.5 g/dL Normal 32.0 - 36.0 [facility] Comment on above: Performed By: #### C BCDF #### [address] [id number] MCV (RBC) [Entitic vol] 91 fL Normal 80 - 100 [facility] Comment on above: Performed By: #### C BCDF #### [address] [id number] Monocytes (Bld) [#/Vol] 0.43 10*3/uL Normal 0.10 - 1.00 [facility] Comment on above: Performed By: #### C BCDF #### [address] [id number] Monocytes/100 WBC (Bld) 4.7 % Normal 2.0 - 10.0 [facility] Comment on above: Performed By: #### C BCDF #### [address] [id number] Neutrophils (Bld) [#/Vol] 6.07 10*3/uL Normal 1.20 - 7.70 [facility] Comment on above: Performed By: #### C BCDF #### [address] [id number] Neutrophils/100 WBC (Bld) 66.6 % Normal 40.0 - 80.0 [facility] Comment on above: Performed By: #### C BCDF #### [address] [id number] Platelets (Bld) [#/Vol] 266 10*3/uL Normal 150 - 450 [facility] Comment on above: Performed By: #### C BCDF #### [address] [id number] RBC 4.25 x10E12/L Normal 4.00 - 5.20 [facility] Comment on above: Performed By: #### C BCDF #### [address] [id number] WBC (Bld) [#/Vol] 9.1 10*3/uL Normal 4.4 - 11.3 [facility] Comment on above: Performed By: #### C BCDF #### [address] [id number] CORONAVIRUS 2019, SCREEN ASY MPTOMATICon 04-20-2022 Lab Specimen Source Nasal, Nasopharyngeal Normal [facility] Comment on above: Order Comment: COVID REPORTED TO DR. JOSE, 04/21/2022 08:06 Performed By: #### C OVSC #### [facility] [address] [place] [address] HCG,SERUM QUALITATIVEon 04-09 HCG,SERUM QUALITATIVE Negative Normal Negative [facility] Comment on above: Performed By: #### H CGS #### [address] [id number] PT/INRon 04-20-2022 PT Coag (PPP) [Time] 11.4 s Normal 9.8 - 13.4 [facility] Comment on above: Performed By: #### P TINR #### [address] [id number] PT, INR 1.0 Normal 0.9 - 1.1 [facility] Comment on above: Performed By: #### P TINR #### [address] [id number] UA MICROSCOPICon 04-20-2022 BACTERIA 1+ /HPF Abnormal [facility] Comment on above: Performed By: #### U AMIC #### [address] [id number] Mucus Ql (Urine sed) 1+ /LPF Normal [facility] Comment on above: Performed By: #### U AMIC #### [address] [id number] RBC 6 /HPF Abnormal 0-5 [facility] Comment on above: Performed By: #### U AMIC #### [address] [id number] SQUAMOUS EPITH. CELLS 10 /HPF Normal [facility] Comment on above: Performed By: #### U AMIC #### [address] [id number] WBC 45 /HPF Abnormal 0-5 [facility] Comment on above: Performed By: #### U AMIC #### [address] [id number] WBC CLUMPS RARE Normal [facility] Comment on above: Performed By: #### U AMIC #### [address] [id number] URINALYSISon 04-20-2022 Appearance (U) HAZY Normal CLEAR [facility] Comment on above: Performed By: #### A PTT #### [address] [id number] Bilirubin Ql (U) Negative Normal NEGATIVE [facility] Comment on above: Performed By: #### A PTT #### [address] [id number] Color (U) YELLOW Normal STRAW,YELLOW [facility] Comment on above: Performed By: #### A PTT #### [address] [id number] Glucose Ql (U) Negative Normal NEGATIVE [facility] Comment on above: Performed By: #### A PTT #### [address] [id number] Hemoglobin Ql (U) SMALL(1+) Abnormal NEGATIVE [facility] Comment on above: Performed By: #### A PTT #### [address] [id number] Ketones Ql (U) Negative Normal NEGATIVE [facility] Comment on above: Performed By: #### A PTT #### [address] [id number] Leukocyte esterase Test strip Ql (U) LARGE (3+) Abnormal NEGATIVE [facility] Comment on above: Performed By: #### A PTT #### [address] [id number] Nitrite Ql (U) Negative Normal NEGATIVE [facility] Comment on above: Performed By: #### A PTT #### [address] [id number] pH (U) 6.0 [pH] Normal 5.0 - 8.0 [facility] Comment on above: Performed By: #### A PTT #### [address] [id number] Protein Ql (U) Negative Normal NEGATIVE [facility] Comment on above: Performed By: #### A PTT #### [address] [id number] Specific gravity (U) [Rel density] 1.015 Normal 1.005 - 1.035 [facility] Comment on above: Performed By: #### A PTT #### [address] [id number] Urobilinogen (U) [Mass/Vol] mg/dL Normal 0.0 - 1.9 [facility] Comment on above: Performed By: #### A PTT #### [address] [id number] PROF 14(COMP METB)on 022 Albumin [Mass/Vol] 3.6 g/dL Normal 3.4-5.0 [facility] Comment on above: Performed By: #### C MP #### [facility] [address] [place] [address] Dr. Ness Aguirre Albumin/Globulin [Mass ratio] 0.9 {ratio} Normal [facility] Comment on above: Performed By: #### C MP #### [facility] [address] [address] [address] Ness Aguirre ALP [Catalytic activity/Vol] 93 U/L Normal 46-116 [facility] Comment on above: Performed By: #### C MP #### [facility] [address] [place] [address] Dr. Ness Aguirre ALT [Catalytic activity/Vol] 26 U/L Normal 14-59 [facility] Comment on above: Performed By: #### C MP #### [facility] [address] [address] [address] Ness Aguirre Anion gap [Moles/Vol] 11.0 mmol/L Normal [facility] Comment on above: Performed By: #### C MP #### [facility] [address] [place] [address] Dr. Ness Aguirre AST [Catalytic activity/Vol] 14 U/L Critically low 15-37 [facility] Comment on above: Performed By: #### C MP #### [facility] [address] [address] [address] Ness Aguirre Bilirubin [Mass/Vol] 0.8 mg/dL Normal 0.2-1.0 [facility] Comment on above: Performed By: #### C MP #### [facility] [address] [address] [address] Ness Aguirre Calcium [Mass/Vol] 8.6 mg/dL Normal 8.5-10.1 [facility] Comment on above: Performed By: #### C MP #### [facility] [address] [place] [address] Dr. Ness Aguirre Chloride [Moles/Vol] 105 mmol/L Normal 98-107 [facility] Comment on above: Performed By: #### C MP #### [facility] [address] [place] [address] Dr. Ness Aguirre CO2 [Moles/Vol] 27.7 mmol/L Normal 21.0-32.0 [facility] Comment on above: Performed By: #### C MP #### [facility] [address] [place] [address] Dr. Ness Aguirre Creatinine [Mass/Vol] 0.89 mg/dL Normal 0.55-1.02 [facility] Comment on above: Performed By: #### C MP #### [facility] [address] [address] [address] Ness Aguirre EGFR-AF MONTENEGRIN >60 Normal >=60 [facility] Comment on above: Performed By: #### C MP #### [facility] [address] [place] [address] Dr. Ness Aguirre EGFR-NON AF MONTENEGRIN >60 Normal >=60 [facility] Comment on above: Performed By: #### C MP #### [facility] [address] [address] [address] Ness Aguirre Globulin (S) [Mass/Vol] 3.9 g/dL Normal [facility] Comment on above: Performed By: #### C MP #### [facility] [address] [address] [address] Ness Aguirre Glucose [Mass/Vol] 147 mg/dL Critically high 74-106 T [facility] Comment on above: Performed By: #### C MP #### [facility] [address] [address] [address] Ness Aguirre Potassium [Moles/Vol] 3.7 mmol/L Normal 3.5-5.1 [facility] Comment on above: Performed By: #### C MP #### [facility] [address] [place] [address] Dr. Ness Aguirre Protein [Mass/Vol] 7.5 g/dL Normal 6.4-8.2 [facility] Comment on above: Performed By: #### C MP #### [facility] [address] [address] [address] Ness Aguirre Sodium [Moles/Vol] 140 mmol/L Normal 136-145 [facility] Comment on above: Performed By: #### C MP #### [facility] [address] [place] [address] Dr. Ness Aguirre Urea nitrogen [Mass/Vol] 11.0 mg/dL Normal 7.0-18.0 [facility] Comment on above: Performed By: #### C MP #### [facility] [address] [address] [address] Ness Aguirre Urea nitrogen/Creatinine [Mass ratio] 12.4 mg/mg Normal [facility] Comment on above: Performed By: #### C MP #### [facility] [address] [place] [address] Dr. Ness Aguirre DHEA SERUMon 03-30-2022 Dehydroepiandrosterone (DHEA) 148 ng/dL Normal 31-701 [facility] Comment on above: Result Comment: Age 1 - 5 years 0 - 67 6 - 7 years 0 - 110 8 - 10 years 0 - 185 11 - 12 years 0 - 201 13 - 14 years 0 - 318 15 - 16 years 39 - 481 17 - 19 years 40 - 491 >19 years 31 - 701 Performed By: #### L [facility] #### [facility] [address] [place] [address] Dr. Ness Aguirre US PELVIS TRANSVAGon 022 US PELVIS TRANSVAG EXAMINATION: US PELV IS TRANSVAG HISTORY: Polycystic ovary syndrome COMPARISON: No relevant comparison available. FINDINGS: The uterus is normal in size, contour and echotexture measuring 10.1 x 5.7 x 7.3 cm, retroverted. No focal myometrial mass The endometrium measures 6.4 mm, normal. Linear hyperechogenicity consistent with normally positioned IUD. The right ovary measures 2.9 x 3.6 x 2.2 cm. Normal color and Doppler flow. Area of anechoic echogenicity measuring 2 cm, simple cyst. The left ovary measures 2.6 x 2.7 x 2.5 cm. Normal color and Doppler flow. Area of anechoic echogenicity measuring 1.9 cm, simple cyst No free fluid IMPRESSION: Bilateral simple ovarian cysts Electronically authenticated by: TARA PINTO Date: 2022-03-27 08:49 Normal [facility] DHEA-SULFATEon 03-26-2022 DHEA-Sulfate 124.0 ug/dL Normal 84.8-378.0 [facility] Comment on above: Performed By: #### D BRYAN #### [facility] [address] [place] [address] Dr. Ness Aguirre FSHon 03-26-2022 FSH 4.7 mIU/mL Normal [facility] Comment on above: Result Comment: Adul t Female: Follicular phase 3.5 - 12.5 Ovulation phase 4.7 - 21.5 Luteal phase 1.7 - 7.7 Postmenopausal 25.8 - 134.8 Performed By: #### L [facility] #### [facility] [address] [place] [address] Dr. Ness Aguirre INSULINon 03-26-2022 Insulin 21.8 uIU/mL Normal 2.6-24.9 [facility] Comment on above: Performed By: #### L BCFS #### [facility] [address] [place] [address] Dr. Ness Aguirre LUTEINIZING HORMONE (LH)on 03-26-2022 LH 13.6 mIU/mL Normal [facility] Comment on above: Result Comment: Adul t Female: Follicular phase 2.4 - 12.6 Ovulation phase 14.0 - 95.6 Luteal phase 1.0 - 11.4 Postmenopausal 7.7 - 58.5 Performed By: #### L BCL #### [facility] [address] [place] [address] Dr. Ness Aguirre CBC AUTO DIFFon 03-25-2022 BASO # 0.0 103/ul Normal 0.0-0.1 [facility] Comment on above: Performed By: #### C BC #### [facility] [address] [place] [address] Dr. Ness Aguirre Basophils/100 WBC (Bld) 0.4 % Normal 0.2-2.0 [facility] Comment on above: Performed By: #### C BC #### [facility] [address] [place] [address] Dr. Ness Aguirre EO # 0.2 103/ul Normal 0.0-0.7 [facility] Comment on above: Performed By: #### C BC #### [facility] [address] [place] [address] Dr. Ness Aguirre Eosinophils/100 WBC (Bld) 1.6 % Normal 0.9-7.0 [facility] Comment on above: Performed By: #### C BC #### [facility] [address] [place] [address] Dr. Ness Aguirre Erythrocyte distribution width (RBC) [Ratio] 13.2 % Normal 11.0-15.0 [facility] Comment on above: Performed By: #### C BC #### [facility] [address] [place] [address] Dr. Ness Aguirre Hematocrit (Bld) [Volume fraction] 39.2 % Normal 36.0-48.0 [facility] Comment on above: Performed By: #### C BC #### [facility] [address] [place] [address] Dr. Ness Aguirre Hemoglobin (Bld) [Mass/Vol] 12.9 g/dL Normal 12.0-16.0 [facility] Comment on above: Performed By: #### C BC #### [facility] [address] [place] [address] Dr. Ness Aguirre IG # 0.15 10e3/ul Critically high 0.00-0.03 [facility] Comment on above: Performed By: #### C BC #### [facility] [address] [place] [address] Dr. Ness Aguirre IG % 1.4 % Critically high 0.0-0.5 [facility] Comment on above: Performed By: #### C BC #### [facility] [address] [place] [address] Dr. Ness Aguirre LYMPH # 2.5 103/ul Normal 1.2-3.8 [facility] Comment on above: Performed By: #### C BC #### [facility] [address] [place] [address] Dr. Ness Aguirre Lymphocytes/100 WBC (Bld) 24.5 % Normal 20.5-60.0 [facility] Comment on above: Performed By: #### C BC #### [facility] [address] [place] [address] Dr. Ness Aguirre MANUAL DIFF REQ NO Normal [facility] Comment on above: Performed By: #### C BC #### [facility] [address] [place] [address] Dr. Ness Aguirre MCH (RBC) [Entitic mass] 29.7 pg Normal 26.7-34.0 [facility] Comment on above: Performed By: #### C BC #### [facility] [address] [place] [address] Dr. Ness Aguirre MCHC (RBC) [Mass/Vol] 32.9 g/dL Normal 29.9-35.2 [facility] Comment on above: Performed By: #### C BC #### [facility] [address] [address] [address] Ness Aguirre MCV (RBC) [Entitic vol] 90.3 fL Normal 81.0-99.0 [facility] Comment on above: Performed By: #### C BC #### [facility] [address] [address] [address] Ness Aguirre MONO # 0.4 103/ul Normal 0.3-0.8 [facility] Comment on above: Performed By: #### C BC #### [facility] [address] [place] [address] Dr. Ness Aguirre Monocytes/100 WBC (Bld) 3.7 % Normal 1.7-12.0 [facility] Comment on above: Performed By: #### C BC #### [facility] [address] [place] [address] Dr. Ness Aguirre NEUT # 7.1 103/ul Critically high 1.4-6.5 [facility] Comment on above: Performed By: #### C BC #### [facility] [address] [place] [address] Dr. Ness Aguirre Neutrophils/100 WBC (Bld) 68.4 % Normal 43.0-75.0 [facility] Comment on above: Performed By: #### C BC #### [facility] [address] [place] [address] Dr. Ness Aguirre Platelet mean volume (Bld) [Entitic vol] 9.7 fL Normal 9.5-13.5 [facility] Comment on above: Performed By: #### C BC #### [facility] [address] [place] [address] Dr. Ness Aguirre PLT 274 103/ul Normal 150-450 [facility] Comment on above: Performed By: #### C BC #### [facility] [address] [place] [address] Dr. Ness Aguirre RBC 4.34 106/ul Normal 4.20-5.40 [facility] Comment on above: Performed By: #### C BC #### [facility] [address] [place] [address] Dr. Ness Aguirre WBC 10.4 103/ul Normal 4.0-11.0 [facility] Comment on above: Performed By: #### C BC #### [facility] [address] [place] [address] Dr. Ness Aguirre FREE T4on 03-25-2022 Free T4 [Mass/Vol] 0.87 ng/dL Normal 0.76-1.46 [facility] Comment on above: Performed By: #### F T4 #### [facility] [address] [place] [address] Dr. Ness Aguirre GLYCOHEMOGLOBIN A1Con 2021 ADA RECOMMENDATION SEE BELOW Normal [facility] Comment on above: Result Comment: ADA RECOMMENDED LIMIT 4.0 - 6.0 ADA THERAPEUTIC TARGET < 7.0 ACTION SUGGESTED > 7.0 Performed By: #### A 1C #### [facility] [address] [place] [address] Dr. Ness Aguirre Glucose [Mass/Vol] 108 mg/dL Normal [facility] Comment on above: Performed By: #### A 1C #### [facility] [address] [place] [address] Dr. Ness Aguirre HbA1c (Bld) [Mass fraction] 5.4 % Normal 4.5-6.2 [facility] Comment on above: Performed By: #### A 1C #### [facility] [address] [place] [address] Dr. Ness Aguirre TSHon 03-25-2022 TSH 10.443 uIU/mL Critically high 0.358-3.740 [facility] Comment on above: Performed By: #### T SH #### [facility] [address] [place] [address] Dr. Ness Aguirre [facility] Laboratory Testing Ordered By: Zita Pineda on 01-19-2022 Test Code 248003 Invalid Interpretation Code [facility] SendOutsSS Test Name IG PAP HPV ALEXIS Invalid Interpretation Code [facility] SendOutsSS Vital Signs Date Time Vital Sign Value Performing Clinician Facility 11-17-2023 11:56-0500 Body height 175.3 cm Lyla SOLANO [facility] 11-17-2023 11:56-0500 Body mass index (BMI) [Ratio] 43.09 kg/m2 Lyla Robin INNER TUBE TUBER MACHINE OPERATOR-DETASSELING CREW SUPERVISOR Work Phone[facility] 11-17-2023 11:56-0500 Body weight 132.36 kg Lyla Robin INNER TUBE TUBER MACHINE OPERATOR-DETASSELING CREW SUPERVISOR Work Phone: [facility] 11-17-2023 11:56-0500 Diastolic blood pressure 74 mm[Hg] Lyla Robin INNER TUBE TUBER MACHINE OPERATOR-DETASSELING CREW SUPERVISOR Work Phone: [facility] 11-17-2023 11:56-0500 Heart rate 83 /min Lyla Robin INNER TUBE TUBER MACHINE OPERATOR-DETASSELING CREW SUPERVISOR Work Phone: [employer] [facility] 11-17-2023 11:56-0500 Respiratory rate 18 /min Lyla Robin INNER TUBE TUBER MACHINE OPERATOR-DETASSELING CREW SUPERVISOR Work Phone: [facility] 11-17-2023 11:56-0500 SaO2% (BldA) [Mass fraction] 94 % Lyla Robin INNER TUBE TUBER MACHINE OPERATOR-DETASSELING CREW SUPERVISOR Work Phone: [facility] 11-17-2023 11:56-0500 Systolic blood pressure 130 mm[Hg] Lyla Robin INNER TUBE TUBER MACHINE OPERATOR-DETASSELING CREW SUPERVISOR Work Phone: [facility] 10-18-2023 09:58-0500 Body mass index (BMI) [Ratio] 43 kg/m2 Olman Womack RD Work Phone: [facility] 10-18-2023 09:58-0500 Body weight 132.[address] Work Phone: [facility] 10-07-2023 10:21-0500 Blood Pressure Location Reginald ASHER [facility] 10-07-2023 10:21-0500 Body temperature 98.24 [degF] Reginald ASHER [facility] 10-07-2023 10:21-0500 Diastolic blood pressure 78 mm[Hg] Reginald MCCRACKENLE [facility] 10-07-2023 10:21-0500 Heart rate 68 /min Reginald KAPLE [facility] 10-07-2023 10:21-0500 Respiratory rate 16 /min Reginald MCCRACKENLE [facility] 10-07-2023 10:21-0500 SaO2% (BldA) [Mass fraction] 98 % Reginald KAPLE [facility] 10-07-2023 10:21-0500 Systolic blood pressure 124 mm[Hg] Reginald MCCRACKENLE [facility] 09-30-2023 19:05-0500 Body temperature 98.24 [degF] Harshal Ansari [facility] 09-30-2023 19:05-0500 Diastolic blood pressure 98 mm[Hg] Harshal Ansari [facility] 09-30-2023 19:05-0500 Heart rate 90 /min Harshal Ansari [facility] 09-30-2023 19:05-0500 Respiratory rate 16 /min Harshal Ansari [facility] 09-30-2023 19:05-0500 SaO2% (BldA) [Mass fraction] 99 % Harshal Armentae [facility] 09-30-2023 19:05-0500 Systolic blood pressure 174 mm[Hg] Harshal Armentae [facility] 09-29-2023 15:30-0500 Blood Pressure Location Clau Moreland [facility] 09-29-2023 15:30-0500 Diastolic blood pressure 92 mm[Hg] Clau Lue [facility] 09-29-2023 15:30-0500 Heart rate 87 /min Clau Lue [facility] 09-29-2023 15:30-0500 Systolic blood pressure 141 mm[Hg] Clau Lue [facility] 09-24-2023 15:30-0500 Body temperature 98.4 [degF] DO Reginald Kaple Work Phone: [facility] 09-24-2023 15:30-0500 Diastolic blood pressure 80 mm[Hg] DO Reginald Kaple Work Phone: [facility] 09-24-2023 15:30-0500 Heart rate 80 /min DO Reginald Kaple Work Phone: [facility] 09-24-2023 15:30-0500 Respiratory rate 18 /min DO Reginald Kaple Work Phone: [facility] 09-24-2023 15:30-0500 SaO2% (BldA) [Mass fraction] 97 % DO Reginald Kaple Work Phone: [facility] 09-24-2023 15:30-0500 Systolic blood pressure 120 mm[Hg] DO Reginald Kaple Work Phone: [facility] 09-22-2023 12:38-0500 Body height 172.72 cm DO Reginald Kaple Work Phone: [facility] 09-22-2023 01:33-0500 Body weight 130.35 kg DO Reginald Kaple Work Phone: [facility] 09-13-2023 12:14-0500 Body height 175.3 cm Lyla Kelly INNER TUBE TUBER MACHINE OPERATOR-DETASSELING CREW SUPERVISOR Work Phone: [facility] 09-13-2023 12:14-0500 Body mass index (BMI) [Ratio] 42.12 kg/m2 Lyla Robin INNER TUBE TUBER MACHINE OPERATOR-DETASSELING CREW SUPERVISOR Work Phone: [facility] 09-13-2023 12:14-0500 Body weight 129.37 kg Lyla Robin INNER TUBE TUBER MACHINE OPERATOR-DETASSELING CREW SUPERVISOR Work Phone: [facility] 09-13-2023 12:14-0500 Diastolic blood pressure 78 mm[Hg] Lyla Robin INNER TUBE TUBER MACHINE OPERATOR-DETASSELING CREW SUPERVISOR Work Phone: [facility] 09-13-2023 12:14-0500 Heart rate 77 /min Lyla Robin INNER TUBE TUBER MACHINE OPERATOR-DETASSELING CREW SUPERVISOR Work Phone: [facility] 09-13-2023 12:14-0500 Respiratory rate 18 /min Lyla Robin INNER TUBE TUBER MACHINE OPERATOR-DETASSELING CREW SUPERVISOR Work Phone: [facility] 09-13-2023 12:14-0500 SaO2% (BldA) [Mass fraction] 97 % Lyla Robin INNER TUBE TUBER MACHINE OPERATOR-DETASSELING CREW SUPERVISOR Work Phone: [facility] Comment on above: RA 09-13-2023 12:14-0500 Systolic blood pressure 122 mm[Hg] Lyla Robin INNER TUBE TUBER MACHINE OPERATOR-DETASSELING CREW SUPERVISOR Work Phone: [facility] 09-13-2023 08:58-0500 Body mass index (BMI) [Ratio] 41.82 kg/m2 Olman Womack RD Work Phone: [facility] 09-13-2023 08:58-0500 Body weight 128.[address] Work Phone: [facility] 08-15-2023 21:56-0500 Diastolic blood pressure 89 mm[Hg] Avg Thong [facility] 08-15-2023 21:56-0500 Heart rate 100 /min Avg Thong Gal [facility] 08-15-2023 21:56-0500 SaO2% (BldA) [Mass fraction] 99 % Avg Thong Gal [facility] 08-15-2023 21:56-0500 Systolic blood pressure 140 mm[Hg] Avg Thong Gal [facility] 2023 09:30-0400 Body temperature 98.6 [degF] Amrit Gotti DO Work Phone: [facility] 2023 09:30-0400 Diastolic blood pressure 64 mm[Hg] Amrit Shen DO Work Phone: [facility] 2023 09:30-0400 Heart rate 79 /min Amrit Gotti DO Work Phone: [facility] 2023 09:30-0400 Respiratory rate 12 /min Amrit Shen DO Work Phone: [facility] 2023 09:30-0400 SaO2% (BldA) [Mass fraction] 99 % Amrit Gotti DO Work Phone: [facility] 2023 09:30-0400 Systolic blood pressure 135 mm[Hg] Amrit Shen DO Work Phone: [facility] 2023 07:36-0400 Body height 175.3 cm Amrit Shen PIERSON Work Phone: [facility] 2023 07:36-0400 Body mass index (BMI) [Ratio] 41.64 kg/m2 Amrit Shen PIERSON Work Phone: [facility] 2023 07:36-0400 Body weight 127.91 kg Amrit Shen PIERSON Work Phone: [facility] 06-28-2023 10:39-0400 Body height 175.3 cm Lyla Robin INNER TUBE TUBER MACHINE OPERATOR-DETASSELING CREW SUPERVISOR Work Phone: [facility] 06-28-2023 10:39-0400 Body mass index (BMI) [Ratio] 41.73 kg/m2 Lyla Robin INNER TUBE TUBER MACHINE OPERATOR-DETASSELING CREW SUPERVISOR Work Phone: [facility] 06-28-2023 10:39-0400 Body weight 128.19 kg Lyla Robin INNER TUBE TUBER MACHINE OPERATOR-DETASSELING CREW SUPERVISOR [facility] 06-28-2023 10:39-0400 Diastolic blood pressure 86 mm[Hg] Lyla Robin INNER TUBE TUBER MACHINE OPERATOR-DETASSELING CREW SUPERVISOR Work Phone: [facility] 06-28-2023 10:39-0400 Heart rate 99 /min Lyla Robin INNER TUBE TUBER MACHINE OPERATOR-DETASSELING CREW SUPERVISOR Work Phone: [facility] 06-28-2023 10:39-0400 Respiratory rate 18 /min Lyla Robin INNER TUBE TUBER MACHINE OPERATOR-DETASSELING CREW SUPERVISOR Work Phone: [facility] 06-28-2023 10:39-0400 SaO2% (BldA) [Mass fraction] 97 % Lyla Robin INNER TUBE TUBER MACHINE OPERATOR-DETASSELING CREW SUPERVISOR Work Phone: [facility] 06-28-2023 10:39-0400 Systolic blood pressure 130 mm[Hg] Lyla Robin INNER TUBE TUBER MACHINE OPERATOR-DETASSELING CREW SUPERVISOR Work Phone: [facility] 06-15-2023 07:59-0400 Body mass index (BMI) [Ratio] 42.38 kg/m2 Olmanjonathan Tuckeroff RD Work Phone: [facility] 06-15-2023 07:59-0400 Body weight 130.[address] Work Phone: [facility] 06-07-2023 13:25-0400 Body height 175.3 cm Amrit Gotti DO Work Phone: [facility] 06-07-2023 13:25-0400 Body mass index (BMI) [Ratio] 41.35 kg/m2 Amrit Gotti DO [facility] 06-07-2023 13:25-0400 Body weight 127.01 kg Amrit Gotti DO Work Phone: [facility] 06-07-2023 13:25-0400 Diastolic blood pressure 86 mm[Hg] Amrit Gotti DO Work Phone: [facility] 06-07-2023 13:25-0400 Heart rate 86 /min Amrit Gotti DO Work Phone: [facility] 06-07-2023 13:25-0400 SaO2% (BldA) [Mass fraction] 97 % Amrit Gotti DO Work Phone: [facility] 06-07-2023 13:25-0400 Systolic blood pressure 134 mm[Hg] Amrit Gotti DO Work Phone: [facility] 06-03-2023 23:46-0400 Diastolic blood pressure 60 mm[Hg] Kaylinn Dokken [facility] 06-03-2023 23:46-0400 Heart rate 73 /min Kaylinn Dokken [facility] 06-03-2023 23:46-0400 Mean blood pressure 75 mm[Hg] Kaylinn Dokken [facility] 06-03-2023 23:46-0400 Respiratory rate 20 /min Kaylinn Dokken [facility] 06-03-2023 23:46-0400 SaO2% (BldA) [Mass fraction] 97 % Kaylinn Dokken [facility] 06-03-2023 23:46-0400 Systolic blood pressure 106 mm[Hg] Kaylinn Dokken [facility] 06-03-2023 23:00-0400 Heart rate 76 /min Kaylinn Dokken [facility] 06-03-2023 23:00-0400 Mean blood pressure 91 mm[Hg] Kaylinn Dokken [facility] 06-03-2023 23:00-0400 Respiratory rate 16 /min Kaylinn Dokken [facility] 06-03-2023 23:00-0400 SaO2% (BldA) [Mass fraction] 98 % Kaylinn Dokken [facility] 06-03-2023 22:12-0400 Body temperature 98.42 [degF] Kaylinn Dokken [facility] 06-03-2023 22:12-0400 Diastolic blood pressure 75 mm[Hg] Kaylinn Dokken [facility] 06-03-2023 22:12-0400 Heart rate 82 /min Kaylinn Dokken [facility] 06-03-2023 22:12-0400 Respiratory rate 21 /min Kaylinn Dokken [facility] 06-03-2023 22:12-0400 SaO2% (BldA) [Mass fraction] 97 % Kaylinn Dokken [facility] 06-03-2023 22:12-0400 Systolic blood pressure 122 mm[Hg] Kaylinn Dokken [facility] 05-04-2023 22:32-0400 Diastolic blood pressure 75 mm[Hg] Jorge Amrit [facility] 05-04-2023 22:32-0400 Heart rate 77 /min Jorge Amrit [facility] 05-04-2023 22:32-0400 Respiratory rate 18 /min Jorge Amrit [facility] 05-04-2023 22:32-0400 SaO2% (BldA) [Mass fraction] 95 % Jorge Amrit [facility] 05-04-2023 22:32-0400 Systolic blood pressure 135 mm[Hg] Jorge Amrit [facility] 05-04-2023 21:06-0400 Body temperature 98.42 [degF] Jorge Mullins [facility] 05-04-2023 21:06-0400 Diastolic blood pressure 88 mm[Hg] Jorge Mullins [facility] 05-04-2023 21:06-0400 Heart rate 96 /min Jorge Mullins [facility] 05-04-2023 21:06-0400 Respiratory rate 17 /min Jorge Mullins [facility] 05-04-2023 21:06-0400 SaO2% (BldA) [Mass fraction] 98 % Jorge Mullins [facility] 05-04-2023 21:06-0400 Systolic blood pressure 154 mm[Hg] Jorge Mullins [facility] 04-19-2023 15:00-0400 Body height 175.26 cm Anderson Paredes Other [facility] Other 04-19-2023 15:00-0400 Body mass index (BMI) [Ratio] 42.16 kg/m2 Anderson Paredes Other [facility] Other 04-19-2023 15:00-0400 Body weight 129.5 kg Anderson Paredes Other [facility] Other 04-19-2023 15:00-0400 Diastolic blood pressure 80 mm[Hg] Anderson Paredes Other [facility] Other 04-19-2023 15:00-0400 Systolic blood pressure 122 mm[Hg] Anderson Paredes Other [facility] Other 04-15-2023 11:42-0400 Body temperature 98.06 [degF] Harshal Ansari [facility] 04-15-2023 11:42-0400 Diastolic blood pressure 105 mm[Hg] Harshal Ansari [facility] 04-15-2023 11:42-0400 Heart rate 78 /min Harshal Ansari [facility] 04-15-2023 11:42-0400 Respiratory rate 16 /min Harshal Ansari [facility] 04-15-2023 11:42-0400 SaO2% (BldA) [Mass fraction] 96 % Harshal Ansari [facility] 04-15-2023 11:42-0400 Systolic blood pressure 167 mm[Hg] Harshal Ansari [facility] 04-15-2023 10:53-0400 SaO2% (BldA) [Mass fraction] 99 % Harshal Ansari [facility] 04-15-2023 09:59-0400 Body temperature 98.42 [degF] Harshal Ansari [facility] 04-15-2023 09:59-0400 Diastolic blood pressure 117 mm[Hg] Harshal Ansari [facility] 04-15-2023 09:59-0400 Heart rate 79 /min Harshal Ansari [facility] 04-15-2023 09:59-0400 Respiratory rate 18 /min Harshal Ansari [facility] 04-15-2023 09:59-0400 Systolic blood pressure 181 mm[Hg] Harshal Ansari [facility] 12-29-2022 01:03-0400 Body temperature 99.32 [degF] Mark Loli [facility] 12-29-2022 01:03-0400 Diastolic blood pressure 83 mm[Hg] Mark Loli [facility] 12-29-2022 01:03-0400 Heart rate 100 /min Mark Loli [facility] 12-29-2022 01:03-0400 Respiratory rate 20 /min Mark Loli [facility] 12-29-2022 01:03-0400 SaO2% (BldA) [Mass fraction] 94 % Mark Loli [facility] 12-29-2022 01:03-0400 Systolic blood pressure 141 mm[Hg] Mark Loli [facility] 12-28-2022 23:20-0400 Diastolic blood pressure 103 mm[Hg] Mark Loli [facility] 12-28-2022 23:20-0400 Heart rate 93 /min Mark Loli [facility] 12-28-2022 23:20-0400 Respiratory rate 28 /min Mark Loli [facility] 12-28-2022 23:20-0400 SaO2% (BldA) [Mass fraction] 93 % Mark Loli [facility] 12-28-2022 23:20-0400 Systolic blood pressure 162 mm[Hg] Mark Loli [facility] 02-11-2022 10:14-0400 Blood Pressure Location Lcau Lue [facility] [place] 02-11-2022 10:14-0400 Diastolic blood pressure 104 mm[Hg] Clau Lue [facility] 02-11-2022 10:14-0400 Heart rate 82 /min Clau Lue [facility] 02-11-2022 10:14-0400 Systolic blood pressure 151 mm[Hg] Clau Lue [facility] 02-05-2022 21:21-0400 Body temperature 98.42 [degF] [facility] 02-05-2022 21:21-0400 Diastolic blood pressure 95 mm[Hg] [facility] 02-05-2022 21:21-0400 Heart rate 103 /min [facility] 02-05-2022 21:21-0400 Respiratory rate 17 /min [facility] 02-05-2022 21:21-0400 SaO2% (BldA) [Mass fraction] 96 % [facility] 02-05-2022 21:21-0400 Systolic blood pressure 151 mm[Hg] [facility] 01-26-2022 15:16-0400 Blood Pressure Location Reginald ASHER [facility] 01-26-2022 15:16-0400 Body temperature 98.6 [degF] Reginald ASHER [facility] 01-26-2022 15:16-0400 Diastolic blood pressure 84 mm[Hg] Reginald ASHER [facility] 01-26-2022 15:16-0400 Heart rate 96 /min Reginald ASHER [facility] 01-26-2022 15:16-0400 SaO2% (BldA) [Mass fraction] 98 % Reginald ASHER [facility] 01-26-2022 15:16-0400 Systolic blood pressure 124 mm[Hg] Reginald ASHER [facility] Encounters Encounter Date Encounter Type Care Provider Facility Start: 04-30-2024 ambulatory Clau Moreland Facility:[facility] Start: 01-06-2024 ambulatory Reginald ASHER Facility: [facility] Start: 11-17-2023 ambulatory REGINALD ASHER [facility] Start: 11-17-2023 End: 11-17-2023 Office outpatient visit 25 minutes Lyla Kelly INNER TUBE TUBER MACHINE OPERATOR-DETASSELING CREW SUPERVISOR Work Phone: [facility] Pulmonary Disease [facility] Comment on above: Obstructive sleep ap jamil (Primary Dx); Sleep related hypoxia; PLMD (periodic limb movement disorder); Overweight; Central sleep apnea; Hypersomnia; Fatigue, unspecified type Start: 11-14-2023 ambulatory CLAYTON Beasley [facility] Start: 11-14-2023 End: 11-14-2023 Patient encounter procedure Clayton MarroquinyD Work Phone: [facility] Psychology Comment on above: Eating disorder, uns pecified type (Primary Dx); Bipolar II disorder; PTSD (post-traumatic stress disorder); Borderline personality disorder Start: 11-04-2023 ambulatory AMRIT GOTTI [facility] Start: 10-18-2023 [facility] Start: 10-18-2023 End: 10-18-2023 Office outpatient visit [address] Work Phone: [facility] Comment on above: Nutritional counseli win (Primary Dx); Obesity, morbid, BMI 40.0-49.9 Start: 10-07-2023 End: 10-08-2023 ambulatory Reginald ASHER Facility:[facility] Start: 10-07-2023 End: 10-08-2023 ambulatory Reginald ASHER Facility:[facility] Start: 10-07-2023 End: 10-07-2023 Lab Drop off Reginald ASHER [facility] Start: 10-07-2023 End: 10-07-2023 Patient encounter procedure Reginald ASHER [facility] Start: 09-30-2023 End: 10-01-2023 Emergency department patient visit Harshal Ansari Facility:[facility] Start: 09-30-2023 End: 09-30-2023 Emergency department patient visit Harshal Coty [facility] Start: 09-29-2023 ambulatory Flacobrigido Mckeonz Facility:[facility] Start: 09-29-2023 End: 09-30-2023 ambulatory Clau Moreland Facility:[facility] Start: 09-29-2023 End: 09-29-2023 Patient encounter procedure Clau Moreland [facility] Start: 09-26-2023 End: 10-26-2023 ambulatory Reginald ASHER Facility:[id number] Start: 09-22-2023 End: 09-24-2023 Evaluation and management of inpatient Flaco Laura Facility:[facility] Start: 09-22-2023 End: 09-24-2023 Evaluation and management of inpatient DO Reginald Asher Work Phone: [address] Work Phone: Start: 09-21-2023 End: 09-22-2023 Emergency department patient visit Gentry Astorga Facility:[facility] Start: 09-13-[address] [facility] Start: 09-13-2023 End: 09-13-2023 Office outpatient visit 25 minutes Lyla Kelly INNER TUBE TUBER MACHINE OPERATOR-DETASSELING CREW SUPERVISOR Work Phone: [facility] Pulmonary Disease [facility] Comment on above: Obstructive sleep ap jamil (Primary Dx); Sleep related hypoxia; PLMD (periodic limb movement disorder); Overweight; Complex sleep apnea syndrome; Central sleep apnea; Encounter to discuss test results; Encounter for review of form with patient Start: 09-13-2023 ambulatory AMRIT GOTTI [facility] Start: 09-13-2023 End: 09-13-2023 Subsequent hospital visit by physician Amrit Gotti DO Work Phone: [facility] Cheese Supervisor Comment on above: Arrived Start: 09-13-2023 End: 09-13-2023 Office outpatient visit [address] Work Phone: [facility] Di[facility] Comment on above: Nutritional counseli ng (Primary Dx); body mass index of 40.0-49.9 Start: 08-22-2023 [facility] Start: 08-22-2023 End: 08-22-2023 Subsequent hospital visit by physician Amrit Gotti DO Work Phone: [facility] Diagnostic Radiology Comment on above: Arrived Start: 08-21-2023 [facility] Start: 08-15-2023 [facility] Start: 08-15-2023 End: 08-16-2023 Clinical Support Encounter Lyla Kelly INNER TUBE TUBER MACHINE OPERATOR-DETASSELING CREW SUPERVISOR Work Phone: [facility] Sleep Lab Comment on above: SHILPA (obstructive sle ep apnea) (Primary Dx) Start: 08-10-2023 ambulatory SELF SELF [facility] Start: 07-20-2023 ambulatory SELF SELF [facility] Start: 2023 ambulatory AMRIT Gardenia [facility] Start: 2023 End: 2023 Subsequent hospital visit by physician Amrit Gotti DO Work Phone: [facility] Start: 06-28-2023 ambulatory AMRIT Gardenia [facility] Start: 06-28-2023 End: 06-28-2023 Office outpatient new 45 minutes Lyla Nilsa Kelly INNER TUBE TUBER MACHINE OPERATOR-DETASSELING CREW SUPERVISOR Work Phone: [facility] Comment on above: Obstructive sleep ap jamil (Primary Dx); Sleep related hypoxia; PLMD (periodic limb movement disorder); Overweight; Snoring; Morning headache; Tests ordered; Restless legs syndrome; Fatigue, unspecified type; Hypersomnia, unspecified Start: 06-28-2023 End: 06-28-2023 Patient encounter status Lyla Nilsa Kelly INNER TUBE TUBER MACHINE OPERATOR-DETASSELING CREW SUPERVISOR Work Phone: [facility] Start: 06-15-[address] [facility] Start: 06-15-2023 End: 06-15-2023 Subsequent hospital visit by physician Olman Womack RD Work Phone: [facility] Nutrition and Dietetics Start: 06-09-2023 [facility] Start: 06-07-2023 ambulatory AMRIT Varner [facility] Start: 06-07-2023 End: 06-07-2023 Office outpatient new 60 minutes Amrit Gotti DO Work Phone: [facility] Comment on above: Gastroesophageal ref lux disease, unspecified whether esophagitis present (Primary Dx); Obesity, morbid, BMI 40.0-49.9; SHILPA on CPAP Start: 06-04-2023 End: 06-04-2023 Emergency department patient visit DO Faby Chopra Facility:[facility] Start: 06-03-2023 End: 06-03-2023 Emergency department patient visit Faby Chopra [facility] Start: 05-04-2023 End: 05-05-2023 Emergency department patient visit Jorge Mullins Facility:[facility] Start: 05-04-2023 End: 05-04-2023 Emergency department patient visit Jorge Mullins [facility] Start: 04-19-2023 End: 04-19-2023 ambulatory Anderson Paredes Other [facility] Other Start: 04-19-2023 Office outpatient vi sit 15 minutes Anderson Paredes [facility] Gastroenterology Start: 04-15-2023 End: 04-15-2023 Emergency department patient visit Harshal Ansari Facility:[facility] Start: 04-15-2023 End: 04-15-2023 Emergency department patient visit Harshal Ansari [facility] Start: 03-22-2023 End: 03-23-2023 ambulatory Calu M. Lue Facility:[facility] Start: 03-15-2023 End: 03-16-2023 ambulatory Clau M. Lue Facility:[facility] Start: 03-15-2023 End: 03-15-2023 Patient encounter procedure Clau M. Lue [facility] Start: 03-14-2023 End: 03-15-2023 ambulatory Clau M. Lue Facility:[facility] Start: 03-14-2023 End: 03-14-2023 Patient encounter procedure Clau M. Lue [facility] Start: 02-22-2023 End: 02-23-2023 ambulatory RAMONITA NAJERA . Facility: Start: 01-20-2023 End: 01-21-2023 ambulatory Clau M. Lue Facility:[facility] Start: 01-20-2023 End: 01-20-2023 Patient encounter procedure Clau M. Lue [facility] Start: 12-29-2022 End: 12-29-2022 Emergency department patient visit Mark Ennis Facility:[facility] Start: 12-28-2022 End: 12-29-2022 Emergency department patient visit Mark Ennis [facility] Start: 10-18-2022 End: 10-18-2022 Patient encounter procedure Kishore PASTOR [facility] Start: 06-25-2022 End: 06-25-[address] Reginald Asher Facility:[id number] Start: 06-23-[address] Wolfgang Jose Facility:[id number] Start: 06-23-2022 Encounter for preprocedural laboratory examination Dr. Wolfgang Jose [facility] Start: 05-24-2022 End: 05-24-2022 Patient encounter procedure SHAIKH ZO [facility] Start: 04-20-[address] Wolfgang Jose Facility:[id number] Start: 04-08-2022 End: 04-08-2022 Patient encounter procedure Natividad Pearl [facility] Start: 04-08-2022 End: 04-09-2022 ambulatory SHAIKH Ronel NOLASCO Facility:[facility]1 Start: 03-26-2022 End: 03-27-[address] TARA PINTO Facility:[facility] Start: 03-25-2022 End: 03-26-[address] KISHORE PASTOR . Facility:[facility] Start: 02-11-2022 End: 02-11-2022 Patient encounter procedure Clau Moreland [facility] Start: 02-05-2022 End: 02-05-2022 Emergency department patient visit Gentry Astorga [facility] Start: 02-04-2022 End: 03-03-2022 Pre-admission assessment Natividad Pearl [facility] Start: 01-29-2022 End: 01-29-2022 Patient encounter procedure Natividad Pearl [facility] Start: 01-26-2022 End: 01-26-2022 Patient encounter procedure Reginald ASHER [facility] Start: 01-20-2022 End: 01-20-2022 Patient encounter procedure Clau Moreland [facility] Start: 01-19-2022 End: 01-19-2022 Lab Drop off Cas Oconnor [facility] Procedures Date Procedure Procedure Detail Performing Clinician Start: 11-04-2023 End: 11-04-2023 Psychiatric diagnostic evaluation Eating disorder, unspecified type Clayton Lindsey PsyD Work Phone: Comment on above: Bipolar II disorder (Primary Dx); Eating disorder, unspecified type; PTSD (post-traumatic stress disorder); Borderline personality disorder Start: 09-13-2023 Ecg routine ecg w/le ast 12 lds trcg only w/o i&r Amrit Gotti DO Work Phone: Start: 08-22-2023 Radiologic exam ches t 2 views Amrit Gotti DO Work Phone: Start: 2023 DIAGNOSTIC UPPER ENDOSCOPY Amrit Gotti DO Work Phone: Start: 2023 Urine test visual color cmprsn meths Amrit Gotti DO Work Phone: Start: 05-16-2015 suction curettage wi th dilation Cas Oconnor kidney surgery as a child - 1 removed at age 3 months Cas Oconnor Tonsillectomy Clau Moreland Plan of Treatment Date Care Activity Detail Author Start: 08-22-2024 Thyroid stimulating hormone measurement TSH [facility] Start: 02-16-2024 End: 02-16-2024 Patient encounter procedure 02/16/2024 1:00 PM EDT Office Visit [facility] Pulmonary [address] [address] Lyla Kelly, INNER TUBE TUBER MACHINE OPERATOR-DETASSELING CREW SUPERVISOR [address] [place] [address] [facility] Start: 02-13-2024 End: 02-13-2024 Patient encounter procedure 02/13/2024 9:30 AM EDT Office Visit [address] [phone] Clayton Lindsey, Fantasma [address] [place] [phone] [facility] Start: 12-05-2023 End: 12-05-2023 Patient encounter procedure 12/05/2023 1:00 PM EST Appointment [facility] Nutrition and Dietetics [address] [place] [phone] Olman Womack, RD [address] [place] [address] [facility] Nutrition and Dietetics Start: 11-17-2023 End: 11-17-2023 Patient encounter procedure [facility] Start: 11-14-2023 End: 11-14-2023 Patient encounter procedure 11/14/2023 4:00 PM EST Office Visit [facility] Psychology [address] [place] [phone] Clayton Lindsey, Fantasma [address] [place] [address] [facility] Start: 10-21-2023 End: 10-21-2023 Patient encounter procedure 10/21/2023 8:00 AM EST Office Visit [facility] [address] [place] [phone] Clayton Lindsey, Fantasma [address] [place] [phone] [facility] Start: 10-18-2023 End: 10-18-2023 Nutrition therapy 10/18/2023 10:00 AM EST Clinical Support [facility] [place] [facility] [address] [place] [phone] Olman Womack, RD [address] [place] [address] [facility] [place] [facility] Start: 09-29-2023 End: 09-29-2023 Patient encounter procedure 09/29/2023 8:00 AM EST Office Visit [facility] Psychology [address] [place] [phone] Clayton Lindsey, Fantasma [address] [place] [phone] [facility] Start: 09-24-2023 [facility] Start: 09-22-2023 Hospital admission [facility] Start: 09-16-2023 End: 09-16-2023 Patient encounter procedure [facility] [place] Start: 09-13-2023 End: 09-13-2023 Patient encounter procedure 09/13/2023 12:00 PM EST Office Visit [facility] Disease [address] [address] Lyla Kelly, INNER TUBE TUBER MACHINE OPERATOR-DETASSELING CREW SUPERVISOR [address] [place] [address] [facility] Pulmonary Disease [facility] Start: 09-13-2023 End: 09-13-2023 Nutrition therapy 09/13/2023 9:00 AM EST Clinical Support Encounter [facility] Nutrition and Diabetic Education [address] [facility] [place] [phone] Olman Womack, RD [address] [place] [address] [facility] Diabetic Education Start: 08-21-2023 End: 08-21-2023 Clinical Support Encounter 08/21/2023 8:00 AM EST Clinical Support Encounter [facility] Sleep Lab [address] [facility] [place] [address] [facility] Start: 08-04-2023 End: 08-04-2023 Clinical Support Encounter 08/04/2023 8:00 PM EDT Clinical Support Encounter [facility] [address] [facility] [address] [facility] Start: 08-03-2023 End: 08-03-2023 Clinical Support Encounter 08/03/2023 9:30 PM EDT Clinical Support Encounter [facility] Sleep [facility] [address] [facility] [place] [address] [facility] Start: 07-20-2023 End: 07-20-2023 Patient encounter procedure 07/20/2023 8:00 AM EDT Appointment [facility] Nutrition and Dietetics [address] [place] [address] Olman Womack, JAYCEE [address] [place] [address] [facility] Nutrition and Dietetics Start: 2023 End: 2023 Patient encounter procedure 2023 9:30 AM EDT Appointment [facility] [address] [facility] [place] [phone] Amrit Gotti, DO [address] [place] [address] [facility] Start: 06-28-2023 End: 06-28-2023 Patient encounter procedure 06/28/2023 10:15 AM EDT Office Visit [facility] [place] [address] [place] [phone] Lyla Kelly, INNER TUBE TUBER MACHINE OPERATOR-DETASSELING CREW SUPERVISOR [address] [place] [phone] [facility] [place] Start: 06-15-2023 End: 06-15-2023 Patient encounter procedure 06/15/2023 8:00 AM EDT Appointment [facility] Nutrition and Dietetics [address] [place] [phone] Olman Womack, RD [address] [place] [address] [facility] Nutrition [facility] Dietetics Start: 06-10-2023 Influenza vaccination INFLUENZA VACC INE (#1) [facility] Start: 06-07-2023 End: 06-07-2024 B12/folate level B12 & FOLATE Lab Routine Obesity, morbid, BMI 40.0-49.9 Gastroesophageal reflux disease, unspecified whether esophagitis present SHILPA on CPAP Expected: 06/07/2023, Expires: 06/07/2024 [facility] Comment on above: Expected: 06/07/2023 , Expires: 06/07/2024 Start: 06-07-2023 End: 06-07-2024 Complete blood count with white cell differential, automated CBC, EDIF, PLATELET Lab Routine Obesity, morbid, BMI 40.0-49.9 Gastroesophageal reflux disease, unspecified whether esophagitis present SHILPA on CPAP Expected: 06/07/2023, Expires: 06/07/2024 [facility] Comment on above: Expected: 06/07/2023 , Expires: 06/07/2024 Start: 06-07-2023 End: 06-07-2024 Comprehensive metabolic 2000 panel - Serum or Plasma COMPREHENSIVE METABOLIC PANEL Lab Routine Obesity, morbid, BMI 40.0-49.9 Gastroesophageal reflux disease, unspecified whether esophagitis present SHILPA on CPAP Expected: 06/07/2023, Expires: 06/07/2024 [facility] Comment on above: Expected: 06/07/2023 , Expires: 06/07/2024 Start: 06-07-2023 End: 06-07-2024 DIAGNOSTIC UPPER ENDOSCOPY DIAGNOSTIC UPPER ENDOSCOPY GI/Bronch Routine Obesity, morbid, BMI 40.0-49.9 Gastroesophageal reflux disease, unspecified whether esophagitis present SHILPA on CPAP Expected: 06/07/2023, Expires: 06/07/2024 [facility] Comment on above: Expected: 06/07/2023 , Expires: 06/07/2024 Start: 06-07-2023 End: 06-07-2024 Hemoglobin A1c/Hemoglobin.total in Blood HEMOGLOBIN A1C Lab Routine Obesity, morbid, BMI 40.0-49.9 Gastroesophageal reflux disease, unspecified whether esophagitis present SHILPA on CPAP Expected: 06/07/2023, Expires: 06/07/2024 [facility] Comment on above: Expected: 06/07/2023 , Expires: 06/07/2024 Start: 06-07-2023 End: 06-07-2024 Iron [Mass/volume] in Serum or Plasma IRON Lab Routine Obesity, morbid, BMI 40.0-49.9 Gastroesophageal reflux disease, unspecified whether esophagitis present SHILPA on CPAP Expected: 06/07/2023, Expires: 06/07/2024 [facility] Comment on above: Expected: 06/07/2023 , Expires: 06/07/2024 Start: 06-07-2023 End: 06-07-2024 LIPID PANEL W CALCULATED LDL LIPID PANEL W CALCULATED LDL Lab Routine Obesity, morbid, BMI 40.0-49.9 Gastroesophageal reflux disease, unspecified whether esophagitis present SHILPA on CPAP Expected: 06/07/2023, Expires: 06/07/2024 [facility] Comment on above: Expected: 06/07/2023 , Expires: 06/07/2024 Start: 06-07-2023 End: 06-07-2024 Standard ECG ECG ECG Routine Obesity, morbid, BMI 40.0-49.9 Gastroesophageal reflux disease, unspecified whether esophagitis present SHILPA on CPAP Expected: 06/07/2023, Expires: 06/07/2024 [facility] Comment on above: Expected: 06/07/2023 , Expires: 06/07/2024 Start: 06-07-2023 End: 06-07-2024 Thyrotropin [Units/volume] in Serum or Plasma TSH Lab Routine Obesity, morbid, BMI 40.0-49.9 Gastroesophageal reflux disease, unspecified whether esophagitis present SHILPA on CPAP Expected: 06/07/2023, Expires: 06/07/2024 [facility] Comment on above: Expected: 06/07/2023 , Expires: 06/07/2024 Start: 06-07-2023 End: 06-07-2024 Thyroxine (T4) free [Mass/volume] in Serum or Plasma T4 FREE Lab Routine Obesity, morbid, BMI 40.0-49.9 Gastroesophageal reflux disease, unspecified whether esophagitis present SHILPA on CPAP Expected: 06/07/2023, Expires: 06/07/2024 [facility] Comment on above: Expected: 06/07/2023 , Expires: 06/07/2024 Start: 06-07-2023 End: 06-07-2024 VITAMIN A VITAMIN A Lab Routine Obesity, morbid, BMI 40.0-49.9 Gastroesophageal reflux disease, unspecified whether esophagitis present SHILPA on CPAP Expected: 06/07/2023, Expires: 06/07/2024 [facility] Comment on above: Expected: 06/07/2023 , Expires: 06/07/2024 Start: 06-07-2023 End: 06-07-2024 VITAMIN B1 VITAMIN B1 Lab Routine Obesity, morbid, BMI 40.0-49.9 Gastroesophageal reflux disease, unspecified whether esophagitis present SHILPA on CPAP Expected: 06/07/2023, Expires: 06/07/2024 [facility] Comment on above: Expected: 06/07/2023 , Expires: 06/07/2024 Start: 06-07-2023 End: 06-07-2024 VITAMIN D (25-HYDROXY,TOTAL) VITAMIN D (25-HYDROXY,TOTAL) Lab Routine Obesity, morbid, BMI 40.0-49.9 Gastroesophageal reflux disease, unspecified whether esophagitis present SHILPA on CPAP Expected: 06/07/2023, Expires: 06/07/2024 [facility] Comment on above: Expected: 06/07/2023 , Expires: 06/07/2024 Start: 06-07-2023 End: 06-07-2024 VITAMIN E VITAMIN E Lab Routine Obesity, morbid, BMI 40.0-49.9 Gastroesophageal reflux disease, unspecified whether esophagitis present SHILPA on CPAP Expected: 06/07/2023, Expires: 06/07/2024 [facility] Comment on above: Expected: 06/07/2023 , Expires: 06/07/2024 Start: 06-07-2023 End: 06-07-2024 XR Chest PA and Lateral XR CHEST PA AND LATERAL Imaging Routine Obesity, morbid, BMI 40.0-49.9 Gastroesophageal reflux disease, unspecified whether esophagitis present SHILPA on CPAP Expected: 06/07/2023, Expires: 06/07/2024 [facility] Comment on above: Expected: 06/07/2023 , Expires: 06/07/2024 Start: 10-24-2021 Tetanus vaccination TETANUS [facility] Start: 2008 Screening for malign ant neoplasm of cervix CERVICAL CANCER SCREENING DISCUSSION [facility] Start: 2002 HIV screening HIV SCREENING DISCUSSI ON [facility] Start: 01-06-1988 COVID-19 VACCINE (#1) COVID-19 VACCI NE (#1) [facility] Start: 1987 Hepatitis B vaccination HEP B VACCINE (1 of 3 - 3-dose series) [facility] Start: 1987 Hepatitis C screening HEPATITI S C VIRUS SCREENING [facility] Multiple sleep laten cy test MULTIPLE SLEEP LATENCY TEST (MSLT) PFT Routine Obstructive sleep apnea Sleep related hypoxia PLMD (periodic limb movement disorder) Overweight Central sleep apnea Hypersomnia Fatigue, unspecified type Ordered: 11/17/2023 [facility] Comment on above: Ordered: 11/17/2023 Patient Education Depression, Ad ult (DC) [facility] Behavioral Health DC Instructions [facility] Work Phone: Patient referral [facility] Work Phone: Polysomnography SLEEP STUDY - DI AGNOSTIC PFT Routine Obstructive sleep apnea Sleep related hypoxia PLMD (periodic limb movement disorder) Overweight Snoring Morning headache Restless legs syndrome Fatigue, unspecified type Hypersomnia, unspecified Ordered: 06/28/2023 [facility] Comment on above: Ordered: 06/28/2023 SLEEP STUDY - TITRATION SLEEP ST UDY - TITRATION PFT Routine Obstructive sleep apnea Sleep related hypoxia PLMD (periodic limb movement disorder) Overweight Snoring Morning headache Restless legs syndrome Fatigue, unspecified type Hypersomnia, unspecified Ordered: 06/28/2023 [facility] Comment on above: Ordered: 06/28/2023 SLEEP STUDY - TITRATION SLEEP ST UDY - TITRATION PFT Routine Obstructive sleep apnea Sleep related hypoxia PLMD (periodic limb movement disorder) Overweight Central sleep apnea Hypersomnia Fatigue, unspecified type Ordered: 11/17/2023 [facility] Comment on above: Ordered: 11/17/2023 Standard ECG ECG ECG Routine Obesity, morbid, BMI 40.0-49.9 Gastroesophageal reflux disease, unspecified whether esophagitis present SHILPA on CPAP 09/13/2023 9:58 AM EST [facility] SURGICAL PATHOLOGY REQUEST SURGICAL PATHOLOGY REQUEST Surg Path Routine Obesity, morbid, BMI 40.0-49.9 Gastroesophageal reflux disease, unspecified whether esophagitis present SHILPA on CPAP Release Upon Ordering for 1 Occurrences starting 2023 [facility] Comment on above: Release Upon Orderin g for 1 Occurrences starting 2023 Immunizations Immunization Date Immunization Notes Care Provider Jody gabriel 10-24-2011 tetanus toxoid, reduced diphtheria toxoid, and acellular pertussis vaccine, adsorbed Cas Anastasia [facility] Comment on above: Result Comment: left deltoid NEGATED: Highlighted row has not occurred!02-11-2022 SARS-CoV-2 (COVID-19) Ad26 vaccine, recombinant Clau Aniceto [facility] NEGATED: Highlighted row has not occurred!12-31-2021 influenza virus vaccine, unspecified formulation Cas Anastasia [facility] NEGATED: Highlighted row has not occurred!12-01-2021 influenza virus vaccine, unspecified formulation Cas Oconnor [facility] NEGATED: Highlighted row has not occurred!12-01-2021 SARS-CoV-2 (COVID-19) Ad26 vaccine, recombinant Cas Oconnor [facility] NEGATED: Highlighted row has not occurred!10-21-2021 influenza virus vaccine, unspecified formulation Cas Oconnor [facility] Payers Date Payer Category Payer Self-pay 2023 Unknown IMANI PATTERSON [id number] 2023-Present [address] [place] [address] [id number]. [id number] 1987 Unknown [id number] 2.16.840.1.318506.3.579.2.1068 1987 Unknown [id number] 2.16.840.1.326803.3.579.2.1068 1987 Unknown [id number] 2.16.840.1.855350.3.579.2.1068 1987 Unknown [id number] 2.16.840.1.583102.3.579.2.593 1987 Unknown [id number] 2.16.840.1.135947.3.579.2.593 1987 Unknown [id number] 2.16.840.1.692163.3.579.2.593 1987 Unknown [id number] 2.16.840.1.569859.3.579.2.593 1987 Unknown [id number] 2.16.840.1.496592.3.579.2.593 1987 Unknown [id number] 2.16.840.1.003620.3.579.2.983 1987 Unknown [id number] 2.16.840.1.664689.3.579.2.983 1987 Unknown [id number] 2.16.840.1.489991.3.579.2.983 1987 Unknown [id number] 2.16.840.1.269752.3.579.2.983 1987 Unknown [id number] 2.16.840.1.809886.3.579.2.983 1987 Unknown [id number] 2.16.840.1.776206.3.579.2.983 1987 Unknown [id number] 2.16.840.1.502903.3.579.2.983 1987 Unknown [id number] 2.16.840.1.476356.3.579.2.983 1987 Unknown [id number] 2.16.840.1.986279.3.579.2.983 1987 Unknown [id number] 2.16.840.1.927711.3.579.2.983 1987 Unknown [id number] 2.16.840.1.262359.3.579.2.983 1987 Unknown [id number] 2.16.840.1.141120.3.579.2.727 1987 Unknown [id number] 2.16.840.1.570097.3.579.2.72 1987 Unknown [id number] 2.16.840.1.878129.3.579.2.727 1987 Unknown [id number] 2.16.840.1.321695.3.579.2.727 1987 Unknown [id number] 2.16.840.1.896420.3.579.2.727 1987 Unknown [id number] 2.16.840.1.177674.3.579.2.727 1987 Unknown [id number] 2.16.840.1.922640.3.579.2.727 1987 Unknown [id number] 2.16.840.1.139670.3.579.2.727 1987 Unknown [id number] 2.16.840.1.854671.3.579.2.727 1987 Unknown [id number] 2.16.840.1.765358.3.579.2.727 1987 Unknown [id number] 2.16.840.1.712987.3.579.2.727 1987 Unknown [id number] 2.16.840.1.408900.3.579.2.7 1987 Unknown [id number] 2.16.840.1.247733.3.579.2.727 1987 Unknown [id number] 2.16.840.1.989623.3.579.2.727 1987 Unknown [id number] 2.16.840.1.922428.3.579.2.727 1987 Unknown [id number] 2.16.840.1.147845.3.579.2.98 1987 Unknown [id number] 2.16.840.1.896934.3.579.2.983 1987 Unknown [id number] 2.16.840.1.343871.3.579.2.98 1987 Unknown [id number] 2.16.840.1.412912.3.579.2.983 1987 Unknown [id number] 2.16.840.1.508540.3.579.2.98 1987 Unknown [id number] 2.16.840.1.113847.3.579.2.983 1987 Unknown [id number] 2.16.840.1.829902.3.579.2.983 1959 Unknown [id number] 1959 Unknown [id number] Medicaid [id number] Unknown [id number] 2.16.840.1.536789.3.579.2.531 Unknown [id number] 2.16.840.1.764608.3.579.2.531 Social History Date Type Detail Facility Start: 10-21-2021 End: 06-07-2023 Tobacco smoking status Never smoked tobacco (finding) [facility] Start: 06-07-2023 End: 11-17-2023 Sex Assigned At Female [facility] Start: 06-07-2023 Tobacco use and exposure Smokeless tobacco non-user [facility] Start: 06-07-2023 End: 11-17-2023 History of Social function [facility] Start: 1987 Sex Assigned At Not on file A [facility] Start: 2023 End: 11-17-2023 Alcohol intake Current drinker of alcohol (finding) [facility] Start: 2023 Alcohol Comment occasionally [facility] Start: 1987 Sex Assigned At Female F [facility] Goals Date Patient Goal Desired Activity /State Functional Status Date Assessment Result Facility 10-07-2023 Functional Status N/A [facility] 09-30-2023 Functional Status N/A [facility] 09-29-2023 Functional Status N/A [facility] 09-24-2023 Functional status Patient at Baseline [facility] Work Phone: 06-03-2023 Functional Status N/A [facility] 05-04-2023 Functional Status N/A [facility] 04-15-2023 Functional Status N/A [facility] 03-14-2023 Functional Status N/A [facility] 12-28-2022 Functional Status Yes [facility] Mental Status Date Assessment Result Facility 09-24-2023 Cognitive function Cognitive Sta tus Patient at Baseline [facility] Work Phone: Clinical Notes 01-14-2022 to 11-17-2023 Kaylan ALDO Morrison - 11/17/2023 11:30 AM RUSS Moore - 11/17/2023 11:30 AM Fatuma Lindsey PsyD - 11/14/2023 4:00 PM ESTPatient Instructions Note Date & Type Note Facility 11-17-2023 History of Presen t illness Narrative SLEEP Agency Score -18 CPAP/BIPAP/APAP Pressure - 12/8 cmH20 Neck Circumference - 14 Most Recent Sleep Study -03/2022 Oxygen Use - No If so, how many liters and is it PRN, Nocturnal, or continuous? Patient is benefiting from PAP no been wearingtherapy--NO cant tell a difference. [facility] Referred by-Dr Gotti Have you ever seen a sleep specialist (New Patient) - Yes Have you ever been treated for Sleep Apnea (New Patient) - Yes Work Schedule- not working Sleep Schedule: Time to bed 1 - 2 am Average time to fall asleep quick Time up for the day 5:30am How many times a night do you wake up no Symptoms include : Snoring/snorting - Yes not as bad when on the machine Insomnia- Some days Are you currently taking any OTC or prescription medications for insomnia - NO If so, What medications are you currently taking or previously been prescribed for insomnia? No Daytime Sleepiness - Yes Are you able to take naps during the day - no If so, how often? Do you experience tossing or turning at night? No Restless legs - Yes If so, what medications are you currently taking or have previously been prescribed for RLS? Yes Ropinirole Are you currently or have you previously been treated for ADHD, Narcolepsy, or Fatigue? - NO If so, what medications are you currently taking or have previously been prescribed for ADHD, Narcolepsy, or Fatigue? NO Waking with gasping/shortness of breath - Yes not with machine Difficulty concentrate- - Yeah Waking with headache- Yes often Significant weight change- Yes Bariatric patient Have you ever been on medication management for weight loss, spoke with anyone about weight loss surgery/procedures, or have you had a surgical procedure to help with weight loss? Yes Adipex Pain 0-10- 4 If yes, Location-headache Upcoming surgeries?- Bariatric Has witnessed apnea ( some body told patient that they stop breathing in their sleep) - Yes Med Refills (that we prescribe) - NO Patient here for compliance follow up and bariatric clearance. HPI: SUBJECTIVE: Harvey Martinez is a 38 y.o. female being seen today for chronic sleep disorder follow up for continuity of medical care. Most recent sleep testing showed: extremely severe obstructive sleep apnea AHI 81/hr) with sleep related hypoxia (regina 72%) and PLMD noted (index 81.9) and problem is likely to result in a high risk morbidity without treatment. Currently on home BiPAP at 12/8 cmH2O. Patient most recent PAP machine is from 09/05/23. Patient stated that she is benefiting from the therapy. Her compliance is average. Average AHI from the compliance report was 0.3. Patient states not sure if there has been improvements with her daytime fatigue or excessive daytime sleepiness with PAP therapy. Patient is still struggling with fatigue, sleeping average of 6 hours a night, waking 1 time each night. Current sleep problems/side effects include: none. Patient denies snoring during therapy. Patient denies other sleep concerns today. Narcolepsy Eval: - Daytime sleepiness: Yes - Cataplexy: Yes - Hypnagogic hallucinations: No - Sleep paralysis: Yes - Fragmented sleep: at times - SHILPA risk factors: Yes - Restelss leg: Yes - Depression: Yes History and Allergies Allergies Allergen Reactions Ivp Dye, Iodine Containing Rash Past Medical History: Diagnosis Date SHILPA (obstructive sleep apnea) Past Surgical History: Procedure Laterality Date TONSILLECTOMY Social History Socioeconomic History Marital status: Single Spouse name: Not on file Number of children: Not on file Years of education: Not on file Highest education level: Not on file Occupational History Not on file Tobacco Use Smoking status: Never Smokeless tobacco: Never Substance and Sexual Activity Alcohol use: Yes Comment: occasionally Drug use: Never Sexual activity: Not on file Other Topics Concern Not on file Social History Narrative Not on file Social Determinants of Health Financial Resource Strain: Not on file Food Insecurity: Not on file Transportation Needs: Not on file Physical Activity: Not on file Stress: Not on file Social Connections: Not on file Intimate Partner Violence: Not on file Housing Stability: Not on file History reviewed. No pertinent family history. Vitals: 11/17/23 1156 BP: 130/74 Pulse: 83 Resp: 18 SpO2: 94% Weight: 132.4 kg (291 lb 12.8 oz) Height: 1.753 m (5' 9 ) Physical Examination Physical Exam Vitals and nursing note reviewed. Constitutional: General: She is not in acute distress. Appearance: She is well-developed. HENT: Head: Normocephalic and atraumatic. Right Ear: External ear normal. Left Ear: External ear normal. Eyes: General: Right eye: No discharge. Left eye: No discharge. Neck: Vascular: No JVD. Cardiovascular: Rate and Rhythm: Normal rate. Pulses: Normal pulses. Heart sounds: No murmur heard. No friction rub. No gallop. Pulmonary: Effort: Pulmonary effort is normal. No respiratory distress. Breath sounds: No wheezing. Musculoskeletal: General: No deformity. Normal range of motion. Cervical back: Normal range of motion and neck supple. Skin: General: Skin is warm and dry. Neurological: General: No focal deficit present. Mental Status: She is alert and oriented to person, place, and time. Psychiatric: Mood and Affect: Mood normal. Behavior: Behavior normal. Judgment: Judgment normal. SLEEP Agency Score -18 CPAP/BIPAP/APAP Pressure - 12/8 cmH20 Neck Circumference - 14 Most Recent Sleep Study -03/2022 Oxygen Use - No If so, how many liters and is it PRN, Nocturnal, or continuous? Patient is benefiting from PAP no been wearingtherapy--NO cant tell a difference. [facility] Referred by-Dr Gotti Have you ever seen a sleep specialist (New Patient) - Yes Have you ever been treated for Sleep Apnea (New Patient) - Yes Work Schedule- not working Sleep Schedule: Time to bed 1 - 2 am Average time to fall asleep quick Time up for the day 5:30am How many times a night do you wake up no Symptoms include : Snoring/snorting - Yes not as bad when on the machine Insomnia- Some days Are you currently taking any OTC or prescription medications for insomnia - NO If so, What medications are you currently taking or previously been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 [place] Multiphasic Personality Inventory - 2 (MMPI-2) Validity Scales T-Scores VRIN 50 CARLOS 50 F 65 FB 77 FP 49 FBS 82 L 57 K 46 S 48 Clinical Scales T-Scores Hs 65 D 66 Hy 75 Pd 60 Mf 52 Pa 85 Pt 72 Sc 63 Ma 55 Si 52 May have some disturbances in thinking, feel mistreated, picked on, angry. Is having emotional distress. Reacts to stress and avoids responsibility through the development of physical symptoms. Reporting some mild depression. Testing not suggestive of manic episode at this time, or hypomanic. * Binge Eating Scale Raw Score 10 The patient's responses to this scale are in general consistent with self report which was not indicative of binge eating disorder. ICD 10 Diagnosis: ICD-10-CM 1. Bipolar II disorder F31.81 2. Eating disorder, unspecified type F50.9 3. PTSD (post-traumatic stress disorder) F43.10 4. Borderline personality disorder F60.3 Conclusions and Recommendations: Harvey Martinez was referred by Amrit Gotti DO and the [facility] for psychological evaluation to determine their suitability for bariatric surgery. 1. Pt struggles to take time for self, put self first. Needs to work on this in counseling. 2. Is in counseling and needs to work on specific coping skills to make sure she does not use food as emotional coping. This patient should learn and practice adaptive coping and relaxation skills. This will be discussed at our feedback session. Examples include but are not limited to: Deep breathing exercises. Progressive muscle relaxation. Guided imagery. Meditation. Counseling should also address, her impulsive behaviors, history of trauma and ptsd symptoms, and to help her learn more adaptive interpersonal skills. 3. Needs to get into some exercise. 4. Pt needs to consult with a Psychiatric Prescriber for medication management of their mental health symptoms. Bipolar II seems a likely diagnosis. Prescriber recently told her they should consider lithium. Only taking Wellbutrin now. Has done well on lithium in past. Meets with prescriber, Nikki Garcia, in two weeks. 5. Pt needs to attend counseling to address the issues outlined above. Pt should attend at least 2 sessions of counseling per month before returning to see me for followup in 3 months. Will review her status at that time, her response to medications and her compliance in all treatment. Pt should sign a release for Dr. Clayton Lindsey's evaluation to be sent to their counselor of choice and to her prescriber. Pt should sign a release for their mental health notes (or a diagnostic and treatment summery) to be sent to Dr. Clayton Lindsey for review prior to the feedback session. 6. Pt states she is opening up today more than she usually does. This is an indication she is ready to work on self. 7. I will review this patient's progress on the above at feedback. Prognosis for clearance at feedback is guarded. Clayton Lindsey PsyD documented in this encounter [facility] 10-18-2023 History of Presen t illness Narrative OUTPATIENT BARIATRIC NUTRITION EDUCATION: LESSON 4 Referring Provider: Olman Womack RD Nutrition Assessment Anthropometrics: Ht Readings from Last 1 Encounters: 09/13/23 1.753 m (5' 9 ) Wt Readings from Last 5 Encounters: 10/18/23 132.1 kg (291 lb 3.2 oz) 09/13/23 129.4 kg (285 lb 3.2 oz) 09/13/23 128.5 kg (283 lb 3.2 oz) 08/22/23 127.9 kg (282 lb) 08/10/23 127.1 kg (280 lb 3.2 oz) [place] body weight: 66.2 kg (145 lb 15.1 oz) Adjusted ideal body weight: 92.6 kg (204 lb 0.7 oz) Body mass index is 43 kg/m . Ms. Harvey Martinez is a 38 y.o. female here in preparation for weight loss surgery. Pt has made dietary changes since last appointment and has been trying to focus on the 5-6 small meals and being mindful when eating by slowing down and chewing food thoroughly . Pt was unable to verbalize her protein goal today and is unsure how much protien she is getting based on dietary recall pt is close but was encouraged to start tracking her protein and continue to have a source of protien at each feeding. Pt reports she had a back injury about a month ago and recently just recovered and is going to start going to the [facility] more to swim and exercise at least 3x a week. Pt verbalized her understanding of the 5 phases and feels confident going into her final appointment. Class type: In-person 1:1 Diet Recall: Meal What Time Breakfast Overnight oats (1 cup of oats, 1/2 cup of skim milk, and 1 spoon full of sugar free pudding and lamar seeds) 7 30 am Snack Cottage cheese cup with fruit 10 am Lunch 3 oz Salami with 2 tablespoons cream cheese and 3 mini cucumbers 12 30 pm Snack 1 cup of canned chili with ground beef 3 30 pm Dinner Hot dog with no bun 6 pm Snack Fluids Over 70 oz water NA Current exercise: Pt is not exercising. (Injured back where was hard for her to even move but is now trying to walk more and plans to start swimming). Nutrition Goals: Eat breakfast, lunch, dinner, and 2-3 snacks (5-6 small meals/day): MET Consume adequate protein: MET Limit sugar to no more than 10 grams per meal/snack: MET Consume 64 oz of hydrating fluids/day: MET Eliminate carbonation, straws, caffeine (limit) , and alcohol: MET Eating off smaller plates and bowls: MET Chew your food 20-30 times per bite when needed: MET Meals should last 20-30 minutes: MET Separate drinking and eating by 30 minutes: MET Eat in this order: protein first, vegetables and fruits second, and whole grains last: MET Put your utensil or handheld food down in between bites: MET Begin physical activity including cardio and strength training: Not MET Pt was educated on the following topics: Post-Surgery Diet and [place] to Successful Weight Loss and Maintenance. Discussed: The 5 phases of the bariatric diet after sx and progression What foods/fluids are appropriate on each phase Factors that play a role in successful weight loss maintenance Sleep requirements How to meet fluid, protein and kcal goals The importance of physical activity to keep weight off Instructed pt to bring in a sample menu for pre-op nutrition appointment. Sample menu should be a phase 2 and phase 3 diet and meet pt's specific protein and fluid goal. Diet should be diverse. If protein needs are not met through food, pt should be able to verbalize how to supplement protein to meet protein goal. Pt is able to verbalize that there will be a 30-question paper test at final nutrition appointment and an 80% or higher is needed for nutrition clearance. Nutrition Diagnosis NB-1.1 Food and nutrition related knowledge deficit related to post-bariatric surgery diet and how to successfully lose and keep weight off as it relates to bariatric surgery as evidenced by pt new to bariatric program. Nutrition Intervention Nutrition Goals: Eat 5-6 small meals/snacks per day (breakfast, lunch, dinner, and 2-3 snacks) Consume adequate protein daily Limit all sugar + sugar alcohols to no more than 10 grams per meal/snack Drink 64+ oz of hydrating fluid/day Eliminate carbonation, straws, caffeine, and alcohol Eat off smaller plates and bowls Take dime sized bites and chew food 20-30x per bite, or until it is a consistent texture Meals need to last at least 20-30 minutes. Stop eating once you feel full Separate food and fluids by 30 minutes. Do not drink with meals Eat protein first, vegetables and fruits second, and whole grains last Begin physical activity as tolerated. Goal of 150-300 minutes of moderate physical activity per week with 2+ days of strength or resistance training included Monitoring & Evaluation Pt will complete all nutrition classes prior to final nutrition appointment Progress towards nutrition goals and weight is tracked at each nutrition class or follow up appointment All nutrition goals will be met prior to final nutrition appointment in order to receive dietitian clearance to have bariatric surgery Time spent with pt: 40 minutes JAYCEE Rice Registered Dietitian, Licensed Dietitian 10/18/23 documented in this encounter [facility] 10-07-2023 Hospital Discharg e instructions Patient Education 10/07/2023 11:27:39 Back Exercises, [id number] Back Exercises These exercises help to make your trunk and back strong. They also help to keep the lower back flexible. Doing these exercises can help to prevent or lessen pain in your lower back. If you have back pain, try to do these exercises 2 3 times each day or as told by your doctor. As you get better, do the exercises once each day. Repeat the exercises more often as told by your doctor. To stop back pain from coming back, do the exercises once each day, or as told by your doctor. Do exercises exactly as told by your doctor. Stop right away if you feel sudden pain or your pain gets worse. Exercises Single knee to chest Do these steps 3 5 times in a row for each le.Lie on your back on a firm bed or the floor with your legs stretched out. 2.Bring one knee to your chest. 3.Grab your knee or thigh with both hands and hold it in place. 4.Pull on your knee until you feel a gentle stretch in your lower back or butt. 5.Keep doing the stretch for 10 30 seconds. 6.Slowly let go of your leg and straighten it. Pelvic tilt Do these steps 5 10 times in a row: 1.Lie on your back on a firm bed or the floor with your legs stretched out. 2.Bend your knees so they point up to the ceiling. Your feet should be flat on the floor. 3.Tighten your lower belly (abdomen) muscles to press your lower back against the floor. This will make your tailbone point up to the ceiling instead of pointing down to your feet or the floor. 4.Stay in this position for 5 10 seconds while you gently tighten your muscles and breathe evenly. Cat cow Do these steps until your lower back bends more easily: 1.Get on your hands and knees on a firm bed or the floor. Keep your hands under your shoulders, and keep your knees under your hips. You may put padding under your knees. 2.Let your head hang down toward your chest. Tighten (contract) the muscles in your belly. Point your tailbone toward the floor so your lower back becomes rounded like the back of a cat. 3.Stay in this position for 5 seconds. 4.Slowly lift your head. Let the muscles of your belly relax. Point your tailbone up toward the ceiling so your back forms a sagging arch like the back of a cow. 5.Stay in this position for 5 seconds. Press-ups Do these steps 5 10 times in a row: 1.Lie on your belly (face-down) on a firm bed or the floor. 2.Place your hands near your head, about shoulder-width apart. 3.While you keep your back relaxed and keep your hips on the floor, slowly straighten your arms to raise the top half of your body and lift your shoulders. Do not use your back muscles. You may change where you place your hands to make yourself more comfortable. 4.Stay in this position for 5 seconds. Keep your back relaxed. 5.Slowly return to lying flat on the floor. Bridges Do these steps 10 times in a row: 1.Lie on your back on a firm bed or the floor. 2.Bend your knees so they point up to the ceiling. Your feet should be flat on the floor. Your arms should be flat at your sides, next to your body. 3.Tighten your butt muscles and lift your butt off the floor until your waist is almost as high as your knees. If you do not feel the muscles working in your butt and the back of your thighs, slide your feet 1 2 inches (2.5 5 cm) farther away from your butt. 4.Stay in this position for 3 5 seconds. 5.Slowly lower your butt to the floor, and let your butt muscles relax. If this exercise is too easy, try doing it with your arms crossed over your chest. Belly crunches Do these steps 5 10 times in a row: 1.Lie on your back on a firm bed or the floor with your legs stretched out. 2.Bend your knees so they point up to the ceiling. Your feet should be flat on the floor. 3.Cross your arms over your chest. 4.Tip your chin a little bit toward your chest, but do not bend your neck. 5.Tighten your belly muscles and slowly raise your chest just enough to lift your shoulder blades a tiny bit off the floor. Avoid raising your body higher than that because it can put too much stress on your lower back. 6.Slowly lower your chest and your head to the floor. Back lifts Do these steps 5 10 times in a row: 1.Lie on your belly (face-down) with your arms at your sides, and rest your forehead on the floor. 2.Tighten the muscles in your legs and your butt. 3.Slowly lift your chest off the floor while you keep your hips on the floor. Keep the back of your head in line with the curve in your back. Look at the floor while you do this. 4.Stay in this position for 3 5 seconds. 5.Slowly lower your chest and your face to the floor. Contact a doctor if: Your back pain gets a lot worse when you do an exercise. Your back pain does not get better within 2 hours after you exercise. If you have any of these problems, stop doing the exercises. Do not do them again unless your doctor says it is okay. Get help right away if: You have sudden, very bad back pain. If this happens, stop doing the exercises. Do not do them again unless your doctor says it is okay. This information is not intended to replace advice given to you by your health care provider. Make sure you discuss any questions you have with your health care provider. Document Revised: 12/09/2021 Document Reviewed: 12/09/2021 [employer] Patient Education 2022 [employer]. Follow Up Care 09/26/2023 12:55:03 With:LB PIERSON FAAFP, Reginald James, FIDENCIO, PED Address: [address] [place] [address]- When:Within 3 Month(s) [facility] 10-01-2023 Hospital Discharg e instructions Patient Education 09/30/2023 22:21:45 Lumbosacral Strain Lumbosacral Strain Lumbosacral strain is an injury that causes pain in the lower back (lumbosacral spine). This injury usually happens from overstretching the muscles or ligaments along your spine. Ligaments are cord-like tissues that connect bones to other bones. A strain can affect one or more muscles or ligaments. What are the causes? This condition may be caused by: A hard, direct hit to the back. Overstretching the lower back muscles. This may result from: ?A fall. ?Lifting something heavy. ?Repetitive movements such as bending or crouching. What increases the risk? The following factors may make you more likely to develop this condition: Participating in sports or activities that involve: ?A sudden twist of the back. ?Pushing or pulling motions. Being overweight or obese. Having poor strength and flexibility, especially tight hamstrings or weak muscles in the back or abdomen. Having too much of a curve in the lower back. Having a pelvis that is tilted forward. What are the signs or symptoms? The main symptom of this condition is pain in the lower back, at the site of the strain. Pain may also be felt down one or both legs. How is this diagnosed? This condition is diagnosed based on your symptoms, your medical history, and a physical exam. During the physical exam, your health care provider may push on certain areas of your back to find the source of your pain. You may be asked to bend forward, backward, and side to side to check your pain and range of motion. You may also have imaging tests, such as X-rays and an MRI. How is this treated? This condition may be treated by: Applying heat and cold on the affected area. Taking medicines to help relieve pain and relax your muscles. Taking NSAIDs, such as ibuprofen, to help reduce swelling and discomfort. Doing stretching and strengthening exercises for your lower back. Symptoms usually improve within several weeks of treatment. However, recovery time varies. When your symptoms improve, gradually return to your normal routine as soon as possible to reduce pain, avoid stiffness, and keep muscle strength. Follow these instructions at home: Medicines Take [id number]-podendr and prescription medicines only as told by your health care provider. Ask your health care provider if the medicine prescribed to you: ?Requires you to avoid driving or using heavy machinery. ?Can cause constipation. You may need to take these actions to prevent or treat constipation: ?Drink enough fluid to keep your urine pale yellow. ?Take [id number] or prescription medicines. ?Eat foods that are high in fiber, such as beans, whole grains, and fresh fruits and vegetables. ?Limit foods that are high in fat and processed sugars, such as fried or sweet foods. Managing pain, stiffness, and swelling If directed, put ice on the injured area. To do this: ?Put ice in a plastic bag. ?Place a towel between your skin and the bag. ?Leave the ice on for 20 minutes, 2 3 times a day. If directed, apply heat on the affected area as often as told by your health care provider. Use the heat source that your health care provider recommends, such as a moist heat pack or a heating pad. ?Place a towel between your skin and the heat source. ?Leave the heat on for 20 30 minutes. ?Remove the heat if your skin turns bright red. This is especially important if you are unable to feel pain, heat, or cold. You may have a greater risk of getting burned. Activity Rest as told by your health care provider. Do not stay in bed. Staying in bed for more than 1 2 days can delay your recovery. Return to your normal activities as told by your health care provider. Ask your health care provider what activities are safe for you. Avoid activities that take a lot of energy for as long as told by your health care provider. Do exercises as told by your health care provider. This includes stretching and strengthening exercises. General instructions Sit up and stand up straight. Avoid leaning forward when you sit, or hunching over when you stand. Do not use any products that contain nicotine or tobacco, such as cigarettes, e-cigarettes, and chewing tobacco. If you need help quitting, ask your health care provider. Keep all follow-up visits as told by your health care provider. This is important. How is this prevented? Use correct form when playing sports and lifting heavy objects. Use good posture when sitting and standing. Maintain a healthy weight. Sleep on a mattress with medium firmness to support your back. Do at least 150 minutes of moderate-intensity exercise each week, such as brisk walking or water aerobics. Try a form of exercise that takes stress off your back, such as swimming or stationary cycling. Maintain physical fitness, including: ?Strength. ?Flexibility. Contact a health care provider if: Your back pain does not improve after several weeks of treatment. Your symptoms get worse. Get help right away if: Your back pain is severe. You cannot stand or walk. You have difficulty controlling when you urinate or when you have a bowel movement. You feel nauseous or you vomit. Your feet or legs get very cold, turn pale, or look blue. You have numbness, tingling, weakness, or problems using your arms or legs. You develop any of the following: ?Shortness of breath. ?Dizziness. ?Pain in your legs. ?Weakness in your buttocks or legs. Summary Lumbosacral strain is an injury that causes pain in the lower back (lumbosacral spine). This injury usually happens from overstretching the muscles or ligaments along your spine. This condition may be caused by a direct hit to the lower back or by overstretching the lower back muscles. Symptoms usually improve within several weeks of treatment. This information is not intended to replace advice given to you by your health care provider. Make sure you discuss any questions you have with your health care provider. Document Revised: 01/03/2023 Document Reviewed: 02/19/2020 [employer] Patient Education 2022 [employer]. Follow Up Care 09/30/2023 19:03:33 With:Reginald ASHER Address: [address], [facility] [place] [address] Business (1) When:10/03/2023 21:38:47 Comments:You can use the Naprosyn, Robaxin as prescribed as needed for pain. Use [place] every 6 hours as needed for pain. Please follow-up with your primary care doctor the next 2 to 3 days. Please return to the ED for any new or worsening symptoms. [facility] 09-30-2023 Evaluation + Plan note Extrac bharati from: Title:ED Note Author:Faby Chopra DO Date :09/30/23 Lumbar strain (S39.012A: Str ain of muscle, fascia and tendon of lower back, initial encounter) Orders: acetaminophen-hydrocodone, 1 tab(s), Oral, q6hr for pain for 2 day(s), 7 tab(s), Refill(s) 0, [facility] #[id number], 175, cm, 09/30/23 19:10:00 EST, Height/Length Dosing, 135.5, kg, 09/30/23 19:10:00 EST, Weight Dosing acetaminophen-hydrocodone, 1 tab(s), Tab, Oral, q4hr, STAT, Start date 09/30/23 19:17:00 EST ketorolac, 30 mg = 1 mL, Injection, IntraMuscular, Once, Stop date 09/30/23 19:17:00 EST, STAT, Start date 09/30/23 19:17:00 EST, 09/30/23 19:17:00 EST lidocaine topical, 1 patch(es), Patch, TransDermal, Once, Stop date 09/30/23 21:36:00 EST, STAT, Start date 09/30/23 21:36:00 EST methocarbamol, 500 mg = 1 tab(s), Oral, TID, X 3 day(s), # 9 tab(s), Refills(s) 0, Pharmacy: [facility] #[id number], 175, cm, 09/30/23 19:10:00 EST, Height/Length Dosing, 135.5, kg, 09/30/23 19:10:00 EST, Weight Dosing morphine, 4 mg = 1 mL, Injection, IntraMuscular, Once, Stop date 09/30/23 21:36:00 EST, STAT, Start date 09/30/23 21:36:00 EST, 09/30/23 21:36:00 EST naproxen, 500 mg = 1 tab(s), Oral, BID, PRN for pain, # 20 tab(s), Refills(s) 0, Pharmacy: [facility] #[id number], 175, cm, 09/30/23 19:10:00 EST, Height/Length Dosing, 135.5, kg, 09/30/23 19:10:00 EST, Weight Dosing orphenadrine, 60 mg = 2 mL, Injection, IntraMuscular, Once, Stop date 09/30/23 19:17:00 EST, STAT, Start date 09/30/23 19:17:00 EST, 09/30/23 19:17:00 EST XR Abdomen 1 View XR Spine Lumbosacral 2 or 3 Views Future Appointments Appointment Date:10/07/2023 10:20:00 AM Scheduled Provider:Reginald ASHER DO, FAAFP Location:[facility] Appointment Type: ER/Hospital Follow Up Appointment Date:04/30/2024 01:00:00 PM Scheduled Provider:Clau Moreland MD Location:[facility] Appointment Type:URO Office Visit Future Scheduled Tests Radiology* XR Abdomen 1 View 02/08/24 * US Renal 02/08/24 * CT Abdomen/Pelvis w/o Contrast 09/09/23 [facility]12-21-2023 Hospital Discharge instructions Patient Education 09/29/2023 15:56:17 Dietary Guidelines to Help Prevent Kidney Stones Dietary Guidelines to Help Prevent Kidney Stones Kidney stones are deposits of minerals and salts that form inside your kidneys. Your risk of developing kidney stones may be greater depending on your diet, your lifestyle, the medicines you take, and whether you have certain medical conditions. Most people can lower their risks of developing kidney stones by following these dietary guidelines. Your dietitian may give you more specific instructions depending on your overall health and the type of kidney stones you tend to develop. What are tips for following this plan? Reading food labels Choose foods with no salt added or low-salt labels. Limit your salt (sodium) intake to less than 1,500 mg a day. Choose foods with calcium for each meal and snack. Try to eat about 300 mg of calcium at each meal.Foods that contain 200 500 mg of calcium a serving include: ?8 oz (237 mL) of milk, ibbvcos-piakulrtkmqn-kyztb milk, and calcium- fortifiedfruit juice. Calcium-fortified means that calcium has been added to these drinks. ?8 oz (237 mL) of kefir, yogurt, and soy yogurt. ?4 oz (114 g) of tofu. ?1 oz (28 g) of cheese. ?1 cup (150 g) of dried figs. ?1 cup (91 g) of cooked broccoli. ?One 3 oz (85 g) can of sardines or mackerel. Most people need 1,000 1,500 mg of calcium a day. Talk to your dietitian about how much calcium is recommended for you. Shopping Buy plenty of fresh fruits and vegetables. Most people do not need to avoid fruits and vegetables, even if these foods contain nutrients that may contribute to kidney stones. When shopping for convenience foods, choose: ?Whole pieces of fruit. ?Pre-made salads with dressing on the side. ?Low-fat fruit and yogurt smoothies. Avoid buying frozen meals or prepared deli foods. These can be high in sodium. Look for foods with live cultures, such as yogurt and kefir. Choose high-fiber grains, such as whole-wheat breads, oat bran, and wheat cereals. Cooking Do not add salt to food when cooking. Place a salt shaker on the table and allow each person to addtheir own salt to taste. Use vegetable protein, such as beans, textured vegetable protein (TVP), or tofu, instead of meat inpasta, casseroles, and soups. Meal planning Eat less salt, if told by your dietitian. To do this: ?Avoid eating processed or pre-made food. ?Avoid eating fast food. Eat less animal protein, including cheese, meat, poultry, or fish, if told by your dietitian. To dothis: ?Limit the number of times you have meat, poultry, fish, or cheese each week. Eat a diet free of meat at least 2 days a week. ?Eat only one serving each day of meat, poultry, fish, or seafood. ?When you prepare animal proteins, cut pieces into small portion sizes. For most meat and fish, oneserving is about the size of the palm of your hand. Eat at least five servings of fresh fruits and vegetables each day. To do this: ?Keep fruits and vegetables on hand for snacks. ?Eat one piece of fruit or a handful of berries with breakfast. ?Have a salad and fruit at lunch. ?Have two kinds of vegetables at dinner. You may be told to limit foods that are high in a substance called oxalate. These include: ?Spinach (cooked), rhubarb, beets, sweet potatoes, and Cook Islander chard. ?Peanuts. ?Potato chips, maori fries, and baked potatoes with skin on. ?Nuts and nut products. ?Chocolate. If you regularly take a diuretic medicine, make sure to eat at least 1 or 2 servings of fruits or vegetables that are high in potassium each day. These include: ?Avocado. ?Banana. ?[place], prune, carrot, or tomato juice. ?Baked potato. ?Cabbage. ?Beans and split peas. Lifestyle Drink enough fluid to keep your urine pale yellow. This is the most important thing you can do. Spread your fluid intake throughout the day. If you drink alcohol: ?Limit how much you have to: ?0 1 drink a day for women who are not . ?0 2 drinks a day for men. ?Know how much alcohol is in your drink. In the [place] one drink equals one 12 oz bottle of beer (355 mL), one 5 oz glass of wine (148 mL), or one 1 oz glass of hard liquor (44 mL). Lose weight if told by your health care provider. Work with your dietitian to find an eating plan and weight loss strategies that work best for you. General information Talk to your health care provider and dietitian about taking daily supplements. Depending on your health and the cause of your kidney stones, you may be told: ?Do not take high-dose supplements of vitamin C (1,000 mg a day or more). ?To take a calcium supplement. ?To take a daily probiotic supplement. ?To take other supplements such as magnesium, fish oil, or vitamin B6. Take gyko-ydf-nfkkqao and prescription medicines only as told by your health care provider. These include supplements. What foods should I limit? Limit your intake of the following foods, or eat them as told by your dietitian. Vegetables Spinach. Rhubarb. Beets. Canned vegetables. Pickles. Olives. Baked potatoes with skin. Grains Wheat bran. Baked goods. Salted crackers. Cereals high in sugar. Meats and other proteins Nuts. Nut butters. Large portions of meat, poultry, or fish. Salted, precooked, or cured meats, such as sausages, meat loaves, and hot dogs. Dairy Cheeses. Beverages Regular soft drinks. Regular vegetable juice. Seasonings and condiments Seasoning blends with salt. Salad dressings. Soy sauce. Ketchup. Barbecue sauce. Other foods Canned soups. Canned pasta sauce. Casseroles. Pizza. Lasagna. Frozen meals. Potato chips. [place] fries. The items listed above may not be a complete list of foods and beverages you should limit. Contact a dietitian for more information. What foods should I avoid? Talk to your dietitian about specific foods you should avoid based on the type of kidney stones youhave and your overall health. Fruits Grapefruit. The item listed above may not be a complete list of foods and beverages you should avoid. Contact adietitian for more information. Summary Kidney stones are deposits of minerals and salts that form inside your kidneys. You can lower your risk of kidney stones by making changes to your diet. The most important thing you can do is drink enough fluid. Drink enough fluid to keep your urine pale yellow. Talk to your dietitian about how much calcium you should have each day, and eat less salt and animal protein as told by your dietitian. This information is not intended to replace advice given to you by your health care provider. Make sure you discuss any questions you have with your health care provider. Document Revised: 01/06/2023 Document Reviewed: 01/06/2023 [employer] Patient Education 2022 [employer]. Follow Up Care 03/14/2023 14:06:26 With:Aniceto LAL, ERIK Ramos, URO Address: When: Unknown [facility] 12-18-2023 Note [id number] 09-24-2023 Discharge summary Author Flaco gillis [facility] September 24, 2023 7:32am Note Date/Time September 24, 2023 7:14am [facility] [address] [place] [address] Discharge Summary Signed Patient: Harvey Martinez MR#: [id number] : 1985 Acct:[id number] Age/Sex: 38 / F Adm Date: 3 Loc: Room: [address] [place] [address]: Flaco Sanchez MD Copies to: MD Reginald Salguero,DO~ Providers Date of Discharge: 09/24/23 Discharging Provider: Flaco Sanchez Primary Care Provider: Reginald Asher Discharge Diagnosis (1) Major depressive disorder, recurrent, moderate: Final Diagnosis Final Discharge Diagnosis: MDD Summary Hospital Course Hospital course: Ms. Martinez is a 38 year old female with a history of self-reported bipolar, anxiety, and depression presenting with depressive feelings.? Patient was reportedly brought from [facility] to [facility].? Patient was reportedly taking Tegretol for years for her bipolar which reportedly always worked until 2 months ago.? The patient was reportedly taken off Tegretol by Dr. Colmenares and placed on [place].? This had reportedly bad effects, and she was put back on Tegretol.? The patient has reportedly been feeling depressed, and feeling that she has been monitoring her kids.? Patient reportedly is having truancy issues with her kids which is causing stress.? Patient reportedly denies suicidal ideation, but feels that she does not want anthony here anymore.? Patient reportedly wants to get to the point where she can feel like herself again. Patient was personally seen by me on the day of the encounter.? I reviewed the history and performed the anderson elements of the assessment.? I formulated the planof care and confirmed this with the medical student as noted below Patient seen at bedside, claims to feel tired.? Patient says that she feels nothing right now, and a 0 out of 10 depression and anxiety.? Patient denies suicidal or homicidal ideation.? Patient denies visual or auditory hallucination.? Patient says that she is not sleeping well, 3 hours a night.? Patient claims that she is not eating well, 1 meal a day.? Patient says she is taking her medications without side effect. The course of treatment: The patient was familiar with the mental health therapy services available whileon the unit and was encouraged to participate. She said she wanted to switch hermedications. Tegretol was stopped. Psychotropic medications targeting mood and anxiety were started, and she was provided supportive and reality-oriented therapy. She was started Wellbutrin which was increased to BID. She felt that her symptoms have improved on the current medication regimen, and she has been compliant with treatment and reported no side effects. She did try Vistaril PRNwhich helped with anxiety. Her sleep and appetite were okay. She has been attending groups and described them as helpful in building coping skills. The patient has denied any access to firearms or lethal weapons. She felt better than before coming to the hospital and feels hopeful regarding her future. She understands the importance of outpatient follow-up to ensure the stability of her symptoms. She denied suicidal or homicidal ideation and verbalized the intent to notify the staff if she has such thoughts. No suicidal or self-injurious behaviors occurred during inpatient treatment. She denied any symptoms that may pose a threat to herself or others. She described the unit as an excellent place to recover as she did not feel stigmatized. She expresses understanding and says she is better after learning coping skills and the medications prescribed in the inpatient unit. She described this hospitalization as a wake-up call and was in an excellent placeto return home and engage fully in her life. The patient described her thoughts as positive and denied hopelessness. She is in good spirits and is at her baseline. She did not meet the criteria for involuntary psychiatric hospitalization. The patient benefited from attending inpatient treatment and was suitable for outpatient follow-up. I explained to the patient that her hospital discharge does not mean her medical care ends here. She needs consistent outpatient follow-up and cognitive behavioral therapyand should communicate from this point on with her outpatient team. She would like to follow up with Nikki Garcia NP at [facility]. Patient's illness, medication side effects, benefits and risks were reviewed with her prior to discharge. The patient voiced understanding of their diagnosis, the medications recommended along with the importance of medication compliance. The patient was counseled not to stop medications without the supervision of a psychiatrist. The patient was counseled that if there was an increase in mental health issues, depression, anxiety, medication side effects, self harm or thoughts of harm to others, the patient was not to harm them self or stop treatment, but to call [facility], 911 or come to the nearest emergency room. The patient also received information regarding advanced mental and medical health directives during this hospitalization to discuss with their outpatient provider. The plan was discussed with the patient, the nurses and thecase management department. The patient voiced agreement with the plan. Discharge disposition: Home with family. Coordinated via case management. Safe discharge Planning: With the cessation of all suicidal ideation, improvements in mood, and absence of any psychotic symptoms at the time of discharge, aftercare plans were solidified. She was able to formulate a believable Safety Plan. Discharge plans were discussed with the patient, her family, and the treatment team. All agreed with the discharge plan. On the day of discharge, she was evaluated and had no complaints. She denied any SI/HI. She agreed to follow up with outpatient treatment as arranged by case management. She had no complications during her stay. Suicide risk assessment: A thorough review of risk and protective factors was conducted. I discussed with the patient the following recommendations that wouldhelp reduce suicide, which include limiting the number of medications to a 15-day supply with one refill at the time of discharge to avoid potential overdose,consistent outpatient follow-up, preferably within seven days of release, involving family members in her care, and her desire to live. We also discussed the availability of outpatient DBT groups, which can be lifesaving. She reports good therapeutic alliance, good response to medication management and therapy, availability of local mental health services and willingness to follow up, lack of suicidal ideation, intent or plan, lack of impulsivity, agitation, or psychotic behavior. The patient is future-oriented and understandsthe importance of outpatient follow-up. Psychiatric experts agree that predicting suicide is impossible, but considering positive factors like family and wilmer, lack of access to firearms, and desire to continue treatment makes her current suicide risk minimal. Given the chronicity of suicidality, we discussed measures to help her with long-term safety. The patient is not suicidal or psychotic now. To help decreaseher suicide risk, as best I can, I am referring her for outpatient treatment andCBT for long-term follow-up to have somewhere to go and someone to manage her assymptoms and stressors develop. This is the best way to keep her alive. So, we discussed a crisis plan for future suicidality: at the first sign of distress, she will call the hotline; if this is not sufficient, she will 911, then call family members or friends; ultimately, she will come to the ER. Violence Risk Assessment: Chronic: Gender Modifiable: good response to treatment, good therapeutic alliance, availability of local mental health services and willingness to follow up, lack of homicidal ideation (intent or plan) on the day of discharge and during hospitalization, lack of substance abuse, future oriented. No history of recent violence reported. Furthermore, No access to lethal means as currently have no weapons. No aggressive behavior during hospitalization. Has been social with peers on the unit and has been attending groups. Current Violence Risk Assessment: Low acute risk given known chronic and modifiable risk factors. Patient did not meet criteria for probate and his behavior has been overall appropriate on the unit. He has denied homicidal thoughts and has not exhibited any aggressive behavior. He is not an acute risk to himself or others evidencedby subjective and objective data during his hospitalization. Safety: The patient is not acutely psychotic and is safe to continue treatment on an outpatient basis. The patient was made aware of the 02/05 emergency services of the crisis center. She was advised to call 911 or go to the nearest ER in case of a crisis ( (including having thoughts of harming herself or others). Typical short- and long-term side effects of the proposed medication regimen, including contraindications and clinically significant interactions, were discussed with the patient. Side effects include but not limited to sedation, overdose, rash, movement disorders (TD, EPS), weight gain, and appetite changesand advised the patient not to drive or drink while taking these meds. Patient should reach out to medical provider if any of these side effects occur. Using drugs can increase risk of . We also discussed risk of overdose with this current med regimen. Patient understands that it is impossible to gurantee an outcome with medications. Patient indicates an understanding that benefits outweigh the risks. Continue supportive therapy with some CBT techniques. Psycho-education and compliance counseling were provided. She denies current and is aware to notify her psychiatrist if she becomes due to the risk of harm to the fetus. Avoid taking psychiatric medications with driving. MSE: Orientation: Alert and oriented to person, place, and time. Appearance/Behavior: Fair grooming and hygiene, calm, cooperative, engaged in the interview. Good eye contact. Normal psychomotor activity. Speech: normal rate, rhythm, volume, and tone. Non pressured. Knowledge: Appropriate for age and level of education Mood: okay Affect: reactive, mood-congruent Thought process: linear, logical, and goal-oriented Thought content: No SI/HI. No AVH. No delusions. Does not appear to be responding to internal stimuli. Concentration: Grossly intact based on track during the interview Associations: No loosening of associations Memory: Able to recall recent and remote historical information Insight: Fair, able to appreciate current symptoms and need for outpatient treatment Judgment: fair, agreed to follow treatment recommendations, socially appropriate with interviewer and staff. Time spent discussing smoking cessation with patient: more than 10 minutes Condition Condition at Discharge: Stable Status at Discharge Functional status at discharge: independent ambulation Time Spent with Patient Time spent providing/coordinating discharge services (# min): 99 Exam Physical Exam Vital Signs: Temp Pulse Resp BP Pulse Ox O2 Del Method 97.8 F 81 16 132/83 96 Room Air 09/23/23 23:30 09/23/23 23:30 09/23/23 23:30 09/23/23 23:30 09/23/23 23:30 09/23/23 23:30 Discharge Plan Discharge Plan Patient Disposition: Home Activity: No Activity Restriction Diet: Regular Additional Instructions: Important Contact Information You can call [facility] at [phone] any time day or night if you have emergent questions or question regarding discharge instructions. If at any time you are feeling an increase inyour psychiatric symptoms, call your physician or behavioral healthcare provider. If any time you have thoughts of harming yourself or others contact one of the following: Call (available 02/05) Crisis Text Line (available 02/05) text 4HOPE to [phone] [facility] (available 8 a.m. Midnight) call [phone] ([phone]) Prescriptions: New trazodone 50 mg Tablet 50 mg PO QHS PRN (Reason: Insomnia) 15 Days Qty: 15 1RF hydroxyzine pamoate 50 mg Capsule 50 mg PO Q6H PRN (Reason: Anxiety) 15 Days Qty: 30 0RF bupropion HCl 100 mg Tablet Sustained-Release 12 Hr 100 mg PO BID 15 Days Qty: 30 1RF ropinirole 0.5 mg Tablet 0.5 mg PO QHS PRN (Reason: RLS) 15 Days Qty: 15 2RF Continued levothyroxine 137 mcg tablet 137 mcg PO DAILY.0630 Patient Comments: take 1 tablet by mouth once daily ropinirole 0.5 mg tablet 0.5 mg PO TID Patient Comments: take 1 tablet by mouth every morning then 1 tablet EVERY AFTERNOON and 1 to 2tablets nightly metformin 500 mg tablet extended release 24 hr 500 mg PO DAILY.WITH.SUPPER Patient Comments: take 1 tablet by mouth once daily with dinner Ubrelvy 100 mg tablet 100 mg PO PRN (Reason: Migraine Headache) Patient Comments: take 1 tablet by mouth AT ONSET OF MIGRAINE MAY REPEAT ONCE after... (REFER TO PRESCRIPTION NOTES). Discontinued carbamazepine 200 mg tablet 200 mg PO BID Patient Comments: take 1 tablet by mouth twice a day Follow Up: [facility] [Outside] [facility] [Outside] (Customer Trainer: Tuesday09/27/23 a senior case manager will call between 8am and 5pm for a discharge follow up. Therapy: 09/29/23 at 8am with Kaci, then you will see Amaya at 9am. Psychiatry: Tuesday10/17/23 at 2:45pm with Dr. Colmenares. ) Reginald Asher, DO [Primary Care Provider] - (Please contact for any medical needs or concerns) Documented By: Flaco Sanchez MD 3 0712 Signed By: <Electronically signed by Flaco Sanchez MD> 09/24/23 0732 [facility] Work Phone: 1(893) 545-911012-15-2023 Progress note Author Flaco gillis [facility] September 23, 2023 9:52am Note Date/Time September 23, 2023 9:51am [facility] [address] [place] [address] Psychiatry Progress Note Signed Patient: Harvey Martinez MR#: [id number] : 1985 Acct:[id number] Age/Sex: 38 / F Adm Date: 3 Loc: Room: [address] [place] [address] Type : ADM IN Attending Dr: Flaco Sanchez MD Copies to: ~ Date of Service: 09/23/2023 Subjective Subjective Narrative: Patient claims to be feeling all right, better than yesterday. Patient claims to feel 2 out of 10 for depressive feelings and anxious feelings. Patient denies suicidal or homicidal ideation. Patient denies auditory or visual hallucination. Patient was personally seen by me on the day of the encounter. I reviewed the history and performed the anderson elements of the assessment. I formulated the planof care and confirmed this with the medical student as noted below Patient said she is feeling tired. She denied any manic symptoms and therefore we discussed stopping Tegretol. Patient claims to be eating well and patient claims to be sleeping well. Patient claims to take medication as prescribed without side effect. The patient denies current suicidal or homicidal ideation,and verbalized the intent to notify staff if there are such thoughts. The patient denies recent suicidal or self injurious behaviors. Mental Status Exam: Appearance: grossly normal Mental Status: mental status grossly normal Mood: Dysthymic mood Affect: Dysphoric affect Speech and Movement: speech and movement normal and speech clear Attitude: cooperative Thought Process: normal Thought Content: Denied hallucinations, no homicidality, denied suicidality Insight: fair Judgment: fair Exam Physical Exam Vital Signs: Temp Pulse Resp BP Pulse Ox O2 Del Method 97.6 F 80 18 124/79 96 Room Air 09/22/23 20:16 09/22/23 20:16 09/22/23 20:16 09/22/23 20:16 09/22/23 20:16 09/22/23 20:16 Assessment/Plan Assessment/Plan (1) Major depressive disorder, recurrent, moderate: Plan - Consider continuing bupropion 100 mg p.o. daily - Consider continuing Requip 0.5 mg p.o. 3 times daily - Continue to encourage medication compliance - Continue to encourage therapies patient - Continue to monitor for mental status examination changes and suicidal ideation Documented By: Flaco Sanchez MD 3 [id number] Signed By: <Electronically signed by Flaco Sanchez MD> 09/23/23 0952 [facility] Work Phone: 1(801) 795-761112-14-2023 History and physical note Author Flaco gillis [facility] September 22, 2023 12:09pm Note Date/Time September 22, 2023 12:10pm [facility] [address] [place] [address] Psychiatry H&P Signed Patient: Harvey Martinez MR#: [id number] : 1985 Acct:[id number] Age/Sex: 38 / F Adm Date: 3 Loc: Room: 1T1844-3 Type: ADM IN Attending Dr: Flaco Sanchez MD Copies to: MD Reginald Salguero DO~ Date of Service: 09/22/2023 HPI History of Present Illness History of present illness: Ms. Martinez is a 38 year old female with a history of self-reported bipolar, anxiety, and depression presenting with depressive feelings. Patient was reportedly brought from [facility] to [facility]. Patient was reportedly taking Tegretol for years for her bipolar which reportedly alwaysworked until 2 months ago. The patient was reportedly taken off Tegretol by and placed on Caplyta. This had reportedly bad effects, and she was put back on Tegretol. The patient has reportedly been feeling depressed, and feeling that she has been monitoring her kids. Patient reportedly is having truancyissues with her kids which is causing stress. Patient reportedly denies suicidal ideation, but feels that she does not want to be here anymore. Patientreportedly wants to get to the point where she can feel like herself again. Patient was personally seen by me on the day of the encounter. I reviewed the history and performed the anderson elements of the assessment. I formulated the planof care and confirmed this with the medical student as noted below Patient seen at bedside, claims to feel tired. Patient says that she feels nothing right now, and a 0 out of 10 depression and anxiety. Patient denies suicidal or homicidal ideation. Patient denies visual or auditory hallucination. Patient says that she is not sleeping well, 3 hours a night. Patient claims that she is not eating well, 1 meal a day. Patient says she is taking her medications without side effect. Hospitalizations: Denies Suicidal attempts: Denies Living: In house with 4 kids, 17, 15, 12, 7 Job: Disability, re-filing next week. Babysitting. Past history: Bipolar, anxiety, depression self-reported Past family history: Patient reports nothing officially diagnosed. Support: Patient claims she can talk to people but they do not understand what she is going to Medication: Has taken Tegretol, Caplyta. Reports taking a lot of others howevershe cannot remember. Drugs: Alcohol, frequency is sporadic. Claims she can drink a 12 pack with additional shots for special occasions, and sometimes just 1 drink. Mental Status Exam: Appearance: grossly normal Mental Status: mental status grossly normal Mood: Dysthymic mood Affect: Dysphoric affect Speech and Movement: speech slow but clear and movement normal Attitude: cooperative Thought Process: normal Thought Content: Denied hallucinations, no homicidality, denied suicidality Insight: fair Judgment: fair Review of Systems Constitutional: Pt denies fatigue, malaise. Neuro: Denies dizziness/lightheadedness. Denies TBI, seizure, memory loss. Denies numbness/tingling in extremities HEENT: Denies vision/hearing changes. Pulmonary: Denies SOB, dyspnea, cough, wheezing. Cardiac: Denies chest pain/pressure. Denies edema, palpitations. GI: Denies abdominal pain, heartburn, N/V. Denies constipation and diarrhea : Denies dysuria, hematuria, polyuria. Physical exam General: not in any acute distress Skin: intact HEENT: head atraumatic, face symmetrical. Pulm: Breathing normally without excessive effort Cardio: Regular rate and rhythm Abdomen: Normal inspection Musculoskeletal: Moves all extremities, normal strength all extremities. Neuro: Pt alert, oriented x3. Gait normal. CNI: normal olfaction, no concerns reported CNII: Visual carmona intact CNIII,IV,: EOM intact, no nystagmus. CNV: Sensation intact to light touch. CNVII: Raises eyebrows, smile/frown, puff out cheeks symmetrically. CNVIII: Hearing intact bilaterally. CNIX,X: Voice normal, soft palate elevation normal, symmetrical. CNXI: Shoulder shrug strong, equal bilaterally. CNXII: Tongue protrusion midline Review of Systems Review of Systems Review of systems: General: Endorses fatigue. Denies fever or chills. CV: Denies chest pain, palpations, shortness of breath Pulm: Denies cough, pleuritic pain, hemoptysis GI: Denies nausea, vomiting, diarrhea Neuro: Denies headache, confusion, paresthesia, dizziness Skin: Denies jaundice, lesion, rash Head: Endorses hair loss for last 2 months. Denies mass or lump Psych: Denies depression, anxiety, suicidal ideation Eye: Denies pain, discharge, vision loss Ear: Denies hearing loss, pain, discharge [facility] Medical History (Updated 09/22/23 @ 12:09 by Flaco Sanchez MD) Carpal tunnel syndrome Hypothyroid Insulin resistance Migraines PCOS (polycystic ovarian syndrome) Restless leg syndrome Sleep apnea use c-pap at home. 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 Hx of tonsillectomy 2 years ago Social History Smoking Status: Never smoker Substance Use Type: Alcohol Substance Abuse Comment: Drink now and then-sometimes a little, sometimes a lot. Meds Medications and Allergies Allergies Gadolinium-Containing Contrast Medi [From Contrast Media] Allergy (Verified 09/22/23 01:33) Rash Iodinated Contrast Media [From Contrast Media] Allergy (Verified 09/22/23 01:33) Rash Home Medications carbamazepine 200 mg tablet 200 mg PO BID 09/22/23 [History Confirmed 09/22/23] levothyroxine 137 mcg tablet 137 mcg PO DAILY.0630 09/22/23 [History Confirmed 09/22/23] metformin 500 mg tablet,extended release 24 hr 500 mg PO DAILY.WITH.SUPPER 09/22/23 [History Confirmed 09/22/23] ropinirole 0.5 mg tablet 0.5 mg PO TID 09/22/23 [History Confirmed 09/22/23] ubrogepant 100 mg tablet (Ubrelvy) 100 mg PO PRN Migraine Headache 09/22/23 [History] Exam Physical Exam Vital Signs: Temp Pulse Resp BP Pulse Ox O2 Del Method 98.5 F 93 H 16 138/98 98 Room Air 09/22/23 01:33 09/22/23 01:33 09/22/23 01:33 09/22/23 01:33 09/22/23 01:33 09/22/23 01:33 Narrative: General. Pleasant, patient in no acute distress. CV: Regular rate and rhythm. No murmurs, gallops, rubs Pulm: Clear to auscultation bilaterally. No wheezes or crackles. Head: Patchy hair loss along the hairline of the forehead. Atraumatic, normocephalic. Eyes: No scleral icterus ENT: Oral mucosa pink and moist Neuro: Cranial nerves II through VIII, XI, XII intact bilaterally MSK: Strength 5 out of 5 upper and lower extremity bilaterally GI: No pain to palpation Skin: no jaundice Assessment/Plan (1) Major depressive disorder, recurrent, moderate: Plan 1.) Acute depressive episode in setting of bipolar disorder Patient reportedly felt depressed, reportedly feeling that she is up and onto her kids. Patient is having added stress with truancy issues with her kids reportedly. Patient was taken off Tegretol 2 months ago after she fell it stopped working reportedly, and placed on Caplyta. Patient taken off Caplyta reportedly due to bad effects and replaced on Tegretol. Patient denied suicidal ideation, however reportedly said that she did not want to be here anymore. Patient would like to get to a point where she can feel like herself again - Switch Tegretol 200 p.o. to bedtime, start low dose bupropion 100 mg p.o. daily - Continue encourage medication compliance - Continue doing encourage group therapy participation - Continue to monitor for mental status changes and suicidal ideation Documented By: Flaco Sanchez MD 3 [id number] Signed By: <Electronically signed by Flaco Sanchez MD> 09/22/23 1006 [facility] Work Phone: [phone]) 440-990712-05-2023 History of Present illness Narrative* Kaylan Morrison LPN - 09/13/2023 12:00 PM EST SLEEP Agency Score -18 CPAP/BIPAP/APAP Pressure - 12/8 cmH20 Neck Circumference - 14 Most Recent Sleep Study -03/2022 Oxygen Use - No If so, how many liters and is it PRN, Nocturnal, or continuous? Patient is benefiting from PAP no hasn't been wearingtherapy--NO cant tell a difference. [facility] Referred by-Dr Gotti Have you ever seen a sleep specialist (New Patient) - Yes Have you ever been treated for Sleep Apnea (New Patient) - Yes Work Schedule- not working Sleep Schedule: Time to bed 10-11pm Average time to fall asleep quick Time up for the day 5:30am How many times a night do you wake up no Symptoms include : Snoring/snorting - Yes not as bad when on the machine Insomnia- Some days Are you currently taking any OTC or prescription medications for insomnia - NO If so, What medications are you currently taking or previously been prescribed for insomnia? No Daytime Sleepiness - Yes Are you able to take naps during the day - Yes If so, how often? Daily Do you experience tossing or turning at night? No Restless legs - Yes If so, what medications are you currently taking or have previously been prescribed for RLS? Yes Ropinirole Are you currently or have you previously been treated for ADHD, Narcolepsy, or Fatigue? - NO If so, what medications are you currently taking or have previously been prescribed for ADHD, Narcolepsy, or Fatigue? NO Waking with gasping/shortness of breath - Yes Difficulty concentrate- - Yeah Waking with headache- Yes often Significant weight change- Yes Bariatric patient Have you ever been on medication management for weight loss, spoke with anyone about weight loss surgery/procedures, or have you had a surgical procedure to help with weight loss? Yes Adipex Pain 0-10- 0 If yes, Location-0 Upcoming surgeries?- Bariatric Has witnessed apnea ( some body told patient that they stop breathing in their sleep) - Yes Med Refills (that we prescribe) - NO Patient here for follow up and bariatric clearance. Has anxiety issues when tried wearing Bipap.Just got machine last week on Tuesday. * Lyla Kelly APRN-DETASSELING [employer]W SUPERVISOR - 09/13/2023 12:00 PM EST HPI: SUBJECTIVE: Harvey Martinez is a 38 y.o. female being seen today for sleep follow up. Most recent sleep testing showed: Severe complex sleep disorder with combination of central and Obstructive Sleep Apnea (AHI 36/hr) with sleep related hypoxia (regina 84%) and problem is likely to result in a high risk morbidity without treatment. Currently on home BiPAP at 12/8 cmH2O. Patient most recent PAP machine is from 09/05/23. Patient stated that she is benefiting from the therapy. Her compliance is average--justreceived machine. Average AHI from the compliance report was 0.3. Patient states improvements with her daytime fatigue or excessive daytime sleepiness with PAP therapy. Current sleep problems/side effects include: None. Patient denies snoring during therapy. Patient denies other sleep concerns today. History and Allergies Allergies Allergen Reactions Ivp Dye, Iodine Containing Rash Past Medical History: Diagnosis Date SHILPA (obstructive sleep apnea) Past Surgical History: Procedure Laterality Date TONSILLECTOMY Social History Socioeconomic History Marital status: Single Spouse name: Not on file Number of children: Not on file Years of education: Not on file Highest education level: Not on file Occupational History Not on file Tobacco Use Smoking status: Never Smokeless tobacco: Never Substance and Sexual Activity Alcohol use: Yes Comment: occasionally Drug use: Never Sexual activity: Not on file Other Topics Concern Not on file Social History Narrative Not on file Social Determinants of Health Financial Resource Strain: Not on file Food Insecurity: Not on file Transportation Needs: Not on file Physical Activity: Not on file Stress: Not on file Social Connections: Not on file Intimate Partner Violence: Not on file Housing Stability: Not on file History reviewed. No pertinent family history. Vitals: 09/13/23 1214 BP: 122/78 Pulse: 77 Resp: 18 SpO2: 97% Weight: 129.4 kg (285 lb 3.2 oz) Height: 1.753 m (5' 9 ) Physical Examination Physical Exam Vitals and nursing note reviewed. Constitutional: General: She is not in acute distress. Appearance: She is well-developed. HENT: Head: Normocephalic and atraumatic. Right Ear: External ear normal. Left Ear: External ear normal. Eyes: General: Right eye: No discharge. Left eye: No discharge. Neck: Vascular: No JVD. Cardiovascular: Rate and Rhythm: Normal rate. Pulses: Normal pulses. Heart sounds: No murmur heard. No friction rub. No gallop. Pulmonary: Effort: Pulmonary effort is normal. No respiratory distress. Breath sounds: No wheezing. Musculoskeletal: General: No deformity. Normal range of motion. Cervical back: Normal range of motion and neck supple. Skin: General: Skin is warm and dry. Neurological: General: No focal deficit present. Mental Status: She is alert and oriented to person, place, and time. Psychiatric: Mood and Affect: Mood normal. Behavior: Behavior normal. Judgment: Judgment normal. SLEEP Agency Score -18 CPAP/BIPAP/APAP Pressure - 12/8 cmH20 Neck Circumference - 14 Most Recent Sleep Study -03/2022 Oxygen Use - No If so, how many liters and is it PRN, Nocturnal, or continuous? Patient is benefiting from PAP no hasn't been wearingtherapy--NO cant tell a difference. [facility] Referred by-Dr Gotti Have you ever seen a sleep specialist (New Patient) - Yes Have you ever been treated for Sleep Apnea (New Patient) - Yes Work Schedule- not working Sleep Schedule: Time to bed 10-11pm Average time to fall asleep quick Time up for the day 5:30am How many times a night do you wake up no Symptoms include : Snoring/snorting - Yes not as bad when on the machine Insomnia- Some days Are you currently taking any OTC or prescription medications for insomnia - NO If so, What medications are you currently taking or previously been prescribed for insomnia? No Daytime Sleepiness - Yes Are you able to take naps during the day - Yes If so, how often? Daily Do you experience tossing or turning at night? No Restless legs - Yes If so, what medications are you currently taking or have previously been prescribed for RLS? Yes Ropinirole Are you currently or have you previously been treated for ADHD, Narcolepsy, or Fatigue? - NO If so, what medications are you currently taking or have previously been prescribed for ADHD, Narcolepsy, or Fatigue? NO Waking with gasping/shortness of breath - Yes Difficulty concentrate- - Yeah Waking with headache- Yes often Significant weight change- Yes Bariatric patient Have you ever been on medication management for weight loss, spoke with anyone about weight loss surgery/procedures, or have you had a surgical procedure to help with weight loss? Yes Adipex Pain 0-10- 0 If yes, Location-0 Upcoming surgeries?- Bariatric Has witnessed apnea ( some body told patient that they stop breathing in their sleep) - Yes Med Refills (that we prescribe) - NO Patient here for follow up and bariatric clearance. Has anxiety issues when tried wearing Bipap.Just got machine last week on Tuesday. CURRENT MEDICATIONS: Current Outpatient Medications Medication Sig Dispense Refill carBAMazepine 200 MG tablet 1 tab qPM; may increase to BID as tolerated fluticasone 50 MCG/ACT Suspension nasal spray instill 2 sprays into each nostril once daily Nasal for 30 Galcanezumab-gnlm (Emgality, 300 MG Dose,) 100 MG/ML Solution Prefilled Syringe levothyroxine 137 MCG tablet Take 1 tablet by mouth daily. Loratadine 10 MG tablet Take 1 tablet by mouth daily. metFORMIN-XR 500 MG Tab SR 24 HR Take 1 tablet by mouth. rOPINIRole 0.5 MG tablet Every 8 hours. Ubrelvy 100 MG tablet take 1 tablet by mouth AT ONSET OF MIGRAINE MAY REPEAT ONCE after... (REFER TO PRESCRIPTION NOTES). No current facility-administered medications for this visit. Lungs: Clear to auscultation bilaterally. Heart: Regular in rate and rhythm. Abd: Soft and non-distended. Skin: No obvious rashes or cyanosis. Neuro: Grossly non-focal examination. MS: No joint erythema/edema. ROS Reviewed. Interpretation of sleep study and compliance report form was completed today and reviewed together with the patient during this visit. ASSESSMENT & PLAN: * Complex Apnea * CSA * SHILPA * Sleep Related Hypoxia * PLMD * Overweight * Reviewed Test Results from PSG/Titration * Reviewed CPAP Compliance Form * Patient was advised to continue with positive pressure therapy at home once received. * Patient was advised to adhere to a regular sleep hygiene habits. * Reinforced: adverse consequences of SHILPA, compliance, wt loss, side sleeping if feasible, sleep hygiene (and avoid/minimize alcohol, sedative/respiratory depressant meds, nicotine/smoking cessation:quit), not driving/operating machinery while sleepy. * Patient will follow up in 2 months or between 61-90 days on PAP therapy * New Supplies Ordered Discussed with patient: the physiology of Sleep Apnea, medical conditions associated with sleep apnea (DM, HTN, CAD, Depression, Stroke, Headaches, CHF, Heart Dysrhythmias) and treatment options. Advised patient to avoid activities that could harm self or others when tired/sleep, including driving and/or operating heavy machinery. Depending on polysomnography results: - Order PAP titration based on insurance requirements, if already on therapy continue therapy, or if symptomatic with high AHI complete another titration. - Will start/continue PAP therapy after results of PAP titration - I will have prescription sent to a [employer] company of choice- who will becalling patient in approximately next 1-2 weeks. - Patient should be eligible for new supplies approximately every 3-6 months, depending on your insurance coverage, [employer] company will inform patient of coverage - If patient mask does not fit well, contact [employer] company before 30 days are up to get a new mask without an additional charge - Insurance requires regular usage and periodic office follow ups for PAP therapy to continue to cover supplies Insurance Requirements: - Your insurance requires a [id number] follow up visit within 31-90 days period after starting PAP therapy. - Your insurance requires compliance with PAP therapy, which is at least 4 hours per night for 70% of the time. This must be done over at least 30 day period and must occur within the intial 31-90 day period after starting PAP therapy. - Your insurance also requires at least a yearly follow up to continue to pay for PAP therapy and supplies. A total of 30 minutes were spent at this encounter, and this includes obtaining and/or reviewing separately obtained history , performing exam, review of previous tests and results, independently interpreting results of tests and communicating results to the patient/family/caregiver, ordering medica tions/tests/procedures, counseling the patient and/family on plan of care, referring/communicating with other health career services director, as well as documenting the clinical information in the EHR. This includes face to face time and preparing to see the patient (review of tests) I personally reviewed selected chart notes, results, interpreted tests, imaging today before seeingthe pt; reviewed and discussed w/ pt, questions answered. Portions of this chart were created using [employer] electronic dictation. Please excuse any typographical or grammatical errors contained herein as a result. Some Elements copied from previous notes. I have updated where appropriate, and all reflect current medical decision making from today's encounter. RUSS Aguila [facility] History of Present illness Narrative* Olman Womack, RD - 09/13/2023 9:00 AM EST OUTPATIENT BARIATRIC NUTRITION EDUCATION: LESSON 3 Referring Provider: Self, Self Nutrition Assessment Anthropometrics: Ht Readings from Last 1 Encounters: 08/22/23 1.753 m (5' 9 ) Wt Readings from Last 5 Encounters: 09/13/23 128.5 kg (283 lb 3.2 oz) 08/22/23 127.9 kg (282 lb) 08/10/23 127.1 kg (280 lb 3.2 oz) 07/20/23 128.1 kg (282 lb 4.8 oz) 07/08/23 127.9 kg (282 lb) [place] body weight: 66.2 kg (145 lb 15.1 oz) Adjusted ideal body weight: 91.1 kg (200 lb 13.6 oz) Body mass index is 41.82 kg/m . Ms. Harvey Martinez is a 38 y.o. female here in preparation for weight loss surgery. Pt reports her appetite has been very poor due to patient having a family member pass away about 2 weeks ago. Ptreports she just saw a phycologist yesterday and will be undergoing counseling. Pt will really start to focus on the nutrition guidelines over the next month and start meal planning. Pt was given resources for high protein snacks and meal planning to help with her busy schedule and planning meals for a family of 5. Pt denies any further questions/concerns. Class type: In-person 1:1 Diet Recall: Meal What Time Breakfast Snack Lunch Snack Dinner 1 4-6 inch cold cut sub sandwich with lettuce, tomato, turkey 6 pm Snack Fluids 1 bottle of water. NA Current exercise: Pt is not exercising. Nutrition Goals: Eat breakfast, lunch, dinner, and 2-3 snacks (5-6 small meals/day): Not MET Consume adequate protein: Not MET Limit sugar to no more than 10 grams per meal/snack: MET Consume 64 oz of hydrating fluids/day: Not MET Eliminate carbonation, straws, caffeine, and alcohol: MET Eating off smaller plates and bowls: MET Chew your food 20-30 times per bite when needed: Not MET Meals should last 20-30 minutes: Not MET Separate drinking and eating by 30 minutes: Not MET Eat in this order: protein first, vegetables and fruits second, and whole grains last: Not MET Put your utensil or handheld food down in between bites: Not MET Begin physical activity including cardio and strength training: Not MET Pt was educated on the following topics: Fats and Dining Out. Discussed: Types of fat: unsaturated and saturated Tips on making healthy choices while eating out Continue with adequate well spaced protein Continue with eating 5-6x/day Continue with a inimum 64 oz water intake Importance engaging in regularly scheduled physical activity Nutrition Diagnosis NB-1.1 Food and nutrition related knowledge deficit related to fats and dining out as it relates tobariatric surgery as evidenced by pt new to bariatric program. Nutrition Intervention Nutrition Goals: Eat 5-6 small meals/snacks per day (breakfast, lunch, dinner, and 2-3 snacks) Consume adequate protein daily Limit all sugar + sugar alcohols to no more than 10 grams per meal/snack Drink 64+ oz of hydrating fluid/day Eliminate carbonation, straws, caffeine, and alcohol Eat off smaller plates and bowls Take dime sized bites and chew food 20-30x per bite, or until it is a consistent texture Meals need to last at least 20-30 minutes. Stop eating once you feel full Separate food and fluids by 30 minutes. Do not drink with meals Eat protein first, vegetables and fruits second, and whole grains last Begin physical activity as tolerated. Goal of 150-300 minutes of moderate physical activity per week with 2+ days of strength or resistance training included Monitoring & Evaluation Pt will complete all nutrition classes prior to final nutrition appointment Progress towards nutrition goals and weight is tracked at each nutrition class or follow up appointment All nutrition goals will be met prior to final nutrition appointment in order to receive dietitian clearance to have bariatric surgery Time spent with pt: 45 minutes JAYCEE Rice Registered Dietitian, Licensed Dietitian 09/13/23 documented in this [facility]11-06-2023 History of Present illness Narrative* Kely Prasad - 08/15/2023 9:30 PM EST .Patient arrived 213 and escorted to room 2 The following is attached to the encounter: Test Data/Misc documented in this [facility]09-29-2023 Miscellaneous Notes* Nursing Notes - Rona Mcfarland RN - 2023 9:29 AM EDT Pt responding but resting comfortably. No C/O pain or discomfort post-op. Pt transported back to [facility]. Cart in lowest position. Call light in reach. Monitors applied and vitals WNL. Report off to Concepcion Mir RN Post-op Dx per Dr. Amrit Gotti Gastritis EGD Bx Antrum * Nursing Notes - Margarita Medrano RN - 2023 9:10 AM EDT Pt alert and oriented x 3. Pt transported to [facility] 1 via cart. Warm blankets and monitors applied. Pt positioned and anesthia present for monitoring. documented in this [facility]09-29-2023 Nurse Note* Nursing Notes - Rona Mcfarland RN - 2023 9:29 AM EDT Pt responding but resting comfortably. No C/O pain or discomfort post-op. Pt transported back to OPS. Cart in lowest position. Call light in reach. Monitors applied and vitals WNL. Report off to Concepcion Mir RN Post-op Dx per Dr. Amrit Gotti Gastritis EGD Bx Antrum [facility]09-29-2023 Nurse Note* Nursing Notes - Margarita Medrano RN - 2023 9:10 AM EDT Pt alert and oriented x 3. Pt transported to [facility] 1 via cart. Warm blankets and monitors applied. Pt positioned and anesthia present for monitoring. T [facility]09-29-2023 History and physical note* Amrit Gotti DO - 2023 9:00 AM EDT Bariatric/General Surgery H&P 2023 7:25 AM Harvey Martinez [id number] Harvey Martinez is a 38 y.o. year old female with morbid obesity and GERD. she presents today forendoscopic evaluation of GERD in preparation for bariatric surgery. PAST MEDICAL HISTORY: Past Medical History: Diagnosis Date SHILPA (obstructive sleep apnea) PAST SURGICAL HISTORY: Past Surgical History: Procedure Laterality Date TONSILLECTOMY FAMILY HISTORY: No family history on file. SOCIAL HISTORY: Social History Tobacco Use Smoking status: Never Smokeless tobacco: Never MEDICATIONS: Prior to Admission Medications: Current Outpatient Medications Medication Sig Last Dose Start Date End Date Authorizing Provider carBAMazepine 200 MG tablet 1 tab qPM; may increase to BID as tolerated 05/02/23 Historical Provider Galcanezumab-gnlm (Emgality, 300 MG Dose,) 100 MG/ML Solution Prefilled Syringe No dose, route, or frequency recorded. Historical Provider metFORMIN-XR 500 MG Tab SR 24 HR 500 mg, Oral Historical Provider rOPINIRole 0.5 MG tablet EVERY 8 HOURS Historical Provider ALLERGIES: Allergies Allergen Reactions Ivp Dye, Iodine Containing Rash REVIEW OF SYSTEMS: GENERAL: Negative for malaise, significant weight loss and fever NECK: Negative for lumps, goiter, pain and significant neck swelling RESPIRATORY: Negative for cough, wheezing or shortness of breath. CARDIOVASCULAR: Negative for chest pain, leg swelling or palpitations. GI: Negative for abdominal discomfort, blood in stools or black stools or change in bowel habits : No history of dysuria, frequency or incontinence MUSCULOSKELETAL: Negative for joint pain or swelling, back pain or muscle pain. SKIN: Negative for lesions, rash, and itching. PSYCH: Negative for sleep disturbance, mood disorder and recent psychosocial stressors. ENDOCRINE: Negative for cold or heat intolerance, polyuria, polydipsia and goiter. PHYSICAL EXAM: There were no vitals taken for this visit. General appearance: obese Skin: warm, no erythema or rashes Lungs: clear to percussion and auscultation Heart: regular rhythm and S1, S2 normal Abdomen: soft, non-tender, no masses, no organomegaly Extremities: Normal exam of the extremities. No swelling or pain. IMPRESSION: Harvey Martinez is a 38 y.o. female with morbid obesity and GERD. PLAN: Endoscopy, possible biopsy today. The risks of the procedure including bleeding, perforation, need for further procedure and have been explained to the patient and Harvey Martinez has expressed understanding and acceptance ofthem. Consent has been signed. Amrit Gotti DO Bariatric and Minimally Invasive General Surgery [facility]09-29-2023 History and physical note* Amrit Gotti DO - 2023 9:00 AM EDT Bariatric/General Surgery H&P 2023 7:25 AM Harvey Martinez [id number] Harvey Martinez is a 38 y.o. year old female with morbid obesity and GERD. she presents today forendoscopic evaluation of GERD in preparation for bariatric surgery. PAST MEDICAL HISTORY: Past Medical History: Diagnosis Date SHILPA (obstructive sleep apnea) PAST SURGICAL HISTORY: Past Surgical History: Procedure Laterality Date TONSILLECTOMY FAMILY HISTORY: No family history on file. SOCIAL HISTORY: Social History Tobacco Use Smoking status: Never Smokeless tobacco: Never MEDICATIONS: Prior to Admission Medications: Current Outpatient Medications Medication Sig Last Dose Start Date End Date Authorizing Provider carBAMazepine 200 MG tablet 1 tab qPM; may increase to BID as tolerated 05/02/23 Historical Provider Galcanezumab-gnlm (Emgality, 300 MG Dose,) 100 MG/ML Solution Prefilled Syringe No dose, route, or frequency recorded. Historical Provider metFORMIN-XR 500 MG Tab SR 24 HR 500 mg, Oral Historical Provider rOPINIRole 0.5 MG tablet EVERY 8 HOURS Historical Provider ALLERGIES: Allergies Allergen Reactions Ivp Dye, Iodine Containing Rash REVIEW OF SYSTEMS: GENERAL: Negative for malaise, significant weight loss and fever NECK: Negative for lumps, goiter, pain and significant neck swelling RESPIRATORY: Negative for cough, wheezing or shortness of breath. CARDIOVASCULAR: Negative for chest pain, leg swelling or palpitations. GI: Negative for abdominal discomfort, blood in stools or black stools or change in bowel habits : No history of dysuria, frequency or incontinence MUSCULOSKELETAL: Negative for joint pain or swelling, back pain or muscle pain. SKIN: Negative for lesions, rash, and itching. PSYCH: Negative for sleep disturbance, mood disorder and recent psychosocial stressors. ENDOCRINE: Negative for cold or heat intolerance, polyuria, polydipsia and goiter. PHYSICAL EXAM: There were no vitals taken for this visit. General appearance: obese Skin: warm, no erythema or rashes Lungs: clear to percussion and auscultation Heart: regular rhythm and S1, S2 normal Abdomen: soft, non-tender, no masses, no organomegaly Extremities: Normal exam of the extremities. No swelling or pain. IMPRESSION: Harvey Martinez is a 38 y.o. female with morbid obesity and GERD. PLAN: Endoscopy, possible biopsy today. The risks of the procedure including bleeding, perforation, need for further procedure and have been explained to the patient and Harvey Martinez has expressed understanding and acceptance ofthem. Consent has been signed. Amrit Gotti DO Bariatric and Minimally Invasive General Surgery documented in this [facility]09-29-2023 Nurse Note* Concepcion Schultz RN - 2023 9:00 AM EDT 1013 Alert and oriented x 4, VSS, denies pain or discomfort, resp even and unlabored, taking clear liquids and retains, color satisfactory, discharge instructions given to pt and pt's support person,both verbalize understanding. [facility] Nurse Surgical operation note* Concepcion Schultz RN - 2023 9:00 AM EDT 1013 Alert and oriented x 4, VSS, denies pain or discomfort, resp even and unlabored, taking clear liquids and retains, color satisfactory, discharge instructions given to pt and pt's support person,both verbalize understanding. [facility]09-19-2023 History of Present illness Narrative* Yehuda Mullins - 06/28/2023 10:15 AM EDT SLEEP Agency Score -22 CPAP/BIPAP/APAP Pressure - Cpap [id number] Neck Circumference - 14 Most Recent Sleep Study -03/2022 Oxygen Use - No If so, how many liters and is it PRN, Nocturnal, or continuous? Patient is benefiting from PAP therapy--NO cant tell a difference. [facility] Referred by-Dr Gotti Have you ever seen a sleep specialist (New Patient) - Yes Have you ever been treated for Sleep Apnea (New Patient) - Yes Work Schedule- not working Sleep Schedule: Time to bed 10-11pm Average time to fall asleep quick Time up for the day 5:30am How many times a night do you wake up no Symptoms include : Snoring/snorting - Yes not as bad when on the machine Insomnia- Some days Are you currently taking any OTC or prescription medications for insomnia - NO If so, What medications are you currently taking or previously been prescribed for insomnia? No Daytime Sleepiness - Yes Are you able to take naps during the day - Yes If so, how often? Daily Do you experience tossing or turning at night? No Restless legs - Yes If so, what medications are you currently taking or have previously been prescribed for RLS? Yes Ropinirole Are you currently or have you previously been treated for ADHD, Narcolepsy, or Fatigue? - NO If so, what medications are you currently taking or have previously been prescribed for ADHD, Narcolepsy, or Fatigue? NO Waking with gasping/shortness of breath - Yes Difficulty concentrate- - Yeah Waking with headache- Yes often Significant weight change- Yes Bariatric patient Have you ever been on medication management for weight loss, spoke with anyone about weight loss surgery/procedures, or have you had a surgical procedure to help with weight loss? Yes Adipex Pain 0-10- 0 If yes, Location-0 Upcoming surgeries?- Bariatric Has witnessed apnea ( some body told patient that they stop breathing in their sleep) - Yes Med Refills (that we prescribe) - NO Pt here for SHILPA, Snoring and fatigue. Pt stated that she thinks she has Narcolepsy she said she hastold this to doctors but no one will listen. Stated that she has never been tested for it. Pt usingher machine once in a while but the machine had a recall on it so she has hessite to use it. She homar Bariatric pt. Pt has Questions about masking also. * Lyla Kelly APRN-DETASSELING CREW SUPERVISOR - 06/28/2023 10:15 AM EDT TARA Martinez is a 37 y.o. female being seen today for sleep apnea evaluation. Patient referredto sleep clinic by Bariatric Surgeon to evaluate and treat for sleep disorder/sleep apnea with history of SHILPA, sleep related hypoxia, snoring, fatigue. Patient had a previous sleep study which showed extremely severe obstructive sleep apnea AHI 81/hr) with sleep related hypoxia (regina 72%) and PLMDnoted (index 81.9), they were started on CPAP 12 cmH2O therapy, however here today as she has struggled with wearing therapy and needs surgery clearance. Patient feels like she is fighting the CPAP and hard time exhaling. Patient current compliance is poor, with and average AHI of 0.2. Patient machine is from 2016, requesting repeat testing and new machine if needed. She has been experiencing Sleep apnea: snoring, periods of not breathing, tossing and turning, restless legs, decreased memory, decreased concentration, excessive daytime sleepiness, feels sleepy during the day, take naps during the day, morning headaches and maintaining sleep at times. At times wakes up multiple times a night and does not always feel refreshed in the morning. She also reports sleepiness at times while at work, driving, reading, watching television. Patient denies other sleep concerns at today's appointment. Patient is scheduled for bariatric surgery in the near future. Vitals: 06/28/23 1039 BP: 130/86 Pulse: 99 Resp: 18 SpO2: 97% Weight: 128.2 kg (282 lb 9.6 oz) Height: 1.753 m (5' 9 ) Physical Exam Vitals and nursing note reviewed. Constitutional: General: She is not in acute distress. Appearance: She is well-developed. HENT: Head: Normocephalic and atraumatic. Right Ear: External ear normal. Left Ear: External ear normal. Eyes: General: Right eye: No discharge. Left eye: No discharge. Neck: Vascular: No JVD. Cardiovascular: Rate and Rhythm: Normal rate. Pulses: Normal pulses. Heart sounds: No murmur heard. No friction rub. No gallop. Pulmonary: Effort: Pulmonary effort is normal. No respiratory distress. Breath sounds: No wheezing. Abdominal: General: Bowel sounds are normal. Palpations: Abdomen is soft. Musculoskeletal: General: No deformity. Normal range of motion. Cervical back: Normal range of motion and neck supple. Skin: General: Skin is warm and dry. Neurological: General: No focal deficit present. Mental Status: She is alert and oriented to person, place, and time. Psychiatric: Mood and Affect: Mood normal. Behavior: Behavior normal. Judgment: Judgment normal. Past Medical History: Diagnosis Date SHILPA (obstructive sleep apnea) Past Surgical History: Procedure Laterality Date TONSILLECTOMY Allergies Allergen Reactions Ivp Dye, Iodine Containing Rash Outpatient Medications Prior to Visit Medication Sig Dispense Refill carBAMazepine 200 MG tablet 1 tab qPM; may increase to BID as tolerated Galcanezumab-gnlm (Emgality, 300 MG Dose,) 100 MG/ML Solution Prefilled Syringe metFORMIN-XR 500 MG Tab SR 24 HR Take 1 tablet by mouth. rOPINIRole 0.5 MG tablet Every 8 hours. No facility-administered medications prior to visit. No family history on file. Social History Socioeconomic History Marital status: Single Spouse name: Not on file Number of children: Not on file Years of education: Not on file Highest education level: Not on file Occupational History Not on file Tobacco Use Smoking status: Never Smokeless tobacco: Never Substance and Sexual Activity Alcohol use: Not on file Drug use: Not on file Sexual activity: Not on file Other Topics Concern Not on file Social History Narrative Not on file Social Determinants of Health Financial Resource Strain: Not on file Food Insecurity: Not on file Transportation Needs: Not on file Physical Activity: Not on file Stress: Not on file Social Connections: Not on file Intimate Partner Violence: Not on file Housing Stability: Not on file SLEEP Agency Score -22 CPAP/BIPAP/APAP Pressure - Cpap [id number] Neck Circumference - 14 Most Recent Sleep Study -03/2022 Oxygen Use - No If so, how many liters and is it PRN, Nocturnal, or continuous? Patient is benefiting from PAP therapy--NO cant tell a difference. [facility] Referred by-Dr Gotti Have you ever seen a sleep specialist (New Patient) - Yes Have you ever been treated for Sleep Apnea (New Patient) - Yes Work Schedule- not working Sleep Schedule: Time to bed 10-11pm Average time to fall asleep quick Time up for the day 5:30am How many times a night do you wake up no Symptoms include : Snoring/snorting - Yes not as bad when on the machine Insomnia- Some days Are you currently taking any OTC or prescription medications for insomnia - NO If so, What medications are you currently taking or previously been prescribed for insomnia? No Daytime Sleepiness - Yes Are you able to take naps during the day - Yes If so, how often? Daily Do you experience tossing or turning at night? No Restless legs - Yes If so, what medications are you currently taking or have previously been prescribed for RLS? Yes Ropinirole Are you currently or have you previously been treated for ADHD, Narcolepsy, or Fatigue? - NO If so, what medications are you currently taking or have previously been prescribed for ADHD, Narcolepsy, or Fatigue? NO Waking with gasping/shortness of breath - Yes Difficulty concentrate- - Yeah Waking with headache- Yes often Significant weight change- Yes Bariatric patient Have you ever been on medication management for weight loss, spoke with anyone about weight loss surgery/procedures, or have you had a surgical procedure to help with weight loss? Yes Adipex Pain 0-10- 0 If yes, Location-0 Upcoming surgeries?- Bariatric Has witnessed apnea ( some body told patient that they stop breathing in their sleep) - Yes Med Refills (that we prescribe) - NO Pt here for SHILPA, Snoring and fatigue. Pt stated that she thinks she has Narcolepsy she said she hastold this to doctors but no one will listen. Stated that she has never been tested for it. Pt usingher machine once in a while but the machine had a recall on it so she has hessite to use it. She homar Bariatric pt. Pt has Questions about masking also. ROS Reviewed. IMPRESSION AND PLAN: * SHILPA * Sleep Related Hypoxia * Hypersomnia * Fatigue * Snoring * Morning Headaches * PLMD * Overweight * Order Test * Patient was advised to lose weight. * Patient was advised to avoid alcohol and sedative medications. * Patient was advised to exercise precaution while operating a motorized vehicle. * Patient was advised to maintain a regular sleep schedule. * Will order for an overnight Polysomnography/Titration. * Patient will follow up after completing testing, approximately 2 months Discussed with patient: the physiology of Sleep Apnea, medical conditions associated with sleep apnea (DM, HTN, CAD, Depression, Stroke, Headaches, CHF, Heart Dysrhythmias) and treatment options. Advised patient to avoid activities that could harm self or others when tired/sleep, including driving and/or operating heavy machinery. Depending on polysomnography results: - Order PAP titration based on insurance requirements, if already on therapy continue therapy, or if symptomatic with high AHI complete another titration. - Will start/continue PAP therapy after results of PAP titration - I will have prescription sent to a [employer] company of choice- who will becalling patient in approximately next 1-2 weeks. - Patient should be eligible for new supplies approximately every 3-6 months, depending on your insurance coverage, [employer] company will inform patient of coverage - If patient mask does not fit well, contact [email or web address] before 30 days are up to get a new mask without an additional charge - Insurance requires regular usage and periodic office follow ups for PAP therapy to continue to cover supplies Insurance Requirements: - Your insurance requires a [id number]-gl-[id number] follow up visit within 31-90 days period after starting PAP therapy. - Your insurance requires compliance with PAP therapy, which is at least 4 hours per night for 70% of the time. This must be done over at least 30 day period and must occur within the initial 31-90 day period after starting PAP therapy. - Your insurance also requires at least a yearly follow up to continue to pay for PAP therapy and supplies. A total of 45 minutes were spent at this encounter, and this includes obtaining and/or reviewing separately obtained history , performing exam, review of previous tests and results, independently interpreting results of tests and communicating results to the patient/family/caregiver, ordering medica tions/tests/procedures, counseling the patient and/family on plan of care, referring/communicating with other health career services director, as well as documenting the clinical information in the EHR. This includes face to face time and preparing to see the patient (review of tests) I personally reviewed selected chart notes, results, interpreted tests, imaging today before seeingthe pt; reviewed and discussed w/ pt, questions answered. Portions of this chart were created using [employer] electronic dictation. Please excuse any typographical or grammatical errors contained herein as a result. RUSS Aguila [facility] Instructions* Patient Instructions* RUSS Aguila - 06/28/2023 10:15 AM EDT Images from the original note were not included. What you need to know about how sleep apnea affects your body https://www.heart.org/en/health-topics/lixu-aagcd-hgvdvudn/xnk-mufvy-axdyw-high- blood-pressure/pulmo wysp-zejdsvkrknbz-ilcv-uiejs-purgxdgx-ii-kfc-hwucb-qe-lung-system If you ve ever awakened yourself with a sudden snore -- or if your partner nudges you awake to get you to turn over -- it s possible you could be affected by sleep apnea, which is associated with high blood pressure, arrhythmia, stroke and heart failure. Why is this a big deal? For people with SHILPA, it becomes difficult to keep the upper airway open during sleep because weightoverpowers the muscles that hold it open. Each time the airway closes during sleep, there is a pause in breathing; it can happen five to 30 times an hour or more, causing the sleeper to wake up suddenly, gasping for air. When the air flow stops, the body releases stress hormones, which over time can lead to heart disease -- the leading cause of in the [place] -- stroke and high blood pressure. It also canincrease the risk of type 2 diabetes, liver problems and metabolic syndrome. It s also associated with obesity, and experts say it can be part of a vicious cycle in which the sleep deprivation it causes can lead to even more obesity, which in turn makes the condition worse. Who s at risk? People who are overweight are especially at risk for SHILPA because fat deposits around the upper airway can cause the airway s muscles to lose tone over time, leading to obstructed breathing. Similarly, people with thicker necks, narrow throats or enlarged tonsils or adenoids may also be at risk. Men are more likely to have sleep apnea than women, and it occurs significantly more often in olderadults. There also may be an increased risk for people with a family history of sleep apnea, smokers or drinkers. What are the signs? Aside from loud snoring and sudden stopped breathing or gasping for air during sleep (observed by someone else, obviously), symptoms may seem similar to those of any sleep disorder: Waking up with a dry mouth Morning headaches Difficulty sleeping or excessive sleepiness Irritability or trouble paying attention while awake Loud Snoring Insomnia Night Sweats Frequent Urination at Night Untreated sleep apnea puts heart health at risk Did you know that sleep apnea impacts heart health? Left untreated, moderate and severe obstructive sleep apnea can more than double your risk of dyingfrom heart disease. SHILPA is a cause of systemic hypertension (HTN) and is associated with an increased incidence of stroke, heart failure (HF), atrial fibrillation (AF), and coronary heart disease (CHD). Severe SHILPA may increase all-cause mortality and cardiovascular mortality. According to the AASM, there are five anderson warning signs and risk factors for sleep apnea: - Snoring - choking or gasping during sleep - fatigue or daytime sleepiness - obesity (BMI of 30 or higher) - high blood pressure. The AASM warns that untreated obstructive sleep apnea hurts HEARTS by increasing the risk of: H - Heart failure E - Elevated blood pressure A - Atrial fibrillation R - Resistant hypertension T - Type 2 diabetes S - Stroke Additionally, a scientific statement on sleep duration and quality from the [place] [employer] states that moderate and severe sleep apnea are associated with an elevated risk of cardiovascular disease. One of the major health risks linked with obesity is obstructive sleep apnea (SHILPA). It involves repetitive breathing pauses that occur during sleep. The most common warning sign for sleep apnea is loud and frequent snoring, but not the only warning sign. Thin people also can have sleep apnea, but amajor risk factor for sleep apnea is excess body weight. An adult with a body mass index (BMI) of 30 or higher is considered to be obese. The risk of sleep apnea increases with the amount of excess body weight. What causes resistant hypertension? Underlying Medical Causes In about 25 percent (1 out of 4) of people with resistant hypertension, there s an identifiable, orsecondary, cause. People whose blood pressure is raised by a medical condition are said to have secondary hypertension. Secondary hypertension will be very hard to control until those conditions are addressed. The more resistant the hypertension, the more likely there is to be a secondary cause. Some common secondary causes of hypertension include: - Structural Disorders - Sleep apnea, a tendency to stop breathing for seconds during sleep - Renal (kidney) artery stenosis, a narrowing of the artery that sends blood to the kidneys - Coarctation of the aorta, a narrowing of part of the aorta (the artery that sends blood from the heart to the rest of the body) - Kidney failure Overweight and Sleep: The interrelationships between obesity and SHILPA are complex and bidirectional. Obesity places patients at higher risk for SHILPA and patients with SHILPA are likely to gain more weight than equally obese subjects without SHILPA. Weight loss is recommended in patients who are obese with SHILPA as it improves overall health and reduces the severity of SHILPA. As the medical community learns more about sleep apnea, several important links to excess body weight are emerging. Not only can excess weight cause sleep apnea, but it can worsen the symptoms and exacerbate its detrimental health effects. Insufficient sleep may also lead to weight gain, making it a vicious cycle. Encouragingly, many studies show that weight loss improves sleep apnea. If you are struggling with sleep apnea or excess weight, it s important to understand the complex interactions between the two conditions. Weight loss can reduce the severity of sleep apnea. But it is unlikely to cure SHILPA, but this is always a GOAL. The most effective treatment for sleep apnea is CPAP therapy, it is the Gold Standard Treatment. CPAP provides gently pressurized air through a mask that you wear during sleep. The airflowkeeps your airway open and restores normal breathing. The importance of adequate, quality sleep cannot be over emphasized. Researchers continue to discover more and more benefits of sleep, above and beyond resting enough to feel more awake during the day and to be able to make it through the day without feeling the need for a nap. Although you might be young now and it may seem as if poor sleep is only impacting your days now and then, lack of good sleep will have long-term effects on your mental and physical health and virtually every system of the body. Can Sleep Apnea Cause Weight Gain? While excess weight has long been known to be a risk factor for SHILPA, an increasing amount of evidence suggests the relationship is reciprocal. This is because sleep deprivation is associated with decreased leptin (an appetite- suppressing hormone) and increased ghrelin (an appetite-stimulating hormone), which may increase cravings for calorie-dense foods. Additional data indicates that insufficient sleep leads to overeating, obesity, and a decrease in fat-loss during calorie restriction. It also appears that SHILPA patients, in particular, may be more susceptible to weight gain than people who have the same BMI and health status but do not suffer from sleep apnea. This is illustrated inone study that showed people with SHILPA gained significantly more weight (around 16 pounds in the year leading up to their SHILPA diagnosis compared with BMI-matched people without SHILPA. Sleep apnea can also deplete people of the energy they need to maintain a healthy body weight. Daytime sleepiness is a common sleep apnea symptom, resulting from fragmented, unrefreshing sleep. Excessive sleepiness may lead sleep apnea sufferers to exert less physical activity during waking hours. This may be particularly problematic for obese people, who frequently experience more shortness of breath and chest discomfort with physical effort, resulting in limited exercise. Without dietary changes, decreased activity levels can lead to additional weight gain. Why It Matters (Weight/Sleep): Ten percent of weight gain is associated with a sixfold increase in risk of SHILPA. Increased body weight over time increases the risk for SHILPA and accelerates its progression. Plasma ghrelin levels (appetite or hunger hormone ) are significantly higher in patients with SHILPA than in BMI-matched controls, but decrease to levels similar to those of patients who are obese without SHILPA after continuous positive airway pressure (CPAP) treatment. Weight loss improves SHILPA by several mechanisms, including reduction in fatty tissue in the throat (i.e., parapharyngeal fat) and the tongue. Loss of abdominal fat increases mediastinal traction on the upper airway making it less likely to collapse during sleep. Importantly, weight loss benefits commonly associated comorbidities in patients who are obese with SHILPA such as hypertension and insulin resistance. Studies have also shown that compliance with CPAP treatment improves leptin (hunger inhibitory hormone) imbalance. The National Institutes of Health (NIH) and the [place] Task Force on Preventive Health Care recommend the use of BMI and waist circumference to screen adults for obesity What are PERIODIC LIMB MOVEMENTS? Periodic limb movements are when you have episodes of simple, repetitive muscle movements. You are unable to control them. They usually do not keep you from falling asleep. Instead, they can disrupt your or your bed partner s sleep during the night. This can cause you both to be very tired during the day. Periodic limb movements do not involve a change in body position, stretching a muscle, or a cramp. Instead, the movements tend to involve the tightening or flexing of a muscle. They occur most often in the lower legs. Limb movements during sleep are much more common. When they occur often through the night, they can disrupt your sleep many times. Normally, you are unaware of the movements or of waking up. The degree to which these movements occur can change from night to night. They usually happen during non-rapid eye movement sleep in the first half of the night. When these movements are very severe,then they may also happen while you are awake. An episode will normally last from a few minutes to an hour. Within that time, movements tend to occur every 20 to 40 seconds. They may affect only one of the legs. More often, they will affect both legs. Limb movements during sleep are quite common. For most people, the movements do not disturb their sleep in a significant way. This means that it is not a sleep disorder. The sleep of the bed partner tends to be affected more often than that of the patient. The movements reach the level of a disorder, periodic limb movement disorder, when they disrupt thepatient s sleep and daily life. This disorder may be a factor in causing you to have any of the following: - Depression - Bad memory - Short attention span - Fatigue What are symptoms of periodic limb movements: Normally, you are unaware of the movements. This can make it very hard for you to know if you have periodic limb movements. Someone who sleeps in the same bed with you would be more likely to notice the movements. You might have periodic limb movement disorder if: - Someone else told you that your body makes unusual, repetitive movements while you sleep - These movements tend to occur in your lower legs - You feel like you are never well-rested, even after a full night of sleep - You are often very tired during the day It is also important to know if there is something else that is causing your sleep problems. They may be a result of one of the following: - Another sleep disorder (for example, restless legs syndrome or sleep apnea) - A medical condition - Medication use (for example, anxiety and depression medications) - A mental health disorders - Substance abuse How to diagnose periodic limb movements? For most people, the movements do not disturb their sleep in a severe way. They do not need to seekmedical help. In other cases, severe movements can greatly disturb your sleep and life. In this case, you will want to see a sleep doctor. You should complete a sleep diary for two weeks. This will give the doctor clues as to what might be causing your problems. You can also rate your sleep with the [place] Sleepiness Scale. This will help show how your sleep is affecting your daily life. The doctor will need to know your complete medical history. Be sure to inform her of any past or present drug and medication use. Also, tell her if you or a relative have ever had a sleep disorder. Your doctor will likely have you do a sleep study. This is called a polysomnography. The test records your brain waves, heart rate, and breathing as you sleep. It also monitors how your arms and legsmove. Not only will it keep track of your movements, but it will also help detect any other sleep disorder that you may have. How to treat periodic limb movements? When it is necessary to treat periodic limb movement disorder, the same drugs that are used for restless legs syndrome also work. These include drugs that replace a chemical in the brain called dopamine. These drugs are also used to treat Parkinson s disease. However, if you have periodic limb movement disorder, you are not at an increased risk of getting Parkinson s disease. Other medications used include the following: Sleeping tablets & Some anti-seizure medications Low iron levels have been associated with periodic limb movements during sleep. Your doctor may recommend a blood test to check your iron levels and if low, an iron supplement may be recommended. Lifestyle changes: If your symptoms are mild (not painful and at most once a week), cutting back on caffeine, alcohol and tobacco products; exercising; massaging your legs and/or taking hot baths before bed may help reduce symptoms. Talk to your doctor about whether these options might help you. Massaging the legs and feet Taking a warm bath Taking a cool bath Relaxing in a whirlpool tub Resting the legs on a heating pad Putting a cold pack or ice pack on the legs Avoid Triggers It can also be helpful to avoid substances that trigger symptoms Caffeine: Caffeine can aggravate symptoms for some people who have RLS. In addition to coffee, caffeine is found in tea, cola soft drinks, energy drinks, chocolate, and some avgl-foi-vgicypw medications. Alcohol: Drinking alcoholic beverages increases symptoms in some people with RLS. Tobacco: Tobacco and nicotine may cause RLS symptoms to flare up. Besides cigarettes, tobacco-containing products include cigars, e-cigarettes, and smokeless tobacco. Certain medications: Antihistamines in nonprescription cold and allergy medications can cause RLS symptoms to get worse. Some antidepressants also have an effect on RLS symptoms, but no one should stop a medication without first consulting their doctor. [facility] History of Present illness Narrative* Olman Womack RD - 06/15/2023 8:00 AM EDT OUTPATIENT BARIATRIC INITIAL ASSESSMENT Referring Provider: Olman Womack RD Nutrition Assessment Anthropometrics: Ht Readings from Last 1 Encounters: 06/07/23 1.753 m (5' 9 ) Wt Readings from Last 5 Encounters: 06/15/23 130.2 kg (287 lb) 06/07/23 127 kg (280 lb) [place] body weight: 66.2 kg (145 lb 15.1 oz) Adjusted ideal body weight: 91.8 kg (202 lb 5.9 oz) % IBW: 197% Body mass index is 42.38 kg/m . Goals after surgery: Improve current health status. Surgery Option: VSG EER: Calories: 3359-2545 kcals/day (15-20 kcals/kg Adj. BW) Protein: 73-99 gm/day (1.1-1.5 gm/kg IBW) Fluid: 64 oz/day Nutrition-Related Hx: Allergies/Intolerances: NKFA Foods avoided for worship or other reasons: None Current Supplements: Yes milk thistle, potassium, magnesium, women's one a day mv, vitamin E Previous Nutrition Education? No Previous methods used for weight mgmt: Ketogenic diet Social Hx: Occupation: Unemployed Physical activity: Pt does engage in regularly scheduled physical activity 3-4 days/week for 60 minutes. (plays softball) /Significant other: No Children living in the house: Yes (4) Grocery shopping:pt Cooking: pt Meals out per week: rarely Diet Recall: Usual Intake Meal What Time Breakfast Always skips Snack Lunch Usually skips Snack Dinner Swedish food (bourbon chicken and rice and vegetables) 9 pm Snack Fluids Bottle of water, hydration drink (4 gram sugar only) NA Ms. Harvey Martinez is a 37 y.o. female here in preparation for weight loss surgery, VSG. This isvisit #1. Diet recall reveals an inonsistent meal pattern. Pt typically only eats 1-2 times per dayand skips the first two meals. Her diet recall is very low in servings of fruits and vegetables anddietary fiber. Pt reports she struggles a lot with dehydration because she does not like the taste of water. She reports having symptoms such as malaise and dry lips a few times a week. Pt was introduced to the dietary guidelines for the VSG and encouraged to begin working on these. Items to put emphasis on currently are smaller more frequent portions, not skipping meals, and increasing hydratingfluids. Pt verbalized her understanding. Reviewed basic nutrition: food groups and macronutrients. Emphasized intake of plant foods along with protein. Discussed and encouraged the following: Eat 5-6 meals per day, including breakfast, lunch, dinner, and 2-3 snacks Limit simple sugars to no more than 10 grams/meal or snack Drink at least 64 ounces of hydrating fluids daily Begin regular physical activity: Aim for 150-300 minutes of exercise each week with at least 2 days, 30 minutes each of strength training Eliminate carbonated beverages Eliminate caffeine Eliminate alcohol Eliminate straws Eat off smaller plates and bowls Chew food 20-30x/bite Put your utensil down between bites Meals should last 20-30 minutes Stop eating when no longer hungry Separate eating and drinking by 30 minutes Eat protein first, vegetables and fruits second, and whole grains last Pt was provided: Nutrition Goals for Bariatric Surgery Nutrition Classes: What to Expect Initial Nutrition Packet Nutrition Appointment No Show Agreement - signed RD contact information Bariatric Nutrition [employer] contact information Pt is able to verbalize all nutrition goals for bariatric surgery. Pt seems motivated to make necessary changes in preparation for bariatric sx. Pt is able to verbalize that all nutrition goals must be met prior to receiving nutrition clearance for surgery. Pt is able to verbalize that there will be homework required to bring in to final nutrition appointment. Pt is able to verbalize that during final appointment pt will be required to receive an 80% or higher on a 30-question paper test prior to receiving nutrition clearance for surgery. Pt is able to verbalize nutrition's no show policy andthat they may be dismissed from the bariatric program entirely for having >3 no show appointments. Pt is a candidate for online classes and prefers for nutrition classes to be scheduled as: In-person 1:1 PMH: No past medical history on file. PSH: No past surgical history on file. Nutrition-Related Labs: No results found for: GLUCOSE , HGBA1C , SODIUM , POTASSIUM , MAGNESIUM , PHOSPHORUS , CALCIUM , ALBUMIN , PREALBUMIN , BUN , CREATSERUM , HGB , HCT , IRON , B12 , [id number] , FOLATE BP Readings from Last 3 Encounters: 06/07/23 134/86 Nutrition Diagnosis NC-3.3 Obesity related to excessive energy intake and physical inactivity as evidenced by diet hx and Body mass index is 42.38 kg/m . NB-1.1 Food and nutrition-related knowledge deficit related to eating a well balanced diet, knowledge of nutrient dense foods vs. empty calories and specific calorie needs as evidenced by diet recall, interview with pt. NB-2.1 Physical inactivity related to not exercising and sedentary lifestyle as evidenced by pt report. NI-1.5 Excessive energy intake related to food-and nutrition-related knowledge deficit concerning energy intake, lack of access to healthful food choices as evidenced by diet recall and pt interview. Nutrition Intervention Nutrition Goals: 1. Eat 5-6 small meals/snacks per day (breakfast, lunch, dinner, and 2-3 snacks) 2. Consume 73 - 99 grams of protein daily 3. Limit all sugar + sugar alcohols to no more than 10 grams per meal/snack 4. Drink 64+ oz of hydrating fluid/day 5. Eliminate carbonation, straws, caffeine, and alcohol 6. Eat off smaller plates and bowls 7. Take dime sized bites and chew food 20-30x per bite, or until it is a consistent texture 8. Meals need to last at least 20-30 minutes. Stop eating once you feel full 9. Separate food and fluids by 30 minutes. Do not drink with meals 10. Eat protein first, vegetables and fruits second, and whole grains last 11. Begin physical activity as tolerated. Goal of 150-300 minutes of moderate physical activity perweek with 2+ days of strength or resistance training included Monitoring & Evaluation 1. Pt will complete all nutrition classes prior to final nutrition appointment - prefers for them to be scheduled as: In-person 1:1 2. Progress towards nutrition goals and weight is tracked at each nutrition class or follow up appointment 3. All nutrition goals will be met prior to final nutrition appointment in order to receive dietitian clearance to have bariatric surgery Time spent with pt: 40 minutes JAYCEE Rice Registered Dietitian, Licensed Dietitian 06/15/23 documented in this [facility]08-29-2023 History of Present illness Narrative* Amrit Gotti, DO - 06/07/2023 1:30 PM EDT Bariatric History and Physical Patient:Harvey Martinez :1985 Date: 06/07/2023 PRIMARY/REFERRING PHYSICIAN INFORMATION Shaikh Zoey Nolasco HISTORY OF PRESENT ILLNESS CHIEF COMPLAINT: morbid obesity with significant comorbidities. Patient is being referred for pre operative consult for weight loss surgery HISTORY OF PRESENT ILLNESS: The patient is a very pleasant patient who has developed morbid obesitywith significant comorbidities who has failed multiple dietary attempts at weight loss. Harvey Martinez is a 37 y.o. female who presents with complaints of obesity which is severely limiting her life style. She is interested in learning about possible surgical options to help her fight her obesity. She has tried diet and exercise programs previously. She is limited in his physical activity due to obesity. she has been obese for more than 5 years and states that their highest recorded weight is 280 lbs. Previous attempts at weight loss have included exercise routines, exercise videos, low fat/low calorie diets, commercial weight loss programs such as weight watchers.she complains of occasinal reflux and denies dysphagia. No past medical history on file. COMORBIDITIES obstructive sleep apnea No past surgical history on file. Current Outpatient Medications Medication Sig carBAMazepine 200 MG tablet 1 tab qPM; may increase to BID as tolerated Galcanezumab-gnlm (Emgality, 300 MG Dose,) 100 MG/ML Solution Prefilled Syringe metFORMIN-XR 500 MG Tab SR 24 HR Take 1 tablet by mouth. rOPINIRole 0.5 MG tablet Every 8 hours. Allergies Allergen Reactions Ivp Dye, Iodine Containing Rash Social History Socioeconomic History Marital status: Single Spouse name: Not on file Number of children: Not on file Years of education: Not on file Highest education level: Not on file Occupational History Not on file Tobacco Use Smoking status: Never Smokeless tobacco: Never Substance and Sexual Activity Alcohol use: Not on file Drug use: Not on file Sexual activity: Not on file Other Topics Concern Not on file Social History Narrative Not on file Social Determinants of Health Financial Resource Strain: Not on file Food Insecurity: Not on file Transportation Needs: Not on file Physical Activity: Not on file Stress: Not on file Social Connections: Not on file Intimate Partner Violence: Not on file Housing Stability: Not on file No family history on file. No family status information on file. REVIEW OF SYSTEMS Review of Systems Constitutional: Negative for chills, diaphoresis and fatigue. HENT: Negative for congestion, facial swelling and hearing loss. Eyes: Negative for pain, redness and itching. Respiratory: Negative for apnea, cough, choking and chest tightness. Cardiovascular: Negative for chest pain, palpitations and leg swelling. Gastrointestinal: Negative for abdominal distention, abdominal pain, constipation, diarrhea, nauseaand vomiting. Endocrine: Negative for cold intolerance, heat intolerance and polyphagia. Genitourinary: Negative for difficulty urinating, dysuria, enuresis and flank pain. Musculoskeletal: Negative for arthralgias, back pain, gait problem and joint swelling. Skin: Negative for color change, pallor and rash. Allergic/Immunologic: Negative for environmental allergies, food allergies and immunocompromised state. Neurological: Negative for dizziness, light-headedness, numbness and headaches. Hematological: Negative for adenopathy. Does not bruise/bleed easily. Psychiatric/Behavioral: Negative for agitation, behavioral problems and confusion. Social History Tobacco Use Smoking Status Never Smokeless Tobacco Never PHYSICAL EXAM General Appearance: Well appearing, alert, in no acute distress, well-hydrated, well nourished., morbidly obese. Eyes: conjunctivae and sclerae normal, pupils equal, round, reactive to light and accommodation andno scleral icterus. Ears/Nose/Mouth/Throat: External ears normal, canals clear, TM's normal, Nares normal. Septum midline. Mucosa normal. No drainage or sinus tenderness., Lips, mucosa, and tongue normal, teeth and gumsnormal, oropharynx normal. Neck: Supple, no adenopathy; thyroid symmetric, normal size, no bruits. Respiratory: Clear to auscultation bilaterally Cardiovascular: Regular rate and rhythm, distal pulses intact bilaterally. Abdomen: soft, non-tender, non-distended, obese, no hernias palpated Lymph Nodes: No cervical lymphadenopathy. Musculoskeletal: Spine range of motion normal. Muscular strength intact, No joint swelling, deformity, or tenderness. Skin: No lesions noted. Neurologic: mental status intact, cranial nerves 2-12 intact, sensation to light touch and pinpricknormal. Psychiatric: A&O x 3; Judgement/lnsight appropriate Rectal: deferred exam. DIAGNOSIS/IMPRESSION Encounter Diagnoses Name Primary? Obesity, morbid, BMI 40.0-49.9 Yes Gastroesophageal reflux disease, unspecified whether esophagitis present SHILPA on CPAP with Body mass index is 41.35 kg/m2. Height: 5'9 Weight:280 lbs SURGICAL PLAN Consults: consult bariatric nutrition for 6 months of preoperative supervised diets, consult bariatric psychology, consult primary care physician for medical clearance, cpap compliance report Diagnostic Tests: CBC, CMP, Lipid Panel, Liver Function Panel, Thyroid Function, B-12, Iron Levels,H Pylori, CXR, EGD, EKG Surgical Procedure: 2. Laparoscopic Sleeve gastrectomy. I have use an anatomical chart to show the postsurgical changesthat occur. I discussed expected weight loss with this procedure and I talked about common early and late complications associated with his procedure. This list included but was not limited to leaks,strictures, bleeding, postoperative infection, hernias and small bowel obstructions. I discussed dumping syndrome in detail how dietary choices can worsen this problem. I discussed the need for vitamins and postoperative.. I have discussed postsurgical follow-up. I discussed the need for supervisedmedical weight loss prior to surgery as well as mental health examination evaluation. 3. Preoperative work-up as detailed above All risks and benefits were discussed with the patient including: Intra- operative and/or Immediate Post-operative Risks: : The mortality rate of the sleeve gastrectomy nationwide is 0.3% to 2%. Modality rate associated with the gastric bypass is slightly higher-0.5 to 3%. Significant Bleeding: Bleeding may occur unexpectedly in the operating room. Bleeding may also occur post-operatively in the days after the operation. This bleeding may be through the intestinal tract at the staple line and result in the passage of blood in the stool. Bleeding may also be unseen inside the abdomen and be diagnosed through other means. A transfusion may be necessary in some circumstances. Re-operation to stop bleeding may be necessary. If the spleen is injured during the surgery, it may need to be removed. Anastomotic Leak: A leak is when the stapled part of the stomach does not heal. Serious complications can result from a leak, including, but not limited to a prolonged hospital stay, more operations,a long period of nothing to eat, prolonged antibiotic requirements, organ failure and . The reported incidence of anastomotic leak nationwide ranges from 0.5% to 3%. Renal Failure: Transient kidney (renal) failure occurs rarely. Irreversible kidney failure has beenreported in rare cases. Prolonged Ventilation: A prolonged stay on a ventilator (breathing machine) in the intensive care unit may occur if a patient has severe sleep apnea or after certain significant complications. A temporary tracheostomy may be necessary. Heart Attack: Although a heart attack is possible after a laparoscopic possible open sleeve gastrectomy, it is very rare. Risk factors for heart disease include increased age, diabetes, hypertension,hypercholesterolemia and a family history of heart disease. Prolonged Hospital Stay: Unforeseen complications may result in a prolonged hospital stay. Intensive care admission may be required. Bowel Obstruction (in undergoing the gastric bypass): An obstruction can occur that would require re-operation. An obstruction can occur from a number of causes, such as bleeding, scarring, technicalproblems or hernia. Deep Vein Thrombosis (DVT)/Pulmonary Embolism: Blood clots that form in the legs, and elsewhere, and break off into the lungs may cause . Given this risk, treatments may be initiated to decreasethe risk for the formation of blood clots, including the use of heparin (a medication that thins the blood), special foot and leg stockings, walking soon after surgery and medication at home after discharge from the hospital. Completely eliminating the risks of DVT (clots) altogether is not possible. The risks associated with the medications used to prevent blood clots can include excessive bleeding. Any symptoms of leg swelling, chest pain or sudden shortness of breath should be immediately rep orted to the surgeon. Rarely, patients develop allergies to heparin, sometimes causing very severe reactions. Other Complications that may be common: Allergic reactions, headaches, itching, medication side-effects, heartburn/reflux, bruising, gout, anesthetic complications, injury to the bowel or vessels, gas bloating, minor wound drainage, wound opening, scar formation, stroke, urinary tract infection, uri nary retention, pressure sores, injury to spleen or surrounding structures, and pneumonia. The patient was advised not to become within 12-18 months following bariatric surgery. Shewas educated on the increased risks to mother and fetus associated with within 2 years ofbariatric surgery. The patient has also been instructed to refrain from smoking and using illicit drugs both before and after their surgery. I have discussed at length the risks of office visits and surgical procedures at the hospital during the COVID-19 pandemic. The risk of alma COVID-19 during the perioperative and postoperativecare period was also explained to the patient. The patient verbalized full understanding and acceptance of these risks, as well as the quarantine time between testing and surgery. The patient fully understands that if their COVID-19 test is positive or symptoms develop prior to surgery, their surgery will be cancelled. The patient has expressed the desire to proceed with the proposed surgery and any hospital stay required. The patient also agrees to keep their post-operative appointment with myself and dietary to ensure success. I spent greater than 60 minutes in total reviewing the patient's chart, interviewing the patient, and documenting today's visit. Amrit Gotti DO 06/07/2023 1:49 PM Bariatric Surgery documented in this [facility]08-29-2023 Miscellaneous Notes* Addendum Note - Carlos Manuel Bridges LPN - 06/07/2023 1:30 PM EDTAddended by: CARLOS MANUEL BRIDGES on: 06/07/2023 02:49 PM Modules accepted: Orders * Addendum Note - Carlos Manuel Bridges LPN - 06/07/2023 1:30 PM EDTAddended by: CARLOS MANUEL BRIDGES on: 06/07/2023 02:54 PM Modules accepted: Orders, SmartSet documented in this [facility]08-29-2023 Note* Addendum Note - Carlos Manuel Bridges LPN - 06/07/2023 1:30 PM EDTAddended by: CARLOS MANUEL BRIDGES on: 06/07/2023 02:49 PM Modules accepted: Orders [facility]08-29-2023 Note* Addendum Note - Carlos Manuel Bridges LPN - 06/07/2023 1:30 PM EDTAddended by: CARLOS MANUEL BRIDGES on: 06/07/2023 02:54 PM Modules accepted: Orders, SmartSet [facility]08-29-2023 Note* Addendum Note - Calros Manuel Bridges LPN - 06/07/2023 1:30 PM EDTAddended by: CARLOS MANUEL BRIDGES on: 06/07/2023 02:49 PM Modules accepted: Orders [facility]08-29-2023 Note* Addendum Note - Carlos Manuel Bridges LPN - 06/07/2023 1:30 PM EDTAddended by: CARLOS MANUEL BRIDGES on: 06/07/2023 02:54 PM Modules accepted: Orders, SmartSet [facility]08-29-2023 Note* Addendum Note - Carlos Manuel Bridges LPN - 06/07/2023 1:30 PM EDTAddended by: CARLOS MANUEL BRIDGES on: 06/07/2023 02:49 PM Modules accepted: Orders [facility]08-29-2023 Note* Addendum Note - Carlos Manuel Bridges LPN - 06/07/2023 1:30 PM EDTAddended by: CARLOS MANUEL BRIDGES on: 06/07/2023 02:54 PM Modules accepted: Orders, SmartSet [facility]08-29-2023 Note* Addendum Note - Carlos Manuel Bridges LPN - 06/07/2023 1:30 PM EDTAddended by: CARLOS MANUEL BRIDGES on: 06/07/2023 02:49 PM Modules accepted: Orders [facility]08-29-2023 Note* Addendum Note - Carlos Manuel Bridges LPN - 06/07/2023 1:30 PM EDTAddended by: CARLOS MANUEL BRIDGES on: 06/07/2023 02:54 PM Modules accepted: Orders, SmartSet [facility]08-26-2023 Hospital Discharge instructions Patient Education 06/03/2023 23:59:04 How to Use a Metered Dose Inhaler How to Use a Metered Dose Inhaler A metered dose inhaler (MDI) is a handheld device filled with medicine that must be breathed into the lungs (inhaled). The medicine is delivered by pushing down on a metal canister. This releases a preset amount of spray and mist through the mouth and into the lungs. Each MDI canister holds a certain number of doses (puffs). Using a spacer with a metered dose inhaler may be recommended to help get more medicine into the lungs. A spacer is a plastic tube that connects to the MDI on one end and has a mouthpiece on the other end. A spacer holds the medicine in the tube for a short time. This allows more medicine to be inhaled. The MDI can be used to deliver many kinds of inhaled medicines, including: Quick relief or rescue medicines, such as bronchodilators. Controller medicines, such as corticosteroids. What are the risks? If you do not use your inhaler correctly, medicine might not reach your lungs to help you breathe. If you do not have enough strength to push down the canister to make it spray, ask your health careprovider for ways to help. The medicine in the MDI may cause side effects, such as: ?Mouth sores (thrush). ?Cough. ?Hoarseness. ?Shakiness. ?Headache. Supplies needed: A metered dose inhaler. A spacer, if recommended. How to use a metered dose inhaler without a spacer 1.Remove the cap from the inhaler. 2.If you are using the inhaler for the first time, shake it for 5 seconds, turn it away from your face, then release 4 puffs into the air. This is called priming. 3.Shake the inhaler for 5 seconds. 4.Position the inhaler so the top of the canister faces up. 5.Put your index finger on the top of the medicine canister. Support the bottom of the inhaler withyour thumb. 6.Breathe out normally and as completely as possible, away from the inhaler. 7.Either place the inhaler between your teeth and close your lips tightly around the mouthpiece, orhold the inhaler 1 2 inches (2.5 5 cm) away from your open mouth. Keep your tongue down out of the way. If you are unsure which technique to use, ask your health care provider. 8.Press the canister down with your index finger to release the medicine. Inhale deeply and slowly through your mouth until your lungs are completely filled. Do not breathe in through your nose. Inhaling should take 4 6 seconds. 9.Hold the medicine in your lungs for 5 10 seconds (10 seconds is best). This helps the medicine get into the small airways of your lungs. 10.Remove the inhaler from your mouth, turn your head, and breathe out normally. 11.Wait about 1 minute between puffs or as directed. Then repeat steps 3 10 until you have taken the number of puffs that your health care provider directed. 12.Put the cap on the inhaler. 13.If you are using a steroid inhaler, rinse your mouth with water, gargle, and spit out the water.Do not swallow the water. How to use a metered dose inhaler with a spacer 1.Remove the cap from the inhaler. 2.If you are using the inhaler for the first time, shake it for 5 seconds, turn it away from your face, then release 4 puffs into the air. This is called priming. 3.Shake the inhaler for [address] the open end of the spacer onto the inhaler mouthpiece. 5.Position the inhaler so the top of the canister faces up and the spacer mouthpiece faces you. 6.Put your index finger on the top of the medicine canister. Support the bottom of the inhaler and the spacer with your thumb. 7.Breathe out normally and as completely as possible, away from the spacer. 8.Place the spacer between your teeth and close your lips tightly around it. Keep your tongue down out of the way. 9.Press the canister down with your index finger to release the medicine, then inhale deeply and slowly through your mouth until your lungs are completely filled. Do not breathe in through your nose.Inhaling should take 4 6 seconds. 10.Hold the medicine in your lungs for 5 10 seconds (10 seconds is best). This helps the medicine get into the small airways of your lungs. 11.Remove the spacer from your mouth, turn your head, and breathe out normally. 12.Wait about 1 minute between puffs or as directed. Then repeat steps 3 11 until you have taken the number of puffs that your health care provider directed. 13.Remove the spacer from the inhaler and put the cap on the inhaler. 14.If you are using a steroid inhaler, rinse your mouth with water, gargle, and spit out the water.Do not swallow the water. Follow these instructions at home: Caring for your MDI Store your inhaler at or near room temperature. A cold MDI will not work properly. Follow directions on the package insert for care and cleaning of your MDI and spacer. General instructions Take your inhaled medicine only as told by your health care provider. Do not use the inhaler more than directed by your health care provider. Refill your MDI with medicine before all the preset doses have been used. ?If your inhaler has a counter, check it to determine how full your MDI is. The number you see tells you how many doses are left. ?If your inhaler does not have a counter, ask your health care provider when you will need to refill it. Then write the refill date on a calendar or on your MDI canister. ?Keep in mind that you cannot tell when the medicine in an inhaler is empty by shaking it. You may feel or hear something in the canister even when the preset medicine doses have been used up. Keeping track of your dosages is important. Do not use any products that contain nicotine or tobacco, such as cigarettes, e- cigarettes, and chewing tobacco. If you need help quitting, ask your health care provider. Keep all follow-up visits as told by your health care provider. This is important. Where to find more information Centers for Disease Control and Prevention: www.cdc.gov [place] [employer]: www.lung.org Contact a health care provider if: Symptoms are only partially relieved with your inhaler. You are having trouble using your inhaler. You have side effects from the medicine. You have chills or a fever. You have night sweats. There is blood in your thick saliva (phlegm). Get help right away if: You have dizziness. You have a fast heart rate. You have severe shortness of breath. You have difficulty breathing. These symptoms may represent a serious problem that is an emergency. Do not wait to see if the symptoms will go away. Get medical help right away. Call your local emergency services (911 in the [place] Do not drive yourself to the hospital. Summary A metered dose inhaler is a handheld device for taking medicine that must be breathed into the lungs (inhaled). Take your inhaled medicine only as told by your health care provider. Do not use the inhaler more than directed by your health care provider. You cannot tell when the medicine is gone in an inhaler by shaking it. Refill it with medicine before all the preset doses have been used. Follow directions on the package insert for care and cleaning of your MDI and spacer. This information is not intended to replace advice given to you by your health care provider. Make sure you discuss any questions you have with your health care provider. Document Revised: 11/11/2020 Document Reviewed: 11/11/2020 [employer] Patient Education 2022 [employer]. 06/03/2023 23:59:04 Urinary Tract Infection, Adult, [id number] Urinary Tract Infection, Adult A urinary tract infection (UTI) is an infection of any part of the urinary tract. The urinary tractincludes: The kidneys. The ureters. The bladder. The urethra. These organs make, store, and get rid of pee (urine) in the body. What are the causes? This infection is caused by germs (bacteria) in your genital area. These germs grow and cause swelling (inflammation) of your urinary tract. What increases the risk? The following factors may make you more likely to develop this condition: Using a small, thin tube (catheter) to drain pee. Not being able to control when you pee or poop (incontinence). Being female. If you are female, these things can increase the risk: ?Using these methods to prevent : ?A medicine that kills sperm (spermicide). ?A device that blocks sperm (diaphragm). ?Having low levels of a female hormone (estrogen). ?Being . You are more likely to develop this condition if: You have genes that add to your risk. You are sexually active. You take antibiotic medicines. You have trouble peeing because of: ?A prostate that is bigger than normal, if you are male. ?A blockage in the part of your body that drains pee from the bladder. ?A kidney stone. ?A nerve condition that affects your bladder. ?Not getting enough to drink. ?Not peeing often enough. You have other conditions, such as: ?Diabetes. ?A weak disease-fighting system (immune system). ?Sickle cell disease. ?Gout. ?Injury of the spine. What are the signs or symptoms? Symptoms of this condition include: Needing to pee right away. Peeing small amounts often. Pain or burning when peeing. Blood in the pee. Pee that smells bad or not like normal. Trouble peeing. Pee that is cloudy. Fluid coming from the vagina, if you are female. Pain in the belly or lower back. Other symptoms include: Vomiting. Not feeling hungry. Feeling mixed up (confused). This may be the first symptom in older adults. Being tired and grouchy (irritable). A fever. Watery poop (diarrhea). How is this treated? Taking antibiotic medicine. Taking other medicines. Drinking enough water. In some cases, you may need to see a specialist. Follow these instructions at home: Medicines Take [id number] and prescription medicines only as told by your doctor. If you were prescribed an antibiotic medicine, take it as told by your doctor. Do not stop taking it even if you start to feel better. General instructions Make sure you: ?Pee until your bladder is empty. ?Do not hold pee for a long time. ?Empty your bladder after sex. ?Wipe from front to back after peeing or pooping if you are a female. Use each tissue one time whenyou wipe. Drink enough fluid to keep your pee pale yellow. Keep all follow-up visits. Contact a doctor if: You do not get better after 1 2 days. Your symptoms go away and then come back. Get help right away if: You have very bad back pain. You have very bad pain in your lower belly. You have a fever. You have chills. You feeling like you will vomit or you vomit. Summary A urinary tract infection (UTI) is an infection of any part of the urinary tract. This condition is caused by germs in your genital area. There are many risk factors for a UTI. Treatment includes antibiotic medicines. Drink enough fluid to keep your pee pale yellow. This information is not intended to replace advice given to you by your health care provider. Make sure you discuss any questions you have with your health care provider. Document Revised: 05/08/2021 Document Reviewed: 05/08/2021 [employer] Patient Education 2022 [employer]. Follow Up Care 06/03/2023 22:09:41 With:Reginald ASHER Address: [address] [place] [address], [facility] [place] [address]- Business (1) When:06/06/2023 [facility]07-27-2023 Hospital Discharge instructions Patient Education 05/04/2023 22:36:35 Muscle Strain Muscle Strain A muscle strain is an injury that occurs when a muscle is stretched beyond its normal length. Usually, a small number of muscle fibers are torn when this happens. There are three types of muscle strains. First-degree strains have the least amount of muscle fiber tearing and the least amount of pain. Second-degree and third-degree strains have more tearing and pain. Usually, recovery from muscle strain takes 1 2 weeks. Complete healing normally takes 5 6 weeks. What are the causes? This condition is caused when a sudden, violent force is placed on a muscle and stretches it too far. This may occur with a fall, while lifting, or during sports. What increases the risk? This condition is more likely to develop in athletes and people who are physically active. What are the signs or symptoms? Symptoms of this condition include: Pain. Tenderness. Bruising. Swelling. Trouble using the muscle. How is this diagnosed? This condition is diagnosed based on a physical exam and your medical history. Tests may also be done, including an X-ray, ultrasound, or MRI. How is this treated? This condition is initially treated with SWEENEY therapy. This therapy involves: Protecting the muscle from being injured again. Resting the injured muscle. Icing the injured muscle. Applying pressure (compression) to the injured muscle. This may be done with a splint or elastic bandage. Raising (elevating) the injured muscle. Your health care provider may also recommend medicine for pain. Follow these instructions at home: If you have a removable splint: Wear the splint as told by your health care provider. Remove it only as told by your health care provider. Check the skin around the splint every day. Tell your health care provider about any concerns. Loosen the splint if your fingers or toes tingle, become numb, or turn cold and blue. Keep the splint clean. If the splint is not waterproof: ?Do not let it get wet. ?Cover it with a watertight covering when you take a bath or a shower. Managing pain, stiffness, and swelling If directed, put ice on the injured area. To do this: ?If you have a removable splint, remove it as told by your health care provider. ?Put ice in a plastic bag. ?Place a towel between your skin and the bag. ?Leave the ice on for 20 minutes, 2 3 times a day. ?Remove the ice if your skin turns bright red. This is very important. If you cannot feel pain, heat, or cold, you have a greater risk of damage to the area. Move your fingers or toes often to reduce stiffness and swelling. Raise (elevate) the injured area above the level of your heart while you are sitting or lying down. Wear an elastic bandage as told by your health care provider. Make sure that it is not too tight. General instructions Take qdxy-cup-brmxwsa and prescription medicines only as told by your health care provider. Treatment may include muscle relaxants or medicines for pain and inflammation that are taken by mouth or applied to the skin. Restrict your activity and rest the injured muscle as told by your health care provider. Gentle movements may be allowed. If physical therapy was prescribed, do exercises as told by your health care provider. Do not put pressure on any part of the splint until it is fully hardened. This may take several hours. Do not use any products that contain nicotine or tobacco. These products include cigarettes, chewing tobacco, and vaping devices, such as e-cigarettes. If you need help quitting, ask your health careprovider. Ask your health care provider when it is safe to drive if you have a splint. Keep all follow-up visits. This is important. How is this prevented? Warm up before exercising. This helps to prevent future muscle strains. Contact a health care provider if: You have more pain or swelling in the injured area. Get help right away if: You have numbness or tingling in the injured area. You lose a lot of strength in the injured area. Summary A muscle strain is an injury that occurs when a muscle is stretched beyond its normal length. This condition is caused when a sudden, violent force is placed on a muscle and stretches it too far. This condition is initially treated with SWEENEY therapy, which involves protecting, resting, icing, compressing, and elevating. Gentle movements may be allowed. If physical therapy was prescribed, do exercises as told by your health care provider. This information is not intended to replace advice given to you by your health care provider. Make sure you discuss any questions you have with your health care provider. Document Revised: 12/14/2021 Document Reviewed: 12/14/2021 [employer] Patient Education 2022 [employer]. 05/04/2023 22:36:35 Acute Knee Pain, Adult Acute Knee Pain, Adult Acute knee pain is sudden and may be caused by damage, swelling, or irritation of the muscles and tissues that support the knee. Pain may result from: A fall. An injury to the knee from twisting motions. A hit to the knee. Infection. Acute knee pain may go away on its own with time and rest. If it does not, your health care provider may order tests to find the cause of the pain. These may include: Imaging tests, such as an X-ray, MRI, CT scan, or ultrasound. Joint aspiration. In this test, fluid is removed from the knee and evaluated. Arthroscopy. In this test, a lighted tube is inserted into the knee and an image is projected onto a TV screen. Biopsy. In this test, a sample of tissue is removed from the body and studied under a microscope. Follow these instructions at home: If you have a knee sleeve or brace: Wear the knee sleeve or brace as told by your health care provider. Remove it only as told by your health care provider. Loosen it if your toes tingle, become numb, or turn cold and blue. Keep it clean. If the knee sleeve or brace is not waterproof: ?Do not let it get wet. ?Cover it with a watertight covering when you take a bath or shower. Activity Rest your knee. Do not do things that cause pain or make pain worse. Avoid high-impact activities or exercises, such as running, jumping rope, or doing jumping jacks. Work with a physical therapist to make a safe exercise program, as recommended by your health care provider. Do exercises as told by your physical therapist. Managing pain, stiffness, and swelling If directed, put ice on the affected knee. To do this: ?If you have a removable knee sleeve or brace, remove it as told by your health care provider. ?Put ice in a plastic bag. ?Place a towel between your skin and the bag. ?Leave the ice on for 20 minutes, 2 3 times a day. ?Remove the ice if your skin turns bright red. This is very important. If you cannot feel pain, heat, or cold, you have a greater risk of damage to the area. If directed, use an elastic bandage to put pressure (compression) on your injured knee. This may control swelling, give support, and help with discomfort. Raise (elevate) your knee above the level of your heart while you are sitting or lying down. Sleep with a pillow under your knee. General instructions Take ntep-ltb-owunxay and prescription medicines only as told by your health care provider. Do not use any products that contain nicotine or tobacco, such as cigarettes, e- cigarettes, and chewing tobacco. If you need help quitting, ask your health care provider. If you are overweight, work with your health care provider and a dietitian to set a weight-loss goal that is healthy and reasonable for you. Extra weight can put pressure on your knee. Pay attention to any changes in your symptoms. Keep all follow-up visits. This is important. Contact a health care provider if: Your knee pain continues, changes, or gets worse. You have a fever along with knee pain. Your knee feels warm to the touch or is red. Your knee nelson or locks up. Get help right away if: Your knee swells, and the swelling becomes worse. You cannot move your knee. You have severe pain in your knee that cannot be managed with pain medicine. Summary Acute knee pain can be caused by a fall, an injury, an infection, or damage, swelling, or irritation of the tissues that support your knee. Your health care provider may perform tests to find out the cause of the pain. Pay attention to any changes in your symptoms. Relieve your pain with rest, medicines, light activity, and the use of ice. Get help right away if your knee swells, you cannot move your knee, or you have severe pain that cannot be managed with medicine. This information is not intended to replace advice given to you by your health care provider. Make sure you discuss any questions you have with your health care provider. Document Revised: 03/11/2021 Document Reviewed: 03/11/2021 [employer] Patient Education 2022 [employer]. Follow Up Care 05/04/2023 21:05:00 With:Reginald ASHER Address: [address], [place] [address] Business (1) When:05/07/2023 Comments:Follow-up with your primary care provider in 3 to 5 days. If symptoms worsen, do not improve, or new symptoms arise please report back to emergency department for further evaluation. Continue to rest, ice, compress, and elevate your affected joint to relieve inflammation and swelling. You may also take ibuprofen and Tylenol to help with pain. [facility]07-11-2023 Evaluation note* Encounter Date Diagnosis Assessment Notes Treatment Notes Treatment Clinical Notes Apr, IBS (irritable bowel syndrome) (ICD-10 - K58.9) Pt states she has diarrhea all of the time Pt advised to repeat labs Pt advised colonoscopy not necessary at this time Pt states she has lost some weight Apr, Acid reflux (ICD-10 - K21.9) Pt still has issues with reflux Pt states when she eats she is in a lot of pain in he chest Pt advised to proceed with EGD Pt advised to take a metamucil gummy three times a day Pt advised to start a probiotic once daily, [facility] Other 07-07-2023 Hospital Discharge instructions Patient Education 04/15/2023 11:49:51 Lumbar Strain Lumbar Strain A lumbar strain, which is sometimes called a low-back strain, is a stretch or tear in a muscle or the strong cords of tissue that attach muscle to bone (tendons) in the lower back (lumbar spine). This type of injury occurs when muscles or tendons are torn or are stretched beyond their limits. Lumbar strains can range from mild to severe. Mild strains may involve stretching a muscle or tendon without tearing it. These may heal in 1 2 weeks. More severe strains involve tearing of muscle fibers or tendons. These will cause more pain and may take 6 8 weeks to heal. What are the causes? This condition may be caused by: Trauma, such as a fall or a hit to the body. Twisting or overstretching the back. This may result from doing activities that need a lot of energy, such as lifting heavy objects. What increases the risk? This injury is more common in: Athletes. People with obesity. People who do repeated lifting, bending, or other movements that involve their back. What are the signs or symptoms? Symptoms of this condition may include: Sharp or dull pain in the lower back that does not go away. The pain may extend to the buttocks. Stiffness or limited range of motion. Sudden muscle tightening (spasms). How is this diagnosed? This condition may be diagnosed based on: Your symptoms. Your medical history. A physical exam. Imaging tests, such as: ?X-rays. ?MRI. How is this treated? Treatment for this condition may include: Rest. Applying heat and cold to the affected area. Nguv-rdc-yemxhbj medicines to help relieve pain and inflammation, such as NSAIDs. Prescription pain medicine and muscle relaxants may be needed for a short time. Physical therapy. Follow these instructions at home: Managing pain, stiffness, and swelling If directed, put ice on the injured area during the first 24 hours after your injury. ?Put ice in a plastic bag. ?Place a towel between your skin and the bag. ?Leave the ice on for 20 minutes, 2 3 times a day. If directed, apply heat to the affected area as often as told by your health care provider. Use theheat source that your health care provider recommends, such as a moist heat pack or a heating pad. ?Place a towel between your skin and the heat source. ?Leave the heat on for 20 30 minutes. ?Remove the heat if your skin turns bright red. This is especially important if you are unable to feel pain, heat, or cold. You may have a greater risk of getting burned. Activity Rest and return to your normal activities as told by your health care provider. Ask your health care provider what activities are safe for you. Do exercises as told by your health care provider. Medicines Take nfms-dex-vztyduq and prescription medicines only as told by your health care provider. Ask your health care provider if the medicine prescribed to you: ?Requires you to avoid driving or using heavy machinery. ?Can cause constipation. You may need to take these actions to prevent or treat constipation: ?Drink enough fluid to keep your urine pale yellow. ?Take kedb-hou-rokblcu or prescription medicines. ?Eat foods that are high in fiber, such as beans, whole grains, and fresh fruits and vegetables. ?Limit foods that are high in fat and processed sugars, such as fried or sweet foods. Injury prevention To prevent a future low-back injury: Always warm up properly before physical activity or sports. Cool down and stretch after being active. Use correct form when playing sports and lifting heavy objects. Bend your knees before you lift heavy objects. Use good posture when sitting and standing. Stay physically fit and keep a healthy weight. ?Do at least 150 minutes of moderate-intensity exercise each week, such as brisk walking or water aerobics. ?Do strength exercises at least 2 times each week. General instructions Do not use any products that contain nicotine or tobacco, such as cigarettes, e- cigarettes, and chewing tobacco. If you need help quitting, ask your health care provider. Keep all follow-up visits as told by your health care provider. This is important. Contact a health care provider if: Your back pain does not improve after 6 weeks of treatment. Your symptoms get worse. Get help right away if: Your back pain is severe. You are unable to stand or walk. You develop pain in your legs. You develop weakness in your buttocks or legs. You have difficulty controlling when you urinate or when you have a bowel movement. ?You have frequent, painful, or bloody urination. ?You have a temperature over 101.0 F (38.3 C) Summary A lumbar strain, which is sometimes called a low-back strain, is a stretch or tear in a muscle or the strong cords of tissue that attach muscle to bone (tendons) in the lower back (lumbar spine). This type of injury occurs when muscles or tendons are torn or are stretched beyond their limits. Rest and return to your normal activities as told by your health care provider. If directed, apply heat and ice to the affected area as often as told by your health care provider. Take afng-byu-bommsfn and prescription medicines only as told by your health care provider. Contact a health care provider if you have new or worsening symptoms. This information is not intended to replace advice given to you by your health care provider. Make sure you discuss any questions you have with your health care provider. Document Revised: 07/29/2022 Document Reviewed: 07/29/2022 [employer] Patient Education 2022 [employer]. Follow Up Care 04/15/2023 09:55:47 With:Reginald ASHER Address: [address], [facility] [place] [address] Business (1) When:04/18/2023 11:31:54 [facility]06-05-2023 Hospital Discharge instructions Patient Education 03/14/2023 14:00:18 Overactive Bladder, Adult Overactive Bladder, Adult Overactive bladder is a condition in which a person has a sudden and frequent need to urinate. A person might also leak urine if he or she cannot get to the bathroom fast enough (urinary incontinence). Sometimes, symptoms can interfere with work or social activities. What are the causes? Overactive bladder is associated with poor nerve signals between your bladder and your brain. Your bladder may get the signal to empty before it is full. You may also have very sensitive muscles thatmake your bladder squeeze too soon. This condition may also be caused by other factors, such as: Medical conditions: ?Urinary tract infection. ?Infection of nearby tissues. ?Prostate enlargement. ?Bladder stones, inflammation, or tumors. ?Diabetes. ?Muscle or nerve weakness, especially from these conditions: ?A spinal cord injury. ?Stroke. ?Multiple sclerosis. ?Parkinson's disease. Other causes: ?Surgery on the uterus or urethra. ?Drinking too much caffeine or alcohol. ?Certain medicines, especially those that eliminate extra fluid in the body (diuretics). ?Constipation. What increases the risk? You may be at greater risk for overactive bladder if you: Are an older adult. Smoke. Are going through menopause. Have prostate problems. Have a neurological disease, such as stroke, dementia, Parkinson's disease, or multiple sclerosis (MS). Eat or drink alcohol, spicy food, caffeine, and other things that irritate the bladder. Are overweight or obese. What are the signs or symptoms? Symptoms of this condition include a sudden, strong urge to urinate. Other symptoms include: Leaking urine. Urinating 8 or more times a day. Waking up to urinate 2 or more times overnight. How is this diagnosed? This condition may be diagnosed based on: Your symptoms and medical history. A physical exam. Blood or urine tests to check for possible causes, such as infection. You may also need to see a health care provider who specializes in urinary tract problems. This is called a urologist. How is this treated? Treatment for overactive bladder depends on the cause of your condition and whether it is mild or severe. Treatment may include: Bladder training, such as: ?Learning to control the urge to urinate by following a schedule to urinate at regular intervals. ?Doing Kegel exercises to strengthen the pelvic floor muscles that support your bladder. Special devices, such as: ?Biofeedback. This uses sensors to help you become aware of your body's signals. ?Electrical stimulation. This uses electrodes placed inside the body (implanted) or outside the body. These electrodes send gentle pulses of electricity to strengthen the nerves or muscles that control the bladder. ?Women may use a plastic device, called a pessary, that fits into the vagina and supports the bladder. Medicines, such as: ?Antibiotics to treat bladder infection. ?Antispasmodics to stop the bladder from releasing urine at the wrong time. ?Tricyclic antidepressants to relax bladder muscles. ?Injections of botulinum toxin type A directly into the bladder tissue to relax bladder muscles. Surgery, such as: ?A device may be implanted to help manage the nerve signals that control urination. ?An electrode may be implanted to stimulate electrical signals in the bladder. ?A procedure may be done to change the shape of the bladder. This is done only in very severe cases. Follow these instructions at home: Eating and drinking Make diet or lifestyle changes recommended by your health care provider. These may include: ?Drinking fluids throughout the day and not only with meals. ?Cutting down on caffeine or alcohol. ?Eating a healthy and balanced diet to prevent constipation. This may include: ?Choosing foods that are high in fiber, such as beans, whole grains, and fresh fruits and vegetables. ?Limiting foods that are high in fat and processed sugars, such as fried and sweet foods. Lifestyle Lose weight if needed. Do not use any products that contain nicotine or tobacco. These include cigarettes, chewing tobacco, and vaping devices, such as e-cigarettes. If you need help quitting, ask your health care provider. General instructions Take rwtj-dwv-uivpxyd and prescription medicines only as told by your health care provider. If you were prescribed an antibiotic medicine, take it as told by your health care provider. Do notstop taking the antibiotic even if you start to feel better. Use any implants or pessary as told by your health care provider. If needed, wear pads to absorb urine leakage. Keep a log to track how much and when you drink, and when you need to urinate. This will help your health care provider monitor your condition. Keep all follow-up visits. This is important. Contact a health care provider if: You have a fever or chills. Your symptoms do not get better with treatment. Your pain and discomfort get worse. You have more frequent urges to urinate. Get help right away if: You are not able to control your bladder. Summary Overactive bladder refers to a condition in which a person has a sudden and frequent need to urinate. Several conditions may lead to an overactive bladder. Treatment for overactive bladder depends on the cause and severity of your condition. Making lifestyle changes, doing Kegel exercises, keeping a log, and taking medicines can help with this condition. This information is not intended to replace advice given to you by your health care provider. Make sure you discuss any questions you have with your health care provider. Document Revised: 06/15/2021 Document Reviewed: 06/15/2021 [employer] Patient Education 2022 [employer]. Follow Up Care 02/11/2022 11:03:17 With:Anic[employer] LAL, Clau Kuo URL, [facility] Address: [address], [place] [phone] When:Within 3 Month(s) Comments:CT scan [facility] 03-22-2023 Evaluation + Plan noteExtracted from: Title:ED Note Author:Mark Ennis DO Date :12/29/22 Cough (R05.9: Cough, unspeci fied) Diarrhea (R19.7: Diarrhea, unspecified) Orders: brompheniramine/dextromethorphan/PSE, 5 mL, Syrup, Oral, Once, Stop date 12/29/22 0:03:00 EDT, STAT, Start date 12/29/22 0:03:00 EDT brompheniramine/dextromethorphan/PSE, 5 mL, Oral, QID for cough and congestion, 200 mL, Refill(s) 0, [id number], 175, cm, 12/28/22 23:23:00 EDT, Height/Length Dosing, 132.9, kg, 12/28/22 23:23:00 EDT, Weight Dosing ondansetron, 4 mg = 1 tab(s), Tab-Dis, Oral, Once, Stop date 12/29/22 0:03:00 EDT, STAT, Start date 12/29/22 0:03:00 EDT, 12/29/22 0:03:00 EDT ondansetron, 4 mg = 1 tab(s), Oral, q8hr, PRN Nausea/Vomiting, # 12 tab(s), Refills(s) 0, Pharmacy: [id number], 175, cm, 12/28/22 23:23:00 EDT, Height/Length Dosing, 132.9, kg, 12/28/22 23:23:00 EDT, Weight Dosing Automated Diff Basic Metabolic Panel CBC w/ Auto Diff ECG 12 Lead Adult ED Cardiac Monitoring eGFR Hepatic Function Panel Influenza A&B Ag Lipase Level Rapid COVID Antigen ([facility]) XR Chest Single View Future Appointments Appointment Date:02/14/2023 12:30:00 PM Scheduled Provider:Clau Moreland MD Location:[facility] Appointment Type:URO Office Visit Future Scheduled Tests Radiology* XR Abdomen 1 View 02/11/22 [facility]03-22-2023 Hospital Discharge instructions Patient Education 12/29/2022 01:40:06 Diarrhea, Adult Diarrhea, Adult Diarrhea is frequent loose and watery bowel movements. Diarrhea can make you feel weak and cause you to become dehydrated. Dehydration can make you tired and thirsty, cause you to have a dry mouth, and decrease how often you urinate. Diarrhea typically lasts 2 3 days. However, it can last longer if it is a sign of something more serious. It is important to treat your diarrhea as told by your health care provider. Follow these instructions at home: Eating and drinking Follow these recommendations as told by your health care provider: Take an oral rehydration solution (ORS). This is an edmi-nhz-bcybrpt medicine that helps return your body to its normal balance of nutrients and water. It is found at pharmacies and retail stores. Drink plenty of fluids, such as water, ice chips, diluted fruit juice, and low- calorie sports drinks. You can drink milk also, if desired. Avoid drinking fluids that contain a lot of sugar or caffeine, such as energy drinks, sports drinks, and soda. Eat bland, qqsp-ya-bqewww foods in small amounts as you are able. These foods include bananas, applesauce, rice, lean meats, toast, and crackers. Avoid alcohol. Avoid spicy or fatty foods. Medicines Take cfpw-ngg-xbiadxp and prescription medicines only as told by your health care provider. If you were prescribed an antibiotic medicine, take it as told by your health care provider. Do notstop using the antibiotic even if you start to feel better. General instructions Wash your hands often using soap and water. If soap and water are not available, use a hand ginger farmer. Others in the household should wash their hands as well. Hands should be washed: ?After using the toilet or changing a diaper. ?Before preparing, cooking, or serving food. ?While caring for a sick person or while visiting someone in a hospital. Drink enough fluid to keep your urine pale yellow. Rest at home while you recover. Watch your condition for any changes. Take a warm bath to relieve any burning or pain from frequent diarrhea episodes. Keep all follow-up visits as told by your health care provider. This is important. Contact a health care provider if: You have a fever. Your diarrhea gets worse. You have new symptoms. You cannot keep fluids down. You feel light-headed or dizzy. You have a headache. You have muscle cramps. Get help right away if: You have chest pain. You feel extremely weak or you faint. You have bloody or black stools or stools that look like tar. You have severe pain, cramping, or bloating in your abdomen. You have trouble breathing or you are breathing very quickly. Your heart is beating very quickly. Your skin feels cold and clammy. You feel confused. You have signs of dehydration, such as: ?Dark urine, very little urine, or no urine. ?Cracked lips. ?Dry mouth. ?Sunken eyes. ?Sleepiness. ?Weakness. Summary Diarrhea is frequent loose and watery bowel movements. Diarrhea can make you feel weak and cause you to become dehydrated. Drink enough fluids to keep your urine pale yellow. Make sure that you wash your hands after using the toilet. If soap and water are not available, usehand ginger farmer. Contact a health care provider if your diarrhea gets worse or you have new symptoms. Get help right away if you have signs of dehydration. This information is not intended to replace advice given to you by your health care provider. Make sure you discuss any questions you have with your health care provider. Document Released: 09/16/2003 Document Revised: 02/12/2020 Document Reviewed: 03/02/2019 [employer] Patient Education 2020 [employer]. 12/29/2022 01:40:06 Cough, Adult Cough, Adult Coughing is a reflex that clears your throat and your airways (respiratory system). Coughing helps to heal and protect your lungs. It is normal to cough occasionally, but a cough that happens with other symptoms or lasts a long time may be a sign of a condition that needs treatment. An acute cough may only last 2 3 weeks, while a chronic cough may last 8 or more weeks. Coughing is commonly caused by: Infection of the respiratory systemby viruses or bacteria. Breathing in substances that irritate your lungs. Allergies. Asthma. Mucus that runs down the back of your throat (postnasal drip). Smoking. Acid backing up from the stomach into the esophagus (gastroesophageal reflux). Certain medicines. Chronic lung problems. Other medical conditions such as heart failure or a blood clot in the lung (pulmonary embolism). Follow these instructions at home: Medicines Take tujz-jiq-nnhnqoh and prescription medicines only as told by your health care provider. Talk with your health care provider before you take a cough suppressant medicine. Lifestyle Avoid cigarette smoke. Do not use any products that contain nicotine or tobacco, such as cigarettes, e-cigarettes, and chewing tobacco. If you need help quitting, ask your health care provider. Drink enough fluid to keep your urine pale yellow. Avoid caffeine. Do not drink alcohol if your health care provider tells you not to drink. General instructions Pay close attention to changes in your cough. Tell your health care provider about them. Always cover your mouth when you cough. Avoid things that make you cough, such as perfume, candles, cleaning products, or campfire or tobacco smoke. If the air is dry, use a cool mist vaporizer or humidifier in your bedroom or your home to help loosen secretions. If your cough is worse at night, try to sleep in a semi-upright position. Rest as needed. Keep all follow-up visits as told by your health care provider. This is important. Contact a health care provider if you: Have new symptoms. Cough up pus. Have a cough that does not get better after 2 3 weeks or gets worse. Cannot control your cough with cough suppressant medicines and you are losing sleep. Have pain that gets worse or pain that is not helped with medicine. Have a fever. Have unexplained weight loss. Have night sweats. Get help right away if: You cough up blood. You have difficulty breathing. Your heartbeat is very fast. These symptoms may represent a serious problem that is an emergency. Do not wait to see if the symptoms will go away. Get medical help right away. Call your local emergency services (911 in the [place] Do not drive yourself to the hospital. Summary Coughing is a reflex that clears your throat and your airways. It is normal to cough occasionally, but a cough that happens with other symptoms or lasts a long time may be a sign of a condition that needs treatment. Take ndxk-bru-oeiboib and prescription medicines only as told by your health care provider. Always cover your mouth when you cough. Contact a health care provider if you have new symptoms or a cough that does not get better after 23 weeks or gets worse. This information is not intended to replace advice given to you by your health care provider. Make sure you discuss any questions you have with your health care provider. Document Released: 03/24/2012 Document Revised: 10/15/2019 Document Reviewed: 10/15/2019 [employer] Patient Education 2019 pic5 Follow Up Care 12/28/2022 23:02:21 With:Reginald ASHER Address: [address] [facility] [address] [place] [id number] [facility] (1) When:Within 3 Day(s) [facility]09-16-2022 NotePost Operative Note: PreOp Diagnosis: Recurrent tonsillitis chronic rhinitis Post-Procedure Diagnosis: Chronic tonsillitis and chronic rhinitis Procedure: 1. 2. 3. 4. 5. Surgeon: The Resident/Fellow/Other Executive Chairman Of The Board: None Estimated Blood Loss (mL): Minimal Specimen: yes Findings: Enlarged tonsils and chronic inflammation chronic rhinitis Operative Report Dictated: Dictation: no Electronic Signatures: Wolfgang Jose) (Signed 25-Jun-2022 07:44) Authored: Post Operative Note, Note Completion Last Updated: 25-Jun-2022 07:44 by Wolfgang Jose)[facility] 06-25-2022 NoteHistory & Physical Reviewed: /Lactating: Are You no Are You Currently Breastfeedingno I have reviewed the History and Physical dated: 25-Jun-2022 History and Physical reviewed and relevant findings noted. Patient examined to review pertinent physical findings.: No significant changes Home Medications Reviewed: no changes noted Allergies Reviewed: no changes noted ERAS (Enhanced Recovery After Surgery): ERAS Patient: no Consent: COVID-19 Consent: COVID-19 Risk ConsentSurgeon has reviewed anderson risks related to the risk of alma COVID-19 and if they contract COVID-19 what the risks are. Electronic Signatures: Wolfgang Jose) (Signed 25-Jun-2022 07:18) Authored: History & Physical Reviewed, ERAS, Consent, Note Completion Last Updated: 25-Jun-2022 07:18 by Wolfgang Jose)[facility] 06-24-2022 NoteHistory of Present Illness: /Lactating: Are You no Are You Currently Breastfeedingno History Present Illness: Reason for surgery: Recurrent tonsillitis HPI: This 32-year-old female is admitted for elective operation of tonsillectomy with Coblation and nasal endoscopy. Patient is known to have frequent episodes of tonsillitis and had an episode of peritonsillar cellulitis and abscess. Patient has been explained the alternatives risks complications outcome and informed consent obtained. Allergies: Allergies: NKDA: gadolinium: Hives/Urticaria Home Medication Review: Home Medications Reviewed: yes Impression/Procedure: Impression and Planned Procedure: Recurrent tonsillitis and chronic rhinitis Tonsillectomy and nasal endoscopy ERAS (Enhanced Recovery After Surgery): ERAS Patient: no Physical Exam by System: Constitutional: Well developed, awake/alert/oriented x3, no distress, alert and cooperative Eyes: PERRL, EOMI, clear sclera ENMT: mucous membranes moist, no apparent injury, no lesions seen bilateral tonsillar enlargement is noted. Anterior rhinoscopy reveals chronic rhinitis and turbinate hypertrophy. Head/Neck: Neck supple, no apparent injury, thyroid without mass or tenderness, No JVD, trachea midline, no bruits Respiratory/Thorax: Patent airways, CTAB, normal breath sounds with good chest expansion, thorax symmetric Cardiovascular: Regular, rate and rhythm, no murmurs, 2+ equal pulses of the extremities, normal S 1and S 2 Skin: Warm and dry, no lesions, no rashes Consent: COVID-19 Consent: COVID-19 Risk ConsentSurgeon has reviewed anderson risks related to the risk of alma COVID-19 and if they contract COVID-19 what the risks are. Electronic Signatures: Wolfgang Jose) (Signed 24-Jun-2022 08:41) Authored: History of Present Illness, Allergies, Home Medication Review, Impression/Procedure, ERAS, Physical Exam, Consent, Note Completion Last Updated: 24-Jun-2022 08:41 by Wolfgang Jose)[facility] 02-11-2022 Hospital Discharge instructions Patient Education 02/11/2022 11:04:09 Kidney Stones, Rhjj-[id number] Kidney Stones Kidney stones are rock-like masses that form inside of the kidneys. Kidneys are organs that make pee (urine). A kidney stone may move into other parts of the urinary tract, including: The tubes that connect the kidneys to the bladder (ureters). The bladder. The tube that carries urine out of the body (urethra). Kidney stones can cause very bad pain and can block the flow of pee. The stone usually leaves your body (passes) through your pee. You may need to have a doctor take out the stone. What are the causes? Kidney stones may be caused by: A condition in which certain glands make too much parathyroid hormone (primary hyperparathyroidism). A buildup of a type of crystals in the bladder made of a chemical called uric acid. The body makes uric acid when you eat certain foods. Narrowing (stricture) of one or both of the ureters. A kidney blockage that you were born with. Past surgery on the kidney or the ureters, such as gastric bypass surgery. What increases the risk? You are more likely to develop this condition if: You have had a kidney stone in the past. You have a family history of kidney stones. You do not drink enough water. You eat a diet that is high in protein, salt (sodium), or sugar. You are overweight or very overweight (obese). What are the signs or symptoms? Symptoms of a kidney stone may include: Pain in the side of the belly, right below the ribs (flank pain). Pain usually spreads (radiates) to the groin. Needing to pee often or right away (urgently). Pain when going pee (urinating). Blood in your pee (hematuria). Feeling like you may vomit (nauseous). Vomiting. Fever and chills. How is this treated? Treatment depends on the size, location, and makeup of the kidney stones. The stones will often pass out of the body through peeing. You may need to: Drink more fluid to help pass the stone. In some cases, you may be given fluids through an IV tube put into one of your veins at the hospital. Take medicine for pain. Make changes in your diet to help keep kidney stones from coming back. Sometimes, medical procedures are needed to remove a kidney stone. This may involve: A procedure to break up kidney stones using a beam of light (laser) or shock waves. Surgery to remove the kidney stones. Follow these instructions at home: Medicines Take gupc-efy-tcuerip and prescription medicines only as told by your doctor. Ask your doctor if the medicine prescribed to you requires you to avoid driving or using heavy machinery. Eating and drinking Drink enough fluid to keep your pee pale yellow. You may be told to drink at least 8 10 glasses of water each day. This will help you pass the stone. If told by your doctor, change your diet. This may include: ?Limiting how much salt you eat. ?Eating more fruits and vegetables. ?Limiting how much meat, poultry, fish, and eggs you eat. Follow instructions from your doctor about eating or drinking restrictions. General instructions Collect pee samples as told by your doctor. You may need to collect a pee sample: ?24 hours after a stone comes out. ?8 12 weeks after a stone comes out, and every 6 12 months after that. Strain your pee every time you pee (urinate), for as long as told. Use the strainer that your doctor recommends. Do not throw out the stone. Keep it so that it can be tested by your doctor. Keep all follow-up visits as told by your doctor. This is important. You may need follow-up tests. How is this prevented? To prevent another kidney stone: Drink enough fluid to keep your pee pale yellow. This is the best way to prevent kidney stones. Eat healthy foods. Avoid certain foods as told by your doctor. You may be told to eat less protein. Stay at a healthy weight. Where to find more information National Kidney Foundation (NKF): www.kidney.org [facility] (UCF): www.urologyhealth.org Contact a doctor if: You have pain that gets worse or does not get better with medicine. Get help right away if: You have a fever or chills. You get very bad pain. You get new pain in your belly (abdomen). You pass out (faint). You cannot pee. Summary Kidney stones are rock-like masses that form inside of the kidneys. Kidney stones can cause very bad pain and can block the flow of pee. The stones will often pass out of the body through peeing. Drink enough fluid to keep your pee pale yellow. This information is not intended to replace advice given to you by your health care provider. Make sure you discuss any questions you have with your health care provider. Document Released: 03/14/2009 Document Revised: 02/12/2020 Document Reviewed: 02/12/2020 [employer] Patient Education 2020 [employer] 02/11/2022 11:04:07 Calorie Counting for Weight Loss Calorie Counting for Weight Loss Calories are units of energy. Your body needs a certain amount of calories from food to keep you going throughout the day. When you eat more calories than your body needs, your body stores the extra calories as fat. When you eat fewer calories than your body needs, your body goldstein fat to get the energy it needs. Calorie counting means keeping track of how many calories you eat and drink each day. Calorie counting can be helpful if you need to lose weight. If you make sure to eat fewer calories than your bodyneeds, you should lose weight. Ask your health care provider what a healthy weight is for you. For calorie counting to work, you will need to eat the right number of calories in a day in order to lose a healthy amount of weight per week. A dietitian can help you determine how many calories youneed in a day and will give you suggestions on how to reach your calorie goal. A healthy amount of weight to lose per week is usually 1 2 lb (0.5 0.9 kg). This usually means thatyour daily calorie intake should be reduced by 500 750 calories. Eating 1,200 1,500 calories per day can help most women lose weight. Eating 1,500 1,800 calories per day can help most men lose weight. What is my plan? My goal is to have calories per day. If I have this many calories per day, I should lose around pounds per week. What do I need to know about calorie counting? In order to meet your daily calorie goal, you will need to: Find out how many calories are in each food you would like to eat. Try to do this before you eat. Decide how much of the food you plan to eat. Write down what you ate and how many calories it had. Doing this is called keeping a food log. To successfully lose weight, it is important to balance calorie counting with a healthy lifestyle that includes regular activity. Aim for 150 minutes of moderate exercise (such as walking) or 75 minutes of vigorous exercise (such as running) each week. Where do I find calorie information? The number of calories in a food can be found on a Nutrition Facts label. If a food does not have aNutrition Facts label, try to look up the calories online or ask your dietitian for help. Remember that calories are listed per serving. If you choose to have more than one serving of a food, you will have to multiply the calories per serving by the amount of servings you plan to eat. Forexample, the label on a package of bread might say that a serving size is 1 slice and that there are 90 calories in a serving. If you eat 1 slice, you will have eaten 90 calories. If you eat 2 slices, you will have eaten 180 calories. How do I keep a food log? Immediately after each meal, record the following information in your food log: What you ate. Don't forget to include toppings, sauces, and other extras on the food. How much you ate. This can be measured in cups, ounces, or number of items. How many calories each food and drink had. The total number of calories in the meal. Keep your food log near you, such as in a small notebook in your pocket, or use a mobile alexandrea or website. Some programs will calculate calories for you and show you how many calories you have left forthe day to meet your goal. What are some calorie counting tips? Use your calories on foods and drinks that will fill you up and not leave you hungry: ?Some examples of foods that fill you up are nuts and nut butters, vegetables, lean proteins, and high-fiber foods like whole grains. High-fiber foods are foods with more than 5 g fiber per serving. ?Drinks such as sodas, specialty coffee drinks, alcohol, and juices have a lot of calories, yet do not fill you up. Eat nutritious foods and avoid empty calories. Empty calories are calories you get from foods or beverages that do not have many vitamins or protein, such as candy, sweets, and soda. It is better to have a nutritious high-calorie food (such as an avocado) than a food with few nutrients (such as a bag of chips). Know how many calories are in the foods you eat most often. This will help you calculate calorie counts faster. Pay attention to calories in drinks. Low-calorie drinks include water and unsweetened drinks. Pay attention to nutrition labels for low fat or fat free foods. These foods sometimes have thesame amount of calories or more calories than the full fat versions. They also often have added sugar, starch, or salt, to make up for flavor that was removed with the fat. Find a way of tracking calories that works for you. Get creative. Try different apps or programs ifwriting down calories does not work for you. What are some portion control tips? Know how many calories are in a serving. This will help you know how many servings of a certain food you can have. Use a measuring cup to measure serving sizes. You could also try weighing out portions on a kitchenscale. With time, you will be able to estimate serving sizes for some foods. Take some time to put servings of different foods on your favorite plates, bowls, and cups so you know what a serving looks like. Try not to eat straight from a bag or box. Doing this can lead to overeating. Put the amount you would like to eat in a cup or on a plate to make sure you are eating the right portion. Use smaller plates, glasses, and bowls to prevent overeating. Try not to multitask (for example, watch TV or use your computer) while eating. If it is time to eat, sit down at a table and enjoy your food. This will help you to know when you are full. It will also help you to be aware of what you are eating and how much you are eating. What are tips for following this plan? Reading food labels Check the calorie count compared to the serving size. The serving size may be smaller than what youare used to eating. Check the source of the calories. Make sure the food you are eating is high in vitamins and proteinand low in saturated and trans fats. Shopping Read nutrition labels while you shop. This will help you make healthy decisions before you decide to purchase your food. Make a grocery list and stick to it. Cooking Try to cook your favorite foods in a healthier way. For example, try baking instead of frying. Use low-fat dairy products. Meal planning Use more fruits and vegetables. Half of your plate should be fruits and vegetables. Include lean proteins like poultry and fish. How do I count calories when eating out? Ask for smaller portion sizes. Consider sharing an entree and sides instead of getting your own entree. If you get your own entree, eat only half. Ask for a box at the beginning of your meal and put the rest of your entree in it so you are not tempted to eat it. If calories are listed on the menu, choose the lower calorie options. Choose dishes that include vegetables, fruits, whole grains, low-fat dairy products, and lean protein. Choose items that are boiled, broiled, grilled, or steamed. Stay away from items that are buttered,battered, fried, or served with cream sauce. Items labeled crispy are usually fried, unless stated otherwise. Choose water, low-fat milk, unsweetened iced tea, or other drinks without added sugar. If you want an alcoholic beverage, choose a lower calorie option such as a glass of wine or light beer. Ask for dressings, sauces, and syrups on the side. These are usually high in calories, so you should limit the amount you eat. If you want a salad, choose a garden salad and ask for grilled meats. Avoid extra toppings like nascimento, cheese, or fried items. Ask for the dressing on the side, or ask for olive oil and vinegar or lemon to use as dressing. Estimate how many servings of a food you are given. For example, a serving of cooked rice is cup orabout the size of half a baseball. Knowing serving sizes will help you be aware of how much food you are eating at restaurants. The list below tells you how big or small some common portion sizes arebased on everyday objects: ?1 oz 4 stacked dice. ?3 oz 1 deck of cards. ?1 tsp 1 . ?1 Tbsp a ping-pong ball. ?2 Tbsp 1 ping-pong ball. ? cup baseball. ?1 cup 1 baseball. Summary Calorie counting means keeping track of how many calories you eat and drink each day. If you eat fewer calories than your body needs, you should lose weight. A healthy amount of weight to lose per week is usually 1 2 lb (0.5 0.9 kg). This usually means reducing your daily calorie intake by 500 750 calories. The number of calories in a food can be found on a Nutrition Facts label. If a food does not have aNutrition Facts label, try to look up the calories online or ask your dietitian for help. Use your calories on foods and drinks that will fill you up, and not on foods and drinks that will leave you hungry. Use smaller plates, glasses, and bowls to prevent overeating. This information is not intended to replace advice given to you by your health care provider. Make sure you discuss any questions you have with your health care provider. Document Released: 09/26/2006 Document Revised: 06/15/2019 Document Reviewed: 08/26/2017 [employer] Patient Education 2020 [employer]. Follow Up Care 02/08/2022 09:05:42 With:Aniceto LAL, ERIK Ramos, [facility] Address: When:12/03/2022 Comments:w/ELLIOT & Renal [facility] 04-30-2022 Hospital Discharge instructions Patient Education 02/05/2022 22:43:21 RICE Therapy for Routine Care of Injuries, [id number] RICE Therapy for Routine Care of Injuries Many injuries can be cared for with rest, ice, compression, and elevation (RICE therapy). This includes: Resting the injured part. Putting ice on the injury. Putting pressure (compression) on the injury. Raising the injured part (elevation). Using RICE therapy can help to lessen pain and swelling. Supplies needed: Ice. Plastic bag. Towel. Elastic bandage. Pillow or pillows to raise (elevate) your injured body part. How to care for your injury with RICE therapy Rest Limit your normal activities, and try not to use the injured part of your body. You can go back to your normal activities when your doctor says it is okay to do them and you feel okay. Ask your doctor if you should do exercises to help your injury get better. Ice Put ice on the injured area. Do not put ice on your bare skin. Put ice in a plastic bag. Place a towel between your skin and the bag. Leave the ice on for 20 minutes, 2 3 times a day. Use ice on as many days as told by your doctor. Compression Compression means putting pressure on the injured area. This can be done with an elastic bandage. If an elastic bandage has been put on your injury: Do not wrap the bandage too tight. Wrap the bandage more loosely if part of your body away from thebandage is blue, swollen, cold, painful, or loses feeling (gets numb). Take off the bandage and put it on again. Do this every 3 4 hours or as told by your doctor. See your doctor if the bandage seems to make your problems worse. Elevation Elevation means keeping the injured area raised. If you can, raise the injured area above your heart or the center of your chest. Contact a doctor if: You keep having pain and swelling. Your symptoms get worse. Get help right away if: You have sudden bad pain at your injury or lower than your injury. You have redness or more swelling around your injury. You have tingling or numbness at your injury or lower than your injury, and it does not go away when you take off the bandage. Summary Many injuries can be cared for using rest, ice, compression, and elevation (RICE therapy). You can go back to your normal activities when you feel okay and your doctor says it is okay. Put ice on the injured area as told by your doctor. Get help if your symptoms get worse or if you keep having pain and swelling. This information is not intended to replace advice given to you by your health care provider. Make sure you discuss any questions you have with your health care provider. Document Released: 03/14/2009 Document Revised: 06/16/2018 Document Reviewed: 06/16/2018 [employer] Patient Education 2020 [employer] 02/05/2022 22:43:21 How to Use a Knee Immobilizer, [id number] How to Use a Knee Immobilizer A knee immobilizer, also called a knee brace, is used to support and protect an injured or painful knee. You may also have to wear it after knee surgery. A knee brace keeps your knee from moving or bending while it is healing. Wear and remove your knee brace only as told by your doctor. In general, your knee brace should: Have straps, hooks, or tapes that fasten snugly around your leg. Not feel too tight or too loose. Follow these instructions at home: While resting, raise (elevate) your leg above the level of your heart. Pillows can be used for support. Doing this reduces throbbing and helps with healing. Loosen the brace if your toes tingle or if you notice other symptoms or signs that it is too tight,such as: ?Swelling. ?Numbness. ?Color change in your foot or ankle. ?More pain. Keep the brace clean. If the brace is not waterproof: ?Do not let it get wet. ?Cover it with a watertight covering when you take a bath or a shower. If your doctor says that you may take off (remove) the brace: ?Take it off before you take a bath or a shower. ?Check for any skin irritation. ?Use a towel to dry the area completely before you put the brace back on. Contact a doctor if: Your knee brace breaks or needs to be replaced. You have more pain or swelling in your knee, foot, or ankle. Your knee brace is not helping. Your knee brace makes your knee pain worse. Summary A knee immobilizer, also called a knee brace, keeps your knee from moving or bending while it is healing. Different knee braces will have different instructions for use. Follow the instructions from your doctor. Call your doctor if you have more pain or swelling, if your knee brace breaks, or if it does not help your knee pain. This information is not intended to replace advice given to you by your health care provider. Make sure you discuss any questions you have with your health care provider. Document Released: 07/05/2009 Document Revised: 09/08/2018 Document Reviewed: 09/12/2017 [employer] Patient Education 2020 [employer] 02/05/2022 22:43:21 Radial Nerve Palsy Radial Nerve Palsy Radial nerve palsy is the loss of function of the radial nerve in your arm or hand. The radial nerve extends from your shoulder, around the back of your upper arm, and down the outside of your lower arm. An injury to this nerve causes certain muscles and tendons in your arm and wrist not to work properly, which leads to a condition known as wrist drop. This means that you cannot extend your wrist. If you are standing with your arm stretched straight out in front of you, your wrist will bend andyour hand will drop down toward the floor. An injury to the radial nerve may also result in lost feeling (sensation) in parts of your arm. What are the causes? Common causes of this condition include: A break (fracture) of your upper or lower arm bone. Complications from surgery. Improper use of crutches. Crutches that are too long can put pressure on the radial nerve where it passes through the armpit (crutch palsy). Keeping your arm in a position that places prolonged pressure on the radial nerve, such as by sleeping with arms over the back of a chair (Tuesday night palsy). Performing repetitive activities that involve rotation of your lower arm or movement of your wrist (repetitive use injury). What increases the risk? You are more likely to develop this condition if you: Play contact sports. Have a condition in which your body's immune system attacks your joints (rheumatoid arthritis). Have diabetes. Have an underactive thyroid (hypothyroidism). What are the signs or symptoms? Symptoms of this condition include: Inability to extend your wrist. Difficulty straightening your elbow and wrist. Numbness or tingling in the back of your arm, forearm, or hand. Inability to pinch. Muscle of the injured arm looking smaller. How is this diagnosed? This condition is diagnosed with a history of the injury and a physical exam. To confirm the diagnosis, you may also have tests, including: Ultrasound. This test show if the nerve has an injury. Nerve conduction studies. These tests show if the radial nerve is sending electrical signals well. X-rays. These may be done if your health care provider suspects that you have an injury to the bones in your arm. MRI. This may be used to determine the cause of your radial nerve palsy or to rule out other causesof your symptoms. How is this treated? Treatment for this condition depends on the cause. It may involve: Medicines. ?NSAIDs may be used to control pain. ?A steroid injection may be used to decrease swelling around the nerve. Physical and occupational therapy. This may help you: ?Regain strength in your hand and wrist. ?Maintain range of motion of your wrist and elbow. Splinting. Your health care provider may make one or more splints for you to wear during the day orat night to help with motion and positioning of your wrist. Removing pressure on the radial nerve. This is done if the condition is caused by pressure on the nerve. Using this treatment may allow the nerve to go back to normal within a few weeks or a few months. Surgery. Depending on the cause of your radial nerve palsy, surgery may be needed to: ?Remove pressure on the nerve (entrapment). ?Repair broken bones. ?Relocate (transfer) tendons in your lower arm to help you regain strength and mobility of your wrist. ?Transfer a nerve to the injury site to restore nerve function. Follow these instructions at home: If you have a splint or brace Wear the splint or brace as told by your health care provider. Remove it only as told by your health care provider. Loosen the splint or brace if your fingers tingle, become numb, or turn cold and blue. Keep the splint or brace clean. If the splint or brace is not waterproof: ?Do not let it get wet. ?Cover it with a watertight covering when you take a bath or a shower. Managing pain, stiffness, and swelling If directed, put ice on the injured area: ?If you have a removable splint or brace, remove it as told by your health care provider. ?Put ice in a plastic bag. ?Place a towel between your skin and the bag. ?Leave the ice on for 20 minutes, 2 3 times a day. Move your fingers often to avoid stiffness and to lessen swelling. Raise (elevate) the injured area above the level of your heart while you are sitting or lying down. General instructions Follow your health care provider's instructions about how to protect your hand and wrist. Protect your hand from extreme temperature injuries, such as goldstein and frostbite. Exercise your hand, wrist, and arm on a regular basis, as directed by your health care provider or therapist. Keep all follow-up visits as told by your health care provider. This is important. Contact a health care provider if you: Have a sudden increase in pain. Develop new numbness or new loss of sensation in your hand. Get help right away if you: Have a sudden change in your ability to move your arm, wrist, or hand. Notice your fingers become bluish in color or feel cold to the touch. Summary Radial nerve palsy is the loss of function of the radial nerve in your arm or hand. That nerve extends from your shoulder, around the back of your upper arm, and down the outside of your lower arm. An injury to the radial nerve causes certain muscles and tendons in your arm and wrist not to work properly. This makes you unable to extend your wrist (a condition known as wrist drop). You may alsolose feeling (sensation) in parts of your arm. Treatment for this condition depends on the cause. It may include removing pressure on the radial nerve, physical and occupational therapy, splinting, medicines, or surgery. This information is not intended to replace advice given to you by your health care provider. Make sure you discuss any questions you have with your health care provider. Document Released: 06/02/2007 Document Revised: 10/19/2018 Document Reviewed: 10/19/2018 [employer] Patient Education 2020 [employer]. 02/05/2022 22:43:21 Crutch Use, Adult, [id number] Crutch Use, Adult Crutches are used to take weight off of one of your legs or feet when you stand or walk. You may need crutches to help heal after an injury or procedure. It is important to use crutches that fit right. Your crutches fit right if: You can fit 2 or 3 fingers between your armpit and the crutch. You use your hands, not your armpits, to hold yourself up. Do not put your armpits on the crutches. This can damage the nerves in your shoulders, arms, back, armpits, and hands. It is important that a doctor has seen you use crutches the right way before youuse them at home. How to use your crutches How you will use your crutches will depend on why you need them. Your doctor may tell you not to put weight on (not to support your weight with) your hurt leg (non weight-bearing). Or, your doctor may let you put (bear) some of your weight on the hurt leg (partial weight-bearing), but not all of your weight. Follow instructions from your doctor about weight-bearing. Do not put weight on your leg in an amount that causes pain. Walking 1.Stand on your good leg and lift both crutches at the same time. 2.Place the crutches one step-length in front of you. 3.Bring the good leg forward to meet the crutches or to land a little bit ahead of them. 4.Repeat. Going up steps If there is no handrail: 1.Step up with your good leg. 2.Step up with the crutches and your hurt leg. 3.Repeat. If there is a handrail: 1.Hold both crutches in one hand. 2.Place your other hand on the handrail. 3.Put your weight on your arms and lift your good leg up to the step. 4.Bring the crutches and the hurt leg up to that step. 5.Repeat. Going up steps on your butt If you do not feel steady on steps, you can go up steps on your butt. 1.Sit on the lowest step. Have your hurt leg out in front. Use your other hand to hold both crutches flat on the stairs. 2.Scoot your butt up to the next step. Use the free hand and your good leg to help you do this. Going down steps If there is no handrail: 1.Step down with your hurt leg and crutches. 2.Step down with your good leg. 3.Repeat. If there is a handrail: 1.Place your hand on the handrail. 2.Hold both crutches with your free hand. 3.Lower your hurt leg and crutch to the step below you. Keep the crutch tips in the center of the step. Never put the crutch tips on the edge of the step. 4.Lower your good leg to that step. 5.Repeat. Going down steps on your butt If you do not feel steady on steps, you can go down steps on your butt. 1.Sit on the highest step. Have your hurt leg out in front. Use your other hand to hold both crutches flat on the stairs. 2.Scoot your butt down to the next step. Use the free hand and your good leg to help you do this. Standing up 1.Hold the hurt leg forward. 2.Grab the armrest with one hand. Use the other hand to grab the top of the crutches. 3.Use the armrest and your crutches to pull yourself up to stand. Sitting down 1.Hold the hurt leg forward. 2.Grab the armrest with one hand. Use the other hand to grab the top of the crutches. 3.Slowly lower yourself to sit. Get help if: You feel unsteady or wobbly using crutches. You have any new pain. You cannot feel a part of your body (numbness) or you have a tingling feeling. Your crutches do not fit. Get help right away if: You fall. This information is not intended to replace advice given to you by your health care provider. Make sure you discuss any questions you have with your health care provider. Document Released: 03/14/2009 Document Revised: 09/08/2018 Document Reviewed: 03/18/2017 [employer] Patient Education 2020 [employer]. 02/05/2022 22:43:21 Knee Effusion, Rbil-vo-Cfwp Knee Effusion Knee effusion means that you have extra fluid in your knee. This can cause pain. Your knee may be more difficult to bend and move. What are the causes? Common causes are: Arthritis. Infection. Injury. Autoimmune disease. This means that your body's defense system (immune system) mistakenly attacks healthy body tissues. Follow these instructions at home: Medicines Take medicines only as told by your doctor. Do not drive or use heavy machinery while taking prescription pain medicine. If you are taking prescription pain medicine, take actions to help prevent or treat trouble pooping(constipation). Your doctor may recommend that you: ?Drink enough fluid to keep your pee (urine) pale yellow. ?Eat foods that are high in fiber. These include fresh fruits and vegetables, whole grains, and beans. ?Avoid eating fatty or sweet foods. ?Take a medicine for constipation. If you have a brace: Wear the brace as told by your doctor. Remove it only as told by your doctor. Loosen the brace if your toes tingle, become numb, or turn cold and blue. Keep the brace clean. If the brace is not waterproof: ?Do not let it get wet. ?Cover it with a watertight covering when you take a bath or a shower. Managing pain, stiffness, and swelling If told, apply ice to the swollen area: ?If you have a removable brace, remove it as told by your doctor. ?Put ice in a plastic bag. ?Place a towel between your skin and the bag. ?Leave the ice on for 20 minutes, 2 3 times per day. Keep your knee raised (elevated) when you are sitting or lying down. General instructions Do not use any products that contain nicotine or tobacco, such as cigarettes and e-cigarettes. These can delay healing. If you need help quitting, ask your doctor. Use crutches as told by your doctor. Do exercises as told by your doctor. Rest as told by your doctor. Keep all follow-up visits as told by your doctor. This is important. Contact a doctor if you: Continue to have pain in your knee. Get help right away if you: Have swelling or redness of your knee that gets worse or does not get better. Have serious pain in your knee. Have a fever. Summary Knee effusion is when you have extra fluid in your knee. This causes pain and swelling and makes ithard to bend and move your knee. Take medicines only as told by your doctor. If you have a brace, wear the brace as told by your doctor. This information is not intended to replace advice given to you by your health care provider. Make sure you discuss any questions you have with your health care provider. Document Released: 10/29/2011 Document Revised: 10/09/2018 Document Reviewed: 10/08/2018 [employer] Patient Education 2020 [employer]. 02/05/2022 22:43:21 Acute Knee Pain, Adult, Rqlw-ze-[id number] Acute Knee Pain, Adult Many things can cause knee pain. Sometimes, knee pain is sudden (acute) and may be caused by damage, swelling, or irritation of the muscles and tissues that support your knee. The pain often goes away on its own with time and rest. If the pain does not go away, tests may be done to find out what is causing the pain. Follow these instructions at home: Pay attention to any changes in your symptoms. Take these actions to relieve your pain. If you have a knee sleeve or brace: Wear the sleeve or brace as told by your doctor. Remove it only as told by your doctor. Loosen the sleeve or brace if your toes: ?Tingle. ?Become numb. ?Turn cold and blue. Keep the sleeve or brace clean. If the sleeve or brace is not waterproof: ?Do not let it get wet. ?Cover it with a watertight covering when you take a bath or shower. Activity Rest your knee. Do not do things that cause pain. Avoid activities where both feet leave the ground at the same time (high-impact activities). Examples are running, jumping rope, and doing jumping jacks. Work with a physical therapist to make a safe exercise program, as told by your doctor. Managing pain, stiffness, and swelling If told, put ice on the knee: ?Put ice in a plastic bag. ?Place a towel between your skin and the bag. ?Leave the ice on for 20 minutes, 2 3 times a day. If told, put pressure (compression) on your injured knee to control swelling, give support, and help with discomfort. Compression may be done with an elastic bandage. General instructions Take all medicines only as told by your doctor. Raise (elevate) your knee while you are sitting or lying down. Make sure your knee is higher than your heart. Sleep with a pillow under your knee. Do not use any products that contain nicotine or tobacco. These include cigarettes, e-cigarettes, and chewing tobacco. These products may slow down healing. If you need help quitting, ask your doctor. If you are overweight, work with your doctor and a food expert (dietitian) to set goals to lose weight. Being overweight can make your knee hurt more. Keep all follow-up visits as told by your doctor. This is important. Contact a doctor if: The knee pain does not stop. The knee pain changes or gets worse. You have a fever along with knee pain. Your knee feels warm when you touch it. Your knee gives out or locks up. Get help right away if: Your knee swells, and the swelling gets worse. You cannot move your knee. You have very bad knee pain. Summary Many things can cause knee pain. The pain often goes away on its own with time and rest. Your doctor may do tests to find out the cause of the pain. Pay attention to any changes in your symptoms. Relieve your pain with rest, medicines, light activity, and use of ice. Get help right away if you cannot move your knee or your knee pain is very bad. This information is not intended to replace advice given to you by your health care provider. Make sure you discuss any questions you have with your health care provider. Document Released: 12/23/2009 Document Revised: 03/08/2019 Document Reviewed: 03/08/2019 [employer] Patient Education 2020 [employer]. Follow Up Care 02/05/2022 21:21:17 With:Huy Randall Address: [address] [place] [address] Business (1) When:02/08/2022 With:Reginald ASHER Address: [address] [facility] [place] [address] Business (1) When:Within 3 Day(s) [facility]04-29-2022 Evaluation + Plan noteExtracted from: Title:ED Note Author:Cindi Brothers PA-C Date:02/05/22 1. Strain of left knee (S86. 912A: Strain of unspecified muscle(s) and tendon(s) at lower leg level, left leg, initial encounter) Orders: ibuprofen, 600 mg = 1 tab(s), Oral, q6hr, # 40 tab(s), Refills(s) 0, [facility]acy: [facility], 175, cm, 02/05/22 21:25:00 EDT, Height/Length Dosing, 132.7, kg, 02/05/22 21:25:00 EDT, Weight Dosing ibuprofen, 600 mg = 1 tab(s), Tab, Oral, Once, Stop date 02/05/22 21:34:00 EDT, STAT, Start date 02/05/22 21:34:00 EDT, 02/05/22 21:34:00 EDT Crutch Training Crutches Immobilizer XR Knee Complete 4+ Views Left Patient was interviewed and examined. The appropriate ER work-up was initiated. Patient was medicated for discomfort. I discussed the results of the work-up with the patient. Patient placed in knee immobilizer. The patient was provided with crutches and instructed in crutch walking. Distal neurovascular remained intact after immobilizer placement. I discussed the discharge diagnosis, plan of care, home- going prescription. I stressed the need for close follow-up with orthopedics. The patient will be discharged home in stable condition. She is to return to the emergency department for any further problems or concerns. Future Appointments Appointment Date:02/11/2022 10:00:00 AM Scheduled Provider:Clau Moreland MD Location:[facility] Appointment Type:URO Office Visit Appointment Date:02/25/2022 03:00:00 PM Scheduled Provider:Reginald ASHER DO, FAAFP Location:[facility] Appointment Type:FM Open Appointment Date:03/02/2022 08:15:00 PM Scheduled Provider: Location:.SLEEP LAB_ Appointment Type:DRIER ATTENDANT Sleep Study w/C-PAP ([facility]04-19-2022 Hospital Discharge instructions Patient Education 01/26/2022 15:48:49 Budget-Friendly Healthy Eating Budget-Friendly Healthy Eating There are many ways to save money at the grocery store and continue to eat healthy. You can be successful if you: Plan meals according to your budget. Make a grocery list and only purchase food according to your grocery list. Prepare food yourself. What are tips for following this plan? Reading food labels Compare food labels between brand name foods and the store brand. Often the nutritional value is the same, but the store brand is lower cost. Look for products that do not have added sugar, fat, or salt (sodium). These often cost the same but are healthier for you. Products may be labeled as: ?Sugar-free. ?Nonfat. ?Low-fat. ?Sodium-free. ?Low-sodium. Look for lean ground beef labeled as at least 92% lean and 8% fat. Shopping Buy only the items on your grocery list and go only to the areas of the store that have the items on your list. Use coupons only for foods and brands you normally buy. Avoid buying items you wouldn't normally buy simply because they are on sale. Check online and in newspapers for weekly deals. Buy healthy items from the bulk bins when available, such as herbs, spices, flour, pasta, nuts, anddried fruit. Buy fruits and vegetables that are in season. Prices are usually lower on in- season produce. Look at the unit sweeney on the sweeney tag. Use it to compare different brands and sizes to find out which item is the best deal. Choose healthy items that are often low-cost, such as carrots, potatoes, apples, bananas, and oranges. Dried or canned beans are a low-cost protein source. Buy in bulk and freeze extra food. Items you can buy in bulk include meats, fish, poultry, frozen fruits, and frozen vegetables. Avoid buying aaaap-lq-fll foods, such as pre-cut fruits and vegetables and pre-made salads. If possible, shop around to discover where you can find the best prices. Consider other retailers such as dollar stores, larger wholesale stores, local fruit and vegetable [employer], and [employer] markets. Do not shop when you are hungry. If you shop while hungry, it may be hard to stick to your list andbudget. Resist impulse buying. Use your grocery list as your official plan for the week. Buy a variety of vegetables and fruits by purchasing fresh, frozen, and canned items. Look at the top and bottom shelves for deals. Foods at eye level (eye level of an adult or child) are usually more expensive. Be efficient with your time when shopping. The more time you spend at the store, the more money youare likely to spend. To save money when choosing more expensive foods like meats and dairy: ?Choose cheaper cuts of meat, such as bone-in chicken thighs and drumsticks instead of skinless andboneless chicken. When you are ready to prepare the chicken, you can remove the skin yourself to make it healthier. ?Choose lean meats like chicken or turkey instead of beef. ?Choose canned seafood, such as tuna, salmon, or sardines. ?Buy eggs as a low-cost source of protein. ?Buy dried beans and peas, such as lentils, split peas, or kidney beans instead of meats. Dried beans and peas are a good alternative source of protein. ?Buy the larger tubs of yogurt instead of individual-sized containers. Choose water instead of sodas and other sweetened beverages. Avoid buying chips, cookies, and other junk food. These items are usually expensive and not healthy. Cooking Make extra food and freeze the extras in meal-sized containers or in individual portions for fast meals and snacks. Pre-cook on days when you have extra time to prepare meals in advance. You can keep these meals in the fridge or freezer and reheat for a quick meal. When you come home from the grocery store, wash, peel, and cut fruits and vegetables so they are ready to use and eat. This will help reduce food waste. Meal planning Do not eat out or get fast food. Prepare food at home. Make a grocery list and make sure to bring it with you to the store. If you have a smart phone, youcould use your phone to create your shopping list. Plan meals and snacks according to a grocery list and budget you create. Use leftovers in your meal plan for the week. Look for recipes where you can cook once and make enough food for two meals. Include budget-friendly meals like stews, casseroles, and stir-mcbride dishes. Try some meatless meals or try no cook meals like salads. Make sure that half your plate is filled with fruits or vegetables. Choose from fresh, frozen, or canned fruits and vegetables. If eating canned, remember to rinse them before eating. This will remove any excess salt added for packaging. Summary Eating healthy on a budget is possible if you plan your meals according to your budget, purchase according to your budget and grocery list, and prepare food yourself. Tips for buying more food on a limited budget include buying generic brands, using coupons only forfoods you normally buy, and buying healthy items from the bulk bins when available. Tips for buying cheaper food to replace expensive food include choosing cheaper, lean cuts of meat,and buying dried beans and peas. This information is not intended to replace advice given to you by your health care provider. Make sure you discuss any questions you have with your health care provider. Document Released: 05/30/2015 Document Revised: 09/27/2018 Document Reviewed: 09/27/2018 [employer] Patient Education 2020 [employer] Follow Up Care 12/31/2021 15:27:12 With:LB PIERSON FAAFP, FIDENCIO Triana, PED Address: [address] [place] [address] [place] [address]- When:Within 1 Month(s) [facility] 04-07-2022 Hospital Discharge instructions Follow Up Care 01/14/2022 14:20:56 With:Dae LAL, SONNY Vaughan, DORA Address: [address] [place] [address] [facility] [place] [address]- When: Unknown Comments:after his testing is completed [facility] Future App[facility]ments Appointment Date:01/20/2022 04:00:00 PM Scheduled Provider: Location:.[facility] Appointment Type:CT Abdomen/Pelvis Combo (FT) Appointment Date:01/26/2022 03:00:00 PM Scheduled Provider:Reginald ASHER DO, FAAFP Location:[facility] Appointment Type:FM Open Appointment Date:01/29/2022 09:45:00 AM Scheduled [facility] Sleep Study Clinic Follow Up (FT) Appointment Date:02/10/2022 10:30:00 AM Scheduled Provider:Clau Moreland MD Location:[facility] Appointment Type:URO Office Visit Future Scheduled Tests Radiology* CT Abdomen/Pelvis w/ + w/o Contrast 01/20/22 [facility] Future Appointments Appointment Date:01/26/2022 03:00:00 PM Scheduled Provider:Reginald ASHER DO, FAAFP Location:[facility] Appointment Type:FM Open Appointment Date:01/29/2022 09:45:00 AM Scheduled [facility] Sleep Study Clinic Follow Up (FT) Appointment Date:02/10/2022 10:30:00 AM Scheduled Provider:Clau Moreland MD Location:[facility] Appointment Type:URO [facility] Future Appointments Appointment Date:01/29/2022 09:45:00 AM Scheduled Provider: Location:[facility] Appointment Type:DRIER ATTENDANT Sleep Study Clinic Follow Up (FT) Appointment Date:02/10/2022 10:30:00 AM Scheduled Provider:Clau Moreland MD Location:[facility] Appointment Type:URO Office Visit Appointment Date:02/25/2022 03:00:00 PM Scheduled Provider:Reginald ASHER DO, FAAFP Location:[facility] Appointment Type:[facility] Evaluation + Plan note Future Appointments Appointment Date:02/10/2022 10:30:00 AM Scheduled Provider:Clau Moreland MD Location:[facility] Appointment Type:URO Office Visit Appointment Date:02/25/2022 03:00:00 PM Scheduled Provider:Reginald ASHER DO, FAAFP Location:[facility] Appointment Type:[facility] CenterEvaluation + Plan note Future Appointments Appointment Date:02/25/2022 03:00:00 PM Scheduled Provider:Reginald ASHER DO, FAAFP Location:[facility] Appointment Type: Open Appointment Date:03/02/2022 08:15:00 PM Scheduled Provider: [facility] Type:DRIER ATTENDANT Sleep Study w/C-PAP () Appointment Date:02/14/2023 12:30:00 PM Scheduled Provider:Clau Moreland MD Location:[facility] Appointment Type:URO Office Visit Future Scheduled Tests Radiology* XR Abdomen 1 View 02/11/22 [facility] Evaluation + Plan note Future Appointments Appointment Date:02/14/2023 12:30:00 PM Scheduled Provider:Clau Moreland MD Location:[facility] Appointment Type:URO Office Visit Future Scheduled Tests Radiology* XR Abdomen 1 View [facility]11/22 [facility] Future App[facility]ments Appointment Date:02/14/2023 12:30:00 PM Scheduled Provider:Clau Moreland MD Location:[facility] Appointment Type:URO Office Visit Future Scheduled Tests Radiology* XR Abdomen 1 View 02/11/22 [facility] Future App[facility]ments Appointment Date:06/07/2022 11:00:00 AM Scheduled Provider: [facility]:D[facility]ER ATTENDANT Sleep Study Clinic Follow Up (FT) Appointment Date:02/14/2023 12:30:00 PM Scheduled Provider:Clau Moreland MD Location:[facility] Appointment Type:URO Office Visit Diagnostic Tests Pending * T3 Free 05/24/22 Future Scheduled Tests Radiology* XR Abdomen 1 View 02/11/22 [facility] Future Appointments Appointment Date:02/14/2023 12:30:00 PM Scheduled Provider:Clau Moreland MD Location:[facility] Appointment Type:URO Office Visit Diagnostic Tests Pending * FSH and LH 10/18/22 * DHEAS 10/18/22 * Insulin Level Total 10/18/22 Future Scheduled Tests Radiology* XR Abdomen 1 View 02/11/22 [facility] Future Appointments Appointment Date:02/14/2023 12:30:00 PM Scheduled Provider:Clau Moreland MD Location:[facility] Appointment Type:URO [facility] Future Appointments Appointment Date:07/04/2023 01:00:00 PM Scheduled Provider:Clau Moreland MD Location:[facility] Appointment Type:URO Office Visit Future Scheduled Tests Radiology* CT Abdomen/Pelvis w/o Contrast 03/14/23 [facility] Evaluation + Plan note Future Appointments Appointment Date:07/04/2023 01:00:00 PM Scheduled Provider:Clau Moreland MD Location:[facility] Appointment Type:URO Office Visit Diagnostic Tests Pending * PTH Intact 03/15/23 Future Scheduled Tests Radiology* CT Abdomen/Pelvis w/o Contrast 03/14/23 [facility] Future Appointments Appointment Date:07/04/2023 01:00:00 PM Scheduled Provider:Clau Moreland MD Location:[facility] Appointment Type:URO [facility] noteExtracted from: Title:ED Note Author:Cindi Brothers PA-C Date:06/04/23 1. Viral URI (J06.9: Acute u pper respiratory infection, unspecified) Orders: albuterol, 2 puff(s), Inhalation, q4hr Wheezing, 18 gm, Refill(s) 0, [id number], 175, cm, 06/03/23 22:16:00 EDT, Height/Length Dosing, 127.2, kg, 06/03/23 22:16:00 EDT, Weight Dosing aspirin, 162 mg = 2 tab(s), Tab-Chew, Oral, Once, Stop date 06/03/23 22:18:00 EDT, STAT, Start date 06/03/23 22:18:00 EDT, 06/03/23 22:18:00 EDT Sodium Chloride 0.9% intravenous solution, 1,000 mL, Soln-IV, IV, Once, Stop date 06/03/23 22:18:00 EDT, STAT, Start date 06/03/23 22:18:00 EDT, Infuse over 61, minute(s) Automated Diff Basic Metabolic Panel CBC w/ Auto Diff ED Cardiac Monitoring eGFR Extra SST Tube Hepatic Function Panel Lipase Level Oxygen Saturation Oxygen Therapy PT & PTT Saline Lock Insert Troponin 0 Hr. XR Chest Single View Future Appointments Appointment Date:07/04/2023 01:00:00 PM Scheduled Provider:Clau Moreland MD Location:[facility] Appointment Type:URO [facility] Future Appointments Appointment Date:10/07/2023 10:20:00 AM Scheduled Provider:Reginald ASHER DO, FAAFP Location:[facility] Appointment Type: ER/Hospital Follow Up Appointment Date:04/30/2024 01:00:00 PM Scheduled Provider:Clau Moreland MD Location:[facility] Appointment Type:URO Office Visit Future Scheduled Tests Radiology* XR Abdomen 1 View 02/08/24 * US Renal 02/08/24 * CT Abdomen/Pelvis w/o Contrast 09/09/23 [facility] Evaluation + Plan note Future Appointments Appointment Date:01/06/2024 09:00:00 AM Scheduled Provider:Reginald ASHER DO, FAAFP Location:[facility] Appointment Type:FM Open Appointment Date:04/30/2024 01:00:00 PM Scheduled Provider:Clau Moreland MD Location:[facility] Appointment Type:URO Office Visit Future Scheduled Tests Radiology* XR Abdomen 1 View 02/08/24 * US Renal 02/08/24 * CT Abdomen/Pelvis w/o Contrast 09/09/23 [facility] Primary Care Evaluation note* Diagnosis Gastroesophageal reflux disease, unspecified whether esophagitis present- Primary Obesity, morbid, BMI 40.0-49.9 SHILPA on CPAP Obstructive sleep apnea (adult) (pediatric) [facility] Nutritional counseling- Primary body mass index of 40.0-49.9 [facility] Diagnosis Obstructive sleep apnea- Primary Obstructive sleep apnea (adult) (pediatric) Sleep related hypoxia Idiopathic sleep related nonobstructive alveolar hypoventilation PLMD (periodic limb movement disorder) Periodic limb movement disorder Overweight Snoring Other dyspnea and respiratory abnormality Morning headache Headache Tests ordered Laboratory examination, unspecified Restless legs syndrome Restless legs syndrome (RLS) Fatigue, unspecified type Hypersomnia, unspecified [facility] Diagnosis Obesity, morbid, BMI 40.0-49.9 Gastroesophageal reflux disease, unspecified whether esophagitis present SHILPA on CPAP Obstructive sleep apnea (adult) (pediatric) [facility] Diagnosis SHILPA (obstructive sleep apnea)- Primary Obstructive sleep apnea (adult) (pediatric) [facility] Diagnosis Obesity, morbid, BMI 40.0-49.9 Gastroesophageal reflux disease, unspecified whether esophagitis present SHILPA on CPAP Obstructive sleep apnea (adult) (pediatric) [facility] Diagnosis Nutritional counseling- Primary body mass index of 40.0-49.9 [facility] Diagnosis Obstructive sleep apnea- Primary Obstructive sleep apnea (adult) (pediatric) Sleep related hypoxia Idiopathic sleep related nonobstructive alveolar hypoventilation PLMD (periodic limb movement disorder) Periodic limb movement disorder Overweight Complex sleep apnea syndrome Unspecified sleep apnea Central sleep apnea Unspecified sleep apnea Encounter to discuss test results Other specified counseling Encounter for review of form with patient [facility] Diagnosis Onset Date Resolution Status Major depressive disorder, recurrent, moderate acute [facility] Work Phone: Evaluation note* Diagnosis Nutritional counseling- Primary Obesity, morbid, BMI 40.0-49.9 [facility] Diagnosis Bipolar II disorder- Primary Other bipolar disorders Eating disorder, unspecified type PTSD (post-traumatic stress disorder) Posttraumatic stress disorder Borderline personality disorder [facility] Diagnosis Eating disorder, unspecified type- Primary Bipolar II disorder Other bipolar disorders PTSD (post-traumatic stress disorder) Posttraumatic stress disorder Borderline personality disorder [facility] Diagnosis Obstructive sleep apnea- Primary Obstructive sleep apnea (adult) (pediatric) Sleep related hypoxia Idiopathic sleep related nonobstructive alveolar hypoventilation PLMD (periodic limb movement disorder) Periodic limb movement disorder Overweight Central sleep apnea Unspecified sleep apnea Hypersomnia Hypersomnia, unspecified Fatigue, unspecified type [facility] Narrative - Reported* Type Description Date Medical History restless leg Medical History migraines Medical History hypothyroidism Surgical History kidney surgery Surgical History tonsillectomy [facility] Other Hospital course Narrative No data available for this section [facility] No data available for this section [facility] Discharge instructions* Attachments The following attachments cannot be sent through Care Everywhere. * EGD (Upper Endoscopy): Post-op (Indonesian) * Gastritis (Indonesian) [facility] Additional Instructions Important Contact Information You can call [facility] at [phone] any time day or night if you have emergent questions or question regarding discharge instructions. If at any time you are feeling an increase in your psychiatric symptoms, call your physician or behavioral healthcare provider. If any time you have thoughts of harming yourself or others contact one of the following: Call (available 02/05) Crisis Text Line (available 02/05) text 4HOPE to [phone] [facility] (available 8 a.m. Midnight) call [phone] ([phone]) Regular Diet [facility]: Progress note No data available for this section [facility] Summary Purpose Family History No Family History Records FoundNo Family History Records FoundNo Family History Records Found No data available for this section No data available for this section No data available for this section No data available for this section No Family History Records FoundNo Family History Records FoundNo Family History Records FoundNo Family History Records Found Advance Directives No Advanced Directives Records Found Advance Directive Response Recorded Date/ Time Advance Directives No September 11:21pm Reason for Referral Specialty Diagnoses / Procedures Referred By Contac t Referred To Contact Diagnoses Obstructive sleep apnea Sleep related hypoxia PLMD (periodic limb movement disorder) Overweight Snoring Morning headache Restless legs syndrome Fatigue, unspecified type Hypersomnia, unspecified Procedures SLEEP STUDY - TITRATION NM POLYSOM 6/>YRS SLEEP W/CPAP 4/> ADDL DARY Lyla Fernando, INNER TUBE TUBER MACHINE OPERATOR-DETASSELING CREW SUPERVISOR [address] [address] Referral ID Status Reason Start Date Expiration Date V isits Requested Visits Authorized [id number] New Request 06/28/2023 07/22/2024 1 1 Specialty Diagnoses / Procedures Referred By Contac t Referred To Contact Diagnoses Obstructive sleep apnea Sleep related hypoxia PLMD (periodic limb movement disorder) Overweight Snoring Morning headache Restless legs syndrome Fatigue, unspecified type Hypersomnia, unspecified Procedures SLEEP STUDY - DIAGNOSTIC NM POLYSOM 6/>YRS SLEEP 4/> ADDL DARY Lyla Fernando, INNER TUBE TUBER MACHINE OPERATOR-DETASSELING CREW SUPERVISOR [address] [address] Referral ID Status Reason Start Date Expiration Date V isits Requested Visits Authorized [id number] New Request 06/28/2023 07/22/2024 1 1 Specialty Diagnoses / Procedures Referred By Contac t Referred To Contact Diagnoses Obesity, morbid, BMI 40.0-49.9 Gastroesophageal reflux disease, unspecified whether esophagitis present SHILPA on CPAP Procedures DIAGNOSTIC UPPER ENDOSCOPY NM ESOPHAGOGASTRODUODENOSCOPY TRANSORAL DIAGNOSTIC Amrit Gotti DO [address] [place] [address] Referral ID Status Reason Start Date Expiration Date V isits Requested Visits Authorized [id number] New Request 06/07/2023 07/01/2024 1 1 Specialty Diagnoses / Procedures Referred By Contac t Referred To Contact Diagnoses Obesity, morbid, BMI 40.0-49.9 Gastroesophageal reflux disease, unspecified whether esophagitis present SHILPA on CPAP Procedures ECG Amrit Gotti, DO [address] [place] [address] Referral ID Status Reason Start Date Expiration Date V isits Requested Visits Authorized [id number] New Request 06/07/2023 07/01/2024 1 1 Specialty Diagnoses / Procedures Referred By Contac t Referred To Contact Nutrition and Dietetics Diagnoses Obesity, morbid, BMI 40.0-49.9 Gastroesophageal reflux disease, unspecified whether esophagitis present SHILPA on CPAP Amrit Gotti, DO [address] [place] [address] Referral ID Status Reason Start Date Expiration Date V isits Requested Visits Authorized [id number] New Request 06/07/2023 07/01/2024 1 1 Specialty Diagnoses / Procedures Referred By Contac t Referred To Contact Psychology Diagnoses Obesity, morbid, BMI 40.0-49.9 Gastroesophageal reflux disease, unspecified whether esophagitis present SHILPA on CPAP Amrit Gotti, DO [address] [place] [address] Clayton Lnidsey, PsyD [address] [place] [phone] Referral ID Status Reason Start Date Expiration Date V isits Requested Visits Authorized [id number] New Request 06/07/2023 07/01/2024 1 1 Specialty Diagnoses / Procedures Referred By Contac t Referred To Contact Sleep Medicine Diagnoses Obesity, morbid, BMI 40.0-49.9 Gastroesophageal reflux disease, unspecified whether esophagitis present SHILPA on CPAP Amrit Gotti, DO [address] [place] [address] Referral ID Status Reason Start Date Expiration Date V isits Requested Visits Authorized [id number] New Request 06/07/2023 07/01/2024 1 1 Chief Complaint and Reason for Visit Chief Complaint Bipolar Disorder Reason for Visit Major depressive dis order, recurrent, moderate Additional Source Comments Care Team (unrecognized sect ion and content) Materials Planning Manager Relationship Specialty Start Date End Date Shaikh Zoey Nolasco MD [address] [place] [phone] PCP - General Internal Medicine 06/07/23 Materials Planning Manager Relationship Specialty Start Date End Date Shaikh Zoey Nolasco MD [address] [place] [phone] PCP - General Internal Medicine 06/07/23 Materials Planning Manager Relationship Specialty Start Date End Date Shaikh Zoey Nolasco MD [address] [place] [phone] PCP - General Internal Medicine 06/07/23 Materials Planning Manager Relationship Specialty Start Date End Date Shaikh Zoey Nolasco MD [address] [place] [phone] PCP - General Internal Medicine 06/07/23 Materials Planning Manager Relationship Specialty Start Date End Date Shaikh Zoey Nolasco MD [address] [place] [phone] PCP - General Internal Medicine 06/07/23 Materials Planning Manager Relationship Specialty Start Date End Date Shaikh Zoey Nolasco MD [address] [place] [phone] PCP - General Internal Medicine 06/07/23 Materials Planning Manager Relationship Specialty Start Date End Date Shaikh Zoey Nolasco MD [address] [place] [phone] PCP - General Internal Medicine 06/07/23 Materials Planning Manager Relationship Specialty Start Date End Date Shaikh Zoey Nolasco MD [address] [place] [phone] PCP - General Internal Medicine 06/07/23 Team Status: Active Member Role Status Dates Reginald Asher DO Primary Care Provider Active Team Status: Inactive Member Role Status Dates Reginald Asher DO Primary Care Provider Active Flaco Sanchez MD Admit Provider, Attending Jeri lopez Active Materials Planning Manager Relationship Specialty Start Date End Date Shaikh Zoey Nolasco MD [address] [place] [phone] PCP - General Internal Medicine 06/07/23 Materials Planning Manager Relationship Specialty Start Date End Date Shaikh Zoey Nolasco MD [address] [place] [phone] PCP - General Internal Medicine 06/07/23 Materials Planning Manager Relationship Specialty Start Date End Date Shaikh Zoey Nolasco MD [address] [place] [phone] PCP - General Internal Medicine 06/07/23 Materials Planning Manager Relationship Specialty Start Date End Date Reginald Asher DO [address] [place] [address] PCP - General Family Medicine 11/17/23 INFORMATION SOURCE (unrecogn ized section and content) DATE CREATED AUTHOR 04/27/2022 [facility] DATE CREATED AUTHOR AUTHOR'S ORGANIZ ATION 01/10/2023 [facility] DATE CREATED AUTHOR AUTHOR'S ORGANIZ ATION 02/23/2023 [facility] DATE CREATED AUTHOR AUTHOR'S ORGANIZ ATION 10/19/2023 [facility] DATE CREATED AUTHOR AUTHOR'S ORGANIZ ATION 11/13/2023 [facility] DATE CREATED AUTHOR AUTHOR'S ORGANIZ ATION 11/18/2023 [facility] DATE CREATED AUTHOR AUTHOR'S ORGANIZ ATION 12/09/2023 [facility] REASON FOR VISIT (unrecogniz ed section and content) Reason Comments Nutrition Consultation Specialty Diagnoses / Procedures Referred By Contac t Referred To Contact Registered Dietitian / Nutrition and Dietetics Diagnoses Class 3 Procedures FOLLOW-UP - THONG Nino Oneill Isaac, RD [address] [place] [address] Referral ID Status Reason Start Date Expiration Date V isits Requested Visits Authorized [id number] Pending Review 09/13/2023 10/07/2024 1 1 Reason Comments Consult Bariatric Consult Specialty Diagnoses / Procedures Referred By Contac t Referred To Contact Nutrition and Dietetics Diagnoses Obesity, morbid, BMI 40.0-49.9 Gastroesophageal reflux disease, unspecified whether esophagitis present SHILPA on CPAP Amrit Gotti, DO [address] [place] [address] Referral ID Status Reason Start Date Expiration Date V isits Requested Visits Authorized [id number] New Request 06/07/2023 07/01/2024 1 1 Reason Comments Pre-op Exam Specialty Diagnoses / Procedures Referred By Contac t Referred To Contact Diagnoses Obesity, morbid, BMI 40.0-49.9 Gastroesophageal reflux disease, unspecified whether esophagitis present SHILPA on CPAP Procedures DIAGNOSTIC UPPER ENDOSCOPY NM ESOPHAGOGASTRODUODENOSCOPY TRANSORAL DIAGNOSTIC Amrit Gotti, DO [address] [place] [address] Referral ID Status Reason Start Date Expiration Date Visits Re quested Visits Authorized [id number] Closed 06/07/2023 07/01/2024 1 1 Reason Comments Sleep Problem Specialty Diagnoses / Procedures [facility]erred To Contact Diagnoses Obstructive sleep apnea Sleep related hypoxia PLMD (periodic limb movement disorder) Overweight Snoring Morning headache Restless legs syndrome Fatigue, unspecified type Hypersomnia, unspecified Procedures SLEEP STUDY - DIAGNOSTIC NM POLYSOM 6/>YRS SLEEP 4/> ADDL DARY ATTND Lyla Kelly, INNER TUBE TUBER MACHINE OPERATOR-DETASSELING CREW SUPERVISOR [address] [facility] [address] [place] [address] Referral ID Status Reason Start Date Expiration Date Visits Re quested Visits Authorized [id number] Closed 06/28/2023 07/22/2024 1 1 Reason Comments Follow-up Obstructive Sleep Apnea Pre-operative Consultation Bariatric Specialty Diagnoses / Procedures [facility] Referred To Contact Diagnoses Obesity, morbid, BMI 40.0-49.9 Gastroesophageal reflux disease, unspecified whether esophagitis present SHILPA on CPAP Procedures ECG Amrit Gotti, DO [address] [place] [address] Referral ID Status Reason Start Date Expiration Date V isits Requested Visits Authorized [id number] New Request 06/07/2023 07/01/2024 1 1 Specialty Diagnoses / Procedures [facility] Referred To Contact Registered Dietitian / Nutrition and Dietetics Diagnoses class 4 Procedures FOLLOW-UP - Olman Booker, RD [address] [place] [address] Olman Womack, RD [address] [place] [address] Referral ID Status Reason Start Date Expiration Date V isits Requested Visits Authorized [id number] Pending Review 10/18/2023 11/11/2024 1 1 Reason Comments New Patient Eating Disorder Specialty Diagnoses / Procedures [facility] Referred To Contact Psychology Diagnoses Obesity, morbid, BMI 40.0-49.9 Gastroesophageal reflux disease, unspecified whether esophagitis present SHILPA on CPAP Amrit Gotti, DO [address] [place] [address] Clayton Lindsey, PsyD [address] [place] [address] Referral ID Status Reason Start Date Expiration Date Visits Re quested Visits Authorized [id number] Closed 06/07/2023 07/01/2024 1 1 Reason Comments Follow-up Eating Disorder Reason Comments Follow-up Clearance for bariat kell surgery Obstructive Sleep Apnea FOR RECORDS PERTAINING TO PATIENTS WHO ARE OR HAVE BEEN ENROLLED IN A CHEMICAL DEPENDENCY/SUBSTANCEABUSE PROGRAM, SOME INFORMATION MAY BE OMITTED. This clinical summary was aggregated from multiple sources. Caution should be exercised in using it in the provision of clinical care. This summary normalizes information from multiple sources, and as a consequence, information in this document may materially change the coding, format and clinical context of patient data. In addition, data may be omitted in some cases. CLINICAL DECISIONS SHOULD BE BASED ON THE PRIMARY CLINICAL RECORDS. [facility] [employer] [facility]. provides no warranty or guarantee of the accuracy or completeness of information in this document.
[2023-12-21 10:30] VITALS: BP 141/83; PULSE 87; RESP 18; TEMP 36.6; O2SAT 96; BMI 43.6
--- NOTE | 2023-12-21 10:44 | ED.LOWEXI1 ---
HPI - Extremity Injury (Lower) General Chief Complaint: Extremity Injury, Lower Stated Complaint: LOWER EXTREMITY PAIN R ANKLE Time Seen by Provider: 12/21/23 10:30 Source: patient Mode of arrival: walk-in Limitations: no limitations History of Present Illness HPI Narrative: 38-year-old female presents for right ankle pain. She has had it for a week and denies any sort of an injury. She has had some swelling over the lateral malleolus. The medial malleolar area and her foot and her knee and calf do not hurt. No pain in the contralateral ankle. It is worse when she walks on it. Related Data Home Medications Medication Instructions Recorded Confirmed albuterol sulfate 90 mcg/actuation 2 puff inhalation Q4H PRN 10/01/23 12/21/23 aerosol inhaler shortness of breath or wheezing bupropion HCl 100 mg tablet,12 hr 100 mg PO Q12H 10/01/23 10/01/23 sustained-release carbamazepine 200 mg tablet 200 mg PO Q12H 10/01/23 10/01/23 hydrocodone 5 mg-acetaminophen 325 1 tab PO Q4H PRN pain 10/01/23 10/01/23 mg tablet hydroxyzine pamoate 50 mg capsule 50 mg PO Q6H 10/01/23 10/01/23 levothyroxine 137 mcg tablet 137 mcg PO DAILY 10/01/23 12/21/23 metformin 500 mg tablet,extended 500 mg PO DAILY 10/01/23 12/21/23 release 24 hr methocarbamol 500 mg tablet 500 mg PO 10/01/23 naproxen 500 mg tablet 500 mg PO Q12H 10/01/23 10/01/23 ropinirole 0.5 mg tablet 0.5 mg PO BID 10/01/23 12/21/23 ubrogepant 100 mg tablet (Ubrelvy) 100 mg PO PRN Migrain 10/01/23 Previous Rx's Medication Instructions Recorded methylprednisolone 4 mg tablets in See Rx Instructions .Route 10/01/23 a dose pack (Medrol (Rafael)) .COMPLEX #21 ea Allergies Allergy/AdvReac Type Severity Reaction Status Date / Time Iodinated Contrast Media Allergy Intermediate Hives Verified 12/21/23 10:30 Review of Systems ROS Narrative A ten point review of systems is negative except as noted above. PFSH PFSH Social History Smoking status: Never smoker Exam Narrative Exam Narrative: Nurses note and vital signs reviewed and patient is not hypoxic. General: The patient appears well and in no apparent distress. Patient is resting comfortably on cart. Skin: Warm, dry, no pallor noted. There is no rash noted. Head: Normocephalic, atraumatic Eye: Normal conjunctiva, no drainage Ears, Nose, Mouth, and Throat: oral mucosa is moist. Nares patent. Cardiovascular: Regular Rate and Rhythm Respiratory: Patient is in no distress, no accessory muscle use, lungs are clear to auscultation, no wheezing, rales or rhonchi Back: non-tender GI: Soft and nontender Musculoskeletal: The right knee and right calf and right foot are nontender. She has some mild swelling over the right lateral malleolus. Skin intact. No erythema or bruising. Neurological: A&O, normal speech Psychiatric: Cooperative Constitutional Vital Signs, click to edit/add: Last Vital Signs Temp 97.9 F 12/21/23 10:30 Pulse 87 12/21/23 10:30 Resp 18 12/21/23 10:30 BP 141/83 12/21/23 10:30 Pulse Ox 96 12/21/23 10:30 O2 Del Method Room Air 12/21/23 10:30 Course Vital Signs Vital signs: Vital Signs Temperature 97.9 F 12/21/23 10:30 Pulse Rate 87 12/21/23 10:30 Respiratory Rate 18 12/21/23 10:30 Blood Pressure 141/83 12/21/23 10:30 Pulse Oximetry 96 12/21/23 10:30 Oxygen Delivery Method Room Air 12/21/23 10:30 Temperature 97.9 F 12/21/23 10:30 Pulse Rate 87 12/21/23 10:30 Respiratory Rate 18 12/21/23 10:30 Blood Pressure 141/83 12/21/23 10:30 Pulse Oximetry 96 12/21/23 10:30 Oxygen Delivery Method Room Air 12/21/23 10:30 MDM - Extremity Injury (Lower) MDM Narrative Medical decision making narrative: X-rays negative. Cause uncertain. Air splint applied, application checked by me and found to be appropriate, she is neurovascularly intact. Treatment diagnosis and follow-up were discussed with the patient. I have no clinical suspicion of gout. Differential Diagnosis Differential diagnosis: Likely ankle sprain and strain and ankle fracture Imaging Data Ankle x-ray: Radiologist's impression: ITS Impressions Ankle X-Ray 12/21/23 10:47 IMPRESSION: 1. No acute bone abnormality or significant degenerative joint disease. Electronically authenticated by: JORGE ELLIS Date: 12/21/2023 11:03 Discharge Plan Discharge Stand Alone Forms: Portal Instructions Chief Complaint: Extremity Injury, Lower Clinical Impression: Acute right ankle pain Patient Disposition: Home, Self-Care Time of Disposition Decision: 11:17 Condition: Good Mode of Transportation: Private Vehicle Prescriptions / Home Meds: No Action albuterol sulfate 90 mcg/actuation HFA aerosol inhaler 2 puff INHALATION Q4H PRN (Reason: shortness of breath or wheezing) bupropion HCl 100 mg tablet sustained-release 12 hr 100 mg PO Q12H carbamazepine 200 mg tablet 200 mg PO Q12H hydrocodone-acetaminophen 5-325 mg tablet 1 tab PO Q4H PRN (Reason: pain) hydroxyzine pamoate 50 mg capsule 50 mg PO Q6H levothyroxine 137 mcg tablet 137 mcg PO DAILY metformin 500 mg tablet extended release 24 hr 500 mg PO DAILY methocarbamol 500 mg tablet 500 mg PO naproxen 500 mg tablet 500 mg PO Q12H ropinirole 0.5 mg tablet 0.5 mg PO BID Ubrelvy 100 mg tablet 100 mg PO PRN (Reason: Migrain) methylprednisolone [Medrol (Rafael)] 4 mg tablets,dose pack See Rx Instructions .ROUTE .COMPLEX Qty: 21 0RF Rx Instructions: Taper as directed Instructions: Arthralgia (ED) Additional Instructions: Follow-up with Dr. Hawk Referrals: Physician,Non-Staff, MD [Primary Care Provider] - 1 week
--- NOTE | 2023-12-21 10:47 | XR_ITS ---
The [address] [address] Patient Name: AHRVEY HERCULES MRN: [id number] date: 1985 Sex: F Assigned Patient Location: ER Current Patient Location: ER Accession/Order Number: [id number] Exam Date: 12/21/2023 10:42 Report Date: 12/21/2023 11:03 At the request of: LUIS MERCER Procedure: XR ankle RT min 3V PROCEDURE: XR ankle RT min 3V HISTORY: lateral swelling [; acute lateral right ankle swelling COMPARISON: None. FINDINGS: BONES:No fracture, acute abnormality, or significant arthropathy. SOFT TISSUES:Soft tissue swelling; no radiopaque foreign body. EFFUSION:None visible. OTHER: Negative. XR/XR ankle RT min 3V IMPRESSION: 1. No acute bone abnormality or significant degenerative joint disease. Electronically authenticated by: JORGE ELLIS Date: 12/21/2023 11:03
== END 2023-12-21 11:30 | disposition home or self-care (01) ==
PROVIDERS: Emergency Provider Emergency Medicine
DX: M25.571 Pain in right ankle and joints of right foot (principal); Z79.899 Other long term (current) drug therapy; Z79.84 Long term (current) use of oral hypoglycemic drugs; Z79.890 Hormone replacement therapy
CPT/HCPCS: 73610; 99283

== ENCOUNTER 2025-03-18 12:23 | Outpatient (REF) | payer OTHER, SELFPAY ==
--- OUTSIDE RECORDS SUMMARY | 2024-11-28 05:45 | XMS_ITS ---
Author Organization [facility] es Address [address] [place] [address] Care Team Providers Care Garbage Stoker Name Role Phone Nikki Garcia Primary Care Provider [phone] Frantz Coyne [phone] REASON FOR VISIT FILLING Encounters Encounter Location Date Provider Diagnosis [facility] [address] [place] [address] 11/28/2024 Frantz Coyne Plan Of Treatment Next Appt Details Provider Name:Maryellen Joy, 06/07/2025 01:30:00 PM, [address] [place], [address], Provider Name:Maryellen Joy, 06/12/2025 03:00:00 PM, [address] [place], [address], Progress Notes * HARVEY HERCULES MDOB:1984 (39 yo F)Acc No.[id number]:11/28/2024 Patient: Jeri CHANHARVEY Provider: Jacob Coyne DDS :1985 A ge:39 Y S ex:Female Date:11/28/2024 Address:[address] [place], [place] [id number] Pcp:Nikki Garcia Subjective: * Chief Complaints: * 1 . FILLING. * Medical History: Objective: * Vitals: Assessment: Plan: * Treatment: * Images: * Electronic signature of Gilda Coyne DDS on 03/18/2025 at 08:56 AM EDT Sign off status: Pending * Provider: Jacob Coyne DDS Date: 0 11/28/2024 Generated for Beau walden/Michael on: 0 03/18/2025 08:56 AM EDT
--- OUTSIDE RECORDS SUMMARY | 2025-03-12 04:30 | XMS_ITS ---
Author Organization [facility] es Address [address] [place] [address] Care Team Providers Care Panel Flow Machine Operator Name Role Phone Nikki Garcia Primary Care Provider [phone] Frantz Coyne [phone] REASON FOR VISIT FILLING Encounters Encounter Location Date Provider Diagnosis [facility] [address] [place] [address] 03/12/2025 Frantz Coyne Dental caries on pit and fissure surface penetrating into dentin K02.52 Assessments Encounter Date Diagnosis (ICD Code) Assessment Notes Treatment Notes Treatment Clinical Notes Section Notes 03/12/2025 Dental caries on pit and fissure surface penetrating into dentin (ICD-10 - K02.52) Plan Of Treatment Next Appt Details Provider Name:Maryellen Joy, 06/07/2025 01:30:00 PM, [address] [place], [address], Provider Name:Maryellen Joy, 06/12/2025 03:00:00 PM, [address] [place], [address], Progress Notes * HARVEY HERCULES MDOB:1984 (39 yo F)Acc No.[id number]:03/12/2025 Patient: HARVEY DRAKE Provider: Jacob Coyne DDS :1985 A ge:39 Y S ex:Female Date:03/12/2025 Address:[address] [place], [place] [id number] Pcp:Nikki Garcia Subjective: * Chief Complaints: * 1 . FILLING. * Medical History: Objective: * Vitals: * Dental Examination/Plan : Tooth / Surface Status Description Provider 19 OB C RESIN COMPOS - 2 SURFACES POSTERIOR AMG 03/12/2025 Assessment: * Assessment: 1. D ental caries on pit and fissure surface penetrating into dentin - K02.52 (Primary) ? Plan: * Treatment: * Procedure Codes: D 2392 RESIN COMPOS - 2 SURFACES POSTERIOR, TthNo: 19, Srfc: OB * Images: * Electronic signature of Gilda Coyne DDS on 03/18/2025 at 08:56 AM EDT Sign off status: Pending * Provider: Jacob Coyne DDS Date: 03/12/2025 Generated for Beau walden/Jacklyn/Layitting on: 03/18/2025 08:56 AM EDT
--- OUTSIDE RECORDS SUMMARY | 2025-03-18 09:00 | XMS_ITS | Encounter Summary ---
Author Organization [facility] Address [address] [place] [address] Care Team Providers Care Gardener Florist Name Role Phone Reginald Asher MD Unavailable [phone] Harmony Garcia Unavailable Reason for Visit * Reason Comments Well Women Visit Encounter Details Date Type Department Care Team (Late st Contact Info) Description 03/18/2025 9:00 AM EDT Office Visit [facility] [address] [facility] [address] Osiris Martines PA [address] [facility] [address] [place], [place] [address] Well woman exam with routine gynecological exam Social History Tobacco Use Types Packs/Day Years Used Date Smoking Tobacco: Never Smokeless Tobacco: Never Alcohol Use Standard Drinks/Week Comments Yes 1 (1 standard drink = 0.6 oz pur e alcohol) occasionally Comments No Sex and Gender Information Value Date Recorded Sex Assigned at Not on file Legal Sex Female 10:14 PM EDT Gender Identity Not on file Sexual Orientation Not on file documented as of this encounter Last Filed Vital Signs Vital Sign Reading Time Taken Comments Blood Pressure 120/70 03/18/2025 9:04 AM EDT Pulse - - Temperature - - Respiratory Rate - - Oxygen Saturation - - Inhaled Oxygen Concentration - - Weight 97.5 kg (215 lb) 03/18/2025 9:04 AM EDT Height - - Body Mass Index 31.75 11/06/2024 9:59 AM EST documented in this encounter Progress Notes * JESUS Quesada - 03/18/2025 9:00 AM EDT Reason for Appointment: Patient ID: Malina Martinez is a 39 y.o. female who presents for Well Women Visit Patient presents today for Annual Exam. MEDICATIONS Current Outpatient Medications Medication Instructions Lybalvi 10-10 MG per tablet 1 tablet, Oral, Nightly metFORMIN XR (GLUCOPHAGE-XR) 500 mg, Oral, Daily with evening meal Qulipta 60 MG tablet 1 tablet, Oral, Daily rOPINIRole (Requip) 0.5 MG tablet take 1 tablet by mouth every morning then 1 tablet in the afternoon and 1 to 2 tablets nightly Ubrelvy 100 mg, Oral, As needed ALLERGIES Allergies Allergen Reactions Contrast Allergy Premed Pack [Prednisone & Diphenhydramine] PROBLEMS Active Ambulatory Problems Diagnosis Date Noted Hypomagnesemia 03/12/2024 Insomnia, unspecified 03/12/2024 Hypersomnia, unspecified 03/12/2024 PLMD (periodic limb movement disorder) 03/12/2024 Snoring 03/12/2024 Migraine 03/12/2024 Obesity 03/12/2024 Sleep apnea 03/12/2024 Bilateral occipital neuralgia 03/12/2024 Carpal tunnel syndrome on both sides 03/12/2024 Severe obstructive sleep apnea 03/12/2024 Muscle spasm 03/12/2024 Tension type headache 03/12/2024 SHILPA (obstructive sleep apnea) 03/12/2024 Myoclonic jerking 03/12/2024 RLS (restless legs syndrome) 03/12/2024 Resolved Ambulatory Problems Diagnosis Date Noted No Resolved Ambulatory Problems Past Medical History: Diagnosis Date Alopecia of scalp Bipolar 1 disorder (CMS/HCC) Fatigue History of renal anomaly Hypermagnesemia Hypersomnia Hypothyroid (CMS/HCC) Insomnia PCOS (polycystic ovarian syndrome) Periodic limb movement Restless leg syndrome Tension headache Unable to lose weight HISTORY PAST MEDICAL HISTORY SOCIAL HISTORY Past Medical History: Diagnosis Date Alopecia of scalp Bilateral occipital neuralgia Bipolar 1 disorder (CMS/HCC) Carpal tunnel syndrome on both sides Fatigue History of renal anomaly Hypermagnesemia Hypersomnia Hypothyroid (CMS/HCC) Insomnia Migraine Muscle spasm Obesity SHILPA (obstructive sleep apnea) PCOS (polycystic ovarian syndrome) Periodic limb movement Restless leg syndrome Sleep apnea Snoring Tension headache Unable to lose weight Social History Tobacco Use Smoking status: Never Smokeless tobacco: Never Vaping Use Vaping status: Never Used Substance Use Topics Alcohol use: Yes Alcohol/week: 1.0 - 2.0 standard drink of alcohol Types: 1 - 2 Standard drinks or equivalent per week Comment: occasionally Drug use: Never FAMILY HISTORY Family History Problem Relation Name Age of Onset Cancer Maternal Grandmother Stroke Other SURGICAL HISTORY Past Surgical History: Procedure Laterality Date DILATION AND CURETTAGE KIDNEY SURGERY LASIX RENOGRAM Lasix PAP SMEAR 12/2021 Normal REVIEW OF SYSTEMS Review of Systems: Review of Systems Constitutional: Negative. HENT: Negative. Eyes: Negative. Respiratory: Negative. Cardiovascular: Negative. Gastrointestinal: Negative. Genitourinary: Negative. Musculoskeletal: Negative. Skin: Negative. Neurological: Negative. All other systems reviewed and are negative. Hematological: Negative. Endocrine: Negative. Allergic/Immunologic: Negative. OBJECTIVE Objective: Physical Exam Constitutional: Appearance: Normal appearance. Genitourinary: Right Adnexa: not tender and no mass present. Left Adnexa: not tender and no mass present. No cervical discharge. IUD strings visualized. Breasts: Breasts are soft. Right: Normal. Left: Normal. HENT: Head: Normocephalic. Nose: Nose normal. Mouth/Throat: Mouth: Mucous membranes are moist. Cardiovascular: Rate and Rhythm: Normal rate. Pulmonary: Effort: Pulmonary effort is normal. Abdominal: General: Bowel sounds are normal. Palpations: Abdomen is soft. Musculoskeletal: General: Normal range of motion. Cervical back: Normal range of motion. Neurological: General: No focal deficit present. Mental Status: She is alert. Skin: General: Skin is warm and dry. Psychiatric: Mood and Affect: Mood normal. Vitals and nursing note reviewed. Exam conducted with a embroidery assistant present. Vitals: Estimated body mass index is 31.75 kg/m?? as calculated from the following: Height as of 11/06/24: 5' 9 . Weight as of this encounter: 215 lb. BP: 120/70 No LMP recorded. (Menstrual status: IUD). ASSESSMENT & PLAN ICD-10-CM 1. Well woman exam with routine gynecological exam Z01.419 Pap Smear HPV DNA probe, amplified Annual Exam: Patient presents today for an annual exam. Patient states she is doing well and has no complaints. Pap was obtained without difficulty. Orders Placed This Encounter Procedures HPV DNA probe, amplified Follow Up: Patient is to return in one year for annual unless needed otherwise. Documented by JESUS Quesada on behalf of: JESUS Quesada documented in this encounter Plan of Treatment Upcoming Encounters Date Type Department Care Team (Late st Contact Info) Description 03/24/2026 10:00 AM EDT Office Visit [facility] [address] [facility] [address] Osiris Martines PA [address] [facility] [place] [address] Scheduled Orders Name Type Priority Associated Diagnoses Orde r Schedule Pap Smear Pathology and Cytology Routine Well woman exam with routine gynecological exam Ordered: 03/18/2025 HPV DNA probe, amplified Microbiology Routine Well woman exam with routine gynecological exam Ordered: 03/18/2025 documented as of this encounter Visit Diagnoses Diagnosis Well woman exam with routine gynecological exam Routine gynecological examination documented in this encounter Care Teams Gardener Florist Relationship Specialty Start Date End Date Reginald Asher MD [address] [place] [address] PCP - External PCP Family Medicine 05/24/23 Harmony Garcia PA [address] [facility] [place] [address] Physician Socially Responsible Investment Adviser Neurology 12/22/23 documented as of this encounter
--- OUTSIDE RECORDS SUMMARY | 2025-03-18 12:27 | XMS_ITS | Encounter Summary ---
Author Organization [facility] Address [address] [facility] [place] [address] Care Team Providers Care Staff Design Engineer Name Role Phone Reginald Asher MD Unavailable [phone] Harmony Hou Unavailable Reason for Visit * Reason Comments Med Refill Encounter Details Date Type Department Care Team ([facility] Contact Info) Description 12/10/2023 Refill [facility] [address] [facility] [place] [phone] Kishore Pastor DO [address] [facility] [address] [place] [place] [id number] Encounter for weight management Social History Tobacco Use Types Packs/Day Years Used Date Smoking Tobacco: Never Assessed Comments No Sex and Gender Information Value Date Recorded Sex Assigned at Not on file Legal Sex Female 10:14 PM EDT Gender Identity Not on file Sexual Orientation Not on file documented as of this encounter Plan of Treatment Upcoming Encounters Date Type Department Care Team (Late Contact Info) Description 03/24/2026 10:00 AM EDT Office Visit [facility] [address] [facility] [place] [phone] Osiris Martines PA [address] [facility] [address] [place], [facility] documented as of this encounter Visit Diagnoses Diagnosis Encounter for weight management documented in this encounter Care Teams Staff Design Engineer Relationship Specialty Start Date End Date Reginald Asher MD [address] [place] [address] PCP - External PCP Family Medicine 05/24/23 Harmony Garcia PA [address] [place] [address] Physician Cannon Pinion Adjuster Neurology 12/22/23 documented as of this encounter
--- OUTSIDE RECORDS SUMMARY | 2025-03-18 12:27 | XMS_ITS | Patient Health Record ---
Author Organization [facility] es Address [address] [place] [address] Care Team Providers Care Associate Software Application Engineer Name Role Phone Nikki Garcia Primary Care Provider Stanford Frantz Unavailable [phone] Jadon Cruz Unavailable [phone] Maria C Bennett Unavailable [phone] Allergies Allergen (clinical drug ingredient) Drug/Non Drug Allergy documented on EMR Reaction Allergy Type Onset Date Status lumateperone Caplyta muscle weakness, increased anxiety, burning sensation Drug Allergy Active Reason For Referral No Information Medications Medication SIG (Take, Route, Frequency, Duration) Notes Start Date End Date Status Naltrexone HCl 50 MG 1 tablet Orally Once a day 06/01/2023 Not-Taking Fluticasone Propionate 50 MCG/ACT instill 2 sprays into each nostril once daily Nasal for 30 Active buPROPion HCl ER (SR) 100 MG 1 tablet Orally twice a day for 30 days 10/25/2023 Active carBAMazepine 200 MG 1 tab qPM; may increase to BID as tolerated Orally Twice a day Not-Taking rOPINIRole HCl 0.5 MG 1 tab Orally TID Active Caplyta 10.5 MG 1 cap Orally once daily in evening for 30 days stop medicine for any concerns of side effects 11/16/2023 Active Emgality 300 Dose Ac tive hydrOXYzine Pamoate 25 MG take 1 capsule by mouth three times a day if needed for anxiety or PANIC Oral for 30 Not-Taking Levothyroxine Sodium 137 MCG take 1 tablet by mouth once daily ON AN EMPTY STOMACH WITH WATER.... (REFER TO PRESCRIPTION NOTES). Oral for 90 Active metFORMIN HCl 500 MG Oral for 30 Active Adipex-P 37.5 MG 1 tablet Orally Once a day Not-Taking buPROPion HCl 100 MG 1 tablet in AM Orally daily for 30 day(s) take with naltrexone daily 11/02/2022 Not-Taking Ajovy 225 MG/1.5ML inject 1 AND 1/2 milliliters subcutaneously ONCE A MONTH Subcutaneous for 28 Not-Taking Social History Tobacco Use: Social History Observation Description Date Details (start date - stop date) Never Smoker NA - NA Tobacco Screen: Question Answer Notes Are you a: never smoker Alcohol Screening: Question Answer Notes Did you have a drink containing alcohol in the p ast year? No Points 0 Interpretation Negative Problems Problem Type SNOMED Code ICD Code Onset Dates Problem Status W/U Status Risk Notes Problem Bipolar 1 disorder, mixed, moderate (F31.62) Active confirmed Encounters Encounter Location Date Provider Diagnosis [address] [address] 07/25/2024 Jadon Cruz Dental caries on pit and fissure surface penetrating into dentin K02.52 ; Encounter for dental examination and cleaning with abnormal findings Z01.21 ; Disturbances in tooth eruption K00.6 ; Other dental procedure status Z98.818 and Acute gingivitis, plaque induced K05.[address] [address] 02/01/2025 Maria C Bennett Acute gingivitis, pl aque induced K05.[address] [address] 03/12/2025 Frantz Coyne Dental caries on pit and fissure surface penetrating into dentin K02.52 Assessments Encounter Date Diagnosis (ICD Code) Assessment Notes Treatment Notes Treatment Clinical Notes Section Notes 07/25/2024 Dental caries on pit and fissure surface penetrating into dentin (ICD-10 - K02.52) 02/01/2025 Acute gingivitis, plaque induced (ICD-10 - K05.00) 03/12/2025 Dental caries on pit and fissure surface penetrating into dentin (ICD-10 - K02.52) 07/25/2024 Encounter for dental examination and cleaning with abnormal findings (ICD-10 - Z01.21) 07/25/2024 Disturbances in tooth eruption (ICD-10 - K00.6) 07/25/2024 Other dental procedure status (ICD-10 - Z98.818) 07/25/2024 Acute gingivitis, plaque induced (ICD-10 - K05.00) Plan Of Treatment Next Appt Details Provider Name:Maryellen Joy, 06/07/2025 01:30:00 PM, [address], [place], [address], Provider Name:Maryellen Joy, 06/12/2025 03:00:00 PM, [address], [place], [address], Insurance Providers Payer Name Payer Address Payer Phone Subscriber Number Group Number Insured Name Patient Relationship to Insured Coverage Start Date Coverage End Date [facility] [place] [facility] [address] [place] [address] [phone] [id number] DELISA HARVEY Self - patient is the insured [address] [facility] [employer] e [address] [place] [address] [id number] DELISA HARVEY Self - patient is the insured 3 [facility] [employer] E-termed [address] [place] [address] [id number] DELISA HARVEY Self - patient is the insured 1 3 [employer] MEDICAID [employer] after [employer] E-termed [address] [place] [address] [id number] DELISA HARVEY Self - patient is the insured 1 3 [facility] [employer] E-termed 22 [address] [place] [address] [id number] DELISA HARVEY Self - patient is the insured 2 3 [employer] MEDICAID [employer] after [employer] E-termed [address] [place] [address] [phone] [id number] ISRRAEL HERCULESRAE Self - patient is the insured 2 3 Dental [employer] e [facility] [address] [place] [address] [id number] ISRRALE HERCULESRAE Self - patient is the insured 4 [employer] [facility] CareSourc e [address] [place] [address] [id number] ISRRAEL HERCULESRAE Self - patient is the insured 4 Medical (General) History Medical History History ICD Code bipolar Surgical History Surgery Date(Month/Year) kidney surgery tonsillectomy D&C Hospitalization History Reason Date(Month/Year) see [address]
--- OUTSIDE RECORDS SUMMARY | 2025-03-18 12:27 | XMS_ITS | Encounter Summary ---
Author Organization [facility] Address [address] [facility] [facility] [place] [address] Care Team Providers Care Dining Room Tables Set Up Attendant Name Role Phone Reginald Asher MD Unavailable [phone] Harmony Garcia Unavailable Encounter Details Date Type Department Care Team (Late Contact Info) Description 03/18/2025 Bamboo flowsheet [facility] [address] [address] Osiris Martines PA [address] [place] [address] Dr Griffin, [id number] Social History Tobacco Use Types Packs/Day Years [...] 03/24/2026 10:00 AM EDT Office Visit [facility] [address] [place] [address] Osiris Martines PA [address] [place] [address] Dr Griffin, [id number] documented as of this encounter Visit Diagnoses Not on filedocumented in this encounter Care Teams Dining Room Tables Set Up Attendant Relationship Specialty Start Date End Date Reginald Asher MD [address] [place] [address] PCP - External PCP Family Medicine 05/24/23 Harmony Garcia PA [address] [place] [address] Physician Support Analyst Neurology 12/22/23 documented as of this encounter
--- OUTSIDE RECORDS SUMMARY | 2025-03-18 12:27 | XMS_ITS | Clinical Summary ---
Author Organization [facility] Address [address] [place] [id number] Care Team Providers Care Line Person Name Role Phone No, Physician Primary Care Provider Unavailabl e Allergies No known active allergies Medications fremanezumab-vf rm (Ajovy Autoinjector) 225 mg/1.5 mL AtIn Inject under the skin . 1 Active lithium 300 MG capsule 1 capsule 1 Active LORazepam (ATIVAN) 0.5 MG tablet 1 tablet 0 Active rOPINIRole (REQUIP) 0.5 MG tablet 1 tab 9 Active Ubrelvy 50 mg Tab take 1 tablet by mouth AT THE ONSET OF MIGRAINE, MAY REPEAT IN 2 ... (REFER TO PRESCRIPTION NOTES). 1 Active benzonatate (TESSALON) 100 MG capsule Take 1 (one) capsule (100 mg total) by mouth 3 (three) times a day as needed for cough . 20 capsule 1 Active pseudoePHEDrine (SUDAFED) 60 MG tablet Take 1 (one) tablet (60 mg total) by mouth every 6 (six) hours as needed for congestion . 20 tablet 2 Active guaiFENesin (MUCINEX) 600 mg 12 hr tablet Take 1 (one) tablet (600 mg total) by mouth every 12 (twelve) hours . 20 tablet 2 Active Active Problems No known active problems Social History Tobacco Use Types Packs/Day Years Used Date Smoking Tobacco: Never Smokeless Tobacco: Never Alcohol Use Standard Drinks/Week Comments Not Currently 0 (1 standard drink = 0.6 oz pur e alcohol) Comments No Sex and Gender Information Value Date Recorded Sex Assigned at Not on file Legal Sex Female 11:11 PM EDT Gender Identity Female 07/10/2020 8:07 AM EDT Sexual Orientation Straight 07/23/2020 1: 19 PM EDT Plan of Treatment Health Maintenance Due Date Last Done Comments Wellness Visit 1990 Depression Screening/Follow- Up (PHQ-2/9) 1999 HIV Screening 2002 Hepatitis C Screening 2005 Pap Smear 2008 Cervical Cancer Screening 2017 HPV/Cotest 2017 Tetanus: Every 10yrs 10/24/2021 10/24/2011 COVID-19 Vaccine (2023-2 5 season) 2024 Influenza Vaccine (Season Ended) 2025 Pneumococcal Vaccine: Ped or At-Risk Aged Out No longer eligible b ased on patient's age to complete this topic Insurance [employer] MEDICAID [place] [facility] [employer] Care Teams Line Person Relationship Specialty Start Date End Date No, Physician [facility] PCP - General 07/23/20
--- OUTSIDE RECORDS SUMMARY | 2025-03-18 12:27 | XMS_ITS | Clinical Summary ---
Author Organization [facility] Address [address] [place] [address] Care Team Providers Care Sole Skiver Name Role Phone Reginald Asher MD Unavailable [phone] Harmony Garcia Unavailable Allergies Active Allergy Reactions Criticality Noted Date Comments Prednisone & Diphenhydramine 023 Medications metFORMIN XR (Glucophage-XR) 500 MG 24 hr tabletIndicatio ns:Encounter for weight management take 1 tablet by mouth once daily with dinner 30 tablet 12/20/19 24 Active Lybalvi 10-10 MG per tablet Take 1 tablet by mouth at bedtime 01/17/20 24 Active Ubrogepant (Ubrelvy) 100 MG tabletIndicatio ns:Migraine without aura and without status migrainosus, not intractable (CMS/HCC) Take 100 mg by mouth if needed (at onset of migraine) 16 tablet 2 11/06/19 25 Active rOPINIRole (Requip) 0.5 MG tabletIndicatio ns:Restless Leg Syndrome take 1 tablet by mouth every morning then 1 tablet in the afternoon and 1 to 2 tablets nightly 120 tablet 2 01/16/20 25 Active Qulipta 60 MG tabletIndicatio ns:RLS (restless legs syndrome) TAKE 1 TABLET BY MOUTH EVERY DAY 30 tablet 2 02/19/20 25 Active amoxicillin (Amoxil) 500 MG tablet Take 500 mg by mouth in the morning and 500 mg before bedtime. 01/25/20 24 025 Discontinued ibuprofen 800 MG tablet take 1 tablet by mouth every 6 to 8 hours if needed for pain 01/30/20 24 025 Discontinued Clobetasol Propionate 0.05 % shampoo apply topically to scalp and massage in then RINSE TWICE A WEEK 01/18/20 24 025 Discontinued triamcinolone (Kenalog) 0.1 % cream APPLY TOPICALLY TO AFFECTED AREAS 2 TIMES A WEEK if needed 12/29/19 24 025 Discontinued modafinil (Provigil) 100 MG tablet Take 100 mg by mouth in the morning and 100 mg before bedtime. 025 Discontinued Atogepant (Qulipta) 60 MG tabletIndicatio ns:RLS (restless legs syndrome) TAKE 1 TABLET BY MOUTH EVERY DAY 30 tablet 2 10/22/19 25 025 Discontinued Active Problems Problem Noted Date Diagnosed Date Hypomagnesemia 03/12/2024 Insomnia, unspecified 03/12/2024 Hypersomnia, unspecified 03/12/2024 PLMD (periodic limb movement disorder) Snoring 03/12/2024 Migraine 03/12/2024 Obesity 03/12/2024 Sleep apnea 03/12/2024 Bilateral occipital neuralgia 03/12/2024 Carpal tunnel syndrome on both sides 03/12/2024 Severe obstructive sleep apnea 03/12/2024 Muscle spasm 03/12/2024 Tension type headache 03/12/2024 SHILPA (obstructive sleep apnea) 03/12/2024 Myoclonic jerking 03/12/2024 RLS (restless legs syndrome) 03/12/2024 Encounters Date Type Department Care Team Description 03/18/2025 9:00 AM EDT Office Visit [facility] [address] [place] [address] Osiris Martines PA Well woman exam with routine gynecological exam 03/18/2025 Bamboo flowsheet [facility] [address] [place] [address] Osiris Martines PA 02/18/2025 Refill [facility] [address] [place] [address] Emelina Gan PA RLS (restless legs syndrome) 01/15/2025 Telephone [facility] [address] [place] [address] Mj Hollins MA from Last 3 Months Family History Medical History Relation Name Comments Cancer Maternal Grandmother Stroke Other Relation Name Status Comments Maternal Grandmother Other Social History Tobacco Use Types Packs/Day Years Used Date Smoking Tobacco: Never Smokeless Tobacco: Never Alcohol Use Standard Drinks/Week Comments Yes 1 (1 standard drink = 0.6 oz pur e alcohol) occasionally Comments No Sex and Gender Information Value Date Recorded Sex Assigned at Not on file Legal Sex Female 10:14 PM EDT Gender Identity Not on file Sexual Orientation Not on file Last Filed Vital Signs Vital Sign Reading Time Taken Comments Blood Pressure 120/70 03/18/2025 9:04 AM EDT Pulse 62 11/06/2024 9:59 AM EST Temperature - - Respiratory Rate 16 11/06/2024 9:59 AM EST Oxygen Saturation 96% 11/06/2024 9:59 AM EST Inhaled Oxygen Concentration - - Weight 97.5 kg (215 lb) 03/18/2025 9:04 AM EDT Height 175.3 cm (5' 9 ) 11/06/2024 9:59 AM EST Body Mass Index 31.75 11/06/2024 9:59 AM EST Plan of Treatment Upcoming Encounters Date Type Department Care Team (Late st Contact Info) Description 03/24/2026 10:00 AM EDT Office Visit [facility] [address] [place] [address] Osiris Martines PA [address] [place] [address] Insurance [employer] Care Teams Sole Skiver Relationship Specialty Start Date End Date Reginald Asher MD [address] [place] [address] PCP - External PCP Family Medicine 05/24/23 Harmony Garcia PA [address] [place] [address] Physician Personal Injury Specialist Neurology 12/22/23
--- OUTSIDE RECORDS SUMMARY | 2025-03-18 12:27 | XMS_ITS | Clinical Summary ---
Author Organization [facility] Address [address] [place] [address] Phone Care Team Providers Care Machine Straw Hat Presser Name Role Phone Reginald Asher DO Primary Care Provider [phone] Social History Tobacco Use Types Packs/Day Years Used Date Smoking Tobacco: Never Assessed Comments Unknown Sex and Gender Information Value Date Recorded Sex Assigned at Female 07/12/2023 4:37 PM EDT Legal Sex Female 11:37 AM EST Gender Identity Female 07/12/2023 4:37 PM EDT Sexual Orientation Not on file Last Filed Vital Signs Vital Sign Reading Time Taken Comments Blood Pressure - - Pulse - - Temperature - - Respiratory Rate - - Oxygen Saturation - - Inhaled Oxygen Concentration - - Weight 132 kg (291 lb 0.1 oz) 06/21/2022 9:40 AM EDT Height 175.2 cm (5' 8.98 ) 06/21/2022 9:40 AM ED T Body Mass Index 43 06/21/2022 9:40 AM EDT Plan of Treatment Health Maintenance Due Date Last Done Comments HIV Screening 1987 Lipid Panel 1987 Yearly Adult Physical 1987 MMR Vaccines (1 of 1 - Stand lo series) 1988 Varicella Vaccines (1 of 2 - 13+ 2-dose series) 2000 Hepatitis C Screening 2005 Hepatitis B Vaccines (1 of 3 - 19+ 3-dose series) 2006 Cervical Cancer Screening 2008 HPV/Cotest 2008 Pap Smear 2008 DTaP/Tdap/Td Vaccines (1 - Tdap) 2009 COVID-19 Vaccine (1 - 2023-2 5 season) 2024 Influenza Vaccine (Season Ended) 2025 07/08/20 23 Zoster Vaccines (1 of 2) 2037 HIB Vaccines Aged Out No longer eligi ble based on patient's age to complete this topic HPV Vaccines Aged Out No longer eligi ble based on patient's age to complete this topic Hepatitis A Vaccines Aged Out No long er eligible based on patient's age to complete this topic IPV Vaccines Aged Out No longer eligi ble based on patient's age to complete this topic Meningococcal Vaccine Aged Out No reina annabella eligible based on patient's age to complete this topic Pneumococcal Vaccine: Pediat rics and At-Risk Adult Patients Aged Out No longer hugo gible based on patient's age to complete this topic Rotavirus Vaccines Aged Out No longer eligible based on patient's age to complete this topic Medical Devices Implanted Type Area Studio Control Operator Device Identifier Shelf Expiration Date Model / Serial / Lot Graft, Amniofix, 4cm X 6cm Case [id number] Implanted:Qty: 1 on 06/25/2022 by Wolfgang Jose MD Graft Left: Wrist [employer] 10/12/2026 [id number] / / Description:Converted from [facility] Acute. Please see archived information for full log information. Care Teams Machine Straw Hat Presser Relationship Specialty Start Date End Date Reginald Asher DO [address] [facility]- [address] [address] PCP - General 12/09/16
--- OUTSIDE RECORDS SUMMARY | 2025-03-18 12:27 | XMS_ITS | Encounter Summary ---
Author Organization [facility] Address [address] [place] [address] Care Team Providers Care Manager Database Name Role Phone Reginald Asher MD Unavailable [phone] Harmony Garcia Unavailable Reason for Visit * Reason Comments Med Refill Encounter Details Date Type Department Care Team (Late st Contact Info) Description 12/14/2023 Refill [facility] [address] [place] [phone] Kishore Pastor, [address] Tammie Brunner, [place] [address] Encounter for weight management Social History Tobacco Use Types Packs/Day Years Used Date Smoking Tobacco: Never Assessed Comments No Sex and Gender Information Value Date Recorded Sex Assigned at Not on file Legal Sex Female 10:14 PM EDT Gender Identity Not on file Sexual Orientation Not on file documented as of this encounter Miscellaneous Notes * Telephone Encounter - Claudia Giraldo LPN - 12/20/2023 11:41 AM EDT Approving, but needs appt for additional refills. documented in this encounter Plan of Treatment Upcoming Encounters Date Type Department Care Team (Late st Contact Info) Description 03/24/2026 10:00 AM EDT Office Visit [facility] [address] [facility] [address] Osiris Martines PA [address] [place] [address] [place] [address] documented as of this encounter Visit Diagnoses Diagnosis Encounter for weight management documented in this encounter Care Teams Manager Database Relationship Specialty Start Date End Date Reginald Asher MD [address] [place] [address] PCP - External PCP Family Medicine 05/24/23 Harmony Garcai PA [address] [place] [address] Physician Real Estate Specialist Neurology 12/22/23 documented as of this encounter
[2025-03-21 12:12] LABS: Age Gdln ACOG Testing Note (.); HPV Aptima Negative (Negative); IGP, Aptima HPV, rfx 16/18,45 Note (.)
== END 2025-03-18 12:24 | disposition home or self-care (01) ==
LOC: LAB 12:23
PROVIDERS: Visit Provider Physician Assistant
DX: Z01.419 Encounter for gynecological examination (general) (routine) without abnormal findings (principal)
CPT/HCPCS: 87624; 88175